=== PATIENT | female | born 1940 | race Caucasian/White ===

== ENCOUNTER 2016-06-12 14:38 | Inpatient (IN) | payer MEDICARE, MEDICAID ==
[~2016-06-12] VITALS: Ht 152.4 cm; Wt 110.2 kg
[~2016-06-12 14:38] MED LIST: ALBU8.5H2 IH; ASPI325T32 PO; ATOR20TA65 PO; BECL8.7A6 IH; CHOL100045 PO; FLUT12AE10 IH; LEVO112T4 PO; LISI-571 PO; MAGN400C PO; METF850T PO; METO25TA6 PO; MULT-1018 PO; TRIA1TAB2 PO; TRIAMCINOLONE 55 MCG
[2016-06-12 14:52] VITALS: BP 130/80; PULSE 66; RESP 22; O2SAT 99
--- NOTE | 2016-06-12 15:59 | ED.REPORT ---
HPI-General Illness Date of Service Jun 12, 2016 ED Provider: Zia Norwood MD 75 year old female with a history of CHF, CAD, CKD, IDDM, hypothyroidism, and [place] presents to the ER accompanied by her production administrative assistant referred by her PCP complaining of a week of worsening shortness of breath and lower extremity swelling. Associated rapid 40lb weight gain, and nausea. Patient denies chest pain, diaphoresis, fever, chills and vomiting. She states that symptoms onset a week after Dr. Wilde, Nephrology, took her off one of her medications. About a week ago she experienced an episode of nausea and mild back pain that "felt like a silent [place]". At that time she attempted to make an appointment with her health club attendant, Dr. Cooley, with no success. She also mentions a sore on the back of her left leg secondary to an encounter with a blackberry vine. Nursing Notes Stated Complaint: SHORT OF BREATH- SENT FROM NEPH Chief Complaint: General Complaint Nursing Notes Reviewed: Yes Allergies: Coded Allergies: Sulfa (Sulfonamide Antibiotics) (Verified Allergy, Severe, hives/SOB, ) TAPE (Verified Allergy, Severe, singh, 11/14/11) cephalexin (Verified Allergy, Severe, blurred vision, 06/12/16) spironolactone (Verified Allergy, Severe, "vision and dyspnea, 06/12/16) hydrocodone (Verified Allergy, Intermediate, Rash,Itching,, 06/12/16) hydrochlorothiazide (Verified Allergy, Mild, Rash,Itching,, 06/12/16) [place] (Verified Allergy, Unknown, 06/12/16) barley (Verified Allergy, Unknown, 06/12/16) Uncoded Allergies: grains (Allergy, Severe, asthma-like sx, 07/15/09) legumes (Allergy, Severe, asthma-like sx, 07/15/09) novacaine (Allergy, Severe, "drunk", 07/15/09) Scheduled Aspirin (Aspirin) 325 Mg Tablet 325 MG PO DAILY Cholecalciferol (Vitamin D3) (Vitamin D) 1,000 Unit Capsule 1,000 UNIT PO DAILY Furosemide (Furosemide) 20 Mg Tab 20 MG PO DAILY Glipizide ER (Glucotrol XL) 10 Mg Tablet 10 MG PO BID Insulin Glargine (Lantus U100 Solostar Insulin Pen) 100 Unit/1 Ml Insuln.pen 10 UNITS SUBQ HS Levothyroxine (Levothyroxine) 112 Mcg Tablet 112 MCG PO DAILY Multivitamin (Multi Vitamin Daily) 1 Each Tablet 1 EACH PO DAILY Pravastatin (Pravastatin) 20 Mg Tablet 20 MG PO DAILY Scheduled PRN Albuterol HFA (Proair HFA) 8.5 Gm Hfa.aer.ad 2 PUFFS IH Q4-6H PRN PRN asthma Albuterol Neb Soln (Albuterol Neb Soln) 2.5 Mg/3 Ml Vial.neb 1 VIAL INH q4-6 hours PRN PRN For Shortness of Breath Fluticasone Propionate (Flovent HFA 220 mcg) 12 Gm Aer.w.adap 1 PUFF IH BID PRN PRN For Shortness of Breath General Time Seen by MD: 15:26 Chief Complaint Other (SOB and Lower Extremity Swelling) Hx Obtained From: Patient Arrived By: Walk-in Sudden in Onset?: No Onset Occurred: 1 week ago Symptom Duration: Since onset Associated with: Denies: Chest pain, Diaphoresis Pertinent Negative: Pt denies other symptoms Context Related History: Reports Coronary artery disease, Reports Diabetes mellitus Recent Healthcare: Recent doctor visit Similar Sx Previous: Yes Past Medical History Past Medical History Notes: PCP: Dr. Buck Pharmacy Clerk: Dr. Cooley Past Medical History Previous [place] with stent Renal insufficiency Reports: Asthma, Cancer, Congestive heart failure, Diabetes mellitus, Hyperlipidemia, Hypertension Reports: Thyroid disease Past Surgical History Left sided lumpectomy with lymph node dissection Cardiac cath January 2012 after an [place] Stenting to the distal right coronary Family History Noncontributory Smoking History Never Smoker Social History Drug Use: Denies drug use Other Social History: Local resident Ambulatory Status Independent Review of Systems Full Review of Systems Constitutional: Denies: Chills, Fever Respiratory: Reports: Shortness of breath, Denies: Non-productive cough Cardiovascular: Denies: Chest pain GI: Reports: Nausea, Denies: Diarrhea, Vomiting Musculoskeletal: Reports: Back pain, Extremity swelling (Lower, bilateral) Skin: Denies Diaphoresis Complete sys rev & neg: except as marked. Physical Exam Vital Signs Vital Signs Date Time Temp Pulse Resp B/P Pulse Ox O2 Delivery O2 Flow Rate FiO2 06/12/16 18:28 90 24 126/71 96 Nasal Cannula 2 06/12/16 16:14 77 29 125/82 86 Room Air 06/12/16 14:52 36.7 66 22 130/80 99 Room Air Initial VS: Reviewed Head / Eyes: Atraumatic, Normocephalic Neck: Supple, Non-tender, Full range of motion Abdomen / GI: Soft, Non-tender, No guarding, No rebound, No distention Skin: Warm, Dry, No cyanosis Neurologic: Alert, Oriented, Nonfocal Respiratory / Chest: Breath sounds NL, No respiratory distress, No rales, No rhonchi, No wheezing Diminished Breath Sounds: Positive: Decreased bilateral Cardiovascular: No gallop, No murmurs, No rubs Heart Rate / Rhythm: Positive: Irregular rhythm Marked pitting edema of the lower extremities bilaterally, extending up to navel. Interpretation & Diagnostics Lab Results Interpretation Result Diagram: 06/12/16 1600 06/12/16 1600 Test 06/12/16 16:00 White Blood Count 6.9th/mm3 (3.8-10.1) Red Blood Count 5.22mil/mm3 (3.90-5.20) Hemoglobin 13.7g/dL (12.0-15.6) Hematocrit 42.7% (35.0-46.0) Mean Corpuscular Volume 81.8fL (81-100) Mean Corpuscular Hemoglobin 26.2pg (27.0-35.0) Mean Corpuscular Hemoglobin Concent 32.1% (32.0-37.0) Red Cell Distribution Width 18.7% (12.3-15.4) Platelet Count 265bil/L (150-400) Neutrophils (%) (Auto) 70.9% (40-74) Lymphocytes (%) (Auto) 10.9% (14-46) Monocytes (%) (Auto) 12.1% (4-12) Eosinophils (%) (Auto) 5.1% (0-5) Basophils (%) (Auto) 0.7% (0-3) Prothrombin Time 12.1sec (8.1-12.5) Prothromb Time International Ratio 1.13ratio Sodium Level 139mEq/L (134-144) Potassium Level 3.6mEq/L (3.5-5.2) Chloride Level 101mEq/L (97-108) Carbon Dioxide Level 21mmol/L (18-29) Blood Urea Nitrogen 59mg/dL (8-27) Creatinine 2.40mg/dL (0.57-1.00) Estimat Glomerular Filtration Rate 28mL/min (>59) Glucose Level 159mg/dL (60-99) Calcium Level 8.7mg/dL (8.5-10.1) Magnesium Level 1.9mg/dL (1.6-2.6) Total Bilirubin 0.7mg/dL (0.0-1.2) Aspartate Amino Transf (AST/SGOT) 33U/L (0-50) Alanine Aminotransferase (ALT/SGPT) 16U/L (0-32) Alkaline Phosphatase 110U/L (25-165) Troponin T 0.045ug/L (0.0-0.011) Pro-B-Type Natriuretic Peptide 73288up/mL (0-738) Total Protein 6.5g/dL (6.4-8.4) Albumin 2.9g/dL (3.4-5.0) Thyroid Stimulating Hormone (TSH) 3.070uIU/mL (0.450-4.500) ECG Interpretation ECG Interpretation: Irregular rhythm, rate 86 Occasional P waves present RBBB and LPFB No acute ST segment changes When compared to prior ECG 03/25/2015 no significant changes, however patient is no longer tachycardic. Time: 17:22 Interpreted by: ED physician X-Ray Chest Interpretation Chest Xray Interpretation: IMPRESSION: Small left pleural effusion and left basilar consolidation suggesting compressive atelectasis versus pneumonia. Correlate clinically. Continued radiographic surveillance to resolution is recommended. Dictated by: Elliot Velazquez RRA Interpreted: Drea Chance MD on 06/12/2016 at 17:03 Transcribed by: JOHNSON on 06/12/2016 at 17:04 View: Portable, 1 view Interpretation / Wet Read by: Interpret - Radiologist Re-Eval/Medical Decision Med Decision/Clinical Course 75 year old female with a history of CHF, CAD, CKD, IDDM, hypothyroidism, and [place] presents to the ER accompanied by her production administrative assistant referred by her PCP complaining of a week of worsening shortness of breath and lower extremity swelling. Associated rapid 40lb weight gain. Here in the emergency department the patient is afebrile with stable vital signs a moderately tachypneic. EKG was obtained and interpreted by myself as documented above. Chest x-ray was obtained as below: Small left pleural effusion and left basilar consolidation suggesting compressive atelectasis versus pneumonia. Correlate clinically. Continued radiographic surveillance to resolution is recommended. Laboratory studies notable as below: CBC normal CMP notable for: Creatinine 2.4 baseline BUN 59 baseline Trop 0.045 significantly elevated from baseline BNP [id number] significantly elevated from baseline Overall presentation was consistent with acute exacerbation of congestive heart failure as evidenced by shortness of breath, weight gain, lower extremity edema and elevated BNP. Of note troponin is also elevated though difficult to interpret in the setting of underlying renal disease. Presentation not classically suggestive of acute coronary syndrome and EKG does not demonstrate ST elevation [place]. Aspirin has been given and we will trend troponins. Patient was treated with 40 mg of IV Lasix. While patient's underlying renal function is poor it is currently at baseline and I feel that the benefits of diuresis outweigh the risks of associated kidney injury. Patient was discussed with admitting hospitalist and transferred for further management. Time of Eval: 15:30 Re-Evaluation/Progress Note: Discussed need for admission, patient is amenable to the plan. Consultation : Referral / Consult Name: Bobo Hampton MD Consulted With: Hospitalist Switchboard Manager: Agrees with eval, Agrees with plan, Accepts admit Counseled Regarding: Diagnosis, Lab results, Need for admission Discharge & Departure Primary Impression: CHF exacerbation Additional Impressions: Lower extremity edema Laterality: bilateral Qualified Code: R60.0 - Localized edema Weight gain Troponin level elevated Elevated brain natriuretic peptide (BNP) level Chronic kidney disease Chronic kidney disease stage: unspecified stage Qualified Code: N18.9 - Chronic kidney disease, unspecified Elevated serum creatinine Disposition: ADMITTED TO HOSPITAL Discharge Condition All VS Reviewed: Yes Condition: Stable Referrals: Bryant Muro (PCP) Renay Attestation Portions of this note were transcribed by Kt Grady. I, Dr. Norwood, personally performed the history, physical exam and medical decision-making; I reviewed and confirmed the accuracy of the information in the transcribed note. Signed by: Renay Low, 06/12/2016 and 18:58 copies to: Bryant Muro Beck O MD Jun 12, 2016 15:59 KT GRADY Jun 12, 2016 16:05
[2016-06-12] MEDS ORDERED: Alum-Mag Hydrox-Simeth 30 mL Suspension PO PRN ×2 (16:05→19:25)
[2016-06-12] MEDS ORDERED: Ondansetron 2 mg/mL 2 mL Inj IVPUSH PRN ×2 (16:05→19:25)
[2016-06-12] MEDS ORDERED: Furosemide 10 mg/mL 4 mL Inj IVPUSH ONE (16:05)
[2016-06-12 16:14] VITALS: BP 125/82; PULSE 77; RESP 29; O2SAT 86
[2016-06-12] MEDS ORDERED: GLIP10TA3 PO (16:29)
[2016-06-12] MEDS ORDERED: PRAV20TA2 PO (16:29)
[2016-06-12] MEDS ORDERED: INSU100I13 SUBQ (16:29)
[2016-06-12] MEDS ORDERED: ALBU2.5V4 INH (16:29)
[2016-06-12] MEDS ORDERED: FUR20 PO (16:29)
--- NOTE | 2016-06-12 17:04 | DRSVH ---
PROCEDURE: X-RAY CHEST ONE VIEW, PORTABLE ([id number]) INDICATIONS: SHORT OF BREATH TECHNIQUE: One view of the chest was acquired. COMPARISON: [facility], CT, CT ANGIO CHEST PE, 03/25/2015, 15:25. [facility] l, CR, CHEST 1VW (PORTABLE), 03/01/2014, 8:43. FINDINGS: Surgical changes and devices: Left breast surgical clips redemonstrated. Lungs and pleura: No pleural effusions or pneumothorax. Small left pleural effusion is present and left basilar consolidation. Right lung is clear.. Mediastinum: Mediastinal contours appear normal. Heart size is enlarged. Bones and chest wall: No suspicious bony lesions. Overlying soft tissues appear unremarkable. IMPRESSION: Small left pleural effusion and left basilar consolidation suggesting compressive atelect asis versus pneumonia. Correlate clinically. Continued radiographic surveillance to resolution is re commended. Dictated by: Elliot Velazquez RRA Interpreted: Drea Chance MD on 06/12/2016 at 17:03 Transcribed by: JOHNSON on 06/12/2016 at 17:04 Approved by: Drea Chance MD, PhD on 06/13/2016 at 11:01
[2016-06-12 17:51] LABS: BASOPHILS % (AUTO) 0.7 % (0-3); EOSINOPHILS % (AUTO) 5.1 % (0-5); MONOCYTES % (AUTO) 12.1 % (4-12); Mean Corpuscular Hemoglobin 26.2 pg (27.0-35.0); Mean Corpuscular Volume 81.8 fL (81-100); NEUTROPHILS % (AUTO) 70.9 % (40-74); Platelet Count 265 bil/L (150-400)
[2016-06-12 18:09] LABS: INR 1.13 ratio
[2016-06-12 18:28] VITALS: BP 126/71; PULSE 90; RESP 24; O2SAT 96
[2016-06-12 18:33] LABS: Magnesium 1.9 mg/dL (1.6-2.6)
[2016-06-12 18:44] LABS: TROPONIN T 0.045 ug/L (0.0-0.011)
[2016-06-12] MEDS ORDERED: Senna-Docusate 8.6-50 mg Tablet PO PRN (19:25)
[2016-06-12] MEDS ORDERED: Polyethylene Glycol (PEG) 17 Gm Powder PO PRN (19:25)
[2016-06-12] MEDS: Furosemide 10 mg/mL 4 mL Inj IVPUSH SCH (20:30)
[2016-06-12 20:40] LABS: APPEARANCE,URINE CLEAR (CLEAR,HAZY); COLOR,URINE YELLOW (YELLOW); PH,URINE 5.5 (5.0-8.0)
[2016-06-12 20:41] LABS: OCCULT BLOOD,URINE TRACE (NEGATIVE); UROBILINOGEN,URINE NORMAL (NORMAL)
[2016-06-12] MEDS ORDERED: Glucose 40% Oral Gel 15 Gm Tube PO PRN (20:55)
--- NOTE | 2016-06-12 21:07 | PCM.HPMED ---
Subjective Date of Service Jun 12, 2016 Primary Provider: Admitting Physician: Geoffrey Medina Primary Care Physician: Bryant Muro Attending Physician: Geoffrey Medina Admit Status: From the Emergency Department, Full Admit, Remote Telemetry Chief Complaint: Worsening leg swelling and shortness of breathe History of Present Illness: Nalini Moon is a 75 year old female with Congestive heart failure, Coronary artery disease, Chronic Kidney disease, IDDM, hypothyroidism and Breast cancer in remission who presents to [facility] Emergency department accompanied by her carpet installer referred by her PCP complaining of a week of worsening shortness of breath and lower extremity swelling. Patient has been having progressively worsening dyspnea on exertion for about a week. Associated rapid 40lb weight gain with leg edema doubling in size in less than 2 days, and nausea. Patient denies chest pain, diaphoresis, fever, chills and vomiting. She states that symptoms onset a week after Dr. Wilde, Nephrology, took her off of her diuretics due to worsening kidney function. About a week ago she experienced an episode of nausea and mild back pain that "felt like a silent [place]". At that time she attempted to make an appointment with her software systems architect, Dr. Cooley, with no success. She also mentions a sore on the back of her left leg secondary to an encounter with a blackberry vine. Case discussed with Dr Norwood, diuretic initiated but patient still symptomatic and will be admitted for further treatments Review of Systems: Pertinent positives as noted in HPI. All other systems were reviewed and are negative Allergies Coded Allergies: Sulfa (Sulfonamide Antibiotics) (Verified Allergy, Severe, hives/SOB, ) TAPE (Verified Allergy, Severe, singh, 11/14/11) cephalexin (Verified Allergy, Severe, blurred vision, 06/12/16) spironolactone (Verified Allergy, Severe, "vision and dyspnea, 06/12/16) hydrocodone (Verified Allergy, Intermediate, Rash,Itching,, 06/12/16) hydrochlorothiazide (Verified Allergy, Mild, Rash,Itching,, 06/12/16) [place] (Verified Allergy, Unknown, 06/12/16) barley (Verified Allergy, Unknown, 06/12/16) Uncoded Allergies: grains (Allergy, Severe, asthma-like sx, 07/15/09) legumes (Allergy, Severe, asthma-like sx, 07/15/09) novacaine (Allergy, Severe, "drunk", 07/15/09) Home Medications Nalini MoonLloyd [id number] 1940 06/12/2016 01:40 PM Page: 04/13 albuterol sulfate 2.5 mg/0.5 mL solution for nebulization inhale 1 vial by inhalation route every 4 - 6 hours as needed for asthma aspirin 325 mg tablet,delayed release take 1 tablet by oral route every day BD Ultra-Fine [place] 32 gauge x 5/32" to use with the Lantus Solostar Flovent HFA 220 mcg/actuation aerosol inhaler inhale 1 puff by inhalation route 2 times every day Glucotrol XL 10 mg tablet,extended release take 1 tablet (10MG) by ORAL route 2 times every day with meals for diabetes LANTUS SOLOSTAR INJ YULY INJECT 10 UNITS SUBCUTANEOUSLY ONCE DAILY AT BEDTIME. Lantus Solostar 100 unit/mL (3 mL) subcutaneous insulin pen inject 10units by subcutaneous route once daily at bedtime levothyroxine 112 mcg tablet take 1 tablet (112MCG) by ORAL route every day for thyroid. metoprolol tartrate 25 mg tablet take 1 tablet by oral route 2 times every day for heart minocycline 100 mg capsule take 1 capsule by oral route every 12 hours Multiple Vitamin Tab take 1 tablet by ORAL route every day with food pravastatin 20 mg tablet take 1 tablet by oral route every day ProAir HFA 90 mcg/actuation aerosol inhaler inhale 2 puff by inhalation route every 4 - 6 hours as needed Vitamin D3 1,000 unit capsule take 1 Tablet by Oral route every day PMH Diabetes mellitus Hypertension stage IIA left-sided breast cancer, T1 N1a M0, who had an ER positive, HER-2 negative tumor in 2009 and underwent lumpectomy with sentinel node examination, followed by adjuvant chemotherapy as part of enrollment in a [facility] clinical trial that used Taxol back in a dose dense fashion x4 cycles every two weeks as single agent chemotherapy. The patient then was treated with standard adjuvant breast radiation, followed by adjuvant hormonal therapy with anastrozole that she took for five years and came off of that in February 2016. Ischemic Cardiomyopathy EF 40-45% Asthma Mitral regurgitation Hypertension Tricuspid regurgitation Pulmonary hypertension, secondary RBBB Chronic renal insufficiency, stage 4 Hypothyroidism Diabetes type 2 . Surgical History Appendectomy Bilateral tubal ligation Cataract extraction Tonsillectomy Lumpectomy Cardiac cath s/p STEFANY to distal segment of RCA Family History coronary artery disease Father had Diabetes Mother had Stroke, Alzheimer Social History Hx Alcohol Use: No Hx Substance Use: No Hx Tobacco Use: No Smoking Status: Never Smoker Living Arrangement: Alone (with son living in a trailer next to her house) Exam Vital Signs Vital Sign - Last Date Time Temp Pulse Resp B/P Pulse Ox O2 Delivery O2 Flow Rate FiO2 06/12/16 18:28 90 24 126/71 96 Nasal Cannula 2 06/12/16 14:52 36.7 Exam General: Alert, Oriented X3, Cooperative, No acute Distress. Talking in full sentences Eyes: PERRLA, Scleral Anicteric Mouth: Mouth Normal, Mucous Membranes Moist/[place] Neck: Supple, no Thyromegaly, trachea central. Chest & Lungs: decreased breathe sounds at bases Cardiovascular: Normal S1, Normal S2, No Murmurs/Rubs/Gallops, Regular Rate/ Rhythm, (No JVD, 3+ peripheral edema) Pulses: Radial (present and equal), Dorsalis Pedi (present and equal) Abdomen: Soft, Non-tender, Non-distended, Normoactive bowel tones. Musculoskeletal: Unremarkable. Normal range of motion, no swollen or erythematous joints Extremities: 3+ pitting leg edema, no cyanosis, no clubbing. Skin: No rashes. Warm and dry, no erythematous areas Neurological: Grossly neurologically intact, Normal Speech, Sensation Intact Lymphatic: Lymph nodes Cervical and Axillary not palpable. Lab and Diagnostics Labs Laboratory Tests Test 06/12/16 16:00 White Blood Count 6.9th/mm3 (3.8-10.1) Red Blood Count 5.22mil/mm3 (3.90-5.20) Hemoglobin 13.7g/dL (12.0-15.6) Hematocrit 42.7% (35.0-46.0) Mean Corpuscular Volume 81.8fL (81-100) Mean Corpuscular Hemoglobin 26.2pg (27.0-35.0) Mean Corpuscular Hemoglobin Concent 32.1% (32.0-37.0) Red Cell Distribution Width 18.7% (12.3-15.4) Platelet Count 265bil/L (150-400) Neutrophils (%) (Auto) 70.9% (40-74) Lymphocytes (%) (Auto) 10.9% (14-46) Monocytes (%) (Auto) 12.1% (4-12) Eosinophils (%) (Auto) 5.1% (0-5) Basophils (%) (Auto) 0.7% (0-3) Prothrombin Time 12.1sec (8.1-12.5) Prothromb Time International Ratio 1.13ratio Sodium Level 139mEq/L (134-144) Potassium Level 3.6mEq/L (3.5-5.2) Chloride Level 101mEq/L (97-108) Carbon Dioxide Level 21mmol/L (18-29) Blood Urea Nitrogen 59mg/dL (8-27) Creatinine 2.40mg/dL (0.57-1.00) Estimat Glomerular Filtration Rate 28mL/min (>59) Glucose Level 159mg/dL (60-99) Calcium Level 8.7mg/dL (8.5-10.1) Magnesium Level 1.9mg/dL (1.6-2.6) Total Bilirubin 0.7mg/dL (0.0-1.2) Aspartate Amino Transf (AST/SGOT) 33U/L (0-50) Alanine Aminotransferase (ALT/SGPT) 16U/L (0-32) Alkaline Phosphatase 110U/L (25-165) Troponin T 0.045ug/L (0.0-0.011) Pro-B-Type Natriuretic Peptide 15125pt/mL (0-738) Total Protein 6.5g/dL (6.4-8.4) Albumin 2.9g/dL (3.4-5.0) Result Diagram: 06/12/16 1600 06/12/16 1600 X-Rays, CTs and MRIs X-RAY CHEST ONE VIEW, PORTABLE 06/12/16 IMPRESSION: Small left pleural effusion and left basilar consolidation suggesting compressive atelectasis versus pneumonia. Correlate clinically. Continued radiographic surveillance to resolution is recommended. Dictated by: Elliot DOUGLAS Interpreted: Drea Chance MD on 06/12/2016 at 17:03 Transcribed by: JOHNSON on 06/12/2016 at 17:04 Assessment & Plan Nalini Moon is a 75 year old female with Congestive heart failure, Coronary artery disease, Chronic Kidney disease, IDDM, hypothyroidism and Breast cancer in remission who presents to [facility] Emergency department accompanied by her carpet installer referred by her PCP complaining of a week of worsening shortness of breath and lower extremity swelling 1. Acute on chronic systolic Congestive Heart Failure. Present on admission Trigger likely due to patient holding diuretics. No infections identified with no Urinary tract infections or pneumonia. Patient reported compliance with her low sodium diet stating she has no salt in the house and keep track of the sodium contents in her food. - monitor on telemetry - diuretic therapy with Lasix 40 mg IV bid - monitor weight and fluids status - complete echo tomorrow 2. Acute on Chronic Kidney disease. Present on admission Chronic disease related to Hypertensive Nephrosclerosis and Diabetic nephropathy. Acute issue could be related to poor renal perfusion due to decreased cardiac output due to congestive heart failure. Last Cr 2.04 (05/07/16) - avoid nephrotoxic insults in hospital - monitor urine output 3. Elevated troponin. Present on admission Due to demand ischemia from congestive heart failure. Despite risk factors I feel she does not have Non ST elevation [place] - trending troponin overnight - EKG if angina present - no indications for anticoagulation - Aspirin continued 4 Diabetes Type 2 - low correction Lispro algorithm - continue Lantus 10 units HS - holding Glucotrol XL 5 Hypertension presumed stable - continue Metoprolol 25 mg bid 6 Asthma. Chronic Presumed stable with no wheezing - continue Albuterol and Flovent inhalers 7 Hypothyroidism - continue Synthroid 112 mcg daily 8 Dyslipidemia - continue Pravastatin 20 mg daily - Acetaminophen as needed for mild pain/fever/headache - Bowel regimen as needed - Antiemetic as needed Patient admitted under inpatient status with expected length of stay > 2 midnights for severity of present symptoms, complexities of treatment plan and risk for adverse event . Resuscitation Status: CPR: Attempt Resuscitation Bobo Hampton MD Jun 12, 2016 19:36
[2016-06-12 21:15] VITALS: BP 126/88; PULSE 90; RESP 18; O2SAT 96
[2016-06-12] MEDS: Insulin LISPRO 300 Unit/3 mL Inj SUBQ SCH (22:00)
[2016-06-13] VITALS (8 sets, daily range): BP systolic 96–133; BP diastolic 53–80; PULSE 49–90; RESP 18–20; O2SAT 94–97
[2016-06-13] MEDS: Heparin 5,000 Unit/mL Inj SUBQ SCH ×2 (01:06→07:44)
[2016-06-13] MEDS: Sodium Chloride LOK Flush 10 mL Syringe IVFLUSH SCH ×3 (01:06→16:38)
[2016-06-13 05:19] LABS: TROPONIN T 0.046 ug/L (0.0-0.011)
--- NOTE | 2016-06-13 06:38 | NUR ---
Admit to room 3009 @ 20:15 with CHF Exacerbation. VSS O2 sat upper 80's on RA desat'ting on ambulation, applied 2l with extension for ambulation to BR. Severely edematious LE with several healing scabs from walking into thorny bushes. A&O x3 however pt indicates when wearing O2 mental clarity returns to baseline. Refusing SCD's, up 1pa fww to BR. Oriented to room and poc on whiteboard. Bedalarm and non-slip socks on for safety.
--- NOTE | 2016-06-13 06:43 | NUR ---
Med Rec completed in ED, patient does not have med list to confirm. Will pass on to dayshift for fax to pharmacy or to ask family to bring in list.
[2016-06-13] MEDS ORDERED: Fluticasone 250 mCg Inhaler INHALATION PRN (06:50)
[2016-06-13] MEDS: Insulin LISPRO 300 Unit/3 mL Inj SUBQ SCH ×4 (07:42→20:36)
[2016-06-13] MEDS: Furosemide 10 mg/mL 4 mL Inj IVPUSH SCH (07:43)
[2016-06-13] MEDS ORDERED: Heparin 25K Unit/500mL 0.45 NS 25,000 UNIT in IV Premix 1 EACH IV SCH (09:10)
[2016-06-13] MEDS ORDERED: Heparin 5,000 Unit/mL Inj IVPUSH ONE (09:10)
[2016-06-13] MEDS ORDERED: Heparin 5,000 Unit/mL Inj IVPUSH PRN (09:10)
[2016-06-13 09:36] LABS: Creatine Kinase 51 U/L (21-215)
--- NOTE | 2016-06-13 10:13 | PCM.PNMED ---
Subjective Date of Service Jun 13, 2016 Subjective Nalini Moon is a 75 year old female with Congestive heart failure, Ischemic CM, CAD, CKD, IDDM, hypothyroidism and Breast cancer in remission who presents for SOB and rapid weight gain. This morning, she reports continued SOB and HAYNES. She has some mild increase in resp effort, but denies any CP, dizziness, or n/v. She reports that her LLE wound has been increasingly tender and red. She thinks it has not been improving due to her edema. She is planned for an echo this morning. Exam Vital Signs Vital Sign - Last Date Time Temp Pulse Resp B/P Pulse Ox O2 Delivery O2 Flow Rate FiO2 06/13/16 04:22 88 06/13/16 03:40 114/53 06/13/16 02:39 36.6 18 94 Room Air 06/12/16 18:28 2 Intake and Output 06/12/16 06/12/16 06/13/16 Cumulative From/Thru 15:00 23:00 07:00 06/12/16 14:52 - 06/13/16 06:38 Intake Total 200 ml 200 ml Output Total 800 ml 800 ml Balance -600 ml -600 ml Intake Oral 200 ml 200 ml Output Urine Total 800 ml 800 ml # Voids 1 1 # Bowel Movements 0 0 Exam General: Alert, Oriented X3, Cooperative. Obese female laying at about 40 degrees, No acute Distress. Talking in full sentences Eyes: PERRLA, Scleral Anicteric Mouth: Mouth Normal, Mucous Membranes Moist/[place] Neck: Supple, no Thyromegaly, trachea central. Resp: Mild increase in effort, no accessory muscle usage, Mild wheezing with wet crackles up to 2/3 of lungs bilaterally. Cardiovascular: Irregularly Irregular with systolic murmur. JVD noted to angle of jaw. Pulses: Radial (present and equal), Dorsalis Pedi (present and equal) Abdomen: Soft, Obese, Non-tender, Non-distended, Normoactive bowel tones. Musculoskeletal: MS grossly intact, no tender joints. Extremities: 3+ pitting leg edema up to bilateral thighs, no cyanosis, no clubbing. Approximately 4x2cm irregular wound on left medial calf with half covered by scab. Moderately tender to touch with mild surrounding erythema. Skin: Warm and dry Neurological: Grossly neurologically intact, Normal Speech, Sensation Intact Lymphatic: Lymph nodes Cervical and Axillary not palpable. IVs and Medications Medications Reviewed: Medications were reviewed in detail Lab and Diagnostics Result Diagram: 06/12/16 1600 06/13/16 0330 X-Rays, CTs and MRIs X-RAY CHEST ONE VIEW, PORTABLE 06/12/16 IMPRESSION: Small left pleural effusion and left basilar consolidation suggesting compressive atelectasis versus pneumonia. Correlate clinically. Continued radiographic surveillance to resolution is recommended. Dictated by: Elliot Velazquez RRA Interpreted: Drea Chance MD on 06/12/2016 at 17:03 Transcribed by: JOHNSON on 06/12/2016 at 17:04 Cardiac Echo Impressions EKG at 0900: Atrial Fibrillation with rate in the 80s and old RBBB with PVCs, QTC of 506 Assessment & Plan Nalini Moon is a 75 year old female with Congestive heart failure, Ischemic CM, CAD, Chronic Kidney disease, IDDM, hypothyroidism and Breast cancer in remission who presents to [facility] Emergency department accompanied by her advertising editor referred by her PCP complaining of a week of worsening shortness of breath and lower extremity swelling 1. Acute on chronic systolic Congestive Heart Failure. Present on admission Patient reported compliance with her low sodium diet stating she has no salt in the house and keep track of the sodium contents in her food. She reports compliance with her medications. Thinks this may have been due to her Lasix being held secondary to her worsening CKD, but she reports the weight gain and SOB was pretty abrupt, over a 24 hour period. She is noted to be in Afib also. - monitor on telemetry - diuretic therapy with Lasix 40 mg IV bid, may need to increase frequency depending on response - monitor I/Os closely - complete echo pending 2. Acute on Chronic Kidney disease. Present on admission Chronic disease related to Hypertensive Nephrosclerosis and Diabetic nephropathy. Acute issue could be related to poor renal perfusion due to decreased cardiac output due to congestive heart failure. Last Cr 2.04 (05/07/16) - avoid nephrotoxic insults in hospital - monitor urine output - A nephrology consult was placed by admitting team 3. Elevated troponin. Present on admission Likely due to demand ischemia from CHF and Afib, but patient has not had any elevated Troponins recently and did complain of some chest pressure yesterday in the outpt setting. Her EKG this morning did show Atrial Fib, but this may be associated with the CHF. Initially did order Heparin gtt, but patient continued to be asymptomatic and troponins have been stable with normal CK-MB. Will hold off on Heparin and await Echo instead. - Troponin 0.045, 0.046. CK-MB 4.0 - EKG if angina present, Anticoagulate if appropriate - Full dose Aspirin continued 4 Diabetes Type 2, uncontrolled, POA - low correction Lispro algorithm - continue Lantus 10 units HS - holding Glucotrol XL - May need to titrate HS Lantus 5 Hypertension, chronic presumed stable - continue Metoprolol 25 mg bid 6 Asthma. Chronic, POA Presumed stable with no wheezing - continue Albuterol and Flovent inhalers 7 Hypothyroidism, POA - continue Synthroid 112 mcg daily 8 Dyslipidemia, POA - continue Pravastatin 20 mg daily 9. LLE wound, POA Due to injury from blackStreamup peguero about 2 weeks ago, has not improved and has been more tender. Concerns for cellulitis in this uncontrolled diabetic. May also be delayed healing from her peripheral edema. -Wound consult pending 10. BMI 46.9 Will likely require specialized bed - Acetaminophen as needed for mild pain/fever/headache - Bowel regimen as needed - Antiemetic as needed Patient admitted under inpatient status with expected length of stay > 2 midnights for severity of present symptoms, complexities of treatment plan and risk for adverse event . Pain Evaluation: Adequate Pain Control VTE Prophylaxis: Sub-Q Heparin (Unfractionated), SCDs Resuscitation Status: CPR: Attempt Resuscitation Time spent 30 minutes Attending Statement I have seen and evaluated patient at bedside in addition to directly supervising care provided by resident physician. I agree with above documentation. Alin Montes DO Jun 13, 2016 07:50 Orlando Gleason DO Jun 13, 2016 14:05
--- NOTE | 2016-06-13 14:53 | DRSVH ---
[facility] [address] [place] [address] Echocardiogram Report Name: CAITLIN DELGADO Date: 06/13/2016 Height: 60 in Hospital Exam Location: [facility] Weight: 240 lb Gender: Female BSA: 2.0 m2 : 1940 Age: 75 yrs BP: 114/53 mmHg Reason For Study: HEART FAILURE Ordering Physician: Performed By: Jw Pfeiffer Interpretation Summary 1) Normal left ventricular thickness and size with severely reduced systolic function (EF 25-30%). 2) Global hypokinesis, which is worse in the proximal to mid inferior wall. 3) Moderately dilated right ventricle with moderately reduced function. 4) Moderate to severe tricuspid regurgitation present. 5) Right sided pleural effusion present. 6) Mild pulmonary hypertension present, estimated systolic function pressure of 33 plus CVP 7) Compared to the Echo done 11/02/2013, LV function has decreased from 40-45% to 25-30% on today's study. Procedure: A two-dimensional transthoracic echocardiogram with color flow and Doppler was performed. The study quality was technically adequate. Comparison is made with the echocardiogram of 11/02/13. The subcostal views were difficult to obtain and are suboptimal in quality. The suprasternal notch views were difficult to obtain and are suboptimal in quality. The patient was in normal sinus rhythm during the exam. The patient had frequent PACs during the exam. Left Ventricle: The left ventricle is normal in size. There is normal left ventricular wall thickness. There is no thrombus. The ejection fraction is estimated to be 25-30%. Left ventricular systolic function is severely reduced. Flattened septum is consistent with RV volume overload. Global hypokinesis, which is worse in the proximal to mid inferior wall. Right Ventricle: The right ventricle is moderately dilated. Right ventricular systolic function is moderately reduced. Atria: Both atria are severely dilated. The interatrial septum is intact with no evidence for an atrial septal defect. Mitral Valve: There is moderate mitral annular calcification. The mitral valve leaflets are slightly calcified. There is mild mitral regurgitation. Aortic Valve: The aortic valve is mildly calcified. There is no aortic stenosis. No aortic regurgitation is present. Tricuspid Valve: The tricuspid valve is normal in structure and function. There is moderate to severe tricuspid regurgitation. Right ventricular systolic pressure is estimated to be 33 mmHg plus the clinically estimated CVP which cannot be estimated on this exam. Pulmonic Valve: The pulmonic valve is not well visualized. There is trace pulmonic regurgitation. Great Vessels: The aortic root is normal size. The dimensions of the ascending aorta are normal. The pulmonary artery is normal size. The inferior vena cava was not well visualized. Pericardium/ Pleura There is no pericardial effusion. There is a small right-sided pleural effusion. MMode/2D Measurements & Calculations LVIDd: 5.3 cm LA dimension: 4.2 cm RA long axis: 6.1 cm LVOT diam LVIDs: 3.9 cm FS: 26.8 % LA A2 area: 26.5 cm RA area: 28.8 cm AoV Opening EPSS: 1.3 cm LA A4 area: 23.6 cm RA vol: 116.5 ml IVSd: 0.96 cm LA length (vol): 5.8 cm RA : 57.8 ml/m2 Ao root diam LVPWd: 0.89 cm LA vol: 92.0 ml LA vol index Aortic Jxn : 45.6 ml/m2 asc Aorta Diam: 2.9 cm EDV(MOD-sp2) LV marti. diameter/BSA LV sys. diameter/BSA RVD1 (basal) : 155.6 ml (cm/m^2): 2.6 (cm/m^2): 1.9 : 4.8 cm RVD2 (mid) : 4.7 cm Doppler Measurements & Calculations Ao V2 max: 105.1 cm/secMV E max maninder MV E/A: 0.79 TR max maninder Ao max P.4 mmHg : 71.0 cm/sec Med Peak E' Maninder : 287.0 cm/sec Ao mean P.9 mmHg MV A max maninder TR max PG LVOT Max Maninder : 89.5 cm/sec E/E' med: 13.9 : 33.0 mmHg : 69.2 cm/sec MV A dur: 0.11 secPA V2 max : 51.0 cm/sec SHERYL(I,D): 2.3 cm PA mean PG sev ratio: 0.72 : 0.64 mmHg PA Accel Time : 0.11 sec MV dec time: 0.18 sec Ao V2 mean LV V1 max PG PA V2 mean : 82.3 cm/sec : 39.1 cm/sec Ao V2 VTI LV V1 VTI: 11.9 cmPA pr(Accel) : 26.6 mmHg SHERYL(V,D): 2.1 cm2 SHERYL indexed to BSA (cm^2/m^2): 1.1 Reading Physician:02:51 PM
--- NOTE | 2016-06-13 15:53 | NUR ---
Social Work-initial assessment: Data:See initial assessment. Pt is a 75 y/o female who was admitted on 06/12/16 for CHF exacerbation per H&P. Pt's insurance is [employer] and PCP Is Dr. Rudy MD. EMR Reviewed. SW met with pt at bedside to discuss discharge planning ,SW role explained. Pt is alert and oriented x3. Pt reside at home alone, son on same property where she remains independent with basic ADLS. Pt uses a fww at baseline and does drive. Pt has no HH or SNF history. Pt has no long term care administrator care or VA benefits. SW discussed DPOA/advanced directive, pt states she has completed this, SW encouraged a copy to be brought into the hospital. Pt states that her friend Josefina Diaz [phone] or friend Patrick [phone] have been helping her out at home. Pt would benefit from PT evaluation. SW to follow for HH vs SNF needs. SW provided phone number and plan on white board in room. Pt's friends to provide transport.SW will continue to follow. Assessment:Home with HH vs SNF. Plan:Pt to either discharge home with HH vs SNF.Pt would benefit from PT evaluation. SW will continue to follow. JACI Thompson Addendum: 06/13/16 at 1557 by EVERETT RAMIREZ SS Amended: Links added.
--- NOTE | 2016-06-13 16:16 | NUR ---
Wound care Wound evaluation order received, patient seen at bedside. Nalini Moon is a 75 year old female with Congestive heart failure, Ischemic CM, CAD, CKD, IDDM, hypothyroidism and Breast cancer in remission who presents for SOB and rapid weight gain. She presents with a left posterior calf wound that is 4 cm L x 1.5 cm W x 0.3 cm D. Wound is covered with a dry eschar and is with minimal erythema, no tunneling or undermining, no odor. both lower extremities are edematous. Wound was cleaned with hydrogen peroxide and mechanically debrided with a #10 blade. Redressed this wound with hydrogel and adhesive foam dressing. Will recheck on this patient tomorrow.
[2016-06-13] MEDS: Furosemide 10 mg/mL 10 mL Inj IVPUSH SCH (16:38)
--- NOTE | 2016-06-13 17:11 | NUR ---
Fluid balance Nephrology consult. Oral diuretic. IV Lasix Q12. Daily wts. 1PA with walker into BR. SOB with activity. 2 L O2 via NC.
--- NOTE | 2016-06-13 17:43 | NUR ---
Trapeze handle set in place, tolerating well
--- NOTE | 2016-06-13 18:46 | CONS ---
[address] [address] CONSULTATION REPORT PATIENT: CAITLIN DELGADO : 1940 MR#: [id number] ADMIT: 06/12/2016 JOB ID: [id number] DATE OF SERVICE: 06/13/2016 REQUESTING PHYSICIAN: Dr. Gleason REASON FOR CONSULTATION: Management of abnormal kidney function. CHIEF COMPLAINT: Shortness of breath and worsening lower extremity swelling. PRESENT ILLNESS: This is a 75-year-old lady with significant past medical history of chronic kidney disease, stage 4, hypertension, dyslipidemia, ischemic cardiomyopathy, valvular heart disease, hypothyroid, coronary artery disease, left breast cancer status post lumpectomy and chemoradiation who presented to the ED due to shortness of breath and worsening lower extremity swelling. The patient was seen by me yesterday from the nephrology clinic. She has had worsening shortness of breath, gaining weight at least 40 pounds. We have resumed diuretics, however, it has not improved the fluid retention. At the clinic, her oxygen saturation was 88% on room air. I then sent her directly to the emergency department for further investigation. To clarify regarding her diuretics, I initially saw the patient in February 2016. Later on, she had a followup with me on April 27, 2016. We took her off diuretics, Lasix 20 mg daily. Subsequently, she saw me again on May 11, 2016. She already had gained weight. I did resume her diuretics and actually offered to increase the dosage. She insisted that she would like to take the 20 mg once a day only. The patient returned back to my clinic a month later even though we told her to come back two weeks after the diuretic had resumed. She had agreed to come to the hospital for further investigation since she now has a CHF exacerbation. Her initial serum creatinine was 2.4, currently is down to 2.25. Her ProBNP was 11,647. The repeat echocardiogram was done today and showed ejection fraction 25-30%. Previous ejection fraction was 40%-45%. It shows global hypokinesia, severe tricuspid regurgitation, moderately dilated right ventricle with moderately reduced function. Estimated systolic function pressure of 33+ CVP. PAST MEDICAL HISTORY: 1. Chronic kidney disease, stage 4. 2. Ischemic cardiomyopathy. 3. Hypertension. 4. Stage IIA left-sided breast cancer. 5. Valvular heart disease. 6. Hypertension. 7. Hypothyroidism. 8. Type 2 diabetes. PAST SURGICAL HISTORY: 1. Status post lumpectomy for the left breast cancer. 2. Appendectomy. 3. Cataract extraction. 4. Bilateral tubal ligation. 5. Cardiac cath status post drug-eluting stent placement to the RCA. FAMILY HISTORY: Positive for coronary artery disease, diabetes, stroke and Alzheimer's in the family. SOCIAL HISTORY: Patient denies current use of alcohol, tobacco, illicit drugs. REVIEW OF SYSTEMS: Fourteen point review of system was performed. ALLERGIES: 1. SULFA. 2. TAPE. 3. LOPES. 4. CEPHALEXIN. 5. GRAINS. 6. HYDROCHLOROTHIAZIDE. 7. HYDROCODONE. 8. NOVOCAIN. 9. SPIRONOLACTONE. 10. RYE. PHYSICAL EXAMINATION: Vitals: Temperature 36.2, pulse 81, respiratory rate 20, blood pressure 113/69, O2 sat 96% on room air. General appearance: Awake, alert, oriented x3. Tachypneic, somewhat improved from yesterday. HEENT: Mild pallor. No anicteric sclerae. Positive for JVD. Atraumatic. Moist mucous membranes. Heart: Regular rhythm. Normal S1, S2. Systolic murmur noted. Lungs: Rales at the bases. Abdomen: Soft, active bowel sounds. Obese. Extremity: 3+ edema. LABORATORY: Sodium 139, potassium 4.0, chloride 102, bicarb 19, BUN 57, creatinine 2.25, glucose 177, troponin 0.040, BNP 20,052, LDL 62, HDL 56. ASSESSMENT: 1. Acute kidney injury on chronic kidney disease secondary to cardiorenal syndrome. 2. Acute on chronic systolic heart failure. 3. Elevated serum troponin in the setting of acute kidney injury. 4. Type 2 diabetes. PLAN: 1. I will increase the diuretic dosage to 80 mg twice a day and add one dose of metolazone 5 mg times once a day. 2. Patient will be on a low salt diet and we will monitor her volume status on a daily basis. No other dialysis indicated at this moment. Thank you for the consultation. We will monitor along with you. [facility]IT[facility]auren
[2016-06-13] MEDS: Insulin GLARgine 100 Unit/mL Syringe SUBQ SCH (20:36)
[2016-06-14] VITALS (8 sets, daily range): BP systolic 115–132; BP diastolic 67–88; PULSE 51–97; RESP 18–22; O2SAT 88–97
[2016-06-14] MEDS: Fluticasone 0.05% 15 Spray/2 Gm 16 Gm Nasal Spray NASAL SCH ×3 (00:05→20:17)
[2016-06-14] MEDS: Sodium Chloride LOK Flush 10 mL Syringe IVFLUSH SCH ×4 (00:07→20:30)
--- NOTE | 2016-06-14 01:19 | NUR ---
15 Beats Vtach @01:15 notified.
[2016-06-14 02:19] LABS: Magnesium 1.7 mg/dL (1.6-2.6)
[2016-06-14] MEDS ORDERED: Potassium Chloride 20 mEq SR Tablet PO ONE (04:05)
[2016-06-14] MEDS: Furosemide 10 mg/mL 10 mL Inj IVPUSH SCH ×2 (04:33→16:35)
[2016-06-14 06:44] LABS: BASOPHILS % (AUTO) 0.9 % (0-3); EOSINOPHILS % (AUTO) 5.3 % (0-5); MONOCYTES % (AUTO) 12.7 % (4-12); Mean Corpuscular Hemoglobin 25.5 pg (27.0-35.0); Mean Corpuscular Volume 82.5 fL (81-100); NEUTROPHILS % (AUTO) 70.3 % (40-74); Platelet Count 300 bil/L (150-400)
[2016-06-14] MEDS: Insulin LISPRO 300 Unit/3 mL Inj SUBQ SCH ×4 (07:28→22:54)
[2016-06-14] MEDS ORDERED: Nitrofurantoin Monohyd-Macrocryst 100 mg Capsule PO SCH (09:45)
--- NOTE | 2016-06-14 09:57 | PCM.PNMED ---
Subjective Date of Service Jun 14, 2016 Subjective Had 15 beats of VT overnight, but was asymptomatic. This morning, she still feels SOB, but denies any CP or fevers. She reports she has been urinating very frequently. She did receive some Potassium supplementation this morning that briefly made her nauseous. Exam Vital Signs Vital Sign - Last Date Time Temp Pulse Resp B/P Pulse Ox O2 Delivery O2 Flow Rate FiO2 06/14/16 05:28 36.6 82 18 132/72 97 Nasal Cannula 2.00 Intake and Output 06/13/16 06/13/16 06/14/16 Cumulative From/Thru 15:00 23:00 07:00 06/12/16 14:52 - 06/14/16 06:27 Intake Total 900 ml 600 ml 1700 ml Output Total 2400 ml 3800 ml 7000 ml Balance -1500 ml -3200 ml -5300 ml Intake Oral 900 ml 600 ml 1700 ml Output Urine Total 2400 ml 3800 ml 7000 ml # Voids 1 # Bowel Movements 1 0 1 Exam General: Alert, Oriented X3, Cooperative. Obese female laying flat in No acute Distress. Talking in full sentences Eyes: PERRLA, Scleral Anicteric Mouth: Mouth Normal, Mucous Membranes Moist/[place] Resp: Mild increase in effort, no accessory muscle usage, Mild wheezing with some mild bibasilar rales Cardiovascular: RRR with soft systolic murmur Abdomen: Soft, Obese, Non-tender, Non-distended, Normoactive bowel tones. Musculoskeletal: MS grossly intact, no tender joints. Extremities: 2+ pitting leg edema up to bilateral knees, no cyanosis, no clubbing. Approximately 4x2cm irregular wound on left medial calf covered in gel and occlusive bandaging. Mild erythema and not tender to palpation today. Skin: Warm and dry Neurological: Grossly neurologically intact, Normal Speech, Sensation Intact IVs and Medications Medications Reviewed: Medications were reviewed in detail Lab and Diagnostics Result Diagram: 06/12/16 1600 06/14/16 0128 X-Rays, CTs and MRIs X-RAY CHEST ONE VIEW, PORTABLE 06/12/16 IMPRESSION: Small left pleural effusion and left basilar consolidation suggesting compressive atelectasis versus pneumonia. Correlate clinically. Continued radiographic surveillance to resolution is recommended. Dictated by: Elliot DOUGLAS Interpreted: Drea Chance MD on 06/12/2016 at 17:03 Transcribed by: JOHNSON on 06/12/2016 at 17:04 Cardiac Echo Impressions EKG at 0900: Atrial Fibrillation with rate in the 80s and old RBBB with PVCs, QTC of 506 Assessment & Plan Nalini Moon is a 75 year old female with Congestive heart failure, Ischemic CM, CAD, Chronic Kidney disease, IDDM, hypothyroidism and Breast cancer in remission who presents to [facility] Emergency department accompanied by her torque tester referred by her PCP complaining of a week of worsening shortness of breath and lower extremity swelling 1. Acute on chronic systolic Congestive Heart Failure. Present on admission Patient reported compliance with her low sodium diet stating she has no salt in the house and keep track of the sodium contents in her food. She reports compliance with her medications. Thinks this may have been due to her Lasix being held secondary to her worsening CKD, but she reports the weight gain and SOB was pretty abrupt. She is noted to be in Afib also. - monitor on telemetry - had an episode of 15 beats fo VT on morning of 06/14. Asymptomatic. Also had some PSVT episodes while agitated per report from nursing staff. - Continue diuretic therapy as recommended by Nephrology - monitor I/Os closely - complete echo: LVEF decreased to 25-30% with worsening global hypokinesis - Plan to consult Cardiology for further recs 2. Acute on Chronic Kidney disease. Present on admission Chronic disease related to Hypertensive Nephrosclerosis, Diabetic nephropathy, and cardiorenal syndrom. Acute issue could be related to poor renal perfusion due to decreased cardiac output due to congestive heart failure. Last Cr 2.04 () - avoid nephrotoxic insults in hospital - monitor urine output - Nephrology recs: Lasix 80 mg twice a day and one dose of metolazone 5 mg times given - Appreciate Nephrology consult and input. - Will plan to initiate ACEi and BB prior to discharge for maximal medical therapy. 3. Elevated troponin. Present on admission Likely due to demand ischemia from CHF and Afib, but patient has not had any elevated Troponins recently and did complain of some chest pressure yesterday in the outpt setting. Her EKG this morning did show Atrial Fib, but this may be associated with the CHF. Initially did order Heparin gtt, but patient continued to be asymptomatic and troponins have been stable with normal CK-MB. Will hold off on Heparin and await Echo instead. - Troponin 0.045, 0.046. CK-MB 4.0 - EKG if angina present, Anticoagulate if appropriate - Full dose Aspirin continued 4 Diabetes Type 2, uncontrolled, POA - low correction Lispro algorithm - continue Lantus 10 units HS - holding Glucotrol XL - May need to titrate HS Lantus 5 Hypertension, chronic presumed stable - continue Metoprolol 25 mg bid 6 Asthma. Chronic, POA Presumed stable with no wheezing - continue Albuterol and Flovent inhalers 7 Hypothyroidism, POA - continue Synthroid 112 mcg daily 8 Dyslipidemia, POA - continue Pravastatin 20 mg daily 9. LLE wound, POA Due to injury from blackberry peguero about 2 weeks ago, has not improved and has been more tender. -Wound care following patient. Wound debrided and covered in clean dressing, Klebsiella Oxytoca UTI Patient's UA grew out Klebsiella. Patient has chronic urinary frequency from her Lasix, but hasn't noted any dysuria or suprapubic pressure. Will plan to tx with Abx if develops symptoms. BMI 46.9 Will likely require specialized bed - Acetaminophen as needed for mild pain/fever/headache - Bowel regimen as needed - Antiemetic as needed Dispo: Likely discharge in 1-2 days if medically stable. Pain Evaluation: Adequate Pain Control VTE Prophylaxis: Sub-Q Heparin (Unfractionated), SCDs Resuscitation Status: CPR: Attempt Resuscitation Time spent 25 minutes Attending Statement I have seen and evaluated patient at bedside in addition to directly supervising care provided by resident physician. I agree with above documentation. Alin Montes DO Jun 14, 2016 06:39 Orlando Gleason DO Jun 15, 2016 07:47
--- NOTE | 2016-06-14 10:08 | PCM.PNNEPH ---
Subjective Date of Service Jun 14, 2016 Subjective She is feeling better today, has less LE swelling, remains winded but improved. responding well with IV lasix. Exam Vital Signs Vital Sign - Last Date Time Temp Pulse Resp B/P Pulse Ox O2 Delivery O2 Flow Rate FiO2 06/14/16 07:36 Supplement Oxygen 06/14/16 06:59 91 06/14/16 05:28 36.6 18 132/72 97 2.00 Intake and Output 06/13/16 06/13/16 06/14/16 Cumulative From/Thru 15:00 23:00 07:00 06/12/16 14:52 - 06/14/16 06:27 Intake Total 900 ml 600 ml 1700 ml Output Total 2400 ml 3800 ml 7000 ml Balance -1500 ml -3200 ml -5300 ml Intake Oral 900 ml 600 ml 1700 ml Output Urine Total 2400 ml 3800 ml 7000 ml # Voids 1 # Bowel Movements 1 0 1 Exam General appearance: Awake, alert, oriented x3. Tachypneic, somewhat improved from yesterday. HEENT: Mild pallor. No anicteric sclerae. Positive for JVD. Atraumatic. Moist mucous membranes. Heart: Regular rhythm. Normal S1, S2. Systolic murmur noted. Lungs: Rales at the bases, expiratory wheezing noted. Abdomen: Soft, active bowel sounds. Obese. Extremity: 3+ edema. Lab and Diagnostics Result Diagram: 06/14/16 0606/14/16 06 X-Rays, CTs and MRIs X-RAY CHEST ONE VIEW, PORTABLE 06/12/16 IMPRESSION: Small left pleural effusion and left basilar consolidation suggesting compressive atelectasis versus pneumonia. Correlate clinically. Continued radiographic surveillance to resolution is recommended. Dictated by: Elliot Velazquez RRA Interpreted: Drea Chance MD on 06/12/2016 at 17:03 Transcribed by: JOHNSON on 06/12/2016 at 17:04 Cardiac Echo Impressions EKG at 0900: Atrial Fibrillation with rate in the 80s and old RBBB with PVCs, QTC of 506 Plan Impression 1. Acute kidney injury on chronic kidney disease secondary to cardiorenal syndrome. 2. Acute on chronic systolic heart failure. 3. Elevated serum troponin in the setting of acute kidney injury. 4. Diuretic induced hypokalemia PLAN: 1. continue IV lasix 80 mg BID. 2. will give one more dose of KCL solution 40 meq. 3. repeat BMP, Mg, PO4 in am. Lv Sun MD Jun 14, 2016 10:08
--- NOTE | 2016-06-14 10:24 | NUR ---
PSVT Upset demeanor with morning exam. Tele calling at that time reporting PSVT for several consecutive seconds. Provider notified and printed strip placed in chart for review when rounding. Tele monitoring continues at this time.
[2016-06-14] MEDS ORDERED: Potassium Chloride 20 mEq/15 mL 15mL Oral Soln PO ONE (12:00)
--- NOTE | 2016-06-14 17:01 | NUR ---
Wound Care Pt seen for wound care this afternoon, left posterior calf wound has not changed dimensionally but wound base is no longer dark necrotic eschar, now it is more of a fibrin base, this was selectively debride with a #10 blade and redressed with hydrogel and adhesive foam dressing. Will reassess wound tomorrow, stable and without signs of infection at this time.
--- NOTE | 2016-06-14 18:10 | NUR ---
Oxygen SOB with exertion and stated some dizziness. Observed mouth breathing, educated on pursed lip breathing, requires reinforcement. O2 sats on RA 91%, 1L NC in place at this time. Using SBA to minimal assist to BR with FWW and non skid socks.
[2016-06-14] MEDS: Insulin GLARgine 100 Unit/mL Syringe SUBQ SCH (21:00)
[2016-06-15] VITALS (8 sets, daily range): BP systolic 102–114; BP diastolic 62–72; PULSE 51–83; RESP 20–24; O2SAT 91–95
[2016-06-15] MEDS: Furosemide 10 mg/mL 10 mL Inj IVPUSH SCH (04:11)
--- NOTE | 2016-06-15 05:07 | NUR ---
Activity Pt cooperative with cares, educated about medications when she asked. Pt alert and oriented x4, left room with call light at bedside.
[2016-06-15 06:33] LABS: BASOPHILS % (AUTO) 1.1 % (0-3); EOSINOPHILS % (AUTO) 4.1 % (0-5); MONOCYTES % (AUTO) 12.5 % (4-12); Mean Corpuscular Hemoglobin 25.4 pg (27.0-35.0); Mean Corpuscular Volume 82.3 fL (81-100); NEUTROPHILS % (AUTO) 72.7 % (40-74); Platelet Count 273 bil/L (150-400)
[2016-06-15 07:10] LABS: Magnesium 1.6 mg/dL (1.6-2.6); Phosphorus 4.7 mg/dL (2.5-4.9)
[2016-06-15] MEDS: Insulin LISPRO 300 Unit/3 mL Inj SUBQ SCH ×4 (08:00→22:35)
[2016-06-15] MEDS: Heparin 5,000 Unit/mL Inj SUBQ SCH ×2 (09:09→16:37)
[2016-06-15] MEDS: Fluticasone 0.05% 15 Spray/2 Gm 16 Gm Nasal Spray NASAL SCH ×2 (09:09→20:30)
[2016-06-15] MEDS: Sodium Chloride LOK Flush 10 mL Syringe IVFLUSH SCH ×2 (09:11→16:33)
[2016-06-15] MEDS: MeTOProlol XL 25 mg ER24 Tablet PO SCH (09:14)
[2016-06-15] MEDS: Nystatin 100,000 Unit/Gm 15 Gm Powder TOPICAL SCH ×2 (10:00→20:30)
--- NOTE | 2016-06-15 10:50 | PCM.PNNEPH ---
Subjective Date of Service Jun 15, 2016 Subjective She has lost almost 10 kgs, feeling better. Refused to take lisinopril this morning given low BP. Serum creatinine slightly trended up. Exam Vital Signs Vital Sign - Last Date Time Temp Pulse Resp B/P Pulse Ox O2 Delivery O2 Flow Rate FiO2 06/15/16 09:30 Supplement Oxygen 06/15/16 08:59 36.0 65 22 103/66 94 2.00 Intake and Output 06/14/16 06/14/16 06/15/16 Cumulative From/Thru 15:00 23:00 07:00 06/12/16 14:52 - 06/15/16 06:39 Intake Total 1720 ml 500 ml 3920 ml Output Total 1100 ml 700 ml 8800 ml Balance 620 ml -200 ml -4880 ml Intake Oral 1720 ml 500 ml 3920 ml Output Urine Total 1100 ml 700 ml 8800 ml # Voids 1 # Bowel Movements 1 2 Exam General appearance: Awake, alert, oriented x3. HEENT: Mild pallor. No anicteric sclerae. Positive for JVD. Atraumatic. Moist mucous membranes. Heart: Regular rhythm. Normal S1, S2. Systolic murmur noted. Lungs: Rales at the bases,no rhonchi, no wheezing. Abdomen: Soft, active bowel sounds. Obese. Extremity: 2+ edema. Lab and Diagnostics Result Diagram: 06/15/16 0603 06/15/16 0603 X-Rays, CTs and MRIs X-RAY CHEST ONE VIEW, PORTABLE 06/12/16 IMPRESSION: Small left pleural effusion and left basilar consolidation suggesting compressive atelectasis versus pneumonia. Correlate clinically. Continued radiographic surveillance to resolution is recommended. Dictated by: Elliot Velazquez RR Interpreted: Drea Chance MD on 06/12/2016 at 17:03 Transcribed by: JOHNSON on 06/12/2016 at 17:04 Cardiac Echo Impressions EKG at 0900: Atrial Fibrillation with rate in the 80s and old RBBB with PVCs, QTC of 506 Plan Impression 1. Acute kidney injury on chronic kidney disease secondary to cardiorenal syndrome. 2. Acute on chronic systolic heart failure. 3. Elevated serum troponin in the setting of acute kidney injury. 4. Diuretic induced hypokalemia PLAN: 1. Agreed with primary team to decrease lasix dosage to 40 mg IV Q 12hr. 2. hold lisinopril, add aldactone 25 mg daily. 3. Repeat BMP, Mg, PO4 in am. Lv Sun MD Jun 15, 2016 10:50
[2016-06-15] MEDS: Potassium Chloride 20 mEq SR Tablet PO SCH (13:39)
--- NOTE | 2016-06-15 13:40 | DRSVH ---
PROCEDURE: X-RAY CHEST ONE VIEW, PORTABLE ([id number]) INDICATIONS: CONGESTIVE HEART FAILURE TECHNIQUE: One view of the chest was acquired. COMPARISON: [facility], CR, XR CHEST 1VW (PORTABLE), 06/12/2016, 16:11. FINDINGS: Surgical changes and devices: Left breast surgical clips redemonstrated. Lungs and pleura: Small left pleural effusion and left basilar consolidation. Right lung is clear. No pneumothorax. Mediastinum: Mediastinal contours appear normal. Heart size is enlarged. Bones and chest wall: No suspicious bony lesions. Overlying soft tissues appear unremarkable. IMPRESSION: Small left pleural effusion and left basilar air space opacity suspicious for pneumonia. Dictated by: Elliot Velazquez RRA Interpreted: Sheyla Sahni MD on 06/15/2016 at 13:39 Transcribed by: JACKI on 06/15/2016 at 13:40 Approved by: Sheyla Sahni M.D. on 06/15/2016 at 20:53
--- NOTE | 2016-06-15 14:33 | PCM.PNMED ---
Subjective Date of Service Jun 15, 2016 Subjective Nalini reports she is still mildly SOB at rest still. She also gets a bit dizzy with exertion. Has not had any CP, fevers, diarrhea, or urinary complaints other than frequency. Exam Vital Signs Vital Sign - Last Date Time Temp Pulse Resp B/P Pulse Ox O2 Delivery O2 Flow Rate FiO2 06/15/16 13:33 35.8 80 24 113/70 94 Nasal Cannula 2.00 Intake and Output 06/14/16 06/14/16 06/15/16 Cumulative From/Thru 15:00 23:00 07:00 06/12/16 14:52 - 06/15/16 06:39 Intake Total 1720 ml 500 ml 3920 ml Output Total 1100 ml 700 ml 8800 ml Balance 620 ml -200 ml -4880 ml Intake Oral 1720 ml 500 ml 3920 ml Output Urine Total 1100 ml 700 ml 8800 ml # Voids 1 # Bowel Movements 1 2 Exam General: Alert, Oriented X3, Cooperative. Obese female laying flat in No acute Distress. Talking in full sentences Eyes: PERRLA, Scleral Anicteric Mouth: Mouth Normal, Mucous Membranes Moist/[place] Resp: Mild increase in effort, no accessory muscle usage, some mild bibasilar rales Cardiovascular: RRR with soft systolic murmur Abdomen: Soft, Obese, Non-tender, Non-distended, Normoactive bowel tones. Musculoskeletal: MS grossly intact, no tender joints. Extremities: 2+ pitting leg edema up to mid shins, no cyanosis, no clubbing. Approximately 4x2cm irregular wound on left medial calf covered in gel and occlusive bandaging. Skin: Warm and dry Neurological: Grossly neurologically intact, Normal Speech, Sensation Intact IVs and Medications Medications Reviewed: Medications were reviewed in detail Lab and Diagnostics Result Diagram: 06/15/1603 06/15/16 06 X-Rays, CTs and MRIs X-RAY CHEST ONE VIEW, PORTABLE 06/12/16 IMPRESSION: Small left pleural effusion and left basilar consolidation suggesting compressive atelectasis versus pneumonia. Correlate clinically. Continued radiographic surveillance to resolution is recommended. Dictated by: Elliot DOUGLAS Interpreted: Drea Chance MD on 06/12/2016 at 17:03 Transcribed by: JOHNSON on 06/12/2016 at 17:04 Cardiac Echo Impressions EKG at 0900: Atrial Fibrillation with rate in the 80s and old RBBB with PVCs, QTC of 506 Assessment & Plan Nalini Moon is a 75 year old female with Congestive heart failure, Ischemic CM, CAD, Chronic Kidney disease, IDDM, hypothyroidism and Breast cancer in remission who presents to [facility] Emergency department accompanied by her radiotelegrapher referred by her PCP complaining of a week of worsening shortness of breath and lower extremity swelling 1. Acute on chronic systolic Congestive Heart Failure. Present on admission Patient reported compliance with her low sodium diet stating she has no salt in the house and keep track of the sodium contents in her food. She reports compliance with her medications. Thinks this may have been due to her Lasix being held secondary to her worsening CKD, but she reports the weight gain and SOB was pretty abrupt. She is noted to be in Afib also. - monitor on telemetry - had an episode of 15 beats fo VT on morning of 06/14. Asymptomatic. Also had some PSVT episodes while agitated per report from nursing staff. - Continue diuretic therapy as recommended by Nephrology - monitor I/Os closely - Has lost almost 10kgs since admission - complete echo: LVEF decreased to 25-30% with worsening global hypokinesis - Plan to consult Cardiology for further recs 2. Acute on Chronic Kidney disease. Present on admission Chronic disease related to Hypertensive Nephrosclerosis, Diabetic nephropathy, and cardiorenal syndrom. Acute issue could be related to poor renal perfusion due to decreased cardiac output due to congestive heart failure. Last Cr 2.04 () - avoid nephrotoxic insults in hospital - monitor urine output - Appreciate Nephrology consult and input. - Patient refused Lisinopril due to low blood pressure. Will also decrease IV Lasix to 40mg BID 3. Elevated troponin. Present on admission Likely due to demand ischemia from CHF and Afib, but patient has not had any elevated Troponins recently and did complain of some chest pressure yesterday in the outpt setting. Her EKG this morning did show Atrial Fib, but this may be associated with the CHF. Initially did order Heparin gtt, but patient continued to be asymptomatic and troponins have been stable with normal CK-MB. Will hold off on Heparin and await Echo instead. - Troponin 0.045, 0.046. CK-MB 4.0 - EKG if angina present, Anticoagulate if appropriate - Full dose Aspirin continued 4 Diabetes Type 2, uncontrolled, POA - low correction Lispro algorithm - continue Lantus 10 units HS - holding Glucotrol XL - May need to titrate HS Lantus 5 Hypertension, chronic presumed stable - continue Metoprolol 25 mg bid 6 Asthma. Chronic, POA Presumed stable with no wheezing - continue Albuterol and Flovent inhalers 7 Hypothyroidism, POA - continue Synthroid 112 mcg daily 8 Dyslipidemia, POA - continue Pravastatin 20 mg daily 9. LLE wound, POA Due to injury from blackberry peguero about 2 weeks ago, has not improved and has been more tender. -Wound care following patient. Wound debrided and covered in clean dressing, Klebsiella Oxytoca UTI Patient's UA grew out Klebsiella. Patient has chronic urinary frequency from her Lasix, but hasn't noted any dysuria or suprapubic pressure. Will plan to tx with Abx if develops symptoms. BMI 46.9 Will likely require specialized bed - Acetaminophen as needed for mild pain/fever/headache - Bowel regimen as needed - Antiemetic as needed Dispo: Likely discharge in 1-2 days if medically stable. Pain Evaluation: Adequate Pain Control VTE Prophylaxis: Sub-Q Heparin (Unfractionated), SCDs Resuscitation Status: CPR: Attempt Resuscitation Time spent 30 minutes Attending Statement I have seen and evaluated patient at bedside in addition to directly supervising care provided by resident physician. I agree with above documentation. Alin Montes DO Jun 15, 2016 14:03 Orlando Gleason DO Jun 16, 2016 15:32
--- NOTE | 2016-06-15 15:40 | NUR ---
Social Work: Continued Discharge Planning Data & Assessment: Tc Operator met with patient at bedside to discuss discharge planning and provided patient with a choice list. Patient stated that she wants to discuss options with her family and will notify social media job titles once a choice is made. SW will follow-up with patient on tomorrow. Plan: Patient will likely discharge to SNF once a choice is made. SW will continue to follow and assist patient throughout stay. Carleen Marvin LMSW, TOY
--- NOTE | 2016-06-15 16:01 | NUR ---
Wound Care Pt seen at bedside for wound care. Left posterior and lateral calf wound continues to improve, minimal debridement needed today to remove loose slough from wound bed. Wound dimensions left posterior calf wound that is 3.5 cm L x 1.2 cm W x 0.3 cm D. redressed with hydrogel and adhesive foam dressing, nursing to change dressings this weekend, daily and wound care to reassess Sunday 06/18.
[2016-06-15] MEDS: Furosemide 10 mg/mL 4 mL Inj IVPUSH SCH (16:32)
--- NOTE | 2016-06-15 17:34 | NUR ---
Urine: Patient stated that she has had chronic Cystitis several times. She states that it is 'Burning when she urinates". When patient urinated in her toilet hat the urine was [place] tinged. MD was notified and urine specimen was sent to the lab.Patients Ailin area was cleansed well and patted dry.
--- NOTE | 2016-06-15 17:36 | NUR ---
Yeast rash: Patients Panus area,belly button and klever area are all red and excoriated and very odoriferous.. Received order for nystatin powder. All the areas were cleansed with soapy water and patted dry and the nystatin powder was applied as ordered which provided quick relief for patient.
--- NOTE | 2016-06-15 18:46 | CONS ---
[address] [address] CONSULTATION REPORT PATIENT: CAITLIN DELGADO : 1940 MR#: [id number] ADMIT: 06/12/2016 JOB ID: [id number] DATE OF SERVICE: 06/15/2016 CARDIOLOGY CONSULTATION: REASON FOR CONSULTATION: I have been asked by the hospitalist team to see the patient for evaluation of progressive anasarca and severe biventricular heart failure in the setting of known ischemic heart disease. HISTORY OF PRESENT ILLNESS: The patient states that in general, she was doing fairly well over the last year. She lives in [place] home [place], where she lived with her male partner who this past year. She has been able to get around and do all of her usual activities, however has been aware of increased exertional dyspnea over the past six months. She states that in the fall she had evidence of increased cough and sputum production that seemed to go away with antibiotics prescribed by her wire tinner for some eye infection, but subsequently her cough and sputum production resumed over the winter months and seem to have persisted over the last several months with a tannish sputum production. She has been followed closely by Dr. Sun in nephrology who notes at her April visit that the patient had complained of cough and sputum production as well as intermittent fevers. During her followups with Dr. Sun she was felt possibly to be dehydrated because of a slight rise in her creatinine and her low-dose furosemide was discontinued at that point, but on her followup visit April 27 of this year she was complaining of increasing edema and dyspnea and her diuretic was restarted. Her weight when she was seen April 27 was 198 pounds. She presented for followup to Dr. Sun's clinic on June 12 weighing 240 pounds with symptoms of markedly progressive dyspnea and edema and was hospitalized at that point. Since hospitalization she has diuresed approximately 10 kg or 20 pounds. She states that she is feeling better but appears moderately dyspneic at rest in bed to me today and continues to have evidence of prominent anasarca. Her laboratory evaluation is notable for stable renal function with a creatinine of around 2.3-2.4. Troponin levels are persistently mildly elevated, consistent with her chronic renal insufficiency. This patient's cardiac history dates back to her presentation with an acute inferior myocardial infarction in January 2012. Her cardiac catheterization at that time was notable for mild atherosclerosis of her LAD and circumflex without major obstructive lesions and an occluded mid right coronary artery with large amount of intraluminal thrombus. She underwent angioplasty and stenting with a 3 x 28 mm drug-coated stent following mechanical thrombectomy. The patient was noted to have basal inferior wall hypokinesis with an ejection fraction of around 40% to 45% at the time. At the time of her followup with Dr. Cooley in March 2015 an echocardiogram demonstrated an ejection fraction of around 40% to 45% with an inferior wall motion abnormality and a normal appearing right ventricle. Because of symptoms of persistent dyspnea she was sent to the emergency department. In the emergency department she had a high-resolution CT scan to exclude pulmonary emboli. This reported evidence of abnormal lymphadenopathy in her mediastinum with the recommendation for repeat study in three months' time. This was subsequently lost in followup. There was also an indication of "right heart failure" likely related to reflux of contrast into the hepatic veins suggesting significant elevation in right-sided filling pressures. That was her last cardiac followup. MEDICATIONS: At the time of her hospitalization and her most recent followup visit with Dr. Sun included aspirin 325 mg a day and furosemide 20 mg daily. Pravastatin 20 mg daily, which is a change from atorvastatin at low dose which she did not tolerate because of gastrointestinal upset. She is on chronic levothyroxine at 112 mcg per day in addition to insulin and glipizide for her diabetes. PAST MEDICAL HISTORY: Significant for chronic kidney disease, the etiology of which presumably is diabetic. She has a history remotely of polio as a young adult. She has a history of breast cancer of the left breast for which she underwent lumpectomy. This was in 2009 and she subsequently underwent adjuvant chemotherapy with Taxol as a single chemotherapeutic agent and I believe she had radiation therapy as well. She has a history of chronic renal insufficiency with creatinines averaging around 1.3-1.5 which has gradually declined over the past year, so therefore her followup with Nephrology. FAMILY HISTORY: Otherwise noncontributory. SOCIAL HISTORY: Again notable for an adopted son who lives in a trailer next to her house. [place], in a home that she states is over 100 years old, and has been generally able to get by and do her usual daily activities, though her history is a bit tangential and she has some somewhat odd ideas about a number of her medications and so forth. 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 PHYSICAL EXAMINATION: She is a pleasant cooperative 75-year-old female lying in bed, appearing moderately tachypneic, but offering up no significant current complaints. HEENT: Unremarkable. She has prominent jugular venous distention with the jugular venous pulse visible at the bottom earlobe with her sitting bolt upright. She has evidence of consolidation at the left lung base with egophony and decreased breath sounds, as well as increased tympany. Her right lung skinner sounds fairly clear. Cardiac auscultation is notable for a split 2nd heart sound. She has occasional to frequent PACs. I do not hear a significant cardiac murmur. She has thickening and some discoloration over her left breast in the area of previous radiation and some chronic edema in that area. She has she is morbidly obese, with prominent abdominal obesity, with pitting edema up to her upper abdomen and lower chest. She has chronic brawny edema involving both lower extremities and feet, and probably still has a good 40 pounds of edema fluid notable. Se has a Band-Aid over the medial aspect of her left ankle presumably from a superficial ulceration. LABORATORY DATA: Laboratory work is notable again for BNP which is elevated and significant chronic renal insufficiency. EKG shows a left posterior hemiblock and a right bundle branch block. She has a normal sinus rhythm with frequent PACs. Chest x-ray shows a large left lower lung infiltrate with consolidation and/or pleural effusion. The pulmonary arteries are moderately enlarged. I do not see any evidence of pulmonary edema or pulmonary congestion. Echocardiogram I reviewed personally demonstrates evidence of severe left ventricular systolic dysfunction with an ejection fraction in the range of 25%. She has some degree of paradoxical interventricular septal motion with flattening of the septum suggesting elevated right-sided pressures. Her right ventricle is enlarged and significantly hypokinetic as well. She has inferior wall akinesis related to her remote inferior infarction. She has a mild amount of aortic sclerosis and mitral annular calcification. IMPRESSION: The patient presents with a rapid accumulation of over 40 pounds of edema fluid with evidence of right heart failure. I would recommend a high-resolution CT scan to make sure that there is no evidence of pulmonary emboli as a cause of her right heart failure. It seems a bit unlikely that she has significant biventricular failure based on ischemic heart disease, though that can be looked at a little bit later. I am also concerned regarding her history of mediastinal adenopathy at the time of her is a scan back in March 2015, and that can be reevaluated with a chest CT scan as well. The CT scan may give us an indication as to the nature of her left lower extremity effusion and I would want to make sure that there is no evidence of malignancy causing the persistent post-obstruction pneumonia. I agree with high-dose diuretic therapy as directed by Dr. Sun, and again she has got quite a bit of fluid to lose before she should be discharged. I will be happy to leave further recommendations after a high-resolution CT scan. Consideration may need to be given to overnight oximetry to make sure she does not have nocturnal hypoxemia as a cause of her previously documented pulmonary hypertension and right heart failure. I am going to recommend that she get started up on beta sourav therapy. I would start with metoprolol succinate 25 mg b.i.d. and increase the dose as tolerated. I look forward to following up on this patient and will follow up over the weekend.
[2016-06-15] MEDS: Insulin GLARgine 100 Unit/mL Syringe SUBQ SCH (21:00)
--- NOTE | 2016-06-15 21:23 | DRSVH ---
PROCEDURE: CT CHEST WITHOUT CONTRAST ([id number]) INDICATIONS: sob TECHNIQUE: Noncontrast 5 mm thick sections acquired from the pulmonary apices to the posterior costophrenic angl es. 7 mm thick coronal and sagittal MIP reformats were then acquired. For radiation dose reduction, the following was used: automated exposure control, adjustment of mA and/or kV according to patient size. COMPARISON: None. FINDINGS: Image quality: Excellent. Lungs and pleura: The there are small bilateral low density pleural effusions, greater on the left th an on the right. There is compressive atelectasis at the left lung base. Mild interlobular septal thi ckening is present throughout the aerated lung suggesting a component of pulmonary edema. Mediastinum: Heart size is markedly enlarged. There is a trace pericardial effusion. No mediastinal adenopathy by size criteria. Thoracic aorta and central pulmonary arteries are normal in size. Scat tered atheromatous calcifications are present within the aortic arch. Esophagus is normal in caliber . No hiatal hernia. Bones and chest wall: Patient is status post left lumpectomy. No suspicious bony lesions. No verteb ral body compression fractures. No axillary or supraclavicular adenopathy by size criteria. Thyroid gland is partially visualized and is unremarkable. Abdomen: Visualized upper abdominal solid organs and bowel loops appear normal in the absence of con trast. IMPRESSION: 1. Small pleural effusions, slightly greater on the left. 2. Left basilar compressive atelectasis versus consolidation in the setting of aspiration/infection. 3. Marked cardiomegaly and trace pericardial effusion. Dictated by: Afshan Bryan M.D. on 06/15/2016 at 21:18 Approved by: Afshan Bryan M.D. on 06/15/2016 at 21:22
[2016-06-16] VITALS (9 sets, daily range): BP systolic 96–116; BP diastolic 44–72; PULSE 51–96; RESP 19–22; O2SAT 93–96
--- NOTE | 2016-06-16 00:14 | NUR ---
refused meds Pt refused Mag supplement and Nystatin cream. Pt very tired and asked to have them later. Will continue to monitor.
[2016-06-16] MEDS: Heparin 5,000 Unit/mL Inj SUBQ SCH ×3 (01:11→18:09)
[2016-06-16] MEDS: Sodium Chloride LOK Flush 10 mL Syringe IVFLUSH SCH ×3 (01:12→18:09)
[2016-06-16] MEDS: Furosemide 10 mg/mL 4 mL Inj IVPUSH SCH (03:58)
[2016-06-16 07:19] LABS: BASOPHILS % (AUTO) 0.9 % (0-3); EOSINOPHILS % (AUTO) 4.7 % (0-5); MONOCYTES % (AUTO) 11.6 % (4-12); Mean Corpuscular Hemoglobin 25.4 pg (27.0-35.0); Mean Corpuscular Volume 82.2 fL (81-100); NEUTROPHILS % (AUTO) 73.8 % (40-74); Platelet Count 272 bil/L (150-400)
[2016-06-16] MEDS: Insulin LISPRO 300 Unit/3 mL Inj SUBQ SCH ×4 (08:00→21:30)
[2016-06-16] MEDS: Fluticasone 0.05% 15 Spray/2 Gm 16 Gm Nasal Spray NASAL SCH ×2 (08:30→20:05)
[2016-06-16] MEDS: Potassium Chloride 20 mEq SR Tablet PO SCH (08:46)
[2016-06-16] MEDS: MeTOProlol XL 25 mg ER24 Tablet PO SCH (08:46)
[2016-06-16] MEDS: Nystatin 100,000 Unit/Gm 15 Gm Powder TOPICAL SCH ×2 (08:48→20:22)
--- NOTE | 2016-06-16 12:14 | PCM.PNNEPH ---
Subjective Date of Service Jun 16, 2016 Subjective feeling dizzy, less LE swelling. Serum creatinine trended up. Exam Vital Signs Vital Sign - Last Date Time Temp Pulse Resp B/P Pulse Ox O2 Delivery O2 Flow Rate FiO2 06/16/16 10:00 36.6 75 19 96/60 96 Nasal Cannula 2.50 Intake and Output 06/15/16 06/15/16 06/16/16 Cumulative From/Thru 15:00 23:00 07:00 06/12/16 14:52 - 06/16/16 06:51 Intake Total 672 ml 700 ml 5292 ml Output Total 700 ml 800 ml 70454 ml Balance -28 ml -100 ml -5008 ml Intake Oral 672 ml 700 ml 5292 ml Output Urine Total 700 ml 800 ml 23421 ml # Voids 1 # Bowel Movements 1 1 4 Exam General appearance: Awake, alert, oriented x3. HEENT: Mild pallor. No anicteric sclerae. Positive for JVD. Atraumatic. Moist mucous membranes. Heart: Regular rhythm. Normal S1, S2. Systolic murmur noted. Lungs: Rales at the bases,no rhonchi, (+) wheezing. Abdomen: Soft, active bowel sounds. Obese. Extremity: 2+ edema. Lab and Diagnostics Result Diagram: 06/16/16 0635 06/16/16 0635 X-Rays, CTs and MRIs X-RAY CHEST ONE VIEW, PORTABLE 06/12/16 IMPRESSION: Small left pleural effusion and left basilar consolidation suggesting compressive atelectasis versus pneumonia. Correlate clinically. Continued radiographic surveillance to resolution is recommended. Dictated by: Elliot Velazquez RRA Interpreted: Drea Chance MD on 06/12/2016 at 17:03 Transcribed by: JOHNSON on 06/12/2016 at 17:04 Cardiac Echo Impressions EKG at 0900: Atrial Fibrillation with rate in the 80s and old RBBB with PVCs, QTC of 506 Plan Impression 1. Acute kidney injury on chronic kidney disease secondary to cardiorenal syndrome. now c/o dizziness, serum creatinine is trending up. 2. Acute on chronic systolic heart failure. 3. Elevated serum troponin in the setting of acute kidney injury. 4. Diuretic induced hypokalemia PLAN: 1. d/c IV lasix. 2. start torsemide in am. 3. continue aldactone. 4. BMP, Mg in am. Plan Ananthapanyasut,Wanwarat MD Jun 16, 2016 12:14
--- NOTE | 2016-06-16 12:57 | NUR ---
Social work: Continued Discharge Planning Data & Assessment: cannery worker met with patient to discuss discharge planning and get a choice for SNF. Patient stated that she is not making a choice on where she will discharge right now. Patient states that her son is coming later next week and she will talk with him at that time about where she will discharge to. patient states that she does not like nursing homes and may jut go home with someone. Patient requested that SW not lolis her son. SW will continue to follow and assist patient throughout stay. Plan: Patient will either discharge home with HH or SNF. SW will continue to follow and assist throughout stay. pamela Marvin, MICHEL, ACM
--- NOTE | 2016-06-16 13:42 | PCM.PNMED ---
Subjective Date of Service Jun 16, 2016 Subjective Nalini Moon is a 75 year old female with congestive heart failure, Ischemic CM, CAD, Chronic Kidney disease, IDDM, hypothyroidism and Breast cancer under treatment for CHF exacerbation and cardiorenal syndrome. Hospital day #5 Overnight: No acute events. Today: She states she feels better but does complain about having to urinate a lot. She denies any chest pain but does note some dizziness. Remainder of ROS is negative except as noted above. Exam Vital Signs Vital Sign - Last Date Time Temp Pulse Resp B/P Pulse Ox O2 Delivery O2 Flow Rate FiO2 06/16/16 10:00 36.6 75 19 96/60 96 Nasal Cannula 2.50 Intake and Output 06/15/16 06/15/16 06/16/16 Cumulative From/Thru 15:00 23:00 07:00 06/12/16 14:52 - 06/16/16 06:51 Intake Total 672 ml 700 ml 5292 ml Output Total 700 ml 800 ml 81958 ml Balance -28 ml -100 ml -5008 ml Intake Oral 672 ml 700 ml 5292 ml Output Urine Total 700 ml 800 ml 67296 ml # Voids 1 # Bowel Movements 1 1 4 Exam General: Alert, Oriented X3, Cooperative. Obese female laying flat in No acute Distress. Talking in full sentences Eyes: PERRLA, Scleral Anicteric Mouth: Mouth Normal, Mucous Membranes Moist/[place] Resp: Mild increase in effort, no accessory muscle usage, some mild bibasilar rales Cardiovascular: RRR with soft systolic murmur Abdomen: Soft, Obese, Non-tender, Non-distended, Normoactive bowel tones. Musculoskeletal: MS grossly intact, no tender joints. Extremities: 2+ pitting leg edema up to mid shins, no cyanosis, no clubbing. Approximately 4x2cm irregular wound on left medial calf covered in gel and occlusive bandaging. Skin: Warm and dry Neurological: Grossly neurologically intact, Normal Speech, Sensation Intact Lab and Diagnostics Result Diagram: 06/16/1663406/16/16634 X-Rays, CTs and MRIs X-RAY CHEST ONE VIEW, PORTABLE 06/12/16 IMPRESSION: Small left pleural effusion and left basilar consolidation suggesting compressive atelectasis versus pneumonia. Correlate clinically. Continued radiographic surveillance to resolution is recommended. Dictated by: Elliot DOUGLAS Interpreted: Dera Chance MD on 06/12/2016 at 17:03 Transcribed by: JOHNSON on 06/12/2016 at 17:04 CT CHEST WITHOUT CONTRAST IMPRESSION: 1. Small pleural effusions, slightly greater on the left. 2. Left basilar compressive atelectasis versus consolidation in the setting of aspiration/infection. 3. Marked cardiomegaly and trace pericardial effusion. Dictated by: Afshan Bryan M.D. on 06/15/2016 at 21:18 Cardiac Echo Impressions EKG at 0900: Atrial Fibrillation with rate in the 80s and old RBBB with PVCs, QTC of 506 Assessment & Plan Nalini Moon is a 75 year old female with congestive heart failure, Ischemic CM, CAD, Chronic Kidney disease, IDDM, hypothyroidism and Breast cancer under treatment for CHF exacerbation and cardiorenal syndrome. Hospital day #5 1. Acute on chronic systolic congestive Heart Failure. Present on admission Patient reported compliance with her low sodium diet stating she has no salt in the house and keep track of the sodium contents in her food. She reports compliance with her medications. Thinks this may have been due to her Lasix being held secondary to her worsening CKD, but she reports the weight gain and SOB was pretty abrupt. She is noted to be in Afib also. - monitor on telemetry - had an episode of 15 beats fo VT on morning of 06/14. Asymptomatic. Also had some PSVT episodes while agitated per report from nursing staff. - Continue diuretic therapy as recommended by Nephrology - monitor I/Os closely - complete echo: LVEF decreased to 25-30% with worsening global hypokinesis - Cardiology consulted for further recs. Dr. Hanna wanted a CT chest to evaluate for lymphadenopathy that was not demonstrated on CT. 2. Acute on Chronic Kidney disease. Present on admission Chronic disease related to Hypertensive Nephrosclerosis, Diabetic nephropathy, and cardiorenal syndrome. Acute issue could be related to poor renal perfusion due to decreased cardiac output due to congestive heart failure. Last Cr 2.04 () - avoid nephrotoxic insults in hospital - monitor urine output - Appreciate Nephrology consult and input. - D/C IV Lasix and transition to PO Torsemide per nephrology. 3. Elevated troponin. Present on admission Likely due to demand ischemia from CHF and Afib, but patient has not had any elevated Troponins recently and did complain of some chest pressure yesterday in the outpt setting. Her EKG this morning did show Atrial Fib, but this may be associated with the CHF. Initially did order Heparin gtt, but patient continued to be asymptomatic and troponins have been stable with normal CK-MB. Will hold off on Heparin and await Echo instead. - Troponin 0.045, 0.046. CK-MB 4.0 - EKG if angina present, Anticoagulate if appropriate - Full dose Aspirin continued 4 Diabetes Type 2, uncontrolled, Present on admission - low correction Lispro algorithm - continue Lantus 10 units HS - holding Glucotrol XL - May need to titrate HS Lantus 5 Hypertension, chronic, Present on admission presumed stable - continue Metoprolol 25 mg bid, mainly for severe cardiomyopathy 6 Asthma. Chronic, Present on admission Presumed stable with no wheezing - continue Albuterol and Flovent inhalers 7 Hypothyroidism, Present on admission - continue Synthroid 112 mcg daily 8 Dyslipidemia, Present on admission - continue Pravastatin 20 mg daily 9. LLE wound, Present on admission Due to injury from [email or web address] [place] about 2 weeks ago, has not improved and has been more tender. -Wound care following patient. Wound debrided and covered in clean dressing, 10. Asymptomatic bacteriuria, Present on admission Patient's UA grew out Klebsiella. Patient has chronic urinary frequency from her Lasix, but hasn't noted any dysuria or suprapubic pressure. Will plan to tx with Abx if develops symptoms. 11. BMI 46.9 - Acetaminophen as needed for mild pain/fever/headache - Bowel regimen as needed - Antiemetic as needed Dispo: Likely discharge in 1-2 days if medically stable. She still needs more diuresis. VTE Prophylaxis: Sub-Q Heparin (Unfractionated), SCDs Resuscitation Status: CPR: Attempt Resuscitation Time spent 25 minutes Attending Statement I have seen and evaluated patient at bedside in addition to directly supervising care provided by resident physician. I agree with above documentation. Jacque Cervantes DO Jun 16, 2016 13:42 Orlando Gleason DO Jun 16, 2016 16:00
--- NOTE | 2016-06-16 18:30 | NUR ---
Yeast rash/leg wound: Patients yeast rash in her Panus area, belly button and groin/klever area are improving. Patient was given shower today, then her nystatin powder was applied to all rash areas. Patients leg dressing was also redressed after her shower as directed by college specialist. The wound continues to improve.
[2016-06-16] MEDS: Insulin GLARgine 100 Unit/mL Syringe SUBQ SCH (20:22)
[2016-06-17] VITALS (8 sets, daily range): BP systolic 104–125; BP diastolic 60–71; PULSE 41–82; RESP 18–21; O2SAT 93–96
[2016-06-17] MEDS: Heparin 5,000 Unit/mL Inj SUBQ SCH ×4 (00:09→23:54)
[2016-06-17] MEDS: Sodium Chloride LOK Flush 10 mL Syringe IVFLUSH SCH ×4 (00:10→23:54)
--- NOTE | 2016-06-17 06:59 | NUR ---
NOC/Hematuria Pt complains pain and hematuria upon urination. was aware and has been f/u with enrollment eligibility representative. Denies chest pain, mild sob upon exertion noted, currently on 2.5LPM NC and tolerating well. HS meds administered as scheduled, Blood sugar checks done and insulin administered as ordered. Will continue to monitor.
[2016-06-17] MEDS: Insulin LISPRO 300 Unit/3 mL Inj SUBQ SCH ×4 (07:54→21:45)
[2016-06-17 09:43] LABS: BASOPHILS % (AUTO) 1.2 % (0-3); EOSINOPHILS % (AUTO) 6.2 % (0-5); MONOCYTES % (AUTO) 12.4 % (4-12); Mean Corpuscular Volume 80.7 fL (81-100); Platelet Count 314 bil/L (150-400)
[2016-06-17] MEDS: Potassium Chloride 20 mEq SR Tablet PO SCH (10:01)
[2016-06-17] MEDS: MeTOProlol XL 25 mg ER24 Tablet PO SCH ×2 (10:02→21:38)
[2016-06-17] MEDS: Fluticasone 0.05% 15 Spray/2 Gm 16 Gm Nasal Spray NASAL SCH ×2 (10:03→20:30)
[2016-06-17] MEDS: Nystatin 100,000 Unit/Gm 15 Gm Powder TOPICAL SCH ×2 (10:04→21:38)
[2016-06-17 10:11] LABS: Magnesium 1.9 mg/dL (1.6-2.6); Phosphorus 5.1 mg/dL (2.5-4.9)
--- NOTE | 2016-06-17 11:41 | PCM.PNMED ---
Subjective Date of Service Jun 17, 2016 Subjective She reports she did not sleep too well last night. She still feels SOB at baseline. Reports the pain from her leg wound has improved. Exam Vital Signs Vital Sign - Last Date Time Temp Pulse Resp B/P Pulse Ox O2 Delivery O2 Flow Rate FiO2 06/17/16 05:41 36.6 72 18 116/60 95 Nasal Cannula 2.50 Intake and Output 06/16/16 06/16/16 06/17/16 Cumulative From/Thru 15:00 23:00 07:00 06/12/16 14:52 - 06/17/16 05:41 Intake Total 800 ml 450 ml 6542 ml Output Total 600 ml 100 ml 41749 ml Balance 200 ml 350 ml -4458 ml Intake Oral 800 ml 450 ml 6542 ml Output Urine Total 600 ml 100 ml 75477 ml # Voids 1 # Bowel Movements 0 4 Exam General: Alert, Oriented X3, Cooperative. Obese female laying flat, appears dyspneic, although talking in full sentences Eyes: PERRLA, Scleral Anicteric Mouth: Mouth Normal, Mucous Membranes Moist/[place] Resp: Mild increase in effort, no accessory muscle usage, some mild bibasilar rales Cardiovascular: RRR with soft systolic murmur, Abdomen: Soft, Obese, Non-tender, Non-distended, Normoactive bowel tones. Musculoskeletal: MS grossly intact, no tender joints. Extremities: 2+ pitting leg edema up to mid shins, no cyanosis, no clubbing. Well healing LLE wound, covered in dressing, c/d/i. Skin: Warm and dry, resolving rash between pannus folds and groin crease Neurological: Grossly neurologically intact, Normal Speech, Sensation Intact IVs and Medications Medications Reviewed: Medications were reviewed in detail Lab and Diagnostics Result Diagram: 06/16/1635 06/16/16 0635 X-Rays, CTs and MRIs X-RAY CHEST ONE VIEW, PORTABLE 06/12/16 IMPRESSION: Small left pleural effusion and left basilar consolidation suggesting compressive atelectasis versus pneumonia. Correlate clinically. Continued radiographic surveillance to resolution is recommended. Dictated by: Elliot DOUGLAS Interpreted: Drea Chance MD on 06/12/2016 at 17:03 Transcribed by: JOHNSON on 06/12/2016 at 17:04 CT CHEST WITHOUT CONTRAST IMPRESSION: 1. Small pleural effusions, slightly greater on the left. 2. Left basilar compressive atelectasis versus consolidation in the setting of aspiration/infection. 3. Marked cardiomegaly and trace pericardial effusion. Dictated by: Afshan Bryan M.D. on 06/15/2016 at 21:18 Cardiac Echo Impressions EKG at 0900: Atrial Fibrillation with rate in the 80s and old RBBB with PVCs, QTC of 506 Assessment & Plan Nalini Moon is a 75 year old female with congestive heart failure, Ischemic CM, CAD, Chronic Kidney disease, IDDM, hypothyroidism and Breast cancer under treatment for CHF exacerbation and cardiorenal syndrome. Hospital day #5 1. Acute on chronic systolic congestive Heart Failure. Present on admission Patient reported compliance with her low sodium diet stating she has no salt in the house and keep track of the sodium contents in her food. She reports compliance with her medications. Thinks this may have been due to her Lasix being held secondary to her worsening CKD, but she reports the weight gain and SOB was pretty abrupt. She is noted to be in Afib also. - monitor on telemetry - had an episode of 15 beats fo VT on morning of 06/14. Asymptomatic. Also had some PSVT episodes while agitated per report from nursing staff. - Continue diuretic therapy as recommended by Nephrology - monitor I/Os closely - complete echo: LVEF decreased to 25-30% with worsening global hypokinesis - Cardiology consulted for further recs. Chest CT - did not demonstrate any adenopathy. 2. Acute on Chronic Kidney disease. Present on admission Chronic disease related to Hypertensive Nephrosclerosis, Diabetic nephropathy, and cardiorenal syndrome. Acute issue could be related to poor renal perfusion due to decreased cardiac output due to congestive heart failure. Last Cr 2.04 () - avoid nephrotoxic insults in hospital - monitor urine output - Appreciate Nephrology consult and input. - D/C IV Lasix and transition to PO Torsemide per nephrology. Cr up to 2.80 on 06/17 - Peripheral edema markedly improved since admission, but continues to have 1-2 + pitting edema up to mid brian at baseline. 3. Elevated troponin. Present on admission Likely due to demand ischemia from CHF and Afib. Echo showed decreased LVEF and hypokinesia. Trops have been steady - Troponin 0.045, 0.046. CK-MB 4.0 - EKG if angina present, Anticoagulate if appropriate - Full dose Aspirin continued 4 Diabetes Type 2, uncontrolled, Present on admission - low correction Lispro algorithm - continue Lantus 10 units HS - holding Glucotrol XL - May need to titrate HS Lantus 5 Hypertension, chronic, Present on admission presumed stable - continue Metoprolol 25 mg bid, mainly for severe cardiomyopathy 6 Asthma. Chronic, Present on admission Presumed stable with no wheezing - continue Albuterol and Flovent inhalers 7 Hypothyroidism, Present on admission - continue Synthroid 112 mcg daily 8 Dyslipidemia, Present on admission - continue Pravastatin 20 mg daily 9. LLE wound, Present on admission Due to injury from [employer] [place] about 2 weeks ago, has not improved and has been more tender. -Wound care following patient. Wound debrided and covered in clean dressing, 10. Asymptomatic bacteriuria, Present on admission Patient's UA grew out Klebsiella. Patient has chronic urinary frequency from her Lasix, but hasn't noted any dysuria or suprapubic pressure. Will plan to tx with Abx if develops symptoms. 11. BMI 46.9 - Acetaminophen as needed for mild pain/fever/headache - Bowel regimen as needed - Antiemetic as needed Dispo: Likely discharge tomorrow if tolerates PT and PO medications. Pain Evaluation: Adequate Pain Control VTE Prophylaxis: Sub-Q Heparin (Unfractionated), SCDs Resuscitation Status: CPR: Attempt Resuscitation Time spent 25 minutes Attending Statement I have seen and evaluated patient at bedside in addition to directly supervising care provided by resident physician. I agree with above documentation. Alin Montes DO Jun 17, 2016 08:25 Orlando Gleason DO Jun 17, 2016 16:34
[2016-06-17] MEDS: cefTRIAXone Inj 1,000 MG in Dextrose 5% Minibag Plus 50 ML IV SCH (12:43)
[2016-06-17] MEDS: Furosemide 10 mg/mL 4 mL Inj IVPUSH SCH ×2 (12:44→23:54)
--- NOTE | 2016-06-17 13:21 | PCM.PNNEPH ---
Subjective Date of Service Jun 17, 2016 Subjective c/o dysuria, worsening LE swelling with oral loop diuretics. serum creatinine is worsening. U/cx (+) Klebsiella Oxytoca. Exam Vital Signs Vital Sign - Last Date Time Temp Pulse Resp B/P Pulse Ox O2 Delivery O2 Flow Rate FiO2 06/17/16 10:37 36.3 73 20 107/63 93 Nasal Cannula 2.50 Intake and Output 06/16/16 06/16/16 06/17/16 Cumulative From/Thru 15:00 23:00 07:00 06/12/16 14:52 - 06/17/16 05:41 Intake Total 800 ml 450 ml 6542 ml Output Total 600 ml 100 ml 25572 ml Balance 200 ml 350 ml -4458 ml Intake Oral 800 ml 450 ml 6542 ml Output Urine Total 600 ml 100 ml 90248 ml # Voids 1 # Bowel Movements 0 4 Exam General appearance: Awake, alert, oriented x3. HEENT: Mild pallor. No anicteric sclerae. Positive for JVD. Atraumatic. Moist mucous membranes. Heart: Regular rhythm. Normal S1, S2. Systolic murmur noted. Lungs: Rales at the bases,no rhonchi, (+) wheezing. Abdomen: Soft, active bowel sounds. Obese. Extremity: 2+ edema. Lab and Diagnostics Result Diagram: 06/17/1630 06/17/16 0930 X-Rays, CTs and MRIs X-RAY CHEST ONE VIEW, PORTABLE 06/12/16 IMPRESSION: Small left pleural effusion and left basilar consolidation suggesting compressive atelectasis versus pneumonia. Correlate clinically. Continued radiographic surveillance to resolution is recommended. Dictated by: Elliot Velazquez [facility] Interpreted: Drea Chance MD on 06/12/2016 at 17:03 Transcribed by: JOHNSON on 06/12/2016 at 17:04 CT CHEST WITHOUT CONTRAST IMPRESSION: 1. Small pleural effusions, slightly greater on the left. 2. Left basilar compressive atelectasis versus consolidation in the setting of aspiration/infection. 3. Marked cardiomegaly and trace pericardial effusion. Dictated by: Afshan Bryan M.D. on 06/15/2016 at 21:18 Cardiac Echo Impressions EKG at 0900: Atrial Fibrillation with rate in the 80s and old RBBB with PVCs, QTC of 506 Plan Impression 1. Acute kidney injury on chronic kidney disease secondary to cardiorenal syndrome. now c/o dysuria, serum creatinine is trending up. likely with a component of ATN from prolonged prerenal (low CO), ongoing infection/UTI. 2. Acute on chronic systolic heart failure. 3. Elevated serum troponin in the setting of acute kidney injury. 4. Diuretic induced hypokalemia PLAN: 1. start IV ceftriaxone. 2. check PVR. 3. resume IV lasix. Plan Lv Sun MD Jun 17, 2016 13:21
--- NOTE | 2016-06-17 15:33 | NUR ---
MANDY Patient refused to sign
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
--- NOTE | 2016-06-17 17:56 | NUR ---
Uneventful Pt had no c/o of pain or discomfort past the morning events. Pt slept on and off all day, very pleasant, ambulated to bathroom with fww via SBA. Blood sugars checked and insulin given per order. Pt currently resting comfortably in bed with call light within reach, bed low and locked, intentional rounding.
[2016-06-17] MEDS: Insulin GLARgine 100 Unit/mL Syringe SUBQ SCH (21:45)
[2016-06-18] VITALS (9 sets, daily range): BP systolic 84–124; BP diastolic 47–69; PULSE 52–74; RESP 20–32; O2SAT 92–95
--- NOTE | 2016-06-18 01:50 | NUR ---
PVR/Diuresis Pt had a PVR of 22mL after using the BSC which made an output of 225mL. Lasix administered as scheduled. Will continue to monitor.
[2016-06-18] MEDS: Fluticasone 0.05% 15 Spray/2 Gm 16 Gm Nasal Spray NASAL SCH ×2 (08:46→22:30)
[2016-06-18] MEDS: MeTOProlol XL 25 mg ER24 Tablet PO SCH ×2 (08:47→22:54)
[2016-06-18] MEDS: Insulin LISPRO 300 Unit/3 mL Inj SUBQ SCH ×4 (08:47→22:00)
[2016-06-18] MEDS: Potassium Chloride 20 mEq SR Tablet PO SCH (08:47)
[2016-06-18] MEDS: Sodium Chloride LOK Flush 10 mL Syringe IVFLUSH SCH ×3 (08:48→23:57)
[2016-06-18] MEDS: Heparin 5,000 Unit/mL Inj SUBQ SCH ×3 (08:54→23:57)
[2016-06-18] MEDS: Nystatin 100,000 Unit/Gm 15 Gm Powder TOPICAL SCH ×2 (08:54→22:54)
[2016-06-18 09:27] LABS: Phosphorus 5.7 mg/dL (2.5-4.9)
--- NOTE | 2016-06-18 10:28 | NUR ---
Wound Care pt seen at bedside for reassessment of left posterior calf wound, wound base continues to be about 50% yellowish slough and 50% granulation tissue, dressing previously placed was falling off. Dimensionally wound is unchanged and legs remain edematous, weight has not changed recently, albumin is low and renal labs are poor. Wound not likely to change much from a measurement standpoint due to continued edema, Wound was cleaned today of biofilm with saline moistened gauze then redressed with hydrogel and adhesive foam dressing, will recheck on this patient tomorrow.
--- NOTE | 2016-06-18 12:01 | NUR ---
Hypoglycemia Pt ac lunch BG was 61, pt clammy and cold, gave snack rechecked BG 60. Gave per protocol D50W 25mls IVP, rechecked BG 174. Will continue to monitor.
--- NOTE | 2016-06-18 12:09 | NUR ---
Care Care transferred to Shivani Wooten RN at this time.
--- NOTE | 2016-06-18 12:42 | NUR ---
IV Pt's IV leaking, requires IVT to place. IV ABO and IV Lasix held until new line placed.
--- NOTE | 2016-06-18 13:55 | PCM.PNNEPH ---
Subjective Date of Service Jun 18, 2016 Subjective Patient is seen today in her room and her chart has been reviewed. She states that she is feeling better and has had some increase in urine output. She also states that she is considerably less difficulty in breathing, no chest pain, nausea or vomiting. Her urine has grown out Klebsiella and this is sensitive to cefepime which she is on. Intake and output last 24 hours for 1112 100 out in urine and 700 mL salt in urine the last 8 hours. Her peripheral smears showed increased eosinophil count. Her creatinine has increased again today to 2.8. She is not on E strong dose of furosemide and I feel this needs to be increased. Exam Vital Signs Bad tableExam HEENT examination is remarkable for pale sclera and some mild periorbital edema. Neck is supple without adenopathy thyromegaly and some mild to moderate venous distention at 60. Lungs showed a few bibasilar rales. Otherwise have diminished breath sounds. Heart was regular and rhythmical somewhat distant. And showed some distention and evidence of free fluid wave however her abdomen was nontender. Extremities showed moderate bilateral pitting edema up to just above the knees. Otherwise her extremities were positive for [id number] nails. There were no rashes noted. Lab and Diagnostics Result Diagram: 06/17/16 0930 06/18/16 0844 X-Rays, CTs and MRIs X-RAY CHEST ONE VIEW, PORTABLE 06/12/16 IMPRESSION: Small left pleural effusion and left basilar consolidation suggesting compressive atelectasis versus pneumonia. Correlate clinically. Continued radiographic surveillance to resolution is recommended. Dictated by: Elliot Velazquez RRA Interpreted: Drea Chance MD on 06/12/2016 at 17:03 Transcribed by: JOHNSON on 06/12/2016 at 17:04 CT CHEST WITHOUT CONTRAST IMPRESSION: 1. Small pleural effusions, slightly greater on the left. 2. Left basilar compressive atelectasis versus consolidation in the setting of aspiration/infection. 3. Marked cardiomegaly and trace pericardial effusion. Dictated by: Afshan Bryan M.D. on 06/15/2016 at 21:18 Cardiac Echo Impressions EKG at 0900: Atrial Fibrillation with rate in the 80s and old RBBB with PVCs, QTC of 506 Plan Impression Impression #1 acute kidney injury #2 acute congestive heart failure. #3 cardiorenal syndrome number for pyelonephritis secondary to Klebsiella #5 diabetic nephropathy #6 hypertension with hypertensive heart disease. Recommendations #1 today her creatinine has worsened a bit compared to the last several days. She is only on 40 mg of furosemide which I think is inadequate to get any adequate diuresis. Like to double this to 80 mg IV twice a day and I would also like to start chlorthalidone on her to give her fluid mobilized. Over increased eosinophil count and her blood I would also like to check urine for eosinophils to make sure we are not missing an acute interstitial nephritis. Plan The patient will continue hyperbaric treatments. Will return () for treatment #() Nando Aquino DO Jun 18, 2016 13:55
--- NOTE | 2016-06-18 14:00 | PCM.PNNEPH ---
Subjective Date of Service Jun 18, 2016 Exam Vital Signs Bad table Lab and Diagnostics Result Diagram: 06/17/16 0930 06/18/16 0844 X-Rays, CTs and MRIs X-RAY CHEST ONE VIEW, PORTABLE 06/12/16 IMPRESSION: Small left pleural effusion and left basilar consolidation suggesting compressive atelectasis versus pneumonia. Correlate clinically. Continued radiographic surveillance to resolution is recommended. Dictated by: Elliot Velazquez RRA Interpreted: Drea Chance MD on 06/12/2016 at 17:03 Transcribed by: JOHNSON on 06/12/2016 at 17:04 CT CHEST WITHOUT CONTRAST IMPRESSION: 1. Small pleural effusions, slightly greater on the left. 2. Left basilar compressive atelectasis versus consolidation in the setting of aspiration/infection. 3. Marked cardiomegaly and trace pericardial effusion. Dictated by: Afshan Bryan M.D. on 06/15/2016 at 21:18 Cardiac Echo Impressions EKG at 0900: Atrial Fibrillation with rate in the 80s and old RBBB with PVCs, QTC of 506 Plan Plan The patient will continue hyperbaric treatments. Will return () for treatment #() Nando Aquino DO Jun 18, 2016 14:00 QTC of 506 Plan Impression Impression #1 end-stage renal disease dialysis dependent #2 acute pulmonary edema #3 chronic noncompliance with treatment Recommendations #1 the patient was seen in dialysis and orders were written. She is to be dialyzed for 2-1/2 hours is revaclear dialyzer. 25 g of albumin will be given at the start of the treatment and will try to take off 2 L. She is scheduled for her routine dialysis tomorrow. I will also had a gayatri talk with the patient about the option of hospice and palliative care. Plan The patient will continue hyperbaric treatments. Will return () for treatment #() Nando Aquino DO Jun 18, 2016 14:00
--- NOTE | 2016-06-18 14:18 | PCM.PNMED ---
Subjective Date of Service Jun 18, 2016 Subjective Nalini Moon is a 75 year old female with Congestive heart failure, Ischemic CM, CAD, CKD, IDDM, hypothyroidism and Breast cancer in remission who presents for SOB and rapid weight gain. Overnight, she was started on IV Ceftriaxone for a Klebsiella UTI. She also was placed back on IV Lasix BID secondary to increasing Edema. She is tolerating the increase in Metoprolol, but her blood pressures overnight were low in the 90s systolic. This morning, she is examined while in bed. She endorses mild SOB still, denies any fevers or CP. She is having some HAYNES with PT sessions. Exam Vital Signs Vital Signs (Last) Date Time Temp Pulse Resp B/P Pulse Ox O2 Delivery O2 Flow Rate FiO2 06/18/16 11:01 62 06/18/16 10:15 36.4 20 109/61 93 Nasal Cannula 3.50 Exam General: Alert, Oriented X3, Cooperative. Obese female laying flat, appears mildly dyspneic, although talking in full sentences Eyes: PERRLA, Scleral Anicteric Mouth: Mouth Normal, Mucous Membranes Moist/Cuero Resp: Mild increase in effort, no accessory muscle usage, some mild bibasilar rales and mild wheezing bilaterally today Cardiovascular: RRR with soft systolic murmur, Abdomen: Soft, Obese, Non-tender, Non-distended, Normoactive bowel tones. Musculoskeletal: MS grossly intact, no tender joints. Extremities: 2+ pitting leg edema up to both knees, no cyanosis, no clubbing. LLE wound covered in dressing, c/d/i Skin: Warm and dry, resolving rash between pannus folds and groin crease Neurological: Grossly neurologically intact, Normal Speech, Sensation Intact IVs and Medications Medications Reviewed: Medications were reviewed in detail Lab and Diagnostics Result Diagram: 06/17/16 0930 06/17/16 0930 X-Rays, CTs and MRIs X-RAY CHEST ONE VIEW, PORTABLE 06/12/16 IMPRESSION: Small left pleural effusion and left basilar consolidation suggesting compressive atelectasis versus pneumonia. Correlate clinically. Continued radiographic surveillance to resolution is recommended. Dictated by: Elliot DOUGLAS Interpreted: Drea Chance MD on 06/12/2016 at 17:03 Transcribed by: JOHNSON on 06/12/2016 at 17:04 CT CHEST WITHOUT CONTRAST IMPRESSION: 1. Small pleural effusions, slightly greater on the left. 2. Left basilar compressive atelectasis versus consolidation in the setting of aspiration/infection. 3. Marked cardiomegaly and trace pericardial effusion. Dictated by: Afshan Bryan M.D. on 06/15/2016 at 21:18 Cardiac Echo Impressions EKG at 0900: Atrial Fibrillation with rate in the 80s and old RBBB with PVCs, QTC of 506 Assessment & Plan Nalini Moon is a 75 year old female with congestive heart failure, Ischemic CM, CAD, Chronic Kidney disease, IDDM, hypothyroidism and Breast cancer under treatment for CHF exacerbation and cardiorenal syndrome. Hospital day #6 1. Acute on chronic systolic congestive Heart Failure. Present on admission Patient reported compliance with her low sodium diet stating she has no salt in the house and keep track of the sodium contents in her food. She reports compliance with her medications. Thinks this may have been due to her Lasix being held secondary to her worsening CKD, but she reports the weight gain and SOB was pretty abrupt. S - monitor on telemetry - had an episode of 15 beats fo VT on morning of 06/14. Asymptomatic. Also had some PSVT episodes while agitated per report from nursing staff. - Continue diuretic therapy as recommended by Nephrology - monitor I/Os closely - complete echo: LVEF decreased to 25-30% with worsening global hypokinesis - Cardiology consulted for further recs. Chest CT - did not demonstrate any adenopathy. - Increased dosage of Metoprolol XL to 25mg BID per Cardiology recommendation. 2. Acute on Chronic Kidney disease. Present on admission Chronic disease related to Hypertensive Nephrosclerosis, Diabetic nephropathy, and cardiorenal syndrome. Acute issue could be related to poor renal perfusion due to decreased cardiac output fromcongestive heart failure. Last Cr 2.04 (05/07) - avoid nephrotoxic insults in hospital - monitor urine output - Appreciate Nephrology consult and input. - Trialed of PO Torsemide made her Edema and SOB worsen, so IV Lasix was resumed per Nephrology team. 3. Elevated troponin. Present on admission Likely due to demand ischemia from CHF and decreased clearance from CKD. Echo showed decreased LVEF and hypokinesia. Trops have been steady - Troponin 0.045, 0.046. CK-MB 4.0 - EKG if angina present, - Full dose Aspirin continued - After further review, the Atrial fibrillation on admission is more likely to represent frequent PACs. Will continue to monitor and anticoagulate if indeed Atrial fib. 4 Diabetes Type 2, uncontrolled, Present on admission - low correction Lispro algorithm - continue Lantus 10 units HS - holding Glucotrol XL - May need to titrate HS Lantus if morning sugars are high 5 Hypertension, chronic, Present on admission presumed stable - continue Metoprolol 25 mg bid, mainly for severe cardiomyopathy per cardiology recommendations. 6 Asthma. Chronic, Present on admission Presumed stable with no wheezing - continue Albuterol and Flovent inhalers 7 Hypothyroidism, Present on admission - continue Synthroid 112 mcg daily 8 Dyslipidemia, Present on admission - continue Pravastatin 20 mg daily 9. LLE wound, Present on admission Due to injury from blackberry peguero about 2 weeks ago, had not improved and has been more tender. -Wound care following patient. Wound debrided and covered in clean dressing, 10. Klebsiella UTI Present on admission Patient's UA grew out Klebsiella, she developed symptoms yesterday and was initiated on IV Ceftriaxone, which the bacteria is sensitive to. Will plan to treat for 7 days. 11. BMI 46.9 - Acetaminophen as needed for mild pain/fever/headache - Bowel regimen as needed - Antiemetic as needed Dispo: Likely will require 2-3 more days for diuresis and medical stabilization. Pain Evaluation: Adequate Pain Control VTE Prophylaxis: Sub-Q Heparin (Unfractionated), SCDs Resuscitation Status: CPR: Attempt Resuscitation Attending Statement The patient was seen and examined together with Resident/House-staff on 06/18/16 and I agree with the history, exam and plan as outlined in the note above. Alin Montes DO Jun 18, 2016 07:52 Geoffrey Medina Jun 19, 2016 17:58
[2016-06-18] MEDS ORDERED: 0.9% Sodium Chloride 100 ML ONE (14:45)
[2016-06-18] MEDS: cefTRIAXone Inj 1,000 MG in Dextrose 5% Minibag Plus 50 ML IV SCH (14:54)
--- NOTE | 2016-06-18 14:56 | NUR ---
Hypoglycemia Pt put bat person light shortly before 1400 stating she felt groggy and tired. Blood sugar obtained: 46. Pt given some OJ as well as IV Dextrose. Recheck revealed to be 77 and pt reported feeilng much better. Will recheck shortly to ensure that blood sugar is going up. Addendum: 06/18/16 at 1540 by ROXANNE RANGEL RN Upon recheck, blood sugar 45. Pt denied any symptoms with exception of "feeling so tired and worn down." IV Dextrose given and protein ordered from kitchen as only source is peanut butter and pt refused that.
--- NOTE | 2016-06-18 15:46 | NUR ---
Social Work Note - Continued Discharge Planning: SW attempted to follow-up regarding SNF vs HH. Pt declining to speak with SW at this time. Debbie Lester [employer] Operator Lori Thorpe MSW
--- NOTE | 2016-06-18 16:26 | NUR ---
Hypoglycemia Pt's blood glucose remains persistently low, most recent 42. Pt continues to state symptoms are feeling tired and groggy. MD at bedside, aware of hypoglycemia and IV dextrose given. UA ordered. Pt currently eating ice cream. Addendum: 06/18/16 at 1803 by ROXANNE RANGEL RN Upon recheck, pt's blood sugar in low 60's. Pt picking at food, states "It's not good for my blood sugar to eat a lot at once." Enc pt to eat protein on tray, she refused. Pt also refused vital signs to be obtained. Will cont to enc pt to eat and will monitor blood glucose. Addendum: 06/18/16 at 1837 by ROXANNE RANGEL RN Blood sugar at 1830: 72
--- NOTE | 2016-06-18 18:42 | PROG NOTE ---
[address] [address] PROGRESS NOTE PATIENT: CAITLIN DELGADO : 1940 MR#: [id number] ADMIT: 06/12/2016 JOB ID: [id number] DATE: 06/18/2016 The patient is a 75-year-old, morbidly obese, diabetic female with a history of inferior DC in 2011 with an ejection fraction of around 40% to 45% with chronic renal insufficiency. She was admitted on June 12, 2016, with biventricular CHF and anasarca with a 40-pound weight gain after her furosemide was reduced. An echocardiogram suggested an ejection fraction around 25% with moderate right ventricular enlargement with moderately reduced function. Pulmonary arteries could not be accurately estimated but were at least in the mid 40s. There is no significant valvular heart disease but she was found to have a right-sided pleural effusion and a previous CT scan had suggested possible mediastinal lymphadenopathy, although followup CT scan apparently has shown no concerning adenopathy at this time. She has been started on metoprolol although limited by bradycardia and had IV Lasix which was then changed to oral torsemide but with limited diuresis, and therefore, her IV Lasix has now been restarted although with a climb of her creatinine from an admission creatinine of 2.4, now today up to 2.9. She had an irregular rhythm that has been described as atrial fibrillation although her 12-lead ECG shows more of a wandering atrial pacemaker. She had a 29-beat run of a wide-complex tachycardia on June 14, 2016, with irregular RR intervals but no apparent complex ventricular ectopy since then. She is a somewhat challenging historian. Today continued to complain of dyspnea and orthopnea although she is currently lying relatively flat. She says that her dyspnea has not changed since admission. Her only complaint is of some fatigue following a low blood sugar this morning. She denies any chest discomfort and has only walked to the bathroom which she feels is about the same as when she came in. Her pedal edema has improved and she denies any sense of palpitations. PHYSICAL EXAMINATION: Morbidly obese female in no acute distress. HR 64, BP 109/61, O2 saturation 93% on 3.5 L of nasal cannula. Her weight today is 107 kg, up from 105.2 kg yesterday, although has had of 570 mL diuresis since yesterday. Her admission weight was 109 kg. Lungs: Reduced breath sounds throughout with a slight expiratory wheeze but no appreciable audible rales. CV: Fairly regular rhythm with an occasional premature beat without any appreciable murmurs or gallops. She has clear JVD with distended scalp veins. Abdomen: Morbidly obese but nondistended and nontender. Extremities: Morbidly obese with probable 1+ bilateral pitting edema. LABORATORY: BUN is 76 with a creatinine of 2.86, compared to 59 and 2.4 on admission. Her A1c on admission was 8.3. Potassium this morning is 4.4 and her magnesium from yesterday was 1.9. Her troponins have been borderline elevated but without any significant rise or fall. TSH was normal at 3.07. IMPRESSION: 1. Biventricular failure but it appears to be more right than left. Etiology is unclear, but it would seem unlikely to be an ischemic cardiomyopathy, although this cannot be entirely excluded. With her reduced right ventricular function, I remain concerned about an underlying intrinsic lung disease, and certainly, given her body habitus, sleep apnea should be considered. At this point, she is really not an interventional candidate given her acute on chronic renal failure, but an ischemic evaluation may need to be done at some point, but first I would continue to attempt diuresis as you are doing. I will defer adjustment of her current diuretic regimen to the nephrology team which has been managing her furosemide. Her current blood pressures would indicate the inability to advance her afterload reduction any further. 2. Acute on chronic renal insufficiency. As above. Management per the Nephrology service. 3. Diabetes with challenging blood sugar control. Per the hospitalist. 4. Question of atrial fibrillation. A 12-lead EKG will be obtained in an effort to establish her current rhythm. If atrial fibrillation is confirmed, then anticoagulation would need to be considered. 5. Wide-complex tachycardia of uncertain etiology. This may have been related to electrolyte shifts as her potassium was markedly low at 3.2 at the time of her arrhythmias. Given this, I would ensure that her potassium stays greater than 4.0 and magnesium greater than 2.0. 6. Morbid obesity. 7. Coronary artery disease. I see no indication for an acute coronary syndrome and suspect that her elevated troponins reflect her renal insufficiency. PLAN: 1. Continue with diuretics. To be managed by the Nephrology service. 2. Maintain potassium greater than 4 and magnesium greater than 2. 3. Obtain a 12 lead ECG to monitor her rhythm and consider anticoagulation if atrial fibrillation is confirmed. I spent 49 minutes reviewing the patient's chart, interviewing and examining the patient, answering her questions and documenting such.
[2016-06-18] MEDS ORDERED: Glucagon 1 mg/mL Inj IM ONE (19:35)
[2016-06-18] MEDS ORDERED: Glucagon 1 mg/mL Inj IV ONE ×2 (20:00→22:30)
[2016-06-18] MEDS: Dextrose 10% 500 ML IV SCH (20:18)
--- NOTE | 2016-06-18 20:30 | NUR ---
Hypoglycemia Pt having persistent hypoglycemia. q15 minutes blood sugar checks done. pt's blood sugar is running 60's to 70's. MD is aware and ordered glucagon, D50/50 50mL IV administered, and D10 running on 75mL/hr. Continuing to monitor. Pt states of feeling tired. Noted obvious sob upon exertion. Will continue to monitor.
[2016-06-18] MEDS: Albuterol-Ipratropium 3 mL Inhalation Solution NEB PRN (20:46)
--- NOTE | 2016-06-18 22:00 | NUR ---
Transfer of Care Pt was transferred to PCC room 2004 with Aide Jane RN with recent blood sugar of 42.
[2016-06-18] MEDS: Furosemide 10 mg/mL 10 mL Inj IVPUSH SCH (22:22)
--- NOTE | 2016-06-18 23:59 | NUR ---
Blood sugar/BP Blood sugar 47 on arrival to floor. Pt declining juice or food other than ice cream. Blood sugar 52 after receiving ice cream. MD here. Glucagen ordered and given. Blood sugar increased to 58 10 minutes after Glucagen given. MD notified and orders to given 50 ml of D50. Blood sugar 117 15 minutes after given. Pt ate 1/2 tiffanie cracker and spoonful of peanut butter. Refused further food/drink. SBP in 90's with heart rate in 60's. HS dose of Toprol held. MD aware.
[2016-06-19] VITALS (9 sets, daily range): BP systolic 86–140; BP diastolic 46–73; PULSE 42–85; RESP 18–22; O2SAT 89–96
[2016-06-19] MEDS: Dextrose 10% 500 ML IV SCH ×2 (01:22→06:33)
--- NOTE | 2016-06-19 05:41 | NUR ---
Blood sugar Blood sugars have continued to be low throughout the shift despite IV fluids of D10 at 100/hr. Has received (3) 50 ml doses of D50 and 1 dose of Glucagon, as well as eating ice cream, PB and jam, cracker, and tomato soup. MD notified of last BG of 56 and requested 50 ml D50 be given and continue to monitor blood sugar. Pt is asymptomatic with this.
[2016-06-19] MEDS: Insulin LISPRO 300 Unit/3 mL Inj SUBQ SCH ×4 (07:24→22:00)
[2016-06-19 07:40] LABS: BASOPHILS % (AUTO) 1.1 % (0-3); EOSINOPHILS % (AUTO) 3.9 % (0-5); MONOCYTES % (AUTO) 11.4 % (4-12); Mean Corpuscular Hemoglobin 25.4 pg (27.0-35.0); Mean Corpuscular Volume 82.7 fL (81-100); NEUTROPHILS % (AUTO) 72.4 % (40-74); Platelet Count 257 bil/L (150-400)
[2016-06-19 08:00] LABS: Magnesium 1.9 mg/dL (1.6-2.6); Phosphorus 5.6 mg/dL (2.5-4.9)
[2016-06-19] MEDS: Nystatin 100,000 Unit/Gm 15 Gm Powder TOPICAL SCH ×2 (08:30→22:09)
[2016-06-19] MEDS: Magnesium Chloride SR 64 mg ER24 Tablet PO SCH (09:26)
[2016-06-19] MEDS: Sodium Chloride LOK Flush 10 mL Syringe IVFLUSH SCH ×2 (09:27→16:30)
[2016-06-19] MEDS: Furosemide 10 mg/mL 10 mL Inj IVPUSH SCH ×3 (09:27→23:42)
[2016-06-19] MEDS: Potassium Chloride 20 mEq SR Tablet PO SCH (09:27)
[2016-06-19] MEDS: Fluticasone 0.05% 15 Spray/2 Gm 16 Gm Nasal Spray NASAL SCH ×2 (09:28→22:10)
[2016-06-19] MEDS: Heparin 5,000 Unit/mL Inj SUBQ SCH ×2 (09:29→19:16)
--- NOTE | 2016-06-19 09:44 | PCM.PNMED ---
Subjective Date of Service Jun 19, 2016 Subjective Overnight: Patient consistently had hypoglycemia 40s-70s, lowest was 47, in spite of D10 @100mls/hr , three 50ml doses of D50, 1 dose of Glucagon, and food intake. She also had low BP in the 80s-90s systolic. HS Metoprolol and Lantus were held. Patient was otherwise asymptomatic. Today: patient states that she did not feel well yesterday, thus poor PO intake. Food made her feel nauseous, but it is better now. Her blood glucose this morning is 114. She admits that her symptoms have improved, but is still very short of breath and has pain all over her lower extremities and abdomen from "too much fluid." Patient claims that she has gained 40lbs overnight due to stopping the Lasix secondary to worsening renal function. She does not use O2 at home, but feel like she needs to go home with one now. Patient denies any CP at this time. She has good urine output, total of -4831 balance. Exam Vital Signs Vital Sign - Last Date Time Temp Pulse Resp B/P Pulse Ox O2 Delivery O2 Flow Rate FiO2 06/19/16 03:29 36.6 62 22 110/58 94 Nasal Cannula 4.00 Intake and Output 06/18/16 06/18/16 06/19/16 Cumulative From/Thru 15:00 23:00 07:00 06/12/16 14:52 - 06/19/16 05:41 Intake Total 200 ml 456 ml 866 ml 8714 ml Output Total 550 ml 300 ml 375 ml 74410 ml Balance -350 ml 156 ml 491 ml -4831 ml Intake Oral 200 ml 456 ml 338 ml 8186 ml IV Total 528 ml 528 ml Output Urine Total 550 ml 300 ml 375 ml 99467 ml Post Void Residual 220 ml # Voids 1 # Bowel Movements 2 1 0 7 Exam General: Alert, Oriented X3. Morbidly obese female laying flat, appears uncomfortable with conversational dyspnea Eyes: PERRLA, Scleral Anicteric Mouth: Mouth Normal, Mucous Membranes Moist/[place] Neck: supple, JVD noted Resp: Moderate increase in effort, no accessory muscle usage, diffuse bibasilar rales and moderate wheezing bilaterally Cardiovascular: distant heart sound due to body habitus, regular rate and rhythm with occasional premature beats. No murmur appreciated. Abdomen: Soft, Obese, Non-distended, Mild tenderness to palpation, Normoactive bowel tones. Extremities: Anasarca up to abdomen, lymphedema bilaterally with severe 2+ pitting edema at the ankles, no cyanosis, no clubbing. Skin: Warm and dry, resolving rash between pannus folds and groin crease. LLE wound covered in dressing, c/d/i. Neurological: Grossly neurologically intact, Normal Speech, Sensation Intact IVs and Medications Medications Reviewed: Medications were reviewed in detail Lab and Diagnostics Result Diagram: 06/17/16 0930 06/18/16 0844 X-Rays, CTs and MRIs X-RAY CHEST ONE VIEW, PORTABLE 06/12/16 IMPRESSION: Small left pleural effusion and left basilar consolidation suggesting compressive atelectasis versus pneumonia. Correlate clinically. Continued radiographic surveillance to resolution is recommended. Dictated by: Elliot Velazquez [facility] Interpreted: Drea Chance MD on 06/12/2016 at 17:03 Transcribed by: JOHNSON on 06/12/2016 at 17:04 CT CHEST WITHOUT CONTRAST IMPRESSION: 1. Small pleural effusions, slightly greater on the left. 2. Left basilar compressive atelectasis versus consolidation in the setting of aspiration/infection. 3. Marked cardiomegaly and trace pericardial effusion. Dictated by: Afshan Bryan M.D. on 06/15/2016 at 21:18 Cardiac Echo Impressions EKG at 0900: Atrial Fibrillation with rate in the 80s and old RBBB with PVCs, QTC of 506 Assessment & Plan Nalini Moon is a 75 year old female with congestive heart failure, Ischemic CM, CAD, Chronic Kidney disease, IDDM, hypothyroidism and Breast cancer under treatment for CHF exacerbation and cardiorenal syndrome. Hospital day #7 1. Acute on chronic systolic congestive Heart Failure. Present on admission. Active. - Patient reported compliance with her low sodium diet stating she has no salt in the house and keep track of the sodium contents in her food. She reports compliance with her medications. Thinks this may have been due to her Lasix being held secondary to her worsening CKD, but she reports the weight gain and SOB was pretty abrupt. - monitor on telemetry - had an episode of 15 beats fo VT on morning of 06/14. Asymptomatic. Also had some PSVT episodes while agitated per report from nursing staff. - Continue diuretic therapy as recommended by Nephrology. Start Spironolactone and Chlorthalidone today. - Strict I/Os and daily standing weight. - complete echo: LVEF decreased to 25-30% with worsening global hypokinesis - Cardiology consulted for further recs. - Continue Metoprolol XL to 25mg BID per Cardiology recommendation. - Will continue to monitor vital signs. 2. Acute on Chronic Kidney disease. Present on admission. Active Likely secondary to decompensated heart failure with cardiorenal syndrome. Chronic disease related to Hypertensive Nephrosclerosis, Diabetic nephropathy, and cardiorenal syndrome. Baseline Cr 2.04 (05/07/16) - avoid nephrotoxic insults in hospital - monitor urine output - Appreciate Nephrology consult and input. - Trial of PO Torsemide made her Edema and SOB worsen, so IV Lasix was resumed per Nephrology team - Start Chlorthalidone 25mg and Spironolactone 25mg daily. 3. Hypoglycemia, not present on admission, active. - Patient had persistent hypoglycemia (42-117) that nonresponsive to D50, glucagon, and food intake. - Will continue to hold Insulin and check BG every hour. - Given the severity of her CHF decompensation and renal function, will try to avoid IV fluid and encourage PO intake if possible. 4. Klebsiella UTI Present on admission - Patient's UA grew out Klebsiella - she developed symptoms on 06/17 and was initiated on IV Ceftriaxone, which the bacteria is sensitive to. Day #3 on antibiotics today. - Will plan to treat for 7 days. 5. Elevated troponin. Present on admission Likely due to demand ischemia from CHF and decreased clearance from CKD. Echo showed decreased LVEF and hypokinesia. Trops have been steady. - Troponin 0.045, 0.046. CK-MB 4.0 - EKG if angina present - Full dose Aspirin continued - Wide-complex tachycardia of uncertain etiology. This may have been related to electrolyte shifts as her potassium was markedly low at 3.2 at the time of her arrhythmias. Per Cardiology, will keep her potassium stays greater than 4.0 and magnesium greater than 2.0. 6. Questionable acute atrial fibrillation, new onset, present on admission, active. - Tele showed Afib with rate in the 70s overnight. - CHADS score of 4. Will discuss with Cardio about starting anticoagulation. - continue Metoprolol 25 mg bid 7. Diabetes Type 2 with neuropathy, uncontrolled, Present on admission - low correction Lispro algorithm - Hold Lantus 10 units HS given hypoglycemia - holding Glucotrol XL 8. Hypertension, chronic, stable - continue Metoprolol 25 mg bid, mainly for severe cardiomyopathy per cardiology recommendations. - Add Spironolactone and Chlorthalidone per Nephrology - Continue to monitor BP closely as her BP has been low 9. Asthma. Chronic, Present on admission - Presumed stable with no wheezing - continue Albuterol and Flovent inhalers 10. Hypothyroidism, Present on admission, stable. - TSH 3.07 on admission. - continue Synthroid 112 mcg daily 11. Dyslipidemia, Present on admission - continue Pravastatin 20 mg daily 12. LLE wound, Present on admission Due to injury from [employer] about 2 weeks ago, had not improved and has been more tender. -Wound care following patient. Wound debrided and covered in clean dressing, 13. BMI 46.9, chronic. - Heart-healthy, renal, and diabetic diet. - Acetaminophen as needed for mild pain/fever/headache - Bowel regimen as needed - Antiemetic as needed Dispo: Likely will require 2-3 more days for diuresis and medical stabilization. Pain Evaluation: Adequate Pain Control VTE Prophylaxis: Sub-Q Heparin (Unfractionated), SCDs Resuscitation Status: CPR: Attempt Resuscitation Attending Statement The patient was seen and examined together with Dr. Diaz on 06-19-16 and I agree with the history, exam and plan as outlined in the note above. Wendy Diaz DO Jun 19, 2016 07:42 Lauren Mitchell MD Jun 20, 2016 12:18
[2016-06-19] MEDS: cefTRIAXone Inj 1,000 MG in Dextrose 5% Minibag Plus 50 ML IV SCH (12:31)
[2016-06-19] MEDS: MeTOProlol XL 25 mg ER24 Tablet PO SCH ×2 (13:52→22:09)
--- NOTE | 2016-06-19 14:35 | PCM.PNNEPH ---
Subjective Date of Service Jun 19, 2016 Subjective The patient had a hypoglycemic episode and was started on a D10 drip at 100 mL sprawled through this morning when I took being to be discontinued. Patient also relates that she says was an asthma attack last night but was most likely paroxysmal nocturnal dyspnea related to the D10. This morning she states she is a bit more orthopneic and feels as if her legs and abdomen have more fluid in them. Her blood pressures have averaged between 80 up radiation 120 range. Last 24 hours she has had 656 in and 850 out with 375 in the last 8 hours. This morning her sodium is 135, potassium 4.2, chloride 95, bicarbonate 22, BUN and creatinine continue to rise at 77 and 3.08. Exam Vital Signs Vital Sign - Last Date Time Temp Pulse Resp B/P Pulse Ox O2 Delivery O2 Flow Rate FiO2 06/19/16 13:54 140/73 96 Nasal Cannula 2.00 06/19/16 11:37 37.3 43 06/19/16 07:22 22 Intake and Output 06/18/16 06/18/16 06/19/16 Cumulative From/Thru 15:00 23:00 07:00 06/12/16 14:52 - 06/19/16 05:41 Intake Total 200 ml 456 ml 866 ml 8714 ml Output Total 550 ml 300 ml 375 ml 48652 ml Balance -350 ml 156 ml 491 ml -4831 ml Intake Oral 200 ml 456 ml 338 ml 8186 ml IV Total 528 ml 528 ml Output Urine Total 550 ml 300 ml 375 ml 13675 ml Post Void Residual 220 ml # Voids 1 # Bowel Movements 2 1 0 7 Exam HEENT examination is remarkable for some periorbital edema and moderate conversational dyspnea. Neck is supple without adenopathy however jugular venous distention is present at 90. Lungs show bilateral rales approximately 1 /3-1/2 up. Heart was regular regular. Abdomen is distended with fluid wave noted however abdomen is non-tense. Liver remains pulsatile with hepatojugular reflux noted. Extremities continue to show generalized edema. Her lower extremities show evidence of both lymphedema and pitting edema superimposed upon the lymphedema. Lab and Diagnostics Result Diagram: 06/19/1671606/19/16716 X-Rays, CTs and MRIs X-RAY CHEST ONE VIEW, PORTABLE 06/12/16 IMPRESSION: Small left pleural effusion and left basilar consolidation suggesting compressive atelectasis versus pneumonia. Correlate clinically. Continued radiographic surveillance to resolution is recommended. Dictated by: Elliot Velazquez RRA Interpreted: Drea Chance MD on 06/12/2016 at 17:03 Transcribed by: JOHNSON on 06/12/2016 at 17:04 CT CHEST WITHOUT CONTRAST IMPRESSION: 1. Small pleural effusions, slightly greater on the left. 2. Left basilar compressive atelectasis versus consolidation in the setting of aspiration/infection. 3. Marked cardiomegaly and trace pericardial effusion. Dictated by: Afshan Bryan M.D. on 06/15/2016 at 21:18 Cardiac Echo Impressions EKG at 0900: Atrial Fibrillation with rate in the 80s and old RBBB with PVCs, QTC of 506 Plan Impression Impression #1 acute kidney injury secondary to decompensated heart failure with cardiorenal syndrome. #2 pyelonephritis secondary to Klebsiella which is currently being treated #3 diabetic nephropathy #4 hypertension with hypertensive heart disease and hypertensive nephrosclerosis with acute congestive heart failure. Recommendations #1 L immediately stop the IV fluid as this is only going to worsen her already deteriorating renal function. #2 I would like to go ahead and add chlorthalidone 25 mg along with spironolactone to attempt to unload her Vasculature. We do need to continue to follow her lab and her respiratory parameters. Plan The patient will continue hyperbaric treatments. Will return () for treatment #() Nando Aquino DO Jun 19, 2016 14:35
--- NOTE | 2016-06-19 17:52 | NUR ---
Wound Care Pt seen at bedside for wound care,Left posterior calf wound measures 4 cm W x 1 cm L x 0.2 cm D, wound base is fibrinous slough and drainage is minimal, Slough was selectively (nonexcisionally) debrided from wound base today with a number 10 blade, there was no change in wound dimensions. Redressed wound with hydrogel and adhesive foam dressing. Nursing can change in 24 hours wound to recheck in 48 hours.
--- NOTE | 2016-06-19 19:43 | NUR ---
Belonging pt son has taken pt's meds and a total of 80 dollars home with him per pt's request.
--- NOTE | 2016-06-19 20:26 | NUR ---
Hypoglycemia Pt hypoglycemic in the AM with BG of 68, pt able to eat 100% of her breakfast however refused her lunch. Pt BG trending up to 164 through the day. Oncoming RN made aware.
[2016-06-19] MEDS ORDERED: Insulin GLARgine 100 Unit/mL Syringe SUBQ SCH (21:00)
--- NOTE | 2016-06-19 22:14 | NUR ---
Lantus Pt's BG 159. Lispro held as per protocol. Lantus held as per doctor's instructions.
[2016-06-20] VITALS (9 sets, daily range): BP systolic 94–111; BP diastolic 44–63; PULSE 37–73; RESP 18–28; O2SAT 94–100
[2016-06-20] MEDS: Sodium Chloride LOK Flush 10 mL Syringe IVFLUSH SCH ×3 (00:30→17:18)
[2016-06-20] MEDS: Heparin 5,000 Unit/mL Inj SUBQ SCH ×3 (01:42→17:17)
--- NOTE | 2016-06-20 03:25 | NUR ---
Pain Pt reported pain to back, requesting aspirin. Pt given PRN Tylenol but refused it. Medical Record Assistant explained why provider will not allow another dose of PRN aspirin. Client refused and cold or heat compresses.
[2016-06-20 03:44] LABS: BASOPHILS % (AUTO) 0.9 % (0-3); MONOCYTES % (AUTO) 12.4 % (4-12); Mean Corpuscular Hemoglobin 25.4 pg (27.0-35.0); Platelet Count 263 bil/L (150-400)
[2016-06-20] MEDS: Insulin LISPRO 300 Unit/3 mL Inj SUBQ SCH ×4 (08:00→19:57)
[2016-06-20] MEDS: Nystatin 100,000 Unit/Gm 15 Gm Powder TOPICAL SCH ×2 (08:30→19:58)
[2016-06-20] MEDS: Fluticasone 0.05% 15 Spray/2 Gm 16 Gm Nasal Spray NASAL SCH ×2 (10:03→19:58)
[2016-06-20] MEDS: Potassium Chloride 20 mEq SR Tablet PO SCH (10:04)
[2016-06-20] MEDS: MeTOProlol XL 25 mg ER24 Tablet PO SCH ×2 (10:04→20:19)
[2016-06-20] MEDS: Magnesium Chloride SR 64 mg ER24 Tablet PO SCH (10:04)
[2016-06-20] MEDS: Furosemide 10 mg/mL 10 mL Inj IVPUSH SCH ×2 (10:05→20:13)
--- NOTE | 2016-06-20 11:27 | NUR ---
Discharge from PT Pt is discharged from further PT treatment secondary to lack of participation.
[2016-06-20] MEDS: cefTRIAXone Inj 1,000 MG in Dextrose 5% Minibag Plus 50 ML IV SCH (17:18)
--- NOTE | 2016-06-20 17:54 | PCM.PNNEPH ---
Subjective Date of Service Jun 20, 2016 Subjective The patient had an episode of some hypotension last night with her systolic blood pressure dropping into the 80s. It has rebounded since that time. His result that she has had a bump in her BUN and creatinine to 87 and 3.6 respectively. She denies any chest pain, shortness of breath, nausea, vomiting , or increasing abdominal girth. This morning her sodium is 1:30, potassium 5.2 , chloride 91, and bicarbonate was 17. Exam Vital Signs Vital Sign - Last Date Time Temp Pulse Resp B/P Pulse Ox O2 Delivery O2 Flow Rate FiO2 06/20/16 12:08 36.6 73 18 103/44 97 Nasal Cannula 4.00 Intake and Output 06/19/16 06/19/16 06/20/16 Cumulative From/Thru 15:00 23:00 07:00 06/12/16 14:52 - 06/20/16 06:17 Intake Total 1383 ml 120 ml 05670 ml Output Total 500 ml 270 ml 16001 ml Balance 883 ml -150 ml -4098 ml Intake Oral 1040 ml 120 ml 9346 ml IV Total 343 ml 871 ml Output Urine Total 500 ml 270 ml 68994 ml Post Void Residual 220 ml # Voids 1 # Bowel Movements 1 1 9 Exam Lungs are clear with some diminished breath sounds. Heart is regular rhythm although somewhat distant. Abdomen is soft without tense ascites. She has no tenderness rebound or guarding noted. Extremities showed some mild edema superimposed upon marked lymphedema. Lab and Diagnostics Result Diagram: 06/20/16 0325 06/20/16 0325 X-Rays, CTs and MRIs X-RAY CHEST ONE VIEW, PORTABLE 06/12/16 IMPRESSION: Small left pleural effusion and left basilar consolidation suggesting compressive atelectasis versus pneumonia. Correlate clinically. Continued radiographic surveillance to resolution is recommended. Dictated by: Elliot DOUGLAS Interpreted: Drea Chance MD on 06/12/2016 at 17:03 Transcribed by: JOHNSON on 06/12/2016 at 17:04 CT CHEST WITHOUT CONTRAST IMPRESSION: 1. Small pleural effusions, slightly greater on the left. 2. Left basilar compressive atelectasis versus consolidation in the setting of aspiration/infection. 3. Marked cardiomegaly and trace pericardial effusion. Dictated by: Afshan Bryan M.D. on 06/15/2016 at 21:18 Cardiac Echo Impressions EKG at 0900: Atrial Fibrillation with rate in the 80s and old RBBB with PVCs, QTC of 506 Plan Impression Impression #1 acute kidney injury number to cardiorenal syndrome #3 pyelonephritis secondary to Klebsiella number for acute congestive heart failure #5 diabetic nephropathy #6 hypertension with hypertensive heart disease and hypertensive nephrosclerosis with evidence of congestive heart failure. Recommendation at this point I would like to hold the spironolactone and chlorthalidone and give her body a chance to review available. Plan The patient will continue hyperbaric treatments. Will return () for treatment #() Nando Aquino DO Jun 20, 2016 17:54
--- NOTE | 2016-06-20 18:40 | NUR ---
Hypotensive Pt c/o being "woozy" to [employer], Vital machine unable to take pt's BP. Maricruz Rodriguez RN, able to get manual BP 94/46. After 10mins pt stating feeling better. made aware, no new orders at this time.
[2016-06-20] MEDS ORDERED: Insulin GLARgine 100 Unit/mL Syringe SUBQ ONE (19:55)
--- NOTE | 2016-06-20 20:02 | PCM.PNMED ---
Subjective Date of Service Jun 20, 2016 Subjective Overnight: Patient reported pain to back, requesting aspirin, but was given PRN Tylenol then she refused it. Nurse explained why provider will not allow another dose of PRN aspirin. Client refused and cold or heat compresses. No other event. Tele Afib in the 70s. Of note, nursing reports to take out several medications from the patient's purse that she has next to her. Suspected that the patient might take some of her home medications although the patient denied it. Medications were given to her foster son. No episode of hypoglycemia overnight. Today: patient is frustrated about the hospital bed and how it gave her a terrible back pain. She requests to have a different bed. Blood sugar improved to 160s this morning. Patient is still short of breath, but satting well on 4L NC. She admits that her swelling seems to improve a little. No other concerns. Exam Vital Signs Vital Sign - Last Date Time Temp Pulse Resp B/P Pulse Ox O2 Delivery O2 Flow Rate FiO2 06/20/16 18:14 94/46 06/20/16 17:43 70 94 Nasal Cannula 4.00 06/20/16 12:08 36.6 18 Intake and Output 06/19/16 06/19/16 06/20/16 Cumulative From/Thru 15:00 23:00 07:00 06/12/16 14:52 - 06/20/16 06:17 Intake Total 1383 ml 120 ml 89395 ml Output Total 500 ml 270 ml 88671 ml Balance 883 ml -150 ml -4098 ml Intake Oral 1040 ml 120 ml 9346 ml IV Total 343 ml 871 ml Output Urine Total 500 ml 270 ml 73127 ml Post Void Residual 220 ml # Voids 1 # Bowel Movements 1 1 9 Exam General: Alert, Oriented X3. Morbidly obese female, appears uncomfortable with mild conversational dyspnea Eyes: PERRLA, Scleral Anicteric Mouth: Mouth Normal, Mucous Membranes Moist/Edinburgh Neck: supple, JVD noted Resp: Moderate increase in effort, no accessory muscle usage, diffuse bibasilar rales but no wheezes noted today Cardiovascular: distant heart sound due to body habitus, regular rate and rhythm with occasional premature beats. No murmur appreciated. Abdomen: Soft, Obese, Non-distended, Mild tenderness to palpation, Normoactive bowel tones. Extremities: Anasarca up to abdomen, lymphedema bilaterally with moderate pitting pedal edema, no cyanosis, no clubbing. Skin: Warm and dry, resolving rash between pannus folds and groin crease. LLE wound covered in dressing, c/d/i. Neurological: Grossly neurologically intact, Normal Speech, Sensation Intact IVs and Medications Medications Reviewed: Medications were reviewed in detail Lab and Diagnostics Result Diagram: 06/20/16 03206/20/16324 X-Rays, CTs and MRIs X-RAY CHEST ONE VIEW, PORTABLE 06/12/16 IMPRESSION: Small left pleural effusion and left basilar consolidation suggesting compressive atelectasis versus pneumonia. Correlate clinically. Continued radiographic surveillance to resolution is recommended. Dictated by: Elliot Velazquez RRA Interpreted: Drea Chance MD on 06/12/2016 at 17:03 Transcribed by: JOHNSON on 06/12/2016 at 17:04 CT CHEST WITHOUT CONTRAST IMPRESSION: 1. Small pleural effusions, slightly greater on the left. 2. Left basilar compressive atelectasis versus consolidation in the setting of aspiration/infection. 3. Marked cardiomegaly and trace pericardial effusion. Dictated by: Afshan Bryan M.D. on 06/15/2016 at 21:18 Cardiac Echo Impressions EKG at 0900: Atrial Fibrillation with rate in the 80s and old RBBB with PVCs, QTC of 506 Assessment & Plan Nalini Moon is a 75 year old female with congestive heart failure, Ischemic CM, CAD, Chronic Kidney disease, IDDM, hypothyroidism and Breast cancer under treatment for CHF exacerbation and cardiorenal syndrome. Hospital day #8 1. Acute on chronic systolic congestive Heart Failure. Present on admission. Active. - Patient reported compliance with her low sodium diet stating she has no salt in the house and keep track of the sodium contents in her food. She reports compliance with her medications. Thinks this may have been due to her Lasix being held secondary to her worsening CKD, but she reports the weight gain and SOB was pretty abrupt. - Continue diuretic therapy as recommended by Nephrology. Hold Spironolactone and Chlorthalidone today. - Strict I/Os and daily standing weight. - complete echo: LVEF decreased to 25-30% with worsening global hypokinesis - Cardiology consulted for further recs. - Continue Metoprolol XL to 25mg BID per Cardiology recommendation. Will hold off on ACEi given her worsening kidney function and hypotension. - Will continue to monitor vital signs. 2. Acute on Chronic Kidney disease. Present on admission. Active - Likely secondary to decompensated heart failure with cardiorenal syndrome. Chronic disease related to Hypertensive Nephrosclerosis, Diabetic nephropathy, and cardiorenal syndrome. Baseline Cr 2.04 (05/07/16) - avoid nephrotoxic insults in hospital - monitor urine output - Appreciate Nephrology consult and input. - Trial of PO Torsemide made her Edema and SOB worsen, so IV Lasix was resumed per Nephrology team - Hold Chlorthalidone 25mg and Spironolactone 25mg daily. 3. Hypoglycemia, not present on admission, resolved. - Patient had persistent hypoglycemia (42-117) that nonresponsive to D50, glucagon, and food intake on the night of 06/18. - Suspect that patient has been taking home medications. - BG has improved - Will add Lantus 3 units tonight and check BG every hour. - Given the severity of her CHF decompensation and renal function, will try to avoid IV fluid and encourage PO intake if possible. 4. Klebsiella UTI Present on admission - Patient's UA grew out Klebsiella - she developed symptoms on 06/17 and was initiated on IV Ceftriaxone, which the bacteria is sensitive to. Day #4 on antibiotics today. - Will plan to treat for 5 days. 5. Elevated troponin. Present on admission - Likely due to demand ischemia from CHF and decreased clearance from CKD. Echo showed decreased LVEF and hypokinesia. Trops have been steady. - Troponin 0.045, 0.046. CK-MB 4.0 - EKG if angina present - Full dose Aspirin continued - Wide-complex tachycardia of uncertain etiology. This may have been related to electrolyte shifts as her potassium was markedly low at 3.2 at the time of her arrhythmias. Per Cardiology, will keep her potassium stays greater than 4.0 and magnesium greater than 2.0. 6. Questionable acute atrial fibrillation, new onset, present on admission, active. - Patient had an episode of 15 beats of wide complex tachycardia on morning of 06/14. Asymptomatic. Also had some PSVT episodes while agitated per report from nursing staff. - Tele showed Afib with rate in the 70s overnight. monitor on telemetry - - CHADS score of 4. However, patient at high risk for falls and will have to be careful with anticoagulation. - continue Metoprolol 25 mg bid 7. Diabetes Type 2 with neuropathy, uncontrolled, Present on admission - low correction Lispro algorithm - Add Lantus 2 units tonight. - holding Glucotrol XL 8. Hypertension, chronic, stable - continue Metoprolol 25 mg bid, mainly for severe cardiomyopathy per cardiology recommendations. - Hold Spironolactone and Chlorthalidone per Nephrology - Continue to monitor BP closely as her BP has been low 9. Asthma. Chronic, Present on admission - Presumed stable with no wheezing - continue Albuterol and Flovent inhalers - Encourage nursing to wean off the O2 if possible. Goal SpO2 is >90% 10. Hypothyroidism, Present on admission, stable. - TSH 3.07 on admission. - continue Synthroid 112 mcg daily 11. Dyslipidemia, Present on admission - continue Pravastatin 20 mg daily 12. LLE wound, Present on admission Due to injury from [employer]Wave[employer] peguero about 2 weeks ago, had not improved and has been more tender. -Wound care following patient. Wound debrided and covered in clean dressing, 13. BMI 46.9, chronic. - Heart-healthy, renal, and diabetic diet. - Acetaminophen as needed for mild pain/fever/headache - Bowel regimen as needed - Antiemetic as needed Dispo: Likely will require 2-3 more days for diuresis and medical stabilization. Patient needs to go to SNF for rehabilitation, but she refused at this point. If she goes home, will likely need home oxygen. Pain Evaluation: Adequate Pain Control VTE Prophylaxis: Sub-Q Heparin (Unfractionated), SCDs Resuscitation Status: CPR: Attempt Resuscitation Attending Statement The patient was seen and examined together with Dr. Diaz on 06-20-16 and I agree with the history, exam and plan as outlined in the note above. Wendy Diaz DO Jun 20, 2016 20:02 Lauren Mitchell MD Jun 21, 2016 12:00
--- NOTE | 2016-06-20 20:19 | NUR ---
Metoprolol Evening dose not given d/t change in pt condition. BP low at 102/58. Continue to monitor.
[2016-06-21] VITALS (8 sets, daily range): BP systolic 88–100; BP diastolic 31–55; PULSE 40–65; RESP 16–23; O2SAT 93–98
[2016-06-21] MEDS: Sodium Chloride LOK Flush 10 mL Syringe IVFLUSH SCH ×4 (00:37→22:56)
[2016-06-21] MEDS: Heparin 5,000 Unit/mL Inj SUBQ SCH ×4 (00:58→22:55)
[2016-06-21 04:06] LABS: BASOPHILS % (AUTO) 0.9 % (0-3); EOSINOPHILS % (AUTO) 0.5 % (0-5); MONOCYTES % (AUTO) 12.4 % (4-12); Mean Corpuscular Hemoglobin 25.7 pg (27.0-35.0); Mean Corpuscular Volume 80.2 fL (81-100); NEUTROPHILS % (AUTO) 74.6 % (40-74)
[2016-06-21 04:48] LABS: Platelet Count 250 bil/L (150-400)
[2016-06-21] MEDS: Potassium Chloride 20 mEq SR Tablet PO SCH (08:00)
[2016-06-21] MEDS: Insulin LISPRO 300 Unit/3 mL Inj SUBQ SCH ×4 (08:00→23:00)
[2016-06-21] MEDS: Magnesium Chloride SR 64 mg ER24 Tablet PO SCH (08:30)
[2016-06-21] MEDS: MeTOProlol XL 25 mg ER24 Tablet PO SCH (08:30)
[2016-06-21] MEDS: Nystatin 100,000 Unit/Gm 15 Gm Powder TOPICAL SCH ×2 (08:30→22:45)
[2016-06-21] MEDS: Furosemide 10 mg/mL 10 mL Inj IVPUSH SCH ×2 (08:30→22:45)
[2016-06-21 09:50] LABS: Magnesium 2.1 mg/dL (1.6-2.6)
[2016-06-21] MEDS: Fluticasone 0.05% 15 Spray/2 Gm 16 Gm Nasal Spray NASAL SCH ×2 (11:01→22:47)
[2016-06-21] MEDS ORDERED: 0.9% Sodium Chloride 1,000 ML ONE (11:47)
[2016-06-21] MEDS ORDERED: Heparin 1,000 Unit/mL 10 mL Inj ONE ×2 (11:47→14:29)
--- NOTE | 2016-06-21 11:48 | PCM.PNNEPH ---
Subjective Date of Service Jun 21, 2016 Subjective The patient's renal function continues to worsen. Over the last 24 hours she has had 447 mL's of urine output despite high dose combination diuretics. Her systolic blood pressure remains in the 90s. She states that she is had some mild increase in her breathing but no chest pain. I have had a long talk with the patient and in light of her resistance to diuretics and worsening cardiorenal function I will go ahead and proceed with ordering a placement of a temporary dialysis catheter and start her on dialysis. It is my hope that this is merely a temporizing Cm in time for her renal function to begin to improve I have discussed all this in detail with the patient. Exam Vital Signs Vital Sign - Last Date Time Temp Pulse Resp B/P Pulse Ox O2 Delivery O2 Flow Rate FiO2 06/21/16 08:08 60 18 99/55 97 Nasal Cannula 4.00 06/21/16 03:48 36.3 Intake and Output 06/20/16 06/20/16 06/21/16 Cumulative From/Thru 15:00 23:00 07:00 06/12/16 14:52 - 06/21/16 06:35 Intake Total 200 ml 240 ml 82560 ml Output Total 177 ml 22929 ml Balance 23 ml 240 ml -3835 ml Intake Oral 200 ml 240 ml 9786 ml IV Total 871 ml Output Urine Total 175 ml 18977 ml Post Void Residual 220 ml Stool Total 2 ml 2 ml # Voids 3 4 # Bowel Movements 3 12 Lab and Diagnostics Result Diagram: 06/21/16 0324 06/21/16 0818 X-Rays, CTs and MRIs X-RAY CHEST ONE VIEW, PORTABLE 06/12/16 IMPRESSION: Small left pleural effusion and left basilar consolidation suggesting compressive atelectasis versus pneumonia. Correlate clinically. Continued radiographic surveillance to resolution is recommended. Dictated by: Elliot DOUGLAS Interpreted: Drea Chance MD on 06/12/2016 at 17:03 Transcribed by: JOHNSON on 06/12/2016 at 17:04 CT CHEST WITHOUT CONTRAST IMPRESSION: 1. Small pleural effusions, slightly greater on the left. 2. Left basilar compressive atelectasis versus consolidation in the setting of aspiration/infection. 3. Marked cardiomegaly and trace pericardial effusion. Dictated by: Afshan Bryan M.D. on 06/15/2016 at 21:18 Cardiac Echo Impressions EKG at 0900: Atrial Fibrillation with rate in the 80s and old RBBB with PVCs, QTC of 506 Plan Impression Impression #1 acute kidney injury number to cardiorenal syndrome #3 pyelonephritis secondary to Klebsiella number for acute decompensated congestive heart failure #5 diabetic nephropathy #6 hypertension with hypertensive heart disease and hypertensive nephrosclerosis. She #1 because of her body habitus I am going to have radiology place C dialysis catheter. I will dialyze her today for 3 hours standard dialyzer, 2 potassium bath, 40 bicarbonate, no heparin, 300 blood flow rate and 2 L of fluid taken off. We will also plan to have her dialyzed again tomorrow. Plan The patient will continue hyperbaric treatments. Will return () for treatment #() Nando Aquino DO Jun 21, 2016 11:48
[2016-06-21] MEDS: cefTRIAXone Inj 1,000 MG in Dextrose 5% Minibag Plus 50 ML IV SCH (11:50)
--- NOTE | 2016-06-21 13:40 | NUR ---
To seed analysis laboratory assistant Pt to seed analysis laboratory assistant for Dialysis catheter placement.
--- NOTE | 2016-06-21 14:00 | NUR ---
Social Work: Continued Discharge Planning D: Pt discussed in [facility]. Pt is not medically stable for discharge. No anticipated time frame discussed. Pt has been 1-2 person assist however is declining to participate with PT. HOT PLATE PRESS OPERATOR briefly met with pt at bedside to discuss discharge planning. Pt quickly requested HOT PLATE PRESS OPERATOR to leave and stated she was in "too much pain" to discuss discharge planning. HOT PLATE PRESS OPERATOR attempted to further inquire pt about discharge options including SNF and HH. SNF/HH CHOICE LIST PROVIDED Pt states she will not go to skilled rehab and again requested HOT PLATE PRESS OPERATOR leave and find her nurse. HOT PLATE PRESS OPERATOR agreed and notified bedside RN that pt is requesting nursing assistance. Pt remains on 02 and will likely require home 02 at time of discharge. has signed F2F order for HH as pt is currently declining SNF and refusing to work with PT. A: Pt who lives in [place], [facility]. P: HOT PLATE PRESS OPERATOR to follow up with pt on discharge plan and preference for HH. HOT PLATE PRESS OPERATOR to continue to follow pt's clinical progress. JACI Melissa
--- NOTE | 2016-06-21 14:10 | DRSVH ---
PROCEDURE: US VENOUS LEG DUPLEX BILATERAL INDICATIONS: sob edema TECHNIQUE: Real-time imaging, as well as color and pulse Doppler interrogation, were performed of the deep veins of both legs from the inguinal ligament to the popliteal fossa. COMPARISON: None. FINDINGS: The deep veins are normally compressible, and free of intraluminal thrombus. Color and pu lse Doppler demonstrate normal phasic intravascular flow. There is normal augmentation response to d istal compression maneuver. IMPRESSION: No deep venous thrombosis identified within either the left or right lower extremities. Dictated by: Elliot DOUGLAS Interpreted: Adenike Baez MD on 06/21/2016 at 14:10 Transcribed by: LELA on 06/21/2016 at 14:10 Approved by: Adenike Baez M.D. on 06/21/2016 at 21:48
--- NOTE | 2016-06-21 14:13 | NUR ---
NUTRITION ASSESSMENT Assess: 75 yo F w/ acute on chronic CHF, acute on chronic kidney disease, hypoglycemia, and UTI. Pt having temporary dialysis catheter placed and will start dialysis. PMHx: DM 2, HTN, Breast cancer, Cardiomyopathy, Mitral regurgitation, HTN, HTN, Renal insufficiency. LABS: Na 133, K 5.8, Cl 91, BUN 97, Cr 4.55, Glu 154, Ca 7.9, AST 605, ALT 224, Alk phos 206, Albumin 2.7 MEDICATIONS: Reviewed. Lasix, Immodium, DIET: NPO x1 (Healthy/Consistent carb, PO 25-100%) GI symptoms/stool: BM x3 06/21 Skin integrity: No issues noted; Sd:21 ANTHROPOMETRICS: Current Wt: 113.3 kg BMI: 48.8 kg/m2 Admit Wt: 109.4 kg (BMI: 47.1 kg/m2) IBW: 45.5 kgAdj BW: 61.4 kg Recent wt changes: Wt gain ESTIMATED NEEDS: BMI/Dialysis Calories: 5192-6909 kcal/d (25-30 kcal/kg/d Adj BW) Protein: 75-125 g/d (1.2-2.0 g/kg/d Adj BW) NUTRITION DIAGNOSIS: 1) Increased nutrient needs related to acute renal failure as evidenced by need for temporary dialysis. INTERVENTION: 1) Will send Nepro w/ lunch. MONITOR/EVALUATE: PO intake, Labs, Dialysis, Wt, Nutrition status, POC. Will follow per moderate nutrition risk guidelines.
--- NOTE | 2016-06-21 15:39 | NUR ---
Received from shop laborer Patient arrived to room 244 from shop laborer with NRB at 15L and no telemetry. Patient showing heart rate of 38-42, irregular, poor heart tones. PCC RN brought telemetry, showing Afib with rate in upper 50s and PVCs. NRB removed and 4L/nc applied. Sp02 in mid 90s. Encouraged deep breathing, tends to breathe shallow. Yells out with most interaction, bargaining with patient ice chip for BP to facilitate assessment. Calms with quiet interaction. Patient with poor circulation, fingertips cool and cyanotic.
--- NOTE | 2016-06-21 17:43 | NUR ---
Wound Care Attempted to see patient today to treat left calf wound, pt at rn labor delivery will recheck Saturday.
--- NOTE | 2016-06-21 19:06 | NUR ---
Report given to oncoming RN Pt still on MOC, report given to oncoming RN.
--- NOTE | 2016-06-21 19:10 | NUR ---
Dialysis note: S/P catheter placement. 3 hrs tx. 2000 ml net UF. Left temp catheter, dsg changed, sutures intact. Hepatitis serologies drawn. Pls see DTR for VS details. Qb 250-300. No heparin given. O2 @ 4L via NC on. Slept at intervals. Catheter flushed, heparin dwelled and secured. Report given to Padmini Mehta RN. Stable at time of transfer.
--- NOTE | 2016-06-21 19:20 | NUR ---
Return to 2004 Patient transported back to 2004 in hospital bed. SBP remains low. Report given to Emmanuel Ocampo RN. proc tech notified of room change.
--- NOTE | 2016-06-21 19:59 | PCM.PNMED ---
Subjective Date of Service Jun 21, 2016 Subjective Overnight: Patient continues to be hypotensive and bradycardia so evening dose of Metoprolol was not given d/t change in pt condition. BP in the low 100s/50s. HR in the 40s, still afib. O2 in the high 90s on 3-4L NC. Today: This morning, patient appears to be somnolent abut awake upon demand. She does not have any complaint this morning, but clinically seems to be worse than previous days. Patient has good urine output, but her renal function continues to worsen and new onset transaminitis this morning. Exam Vital Signs Vital Sign - Last Date Time Temp Pulse Resp B/P Pulse Ox O2 Delivery O2 Flow Rate FiO2 06/21/16 11:49 60 16 94/50 93 Nasal Cannula 4.00 06/21/16 03:48 36.3 Intake and Output 06/20/16 06/20/16 06/21/16 Cumulative From/Thru 15:00 23:00 07:00 06/12/16 14:52 - 06/21/16 06:35 Intake Total 200 ml 240 ml 07651 ml Output Total 177 ml 39327 ml Balance 23 ml 240 ml -3835 ml Intake Oral 200 ml 240 ml 9786 ml IV Total 871 ml Output Urine Total 175 ml 16218 ml Post Void Residual 220 ml Stool Total 2 ml 2 ml # Voids 3 4 # Bowel Movements 3 12 Exam General: Somnolent, but easily arousable . Morbidly obese female. Not in acute distress but minimally interactive. Eyes: PERRLA, Scleral Anicteric Mouth: Mouth Normal, Mucous Membranes Moist/[place] Neck: supple, JVD noted Resp: Moderate increase in effort, no accessory muscle usage, diffuse bibasilar rales but no wheezes noted today Cardiovascular: distant heart sound due to body habitus, irregular rate and rhythm. No murmur appreciated. Abdomen: Soft, Obese, Non-distended, Mild tenderness to palpation, Normoactive bowel tones. Extremities: Anasarca up to abdomen, lymphedema bilaterally with moderate pitting pedal edema, no cyanosis, no clubbing. Skin: Warm and cold, resolving rash between pannus folds and groin crease. LLE wound covered in dressing, c/d/i. Fingers and toes feel cool to touch. Poor perfusion. Neurological: Grossly neurologically intact, Normal Speech, Sensation Intact IVs and Medications Medications Reviewed: Medications were reviewed in detail Lab and Diagnostics Result Diagram: 06/21/16 0324 06/21/16 0818 X-Rays, CTs and MRIs X-RAY CHEST ONE VIEW, PORTABLE 06/12/16 IMPRESSION: Small left pleural effusion and left basilar consolidation suggesting compressive atelectasis versus pneumonia. Correlate clinically. Continued radiographic surveillance to resolution is recommended. Dictated by: Elliot Velazquez RRA Interpreted: Drea Chance MD on 06/12/2016 at 17:03 Transcribed by: JOHNSON on 06/12/2016 at 17:04 CT CHEST WITHOUT CONTRAST IMPRESSION: 1. Small pleural effusions, slightly greater on the left. 2. Left basilar compressive atelectasis versus consolidation in the setting of aspiration/infection. 3. Marked cardiomegaly and trace pericardial effusion. Dictated by: Afshan Bryan M.D. on 06/15/2016 at 21:18 12-lead ECG EKG on admission: Atrial Fibrillation with rate in the 80s and old RBBB with PVCs, QTC of 506 Cardiac Echo Impressions Echo Interpretation Summary by Dr. García on 06/13/16: 1) Normal left ventricular thickness and size with severely reduced systolic function (EF 25-30%). 2) Global hypokinesis, which is worse in the proximal to mid inferior wall. 3) Moderately dilated right ventricle with moderately reduced function. 4) Moderate to severe tricuspid regurgitation present. 5) Right sided pleural effusion present. 6) Mild pulmonary hypertension present, estimated systolic function pressure of 33 plus CVP 7) Compared to the Echo done 11/02/2013, LV function has decreased from 40-45% to 25-30% on today's study. Assessment & Plan Nalini Moon is a 75 year old female with congestive heart failure, Ischemic CM, CAD, Chronic Kidney disease, IDDM, hypothyroidism and Breast cancer under treatment for CHF exacerbation and cardiorenal syndrome. Hospital day #9. 1. Acute on chronic systolic congestive Heart Failure. Present on admission. Active. - Abrupt weight gain and dyspnea after Lasix being held secondary to her worsening CKD on presentation. - Given consistent hypotension, will hold all antihypertensive medications, including Lasix, Metoprolol, Spironolactone and Chlorthalidone today. - complete echo: LVEF decreased to 25-30% with worsening global hypokinesis - Cardiology consulted and recommended high-dose diuretic therapy as directed by nephrology team. - Will continue to monitor vital signs closely. - Strict I/Os and daily standing weight. - Plan for dialysis today. - Check D-dimer and Venous duplex today. 2. Acute on Chronic Kidney disease. Present on admission. Active - Likely secondary to decompensated heart failure with cardiorenal syndrome. Chronic disease related to Hypertensive Nephrosclerosis, Diabetic nephropathy, and cardiorenal syndrome. Baseline Cr 2.04 (05/07/16) - avoid nephrotoxic insults in hospital - monitor urine output. Total output has been over 5L, but no improvement in renal function. - Appreciate Nephrology consult and input. Worsening renal function and thus will start dialysis today 06/21/2016. - Hold Lasix 80mg IV BID, Chlorthalidone 25mg, and Spironolactone 25mg daily. 3. Acute transaminitis, not present on admission, active. - AST jumped from 64 to 605, ALT from 27 to 224 overnight. - Likely secondary to congestive hepatopathy from severe CHF. - Check abdominal U/S and hepatitis panel. - Continue to monitor after dialysis. 4. Hypoglycemia, not present on admission, resolved. - Patient had persistent hypoglycemia (42-117) that nonresponsive to D50, glucagon, and food intake on the night of 06/18. - Suspect that patient was taking home medications in the room. - BG has now improved, but given poor PO intake today, will hold home Lantus and check BG every hour. - Given the severity of her CHF decompensation and renal function, will try to avoid IV fluid and encourage PO intake if possible. 5. Klebsiella UTI Present on admission - Patient's UA grew out Klebsiella - she developed symptoms on 06/17 and was initiated on IV Ceftriaxone, which the bacteria is sensitive to. Day #5 on antibiotics today. Will stop antibiotics this time. 6. Elevated troponin. Present on admission, stable. - Likely due to demand ischemia from CHF and decreased clearance from CKD. Echo showed decreased LVEF and hypokinesia. Trops have been steady. - Troponin 0.045, 0.046. CK-MB 4.0 on admission - EKG if angina present - Full dose Aspirin continued - Wide-complex tachycardia of uncertain etiology. This may have been related to electrolyte shifts as her potassium was markedly low at 3.2 at the time of her arrhythmias. Per Cardiology, will keep her potassium stays greater than 4.0 and magnesium greater than 2.0. 7. Acute atrial fibrillation, new onset, present on admission, active. - Patient had an episode of 15 beats of wide complex tachycardia on morning of 06/14. Asymptomatic. Also had some PSVT episodes while agitated per report from nursing staff. - Tele showed Afib with rate in the 70s overnight. monitor on telemetry - - CHADS score of 4. However, patient at high risk for falls and will have to be careful with anticoagulation. - Hold Metoprolol 25 mg bid due to bradycardia. 8. Diabetes Type 2 with neuropathy, uncontrolled, Present on admission - low correction Lispro algorithm - Hold Lantus tonight. - holding Glucotrol XL 9. Hypertension, chronic, stable - Stop Metoprolol XL due to bradycardia. Will hold off on ACEi or other BP medications given her worsening kidney function and hypotension. - Continue to monitor BP closely as her BP has been low 10. Asthma. Chronic, Present on admission - Presumed stable with no wheezing - continue Albuterol and Flovent inhalers - Encourage nursing to wean off the O2 if possible. Goal SpO2 is >90% 11. Hypothyroidism, Present on admission, stable. - TSH 3.07 on admission. - continue Synthroid 112 mcg daily 12. Dyslipidemia, Present on admission - continue Pravastatin 20 mg daily 13. LLE wound, Present on admission Due to injury from blackberry peguero about 2 weeks ago, had not improved and has been more tender. -Wound care following patient. Wound debrided and covered in clean dressing, 14. BMI 46.9, chronic. - Heart-healthy, renal, and diabetic diet. - Acetaminophen as needed for mild pain/fever/headache - Bowel regimen as needed - Antiemetic as needed Dispo: Likely will require 2-3 more days for diuresis and medical stabilization. Patient needs to go to SNF for rehabilitation, but she refused at this point. If she goes home, will likely need home oxygen. The patient's son and daughter in law called this afternoon for an update. They reported that they will be here on Saturday next week. They are coming from [place]. Ideally, they would like to take the patient back to [place] to live with them when she leaves the hospital as they feel she is too isolated here. I gave them an update about dialysis and let them know that while she is likely not in any immediate danger of , she may still be in the hospital next week. The son's phone number is [phone] and if you want to call him at all he is available after 4:00 PM our time. He is off on Saturday all day but is working the other days. Pain Evaluation: Adequate Pain Control VTE Prophylaxis: Sub-Q Heparin (Unfractionated), SCDs Resuscitation Status: CPR: Attempt Resuscitation Attending Statement The patient was seen and examined together with Dr. Diaz on (date) and I agree with the history, exam and plan as outlined in the note above. Wendy Diaz DO Jun 21, 2016 12:16 Lauren Mitchell MD Jun 22, 2016 12:38
[2016-06-21] MEDS ORDERED: Ertapenem Inj 1,000 MG in 0.9% Sodium Chloride 50 ML IV SCH (21:30)
--- NOTE | 2016-06-21 21:42 | ABG ---
DateTimeAnalyzed 21:40:00 -_ pH ____7.338 - 7.350 7.450 pCO2 ___44.0__ -mmHg 35.0 45.0 pO2 ___91.4__ -mmHg 69.0 116 HCO3- ___23.0__ -mmol/L 22.0 26.0 ABE ___-2.4__ -mmol/L -2.0 2.0 tHb ___14.0__ -g/dL O2Hb ___94.3__ -% COHb ____1.3__ -% MetHb ____0.8__ -% sO2 ___96.3__ -% FIO2 ___21.0__ -% Drawn By MD - Date/Time Notified____ 21:42:00 -_ Liter_Flow ____5.0__ -L/min Oxygen Device 1 __OXYMASK - Notified By MD - Notified Whom DR ODONNEL - B 763 -mmHg tO2 ___18.7__ -Vol% Magdaleno test _Positive -
--- NOTE | 2016-06-21 22:05 | DRSVH ---
PROCEDURE: US ABDOMEN ([id number]) INDICATIONS: ruq pain, renal failure TECHNIQUE: Real-time scanning was performed of the abdominal and retroperitoneal organs, with image documentatio n. COMPARISON: None. FINDINGS: Liver: Liver is normal in size at 15.7 cm. and homogeneous in echotexture. Gallbladder: Wall appears to be very thick and probable stones in the gallbladder as well. No tendern ess over the gallbladder is found. While could be contracted or chronically thickened. No pericholecy stic fluid is seen. Biliary ducts: Intrahepatic bile ducts are non-dilated. Extrahepatic bile duct caliber measures 10 mm mm. Normal is 6-7 mm or less in diameter, or 10 mm or less post-cholecystectomy. Pancreas: The body and adjacent portions of head and tail are considered normal but portions of the h ead and tail obscured by bowel gas as well. Spleen: Spleen is normal in size and homogeneous in echotexture. Maximum dimension of the spleen is 9.8 cm. Kidneys: Kidneys are normal in size and echotexture. Right kidney measures 9.5 cm long; left kidney measures 8.5 cm long. No hydronephrosis or nephrolithiasis. No solid masses. Aorta: Proximal and middle third portions of the aorta are normal in size. Distally the aorta is obsc ured. Iliacs: Proximal common iliac arteries are obscured by bowel gas. IVC: Intrahepatic inferior vena cava is patent. IMPRESSION: 1. Normal size liver and normal echogenicity. 2. In portal vein show some to and fro motion. This could be a function of increased right-sided hear t pressure. 3. Diffusely thickened gallbladder wall without pericholecystic fluid. There is thought to be stones in the gallbladder. No tenderness is elicited ultrasound. 4. No hydronephrosis. Dictated by: Nadeem Jo M.D. on 06/21/2016 at 21:57 Approved by: Nadeem Jo M.D. on 06/21/2016 at 22:04
[2016-06-21 22:24] LABS: BASOPHILS % (AUTO) 0.6 % (0-3); EOSINOPHILS % (AUTO) 1.5 % (0-5); MONOCYTES % (AUTO) 9.9 % (4-12); Mean Corpuscular Hemoglobin 25.4 pg (27.0-35.0); Mean Corpuscular Volume 81.3 fL (81-100); NEUTROPHILS % (AUTO) 77.4 % (40-74); Platelet Count 217 bil/L (150-400)
[2016-06-21] MEDS: Norepineph 8,000 mCg/250 mL NS 8,000 MCG in IV Premix 1 EACH IV SCH (22:56)
[2016-06-21 23:04] LABS: TROPONIN T 0.057 ug/L (0.0-0.011)
--- NOTE | 2016-06-22 02:38 | PCM.PNMED ---
Subjective Date of Service Jun 22, 2016 Subjective Resident on-call was paged at [phone], with stat results for abdominal ultrasound stating amongst other things 12.8 mm gallbladder wall, and 10.3 mm common bile duct. Upon presentation to the room I was notified that her blood pressure had been decreasing, and was now 74/42, with map in the 50s. Patient stated she felt fine and was not in an altered state. Concern for septic shock versus cardiogenic shock patient was transferred to the ICU, started on ertapenem, Dr. Juares the surgeon on-call was contacted who stated he would evaluate patient out of concern for cholecystitis versus ascending cholangitis. (Recheck CMP: AST 448, ALT 207, alkaline phosphatase 167, total bilirubin 0.7.) Surgeon on- call felt this was more cardiogenic in nature, and if there is further abnormalities with biliary tree patient may require ERCP or MRCP if she would be able to tolerate it at all. Previously in the day, patient received dialysis and 2 L taken off. Out of concern that she is intravascularly depleted 500 mL normal saline was slowly infused. This maintained her blood pressure stable, and map in the high 50s. We informed the patient of her lowering blood pressures, and the need for pressure support and an order for that to be placed needed an extra central line since the line placed in her left internal jugular was not able to be accessed by current staff. Patient gave verbal permission for this to be performed. Additionally, we clarified patient's CODE STATUS. Patient stated she did not want intubation or chest compressions, we contacted the numbers on file to inform them of the change in status and left voice mails for those calls to be returned. At roughly 2 AM the patient's DPOAE Mr. Randall Moon returned the call to [facility] where he was updated on the patient's status, expectations, and available interventions. DPOAE expressed that respect patient 's request as long as she is conscious and coherent and able to make her own decisions. In the absence of her ability to make her own decisions, do not provide life support, DO NOT INTUBATE, DO NOT RESUSCITATE. 10 PM patient's lactic acid had increased to 3.8, 2 hours later this had increased to 7.1. Her troponin rechecked at 10 PM was 0.057, higher than its been the entire hospitalization. EKG performed did not show any substantial change from previous. AB.33, PCO2 44.0, PCO2 91.4, HCO3 23.0. Randall Moon updated his contact information: Personal phone #[phone]. Home phone number( night) [phone]. of [employer] was given verbal permission to share health information and make executive decisions when Randall is unable to be reached. Her cell phone number is [phone] name is Maris. Exam Vital Signs Vital Sign - Last Date Time Temp Pulse Resp B/P Pulse Ox O2 Delivery O2 Flow Rate FiO2 06/21/16 23:00 65 23 88/53 97 OxyMask 4.00 06/21/16 03:48 36.3 Intake and Output 06/21/16 06/21/16 06/22/16 Cumulative From/Thru 15:00 23:00 07:00 06/12/16 14:52 - 06/21/16 23:00 Intake Total 0 ml 26920 ml Output Total 2000 ml 21314 ml Balance -2000 ml -5835 ml Intake Oral 0 ml 9786 ml IV Total 871 ml Output Urine Total 72530 ml Post Void Residual 220 ml Stool Total 2 ml Ultrafiltrate 2000 ml 2000 ml # Voids 0 4 # Bowel Movements 2 14 Exam Laying in bed, coherent, no apparent distress Pulmonary no wheezing rales or rhonchi appreciated Cardiovascular: Irregularly irregular, radial pulses equal bilaterally T/4. Extremities moderate anasarca Mucous membranes are moist. Abdomen is soft, Tse sign negative, tenderness only with moderate to deep palpation. Lab and Diagnostics Result Diagram: 06/21/16219906/21/162199 X-Rays, CTs and MRIs X-RAY CHEST ONE VIEW, PORTABLE 06/12/16 IMPRESSION: Small left pleural effusion and left basilar consolidation suggesting compressive atelectasis versus pneumonia. Correlate clinically. Continued radiographic surveillance to resolution is recommended. Dictated by: Elliot DOUGLAS Interpreted: Drea Chance MD on 06/12/2016 at 17:03 Transcribed by: JOHNSON on 06/12/2016 at 17:04 CT CHEST WITHOUT CONTRAST IMPRESSION: 1. Small pleural effusions, slightly greater on the left. 2. Left basilar compressive atelectasis versus consolidation in the setting of aspiration/infection. 3. Marked cardiomegaly and trace pericardial effusion. Dictated by: Afshan Bryan M.D. on 06/15/2016 at 21:18 12-lead ECG EKG on admission: Atrial Fibrillation with rate in the 80s and old RBBB with PVCs, QTC of 506 Cardiac Echo Impressions Echo Interpretation Summary by Dr. García on 06/13/16: 1) Normal left ventricular thickness and size with severely reduced systolic function (EF 25-30%). 2) Global hypokinesis, which is worse in the proximal to mid inferior wall. 3) Moderately dilated right ventricle with moderately reduced function. 4) Moderate to severe tricuspid regurgitation present. 5) Right sided pleural effusion present. 6) Mild pulmonary hypertension present, estimated systolic function pressure of 33 plus CVP 7) Compared to the Echo done 11/02/2013, LV function has decreased from 40-45% to 25-30% on today's study. Assessment & Plan This time the plan is to place a central line or access patient's dialysis catheter to provide central administration of norepinephrine for blood pressure support. Patient States under standing, questions were answered, and agrees with the plan. VTE Prophylaxis: Sub-Q Heparin (Unfractionated), SCDs Resuscitation Status: DNR/DNI:Do Not Resuscitate/Intubate Martinez Hernandez DO Jun 22, 2016 02:38
[2016-06-22] MEDS: Norepineph 8,000 mCg/250 mL NS 8,000 MCG in IV Premix 1 EACH IV SCH ×3 (02:54→22:50)
[2016-06-22 03:02] VITALS: BP 89/48; PULSE 67; RESP 24; O2SAT 97
--- NOTE | 2016-06-22 03:50 | CONS ---
[address] [address] CONSULTATION REPORT PATIENT: CAITLIN DELGADO : 1940 MR#: [id number] ADMIT: 06/12/2016 JOB ID: [id number] DATE OF SERVICE: 06/21/2016 I have been asked by Dr. Hernandez and Dr. Harris to consult on this 75-year-old woman with a question of cholecystitis. HISTORY OF PRESENT ILLNESS: The patient was admitted to the hospital on June 12, nine days ago with symptoms of progressive leg swelling and shortness of breath that were felt to be biventricular heart failure. As well, she was noted to have elevated BUN and creatinine and has been followed in consultation by the tire inspector and the manager fine dining. It is felt that she has both severe right and left heart failure, and three days ago it was felt that ischemic evaluation may need to be done at some point to look for the cause of her new right heart failure, but given her acute on chronic renal failure she was not an interventional candidate at the time. Her current medications up until this morning included metoprolol. Additionally, during this hospitalization, she was noted to have a urine specimen on admission that was consistent with Klebsiella UTI and she was began on antibiotics for this. This morning, she was noted to have elevation of her AST and ALT compared to 24 hours previously, and was scheduled for an abdominal ultrasound for tomorrow. For some reason, it was done this evening and around the time of the completion of her ultrasound she was noted to be hypotensive and transferred to the ICU. I have been asked to see here for concerns of possible cholecystitis as the preliminary report from the solar installation technician indicated that the patient has gallstones and a thickened gallbladder wall. PAST MEDICAL HISTORY: 1. Diabetes. 2. Morbid obesity. 3. Hypertension. 4. History of stage IIA breast cancer, roughly 5-1/2 years ago. 5. Chronic renal insufficiency. 6. Hypothyroidism. 7. Status post appendectomy. 8. History of cardiac catheterization with stenting of the distal segment of her right coronary artery. MEDICATIONS: Home medication list reviewed, includes: 1. Metoprolol. 2. Levothyroxine. 3. Lantus insulin. 4. Glucotrol. 5. Inhalers. ALLERGIES: Multiple allergies. SOCIAL HISTORY: The patient does not have a spouse. She does have some adult children that she does not live with. They are not available [facility]. PHYSICAL EXAMINATION: A pleasant woman, seems oriented, though she is a bit of a joker. Her BMI is recorded at 49. Vital signs are recorded in the chart. She is hypotensive and bradycardic. She has JVD well up to the angle of her jaw. Breath sounds are decreased bilaterally. I did not sit her up in bed to look for rales. I do not appreciate right upper quadrant tenderness or positive Tse sign. IMAGING: I have reviewed her abdominal ultrasound, both the films and the report. The report notes that she has a normal sized liver and normal echogenicity though there is mention of to-and-fro motion in the portal vein suggestive of high right-sided heart pressures. The gallbladder wall is diffusely thickened, but there is no pericholecystic fluid. The gallbladder is nondistended and the description is that the gallbladder "could be contracted or chronically thickened" and "probable stones in the gallbladder," with the impression reading that "there is thought to be stones in the gallbladder." Her common duct is large on her ultrasound at 10 mm. LABORATORIES: CBC shows that her hematocrit is 45, compared to 41 four days ago following diuresis. Her white count remains normal at 6.8. [facility]istries [facility] are pending. Her BUN and creatinine were 97 and 4.55 early this morning. Potassium was 5.8. Her LFTs were markedly abnormal with a bilirubin of 0.7, but otherwise an AST of 605, ALT of 224, and alkaline phosphatase of 206, compared to mild elevation of alkaline phosphatase at 184, but the biggest difference is her AST was 64 and her ALT was 27, 24 hours ago, and were normal when she came in on June 12. Repeat LFTs are pending. IMPRESSION AND PLAN: Hypotensive 75-year-old woman with progressive biventricular heart failure of unclear etiology despite attempts at optimization of her cardiac and renal status over the past nine days, now with hypotension that I believe is most likely cardiogenic shock related to her underlying disease, as well as her medications and aggressive diuresis. I do not have a good explanation for her rising LFTs this morning, and it will be interesting to see what they are this evening. I do not think she has cholecystitis, and even if she does, she has been placed on broad-spectrum antibiotics which would be the first line treatment tonight given her poor medical status. In point of fact, I do not think that she would be a surgical candidate if this was symptomatic gallbladder disease. I have discussed with Dr. Hernandez that if her bilirubin is elevated tonight, one has to entertain the possible diagnosis of acute cholangitis, in which case, we should get GI involved for consideration of ERCP, though once again I think she would be a very high risk ERCP candidate. The problem is that if she does have ascending cholangitis, she will need to have that drained as opposed to if she has simple cholecystitis one could temporize with IV antibiotics. I suspect that her rising LFTs are more likely related to hepatic congestion, but again if her bilirubin is elevated my recommendation would be to involve GI. I think that they will likely give serious consideration to MRCP prior to embarking on ERCP. I also had preliminary discussions with her regarding end-of-life, and I believe that Dr. Hernandez is going to continue with those discussions in more depth. General Surgery will follow up in the morning with this patient.
[2016-06-22 05:25] LABS: BASOPHILS % (AUTO) 0.3 % (0-3); EOSINOPHILS % (AUTO) 0.4 % (0-5); MONOCYTES % (AUTO) 9.3 % (4-12); Mean Corpuscular Hemoglobin 25.8 pg (27.0-35.0); Mean Corpuscular Volume 81.4 fL (81-100); NEUTROPHILS % (AUTO) 83.4 % (40-74)
[2016-06-22 05:53] LABS: Platelet Count 215 bil/L (150-400)
--- NOTE | 2016-06-22 06:45 | NUR ---
Transfer/BP/Hemodynamics Patient transferred to CCU 2013 about 2144, low BP and patient stated she was feeling okay when BP was low, fluids started at 100ml/hr for 5 hours but orders changed to give 250 ml bolus at 0030 and 0200, Levophed started and currently infusing at 0.12mcg/kg/min, last lactic acid 4.4 and 3rd NS 250ml bolus infusing now over 45 min at 333ml/hr and then to infuse at 100ml/hr continuous , A&Ox3 this shift, no distress noted, no urine output, NPO, will continue to monitor, last BP 99/50. Addendum: 06/22/16 at 0646 by KAELA CHAMORRO RN Amended: Links added.
[2016-06-22] MEDS ORDERED: 0.9% Sodium Chloride 250 ML IV ONE (07:00)
[2016-06-22] MEDS: 0.9% Sodium Chloride 1,000 ML IV SCH ×2 (07:00→17:00)
[2016-06-22 07:38] VITALS: BP 96/49; PULSE 81; RESP 16
[2016-06-22] MEDS: Insulin LISPRO 300 Unit/3 mL Inj SUBQ SCH ×4 (07:39→21:06)
[2016-06-22] MEDS ORDERED: Ertapenem Inj 1,000 MG in 0.9% Sodium Chloride 50 ML IV SCH (07:50)
--- NOTE | 2016-06-22 08:16 | PCM.PNSURG ---
Subjective Visit Information: Reason for Visit Chf Exacerbation Surgery/Surgery Date Post-Op Day # Date of Admission: Jun 12, 2016 at 18:39 Hospital Day # Subjective: on little bit of norepi drip, pt is on facemask, lethargic but responsive, denies abd pain, c/o hunger; pt underwent dialysis yesterday Objective Objective On facemask Abd: obese, lower midline incision scar, soft, nontender, no RUQ complaint Lactate 4.4 this am Creat 4.1 Vital Sign- Last 8 Hours Date Time Temp Pulse Resp B/P Pulse Ox O2 Delivery O2 Flow Rate FiO2 06/22/16 07:46 Supplement Oxygen 06/22/16 07:38 36.5 81 16 96/49 OxyMask 4.00 06/22/16 03:02 Supplement Oxygen 06/22/16 03:02 35.7 67 24 89/48 97 OxyMask 5.00 Intake and Output- Last 8 Hour 06/22/16 Cumulative From/Thru 07:00 06/12/16 14:52 - 06/22/16 06:00 Intake Total 821 ml 95252 ml Output Total 0 ml 20129 ml Balance 821 ml -5014 ml Intake Oral 9786 ml IV Total 821 ml 1692 ml Output Urine Total 0 ml 79653 ml Post Void Residual 220 ml Stool Total 2 ml Ultrafiltrate 2000 ml # Voids 4 # Bowel Movements 0 14 Result Diagram: 06/22/16 0505 06/22/16 0505 Assessment & Plan Impression Low EF Swollen lower extremities CHF exacerbation Elevated AST and ALT and alk phos Kleb UTI Problems: Plan Doubt cholecystitis as cause of pt's hypotension Elevated LFT's likely due to CHF and hepatic congestion Not a surgical candidate at this time Abx treatment for now, but if pt continues to get worse --> Consider HIDA scan , MRCP, or Perc drain of GB by IR. VTE Prophylaxis: Sub-Q Heparin (Unfractionated), SCDs Resuscitation Status: DNR/DNI:Do Not Resuscitate/Intubate Marques Munoz MD Jun 22, 2016 08:16
[2016-06-22] MEDS ORDERED: 0.9% Sodium Chloride 500 ML IV ONE (08:20)
[2016-06-22] MEDS: Magnesium Chloride SR 64 mg ER24 Tablet PO SCH (08:30)
[2016-06-22] MEDS: Fluticasone 0.05% 15 Spray/2 Gm 16 Gm Nasal Spray NASAL SCH ×2 (08:30→20:15)
[2016-06-22] MEDS: Sodium Chloride LOK Flush 10 mL Syringe IVFLUSH SCH ×2 (08:30→20:12)
[2016-06-22] MEDS: Nystatin 100,000 Unit/Gm 15 Gm Powder TOPICAL SCH ×2 (08:30→20:15)
[2016-06-22] MEDS: Heparin 5,000 Unit/mL Inj SUBQ SCH (08:30)
[2016-06-22] MEDS: Meropenem Inj 1,000 MG in IV Premix 1 EACH IV SCH ×2 (08:55→16:30)
--- NOTE | 2016-06-22 09:43 | ABG ---
DateTimeAnalyzed 09:35:00 -_ pH ____7.279 - 7.350 7.450 pCO2 ___49.2__ -mmHg 35.0 45.0 pO2 ___35.2__ -mmHg 69.0 116 HCO3- ___22.3__ -mmol/L ABE ___-4.4__ -mmol/L tHb ___14.2__ -g/dL O2Hb ___52.5__ -% COHb ____1.0__ -% MetHb ____1.0__ -% sO2 ___53.6__ -% FIO2 ___21.0__ -% Drawn By LAB - Date/Time Notified____ 09:42:00 -_ Spontaneous_RR ___34.0__ -b/min Liter_Flow ____3.0__ -L/min Oxygen Device 1 __OXYMASK - Notified By RC - Notified Whom SANTIAGO MD - B 757 -mmHg tO2 ___10.5__ -Vol% Magdaleno test N/A -
[2016-06-22] MEDS ORDERED: Heparin 25K Unit/500mL 0.45 NS 25,000 UNIT in IV Premix 1 EACH IV SCH (10:35)
[2016-06-22] MEDS ORDERED: Heparin Protocol Boluses IVPUSH PRN ×2 (10:35→11:00)
[2016-06-22] MEDS ORDERED: Heparin Initial Bolus IVPUSH ONE ×2 (10:35→11:00)
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
[2016-06-22] MEDS: Heparin 25K Unit/500mL 0.45 NS 25,000 UNIT in IV Premix 1 EACH IV SCH (11:06)
--- NOTE | 2016-06-22 11:07 | PROG NOTE ---
[address] [address] PROGRESS NOTE PATIENT: CAITLIN DELGADO : 1940 MR#: [id number] ADMIT: 06/12/2016 JOB ID: [id number] DATE: 06/22/2016 CARDIOLOGY CRITICAL CARE FOLLOWUP: SUBJECTIVE: The patient is in the ICU. She is lying down. She appears to be confused. She has some tachypnea but she is not having any chest pain. Yesterday, she was started on dialysis. As per the nurse, they took out about 2 kg of fluid. She developed hypotension, as well as heart rate dropped into the 40s. She was started on norepinephrine. She had ultrasound of abdomen which revealed gallbladder stones with some concern for cholecystitis. The patient was seen by Surgery. Her liver functions started getting worse. On telemetry, she is in AFib. OBJECTIVE: Blood pressure around 112/46, heart rate 68, irregularly irregular. Respiratory rate about 29, oxygen saturation was about 94%. HEENT: I do not see any obvious significant anemia or jaundice in her eyes. Neck: Positive JVD. Chest: Decreased air entry at the bases with some crepitations. CVS: S1 variable, P2 appears from prominent. No obvious S3, S4. I do not appreciate any significant murmur. Abdomen: Obese, no obvious pulsatile mass felt. Extremities: The patient has bilateral lymphedema. She has some skin breakdown on the left leg above the ankle. No evidence of critical limb ischemia. Right forearm has diffuse ecchymosis. As per the nurse, she has infiltration. She has left IJ central catheter. [employer]ANG[employer]AGES DEPARTMENT CHAIR: The patient is confused. On telemetry, the patient has AFib with controlled ventricular rate. LABORATORIES: WBC 9.2, hemoglobin 14.3, platelets 215, polymorphs 83.4. Her INR on June 12, 2016, was 1.13. Sodium 134, potassium 5.0, BUN 69, creatinine 4.10, chloride 93, CO2 of 19. Lactic acid 4.4 and repeat 3.5. Calcium 7.8. AST increased to 570, ALT 279, alkaline phosphatase 216, total bilirubin 0.9. ASSESSMENT AND PLAN: In summary, this 75-year-old, pleasant , morbidly obese female, who has a history of ST-elevation inferior wall myocardial infarction in 2011, status post percutaneous coronary intervention and stent placement, obesity, underlying diabetes mellitus, hypertension, hyperlipidemia, ischemic cardiomyopathy, moderate pulmonary hypertension, chronic renal insufficiency, left ventricular ejection fraction 40% to 45% in the past, presented with biventricular failure and weight gain on June 12, 2016. In the hospital from Cardiology service the patient was seen by Dr. Nieves, as well as Dr. Amaro. She did not respond to diuretic treatment well. Her creatinine went up. Hence, yesterday, she was started on dialysis by the Nephrology team, Dr. Aquino. She is in AFib, which appeared to be there since at least June 19, 2016. She was started on norepinephrine, as after dialysis she dropped her blood pressure. Her heart rate was decreased as well to 40s. She had a repeat echocardiogram on June 13, 2016. I reviewed that echocardiogram myself. Her left ventricle is not dilated. However, EF in the range of 20% to 25%. She has akinesis of base to mid inferior posterior lateral wall, along with severe diffuse hypokinesis and evidence of RV volume and pressure overload. Right ventricle is moderately dilated. Right ventricular function is moderately reduced. There was mild MR without any significant aortic stenosis, moderate to severe tricuspid regurgitation and pulmonary artery systolic pressure about 33 plus estimated CVP. There was no obvious pericardial effusion. She also has klebsiella pyelonephritis. Her acute on chronic renal failure appears to be multifactorial. Certainly, there is a prerenal component due to profound left ventricular dysfunction and poor cardiac output. Her hypotensive episode happened after dialysis when she was taken out about 2 kg of weight. Considering her body habitus, it is difficult to assess volume status but certainly, it appears to be that she is in volume overload as well. Her liver function is getting worse. That may be due to hepatic congestion. However, alkaline phosphatase has increased, and the patient has gallbladder stone. Hence, possibility of posthepatic phenomena is there as well. Her lactic acid has gotten worse. Now, it is getting a little bit better. I had a long discussion with our ICU team including Dr. Barrow, as well as Dr. Aquino, about how to manage this complicated patient. At this point of time, will recommend continuation of INR tropic support. She is on norepinephrine, small dose. She is not very tachycardiac with atrial fibrillation; hence, will continue. Her CHADS2 vascular score is very high. She is 75 years old. She is female. She is diabetic. She has coronary artery disease. She has vascular disease. Hence, she will benefit with IV heparin for stroke prevention. The ICU team is considering arterial line to assess intra-arterial pressure. At this point of time, will not use a statin. I will hold off beta sourav, as well as vasodilator, in view of hypotension. Continue dialysis to optimize her volume status. Will recommend continuation of anti-platelet therapy as well. Get lower extremity venous Doppler to make sure there is no DVT. At this point of time, overall prognosis is guarded. TOTAL TIME SPENT TODAY: Including reviewing recent hospital course, previous history, examination and discussion with other physicians, about 70 minutes.
--- NOTE | 2016-06-22 12:11 | DRSVH ---
PROCEDURE: X-RAY CHEST ONE VIEW, PORTABLE ([id number]) INDICATIONS: SOB TECHNIQUE: One view of the chest was acquired. COMPARISON: [facility], CT, CT CHEST WO CON, 06/15/2016, 20:15. [facility], CR, XR CHEST 1VW (PORTABLE), 06/15/2016, 12:36. FINDINGS: Surgical changes and devices: Left IJ dialysis catheter present tip projected over the cavoatrial karen ction. Lungs and pleura: Left basilar airspace opacity and small effusion unchanged. Small right pleural ef fusion likely present. No pneumothorax. Mediastinum: Mediastinal contours appear normal. Heart size is enlarged. Bones and chest wall: No suspicious bony lesions. Overlying soft tissues appear unremarkable. IMPRESSION: 1. Left IJ double-lumen dialysis catheter present. 2. Small left pleural effusion and basilar airspace opacity consistent with compressive atelectasis v ersus pneumonia. 3. Trace right pleural effusion. 4. Cardiomegaly redemonstrated. Dictated by: Elliot Velazquez RRA Interpreted: Drea Chance MD on 06/22/2016 at 12:10 Transcribed by: JOHNSON on 06/22/2016 at 12:11 Approved by: Drea Chance MD, PhD on 06/22/2016 at 16:59
[2016-06-22 12:24] VITALS: BP 93/52; PULSE 68; RESP 22; O2SAT 94
--- NOTE | 2016-06-22 14:00 | NUR ---
Wound Care Pt seen for dressing change at left posterior calf, dimensions unchanged wounds stable and uninfected at this time. Mepilex adhesive foam dressing placed ,nursing to change q 48 hrs, will recheck on this patient Saturday06/25/16.
--- NOTE | 2016-06-22 14:01 | PCM.PROC ---
Procedure Note Date of Service: Jun 22, 2016 Pre Procedure Diagnosis: Cardiogenic Shock. . Post Procedure Diagnosis: Cardiogenic Shock. Successful Central IJ Venous Line placement. . Procedure: Consent: Detailed explanation of the procedure was discussed with the patient, as well as, the attending physician, the risks, benefits, and alternatives were reviewed. A written informed consent was obtained. IV therapy was contacted and the PICC line was unavailable. A time-out was completed verifying correct patient, procedure, site, positioning , and special equipment. The right internal jugular vein was identified using ultrasound guidance. The right neck was prepped and draped in a sterile fashion. The patient was placed in Trendelenburg position. Full barrier precautions were taken and the physicians involved in the procedure were both gowned and gloved in a sterile manner. 1% Lidocaine without epinephrine, approximately 5 mL, was used to anesthetize the skin and subcutaneous tissue of the right neck over the internal jugular vein. A small gauge needle was introduced into the the right internal jugular vein using the Seldinger technique under ultrasound guidance and blood confirmed access of the right IJ. Subsequently, a larger needle was used to access the right internal jugular vein. A flash of blood was obtained and a small catheter was connected to the needle to confirm venous access/CVP. A guidewire was then passed without difficulty into the needle and the needle withdrawn. A scalpel was used to make a small incision over the skin entry site. A dilator was then subsequently passed with ease. A standard triple lumen central catheter was introduced over the guidewire. Each lumen of the catheter had been evacuated of air and flushed with sterile saline prior to insertion. The guidewire was then removed and appropriate blood return was obtained from all 3 ports. The catheter was then secured in place to the skin by IV therapy nurse with a sterile dressing applied. Catheter was placed at a depth of [address] Barrow was present for the entire procedure. Chest x-ray for view of line placement is pending at this time. Estimated Blood Loss was 5 mL. The patient tolerated the procedure well and there were no complications. . Provider and Bench Assembly Inspector: Resident: Cristina Sadler D.O. Attending: Dagoberto Brarow M.D. . Indication for Procedure: Cardiogenic shock and need for vasopressor support. . Findings: As noted above. . Procedural Analgesia: As noted above. . Procedure Details: As noted above. . Specimen: None. . Post Procedure Plan: Vasopressor support with continued monitoring in the CCU. . Attending Statement Procedure: Right internal jugular central venous catheter placement under ultrasound guidance I was present for and supervised the entire procedure. Date of service 06/22/16 Elsie Barrow M.D. Pulmonary and Critical Care medicine Pager [phone] Cristina Sadler DO Jun 22, 2016 14:01 Elsie Barrow MD Jun 22, 2016 18:13 Resident: Cristina Sadler D.O. Attending: Dagoberto Barrow M.D. . Indication for Procedure: Cardiogenic shock and need for vasopressor support. . Procedural Analgesia: 1% Lidocaine. . Cristina Sadler DO Jun 22, 2016 14:01
--- NOTE | 2016-06-22 14:29 | PCM.PNNEPH ---
Subjective Date of Service Jun 22, 2016 Subjective Events overnight have been reviewed. I had a discussion with Dr. Cooley from our cardiology concerning number of issues and the patient and are limited options. Her blood pressure appears to be the ellis issue at this time. Her liver function studies continue to improve and it appears that some of this pain in fact be due to acalculous cholecystitis. She has not had much urine output and she is requiring pressors. This morning her sodium is 134, potassium 5.0, chloride 93, bicarbonate 19, BUN and creatinine were 69 and 4.1 respectively. Her lactic acid level is elevated at 4.4. Exam Vital Signs Vital Sign - Last Date Time Temp Pulse Resp B/P Pulse Ox O2 Delivery O2 Flow Rate FiO2 06/22/16 12:25 Supplement Oxygen 06/22/16 12:24 36.3 68 22 93/52 94 5.00 Intake and Output 06/21/16 06/21/16 06/22/16 Cumulative From/Thru 15:00 23:00 07:00 06/12/16 14:52 - 06/22/16 06:00 Intake Total 0 ml 821 ml 51383 ml Output Total 2000 ml 0 ml 31837 ml Balance -2000 ml 821 ml -5014 ml Intake Oral 0 ml 9786 ml IV Total 821 ml 1692 ml Output Urine Total 0 ml 15356 ml Post Void Residual 220 ml Stool Total 2 ml Ultrafiltrate 2000 ml 2000 ml # Voids 0 4 # Bowel Movements 2 0 14 Exam Patient is awake and interactive and denies any complaints. There is some jugular venous distention noted. Her lungs show a few bibasilar rales. Heart sounds are distant going to the fact that she is supine and there is considerable obesity. Her abdomen is somewhat distended and the liver is enlarged, pulsatile, and there is evidence of hepatojugular reflux. Extremities show a moderate amount of lymphedema in both lower extremities. Lab and Diagnostics Result Diagram: 06/22/16 0505 06/22/16 0505 X-Rays, CTs and MRIs X-RAY CHEST ONE VIEW, PORTABLE 06/12/16 IMPRESSION: Small left pleural effusion and left basilar consolidation suggesting compressive atelectasis versus pneumonia. Correlate clinically. Continued radiographic surveillance to resolution is recommended. Dictated by: Elliot DOUGLAS Interpreted: Drea Chance MD on 06/12/2016 at 17:03 Transcribed by: JOHNSON on 06/12/2016 at 17:04 CT CHEST WITHOUT CONTRAST IMPRESSION: 1. Small pleural effusions, slightly greater on the left. 2. Left basilar compressive atelectasis versus consolidation in the setting of aspiration/infection. 3. Marked cardiomegaly and trace pericardial effusion. Dictated by: Afshan Bryan M.D. on 06/15/2016 at 21:18 12-lead ECG EKG on admission: Atrial Fibrillation with rate in the 80s and old RBBB with PVCs, QTC of 506 Cardiac Echo Impressions Echo Interpretation Summary by Dr. García on 06/13/16: 1) Normal left ventricular thickness and size with severely reduced systolic function (EF 25-30%). 2) Global hypokinesis, which is worse in the proximal to mid inferior wall. 3) Moderately dilated right ventricle with moderately reduced function. 4) Moderate to severe tricuspid regurgitation present. 5) Right sided pleural effusion present. 6) Mild pulmonary hypertension present, estimated systolic function pressure of 33 plus CVP 7) Compared to the Echo done 11/02/2013, LV function has decreased from 40-45% to 25-30% on today's study. Plan Impression Impression #1 acute kidney injury secondary to both hepatorenal and cardiorenal syndrome. Number to lactic acidosis partially due to passive congestion of the liver from right-sided fluid overload, Recommendation #1 depending on the patient's stability we may proceed with dialysis tomorrow pending the other parameters. Overall I do not feel that her prognosis is good. Plan The patient will continue hyperbaric treatments. Will return () for treatment #() Nando Aquino DO Jun 22, 2016 14:28
--- NOTE | 2016-06-22 14:55 | DRSVH ---
PROCEDURE: US VENOUS ARM DUPLEX, BILATERAL INDICATIONS: History of congestive heart failure and atrial fibrillation. Upper extremity edema. Eval uate deep venous thrombosis. TECHNIQUE: Real-time imaging, as well as color and pulse Doppler interrogation, was performed of both upper extr emity deep veins from the inferior neck to the antecubital fossa. COMPARISON: [facility], CT, CT CHEST WO CON, 06/15/2016, 20:15. FINDINGS: Limited examination due to morbid obesity. The internal jugular veins, visualized portions of the subclavian veins, axillary veins, and brachial veins are free of intraluminal thrombus. Wher e physically possible, the veins are normally compressible. Color and pulse Doppler demonstrate norm al intraluminal flow, with expected phasicity and pulsatility. Additional scanning of the cephalic a nd basilic veins of the superficial system demonstrate normal compressibility, without thrombus. The re is diffuse soft tissue edema. IMPRESSION: 1. Limited examination due to morbid obesity. No DVT in the upper extremities. 2. Bilateral upper extremity soft tissue edema. Dictated by: Sheyla Sahni M.D. on 06/22/2016 at 14:50 Approved by: Sheyla Sahni M.D. on 06/22/2016 at 14:53
[2016-06-22] MEDS: DOBUTamine 500 mg/250 D5W 500,000 MCG in IV Premix 1 EACH IV SCH (15:12)
--- NOTE | 2016-06-22 15:14 | DRSVH ---
PROCEDURE: X-RAY CHEST ONE VIEW, PORTABLE ([id number]) INDICATIONS: line placement TECHNIQUE: One view of the chest was acquired. COMPARISON: [facility], CR, XR CHEST 1VW (PORTABLE), 06/22/2016, 10:46. FINDINGS: Surgical changes and devices: There is a right IJ central line with tip in second layer of SVC. A l eft IJ central venous catheter is again noted with the tip in the right patient. Lungs and pleura: Left basilar consolidation. Small bilateral effusions. There is mild interstitial edema in right lung. No pneumothorax. Mediastinum: Mediastinal contours appear normal. Heart size is normal. Bones and chest wall: No suspicious bony lesions. Overlying soft tissues appear unremarkable. IMPRESSION: Right IJ central line tip projecting to the area of SVC. Dictated by: Sheyla Sahni M.D. on 06/22/2016 at 15:11 Approved by: Sheyla Sahni M.D. on 06/22/2016 at 15:13
[2016-06-22] MEDS ORDERED: Sodium Chloride LOK Flush 10 mL Syringe IVFLUSH PRN ×2 (15:20)
--- NOTE | 2016-06-22 15:29 | CONS ---
[address] [address] CONSULTATION REPORT PATIENT: CAITLIN DELGADO : 1940 MR#: [id number] ADMIT: 06/12/2016 JOB ID: [id number] DATE OF SERVICE: 06/22/2016 PULMONARY CRITICAL CARE CONSULTATION NOTE: The patient is a 75-year-old woman seen in consultation at the request of Dr. Lauren Mitchell for shock and hypotension of unclear etiology. The patient was seen and evaluated with resident physician, Jamar Terrazas DO. Please refer to his separate detailed note for additional information; specifically, complete details of HPI, past medical history, family history, social history, complete physical exam, labs, etc. HISTORY OF PRESENT ILLNESS: Briefly, the patient is a 75-year-old woman who was admitted to the hospital on June 12, 2016, with decompensated heart failure with prior known history of chronic kidney disease, type 2 diabetes and breast cancer in remission. She has been in the hospital since then, getting diuresed, and her kidney function progressively worsened to the point of complete renal failure, for which hemodialysis was initiated through a temporary left IJ dialysis catheter yesterday. She has had progressively lower blood pressures over the course of the day yesterday with finely hypotension into the 80s and was transferred to the intensive care unit. She has had some fluid boluses and has also been started on IV vasopressors -- currently on norepinephrine. She also seems slightly delirious/confused, so really a complete history and review of systems could not be obtained from the patient directly. PHYSICAL EXAMINATION: Vital signs reviewed. Temperature 36.3, pulse 68, respirations 22, BP 92/52, sats 94% on 5 L OxyMask. General: Morbidly obese woman lying in bed, somewhat confused, not entirely appropriate all the time. Chest: Clear. She does have a soft systolic murmur at the left sternal border. She has bilateral lymphedema, specifically worse in the lower extremities. LABORATORIES: Reviewed. WBC is normal. Chemistries reviewed. Bicarb is 16, creatinine 4.1 and BUN of 69. Lactate is up to 4.4 today but at its lowest even it was around 3. AST and ALT are rising. AST 570, ALT 279, alk phos 216. Procalcitonin is 1.09. Cultures, pending blood cultures. Stool for C. diff on June 20 is negative. Klebsiella positive in urine culture from June 12 on day of admission. IMAGING: Chest x-ray done today shows a small left pleural effusion and cardiomegaly, right IJ triple lumen catheter in appropriate position, left IJ dialysis catheter also in appropriate position. ASSESSMENT AND RECOMMENDATIONS: 1. Shock --?cardiogenic versus septic versus hypovolemic. 2. Cardiomyopathy. Ejection fraction 25% to 30%. 3. Right heart failure. 4. Acute on chronic renal failure, on hemodialysis. This morbidly obese 75-year-old woman with known biventricular failure is presenting with decompensated heart failure and now about 10-14 days into the hospitalization has been transferred to the ICU for hypotension. Differential includes cardiogenic versus septic versus hypovolemic shock. I agree with getting blood cultures and starting her on empiric antibiotic therapy. It looks like she was started on ertapenem overnight. We are going to switch that to meropenem for better pseudomonas coverage. Chest x-ray shows no obvious focus of pneumonia, however. We did get a ScvO2 through the central line, and a venous O2 sat is 53%, which is really more consistent with a cardiogenic etiology of shock. Because of this we added low-dose dobutamine to her norepinephrine infusion, and we are waiting to see if she responds. She has also had some fluid boluses IV. She had a triple lumen right IJ placed for access and delivery of medications. We are planning on having an arterial line placed as well. Regarding source, I think her rising LFT could be due to a combination of hepatic congestion from right heart failure and maybe some shock liver from hypotension. Imaging of the abdomen shows some gallbladder wall thickening but Surgery has evaluated her and does not think this is cholecystitis but more likely passive congestion. I am inclined to agree with this. She has also been started on a heparin drip. We have an ultrasound pending of her arms and legs looking for DVT. CRITICAL CARE TIME: 60 minutes.
--- NOTE | 2016-06-22 15:55 | NUR ---
Cardiac/hemodynamics/PTT Hypotensive, MAP < 60. Levophed infusing at 0.25mcg/kg/hr and dobutamine at 5mcg/kg/min. No urine output this shift. Pt refusing butler catheter at this time. Pt remains alert and oriented. Pain reported in lower extremities, left> right, with repositioning and movement. Denies pain at rest. Orthopneic. Continues on oxymask with Sp02 >92% on 3 to 4L 02. Denies SOA. Critical PTT, heparin gtt stopped and notified. Continuing to monitor and manage heparin gtt per policy.
[2016-06-22 16:27] VITALS: BP 109/42; PULSE 76; RESP 23; O2SAT 94
[2016-06-22] MEDS: Meropenem 1 Gm/100 mL NS Minibag Plus IV SCH ×2 (16:30)
--- NOTE | 2016-06-22 17:27 | PCM.PROC ---
Procedure Note Date of Service: Jun 22, 2016 Pre Procedure Diagnosis: Cardiogenic shock requiring vasopressors and blood pressure monitoring. . Post Procedure Diagnosis: Cardiogenic shock requiring vasopressors and blood pressure monitoring. Successful arterial catheter placement. . Procedure: Arterial Catheter Placement. . Provider and Frame Pulley Mortising Machine Operator: Resident: Cristina Sadler D.O. Attending: Dagoberto Barrow M.D. . Indication for Procedure: Management of hypotension due to cardiogenic shock requiring vasopressors and blood pressure monitoring. . Findings: As noted below. . Procedural Analgesia: As noted below. . Procedure Details: A time out was preformed identifying the correct procedure, the correct location with the nursing staff. The right wrist was prepped with 2% chlorhexidine and draped with a sterile sheet in the usual fashion. Ultrasound guidance was used to locate the vessel and it was accessed under ultrasound guidance. The radial artery was cannulated with a 20 gauge catheter. The catheter was threaded over the guide wire and the needle was removed with appropriate pulsatile blood return. The catheter was secured in place and a sterile dressing was applied over the site prior to removal of drapes. The attending Dr. Barrow was present for the entire procedure. EBL:5 cc. The patient tolerated the procedure well and there were no complications. . Specimen: None. . Post Procedure Plan: Vasopressor support and blood pressure monitoring. . Attending Statement Procedure: Right radial arterial catheter placement under ultrasound guidance I was present for and supervised the entire procedure Date of service 06/22/16 Elsie Barrow M.D. Pulmonary and Critical Care medicine Pager [phone] Cristina Sadler DO Jun 22, 2016 17:27 Elsie Barrow MD Jun 22, 2016 18:21
--- NOTE | 2016-06-22 17:48 | DRSVH ---
[facility] [address] [place] [address] Echocardiogram Report Name: CAITLIN DELGADO Date: 06/22/2016 H eight: 60 in Hospital Exam Location: [facility] eight: 251 lb Gender: Female B SA: 2.1 m2 : 1940 Age: 75 yrs B P: 96/48 mmHg Reason For Study: Congestive Heart Failure Ordering Physician: [facility] Performed By: Lor Rehman Referring Physician: Anmol Butcher Interpretation Summary The left ventricle is normal in size. The ejection fraction is estimated to be 35-40%. There is inferior wall akinesis. Flattened septum is consistent with RV pressure/volume overload. The right ventricle is severely dilated. Right ventricular systolic function is severely reduced. The mitral valve leaflets appear mildly thickened, but open well. There is moderate mitral annular calcification. There is no mitral regurgitation noted. The tricuspid valve leaflets are thin and pliable. There is severe tricuspid regurgitation. The IVC is dilated (diameter is greater than 2.1 cm) and it collapses less than 50% with a sniff. This suggests a high right atrial pressure of 15 mm Hg. There is a moderate left-sided pleural effusion. Compared to the previous study on 06/13/2016, the RV appears to be less contractile and tricuspid regurgitation is worse. LV wall motion is similar. Procedure: A two-dimensional transthoracic echocardiogram with color flow and Doppler was performed in limited views only. The study quality was technically good. Comparison is made with the echocardiogram of 06-13-16. The heart rate ranged between 67-75 bpm during the study. Left Ventricle: The left ventricle is normal in size. There is normal left ventricular wall thickness. The ejection fraction is estimated to be 35-40%. There is inferior wall akinesis. Flattened septum is consistent with RV pressure/volume overload. Right Ventricle: The right ventricle is severely dilated. Right ventricular systolic function is severely reduced. Atria: The left atrial size is normal. The right atrium is moderately dilated. Mitral Valve: The mitral valve leaflets appear mildly thickened, but open well. There is moderate mitral annular calcification. There is no mitral regurgitation noted. Aortic Valve: The aortic valve is mildly calcified. The aortic valve opens well. Tricuspid Valve: The tricuspid valve leaflets are thin and pliable. There is severe tricuspid regurgitation. Great Vessels: The IVC is dilated (diameter is greater than 2.1 cm) and it collapses less than 50% with a sniff. This suggests a high right atrial pressure of 15 mm Hg. Pericardium/ Pleura There is a moderate left-sided pleural effusion. MMode/2D Measurements & Calculations LVIDd: 4.8 cm LA A2 area RA long axis LV marti. diameter/BSA LVIDs: 3.1 cm (cm/m^2): 2.3 FS: 34.4 % RA area IVSd: 1.1 cm LA A4 area LVPWd: 0.90 cm : 25.7 cm LA length (vol) RA vol : 92.8 ml LA vol: 66.9 ml RA LA vol index : 45.1 mm/ RVDd major : 7.1 cm IVC diam: 2.7 cm LV sys. diameter/BSA RVD1 (basal) RVD2 (mid) (cm/m^2): 1.5 : 4.8 cm Doppler Measurements & Calculations TR max jun: 303.5 cm/sec MV V2 mean: 56.6 cm/sec TR max P.3 mmHg MV mean P.5 mmHg MV V2 VTI: 16.1 cm Reading Physician:05:47 PM
--- NOTE | 2016-06-22 17:49 | NUR ---
Social Work: Continued Discharge Planning D: Pt discussed in am rounds. Pt transferred to CCU after dialysis on 06/21. Pt is stable. Family is requesting phone call from TRAINING DEVELOPMENT MANAGER to discuss discharge planning. TRAINING DEVELOPMENT MANAGER spoke with pt's son, Randall. He expresses deep concerns about pt discharging back home and states "it is completely unlivable." TRAINING DEVELOPMENT MANAGER reviewed possible discharge options including SNF. Their hope is that the pt will be agreeable to SNF, build strength and then willingly move to [place] with them. TRAINING DEVELOPMENT MANAGER discussed pt's rights and that family and hospital staff cannot force her to engage in rehab and/or move to [place]. Family is aware and is hoping to work closely with pt's medical team and social work to provide safe discharge. He states they will be flying in on Saturday evening and would like to meet with TRAINING DEVELOPMENT MANAGER next (if the pt is still admitted). TRAINING DEVELOPMENT MANAGER agreed and provided TRAINING DEVELOPMENT MANAGER contact information. A: Pt who lives alone in [place]. P: Evolving; Pt who will likely require skilled rehab at time of discharge. TRAINING DEVELOPMENT MANAGER to work closely with pt and family about discharge planning. JACI Melissa
[2016-06-22] MEDS: Linezolid Inj 600 MG in IV Premix 1 EACH IV SCH (20:14)
[2016-06-22 20:18] VITALS: BP 111/51; PULSE 88; RESP 23; O2SAT 92
[2016-06-22] MEDS ORDERED: Ertapenem Inj 500 MG in 0.9% Sodium Chloride 50 ML IV SCH (20:30)
--- NOTE | 2016-06-22 20:58 | PCM.PNMED ---
Subjective Date of Service Jun 22, 2016 Subjective Overnight: Patient was found to have 12.8 mm gallbladder wall and 10.3 mm common bile duct on abdominal U/S. She also noted to have blood pressure 74/42 , with map in the 50s. HR in the 40s. Patient was otherwise asymptomatic. With concern for septic shock versus cardiogenic shock, she was then transferred to the ICU, started on Ertapenem, and Dr. Juares the surgeon on-call was contacted. Surgeon felt this was more cardiogenic in nature, and if there is further abnormalities with biliary tree patient may require ERCP or MRCP if she would be able to tolerate it at all.Previously in the day, patient received dialysis and 2 L taken off. Out of concern that she is intravascularly depleted , patient was given NS boluses was slowly infused. She was also started on norepinephrine, small dose. Lactic acid elevated, improved with IV fluid. Her troponin rechecked at 10 PM was 0.057, higher than its been the entire hospitalization. EKG performed did not show any substantial change from previous. AB.33, PCO2 44.0, PCO2 91.4, HCO3 23.0. Today: The patient is in the ICU for hypotension . She appears to be slightly confused, but denies any chest pain or abdominal pain. Pulmonology and Cardiology were consulted. Family confirmed that the patient is DNR/DNI. Exam Vital Signs Vital Sign - Last Date Time Temp Pulse Resp B/P Pulse Ox O2 Delivery O2 Flow Rate FiO2 06/22/16 03:02 Supplement Oxygen 06/22/16 03:02 35.7 67 24 89/48 97 5.00 Intake and Output 06/21/16 06/21/16 06/22/16 Cumulative From/Thru 15:00 23:00 07:00 06/12/16 14:52 - 06/22/16 03:02 Intake Total 0 ml 28099 ml Output Total 2000 ml 80926 ml Balance -2000 ml -5835 ml Intake Oral 0 ml 9786 ml IV Total 871 ml Output Urine Total 11391 ml Post Void Residual 220 ml Stool Total 2 ml Ultrafiltrate 2000 ml 2000 ml # Voids 0 4 # Bowel Movements 2 14 Exam General: Somnolent, but easily arousable . Morbidly obese female. Not in acute distress but minimally interactive. Eyes: PERRLA, Scleral Anicteric Mouth: Mouth Normal, Mucous Membranes Moist/[place] Neck: supple, JVD noted, She has left IJ central catheter. Resp: Moderate increase in effort, no accessory muscle usage, diffuse bibasilar rales but no wheezes noted today Cardiovascular: distant heart sound due to body habitus, irregular rate and rhythm. No murmur appreciated. Abdomen: Soft, Obese, Non-distended, No tenderness to palpation, Normoactive bowel tones. Extremities: Anasarca up to abdomen, lymphedema bilaterally with moderate pitting pedal edema, no cyanosis, no clubbing. Skin: Warm and cold, resolving rash between pannus folds and groin crease. LLE wound covered in dressing, c/d/i. Right forearm has diffuse ecchymosis. Fingers and toes feel cool to touch. Poor perfusion. Neurological: slightly delirious, Normal Speech, Sensation Intact IVs and Medications Medications Reviewed: Medications were reviewed in detail Lab and Diagnostics Result Diagram: 06/22/16 0505 06/22/16 0505 X-Rays, CTs and MRIs X-RAY CHEST ONE VIEW, PORTABLE 06/12/16 IMPRESSION: Small left pleural effusion and left basilar consolidation suggesting compressive atelectasis versus pneumonia. Correlate clinically. Continued radiographic surveillance to resolution is recommended. Dictated by: Elliot Velazquez RRA Interpreted: Dera Chance MD on 06/12/2016 at 17:03 Transcribed by: JOHNSON on 06/12/2016 at 17:04 CT CHEST WITHOUT CONTRAST IMPRESSION: 1. Small pleural effusions, slightly greater on the left. 2. Left basilar compressive atelectasis versus consolidation in the setting of aspiration/infection. 3. Marked cardiomegaly and trace pericardial effusion. Dictated by: Afshan Bryan M.D. on 06/15/2016 at 21:18 12-lead ECG EKG on admission: Atrial Fibrillation with rate in the 80s and old RBBB with PVCs, QTC of 506 Cardiac Echo Impressions Echo Interpretation Summary by Dr. García on 06/13/16: 1) Normal left ventricular thickness and size with severely reduced systolic function (EF 25-30%). 2) Global hypokinesis, which is worse in the proximal to mid inferior wall. 3) Moderately dilated right ventricle with moderately reduced function. 4) Moderate to severe tricuspid regurgitation present. 5) Right sided pleural effusion present. 6) Mild pulmonary hypertension present, estimated systolic function pressure of 33 plus CVP 7) Compared to the Echo done 11/02/2013, LV function has decreased from 40-45% to 25-30% on today's study. Assessment & Plan Nalini Moon is a 75 year old female with congestive heart failure, ischemic cardiomyopathy, CAD, Chronic Kidney disease, IDDM, hypothyroidism and Breast cancer under treatment for CHF exacerbation and cardiorenal syndrome. Transferred to the ICU overnight secondary to hypotensive episode requiring blood pressure support and central venous access. Hospital day #10. ICU day #1. 1. Acute shock, not present on admission, active. - most likely cardiogenic though septic is also likely as well as hypovolemic. - ScvO2 through the central line, venous blood gas showed SVO2 53.6 and PO2 35.2 , which is really more consistent with a cardiogenic etiology of shock. - Pulmonology and cardiology were consulted and we appreciate their recommendations. - ECHO showed EF of 27% with global hypokinesis - Has received ~ 2.5 liters of fluid in the last 24 hrs. (2L taken off yesterday during dialysis) - ICU team added low-dose dobutamine to her norepinephrine infusion. - She had a triple lumen right IJ placed for access and delivery of medications. Will possibly have an arterial line placed as well. - Chest x-ray shows no obvious focus of pneumonia - Possible sources include possible cholecystitis/cholangitis and UTI ( Klebsiella) - Lactic acid 3.5 (peak of 4.5) - Blood cultures pending - Will switch ertapenem to meropenem for better pseudomonas coverage. Will also add Linezolid for MRSA coverage. Will D/C Linezolid once MRSA screen comes back negative. - Continue to monitor vital signs closely 2. Acute on chronic systolic congestive heart failure with biventricular failure . Present on admission. Active. - Abrupt weight gain and dyspnea after Lasix being held secondary to her worsening CKD on presentation. - Complete echo: LVEF decreased to 25-30% with worsening global hypokinesis. - Limited Echo today - Given consistent hypotension, will hold all antihypertensive medications, including Lasix, Metoprolol, Spironolactone and Chlorthalidone. - Will continue to monitor vital signs closely. - Strict I/Os and daily standing weight. - Continue dialysis to optimize her volume status. - Followed by Nephrology and Cardiology 3. Acute on Chronic Kidney disease. Present on admission. Active - Likely secondary to decompensated heart failure with cardiorenal syndrome. Chronic disease related to Hypertensive Nephrosclerosis, Diabetic nephropathy, and cardiorenal syndrome. Baseline Cr 2.04 (05/07/16) - avoid nephrotoxic insults in hospital - monitor urine output. Total output has been over 5L, but no improvement in renal function. - Appreciate Nephrology consult and input. Worsening renal function and thus dialysis started on 06/21/2016. - She was on Lasix 80mg IV BID, Chlorthalidone 25mg, and Spironolactone 25mg daily. Will hold all BP medications given current shock state. 4. Acute transaminitis, not present on admission, active. - AST jumped from 64 to 605, ALT from 27 to 224 overnight on 06/21/16. LFTs remain elevated but stable today. - Likely a combination of hepatic congestion from right heart failure and maybe some shock liver from hypotension. - Imaging of the abdomen shows some gallbladder wall thickening but Surgery has evaluated her and does not think this is cholecystitis but more likely passive congestion. - Hepatitis panel pending - Continue to monitor after dialysis. 5. Hypoglycemia, not present on admission, resolved. - Patient had persistent hypoglycemia (42-117) that nonresponsive to D50, glucagon, and food intake on the night of 06/18. - Suspect that patient was taking home medications in the room. - BG has now improved, but given poor PO intake today, will hold home Lantus and check BG every hour. 6. Klebsiella UTI Present on admission - Patient's UA grew out Klebsiella - she developed symptoms on 06/17 and was initiated on IV Ceftriaxone, which the bacteria is sensitive to. She received 5 days of Ceftriaxone. - Repeat UA. - Currently on Meropenem and Linezolid. 7. Elevated troponin. Present on admission, stable. - Likely due to demand ischemia from CHF and decreased clearance from CKD. Echo showed decreased LVEF and hypokinesia. Trops have been steady. - Troponin 0.045, 0.046. CK-MB 4.0 on admission - EKG if angina present - Full dose Aspirin continued - Wide-complex tachycardia of uncertain etiology. This may have been related to electrolyte shifts as her potassium was markedly low at 3.2 at the time of her arrhythmias. Per Cardiology, will keep her potassium stays greater than 4.0 and magnesium greater than 2.0. 8. Acute atrial fibrillation, new onset, present on admission, active. - Patient had an episode of 15 beats of wide complex tachycardia on morning of 06/14. Asymptomatic. Also had some PSVT episodes while agitated per report from nursing staff. - Tele showed Afib with rate in the 70s overnight. monitor on telemetry. - CHADS score of 4. However, patient at high risk for falls and will have to be careful with anticoagulation. IV heparin for stroke prevention per Cardiology. - Hold Metoprolol 25 mg bid due to bradycardia. 9. Diabetes Type 2 with neuropathy, uncontrolled, Present on admission - low correction Lispro algorithm - Hold Lantus. - holding Glucotrol XL 10. Hypertension, chronic, stable - Stop Metoprolol XL due to bradycardia. Will hold off on ACEi or other BP medications given her worsening kidney function and hypotension. - Continue to monitor BP closely as her BP has been low 11. Asthma. Chronic, Present on admission - Presumed stable with no wheezing - continue Albuterol and Flovent inhalers - Encourage nursing to wean off the O2 if possible. Goal SpO2 is >90% 12. Hypothyroidism, Present on admission, stable. - TSH 3.07 on admission. - continue Synthroid 112 mcg daily 13. Dyslipidemia, Present on admission - continue Pravastatin 20 mg daily 14. LLE wound, Present on admission Due to injury from blackberry peguero about 2 weeks ago, had not improved and has been more tender. -Wound care following patient. Wound debrided and covered in clean dressing, 15. BMI 46.9, chronic. - Heart-healthy, renal, and diabetic diet. - Acetaminophen as needed for mild pain/fever/headache - Bowel regimen as needed - Antiemetic as needed Dispo: Likely will require 2-3 more days for diuresis and medical stabilization. Patient needs to go to SNF for rehabilitation, but she refused at this point. If she goes home, will likely need home oxygen. The patient's son and daughter in law called this afternoon for an update. They reported that they will be here on Saturday next week. They are coming from [place]. Ideally, they would like to take the patient back to [place] to live with them when she leaves the hospital as they feel she is too isolated here. The son 's phone number is [phone]. Pain Evaluation: Adequate Pain Control VTE Prophylaxis: Sub-Q Heparin (Unfractionated), SCDs Resuscitation Status: DNR/DNI:Do Not Resuscitate/Intubate Attending Statement The patient was seen and examined together with Dr. Diaz on 06-22-16 and I agree with the history, exam and plan as outlined in the note above. Wendy Diaz DO Jun 22, 2016 06:55 Lauren Mitchell MD Jun 23, 2016 13:25
[2016-06-23] VITALS (8 sets, daily range): BP systolic 86–127; BP diastolic 47–59; PULSE 70–88; RESP 20–32; O2SAT 93–98
[2016-06-23] MEDS: Sodium Chloride LOK Flush 10 mL Syringe IVFLUSH SCH ×4 (00:07→19:38)
[2016-06-23] MEDS: Meropenem 1 Gm/100 mL NS Minibag Plus IV SCH ×8 (00:08→19:00)
[2016-06-23] MEDS: 0.9% Sodium Chloride 1,000 ML IV SCH ×3 (00:08→19:38)
[2016-06-23] MEDS: Norepineph 8,000 mCg/250 mL NS 8,000 MCG in IV Premix 1 EACH IV SCH ×5 (01:31→15:36)
[2016-06-23 02:08] LABS: Hepatitis A Antibody IgM Negative (Negative); Hepatitis B Core Antibody IgM Negative (Negative)
[2016-06-23] MEDS: DOBUTamine 500 mg/250 D5W 500,000 MCG in IV Premix 1 EACH IV SCH ×2 (03:29→16:23)
--- NOTE | 2016-06-23 03:32 | NUR ---
Hemodynamics/Urine output Patient remains on Levophed gtt at 0.45mcg/kg/min and Dobutamine at 5mcg/kg/min, SBP 80-90's MAP 60-65. Patient A&Ox4 and pleasant, not cooperative at times and scratching at EKG lead sticker and dialysis catheter dressing found stuck in patients hair, patient stated it was itching but didn't call to notify staff, catheter and area around cleaned with CHG, and dressing applied using sterile technique, redness around site where adhesive was, patient stated she allergic to some tape, instructed patient not to touch leads and dressings, resting in bed at this time and watching TV, no urine output and bladder scanner showed 0ml of urine, Heparin gtt adjusted per protocol, no active bleeding noted, VSS, no BM this shift, will continue to monitor, no distress noted.
--- NOTE | 2016-06-23 05:43 | ABG ---
DateTimeAnalyzed 05:40:00 -_ pH ____7.366 - 7.350 7.450 pCO2 ___32.5__ -mmHg 35.0 45.0 pO2 ___53.8__ -mmHg 69.0 116 HCO3- ___18.2__ -mmol/L 22.0 26.0 ABE ___-5.7__ -mmol/L -2.0 2.0 tHb ___12.9__ -g/dL O2Hb ___82.5__ -% COHb ____1.4__ -% MetHb ____0.8__ -% sO2 ___84.4__ -% FIO2 ___21.0__ -% Drawn By MD - Date/Time Notified____ 05:42:00 -_ Liter_Flow ____5.0__ -L/min Oxygen Device 1 __OXYMASK - Notified By MD - Notified Whom RN J.CHAMORRO - B 747 -mmHg tO2 ___15.0__ -Vol% Magdaleno test N/A -
[2016-06-23 05:52] LABS: BASOPHILS % (AUTO) 0.2 % (0-3); EOSINOPHILS % (AUTO) 0.3 % (0-5); MONOCYTES % (AUTO) 9.4 % (4-12); Mean Corpuscular Hemoglobin 25.6 pg (27.0-35.0); Mean Corpuscular Volume 80.3 fL (81-100); NEUTROPHILS % (AUTO) 83.2 % (40-74)
[2016-06-23] MEDS ORDERED: 0.9% Sodium Chloride 250 ML IV ONE (07:50)
[2016-06-23] MEDS: Linezolid Inj 600 MG in IV Premix 1 EACH IV SCH ×2 (08:00→19:30)
[2016-06-23] MEDS: Nystatin 100,000 Unit/Gm 15 Gm Powder TOPICAL SCH ×2 (08:00→19:31)
[2016-06-23] MEDS: Magnesium Chloride SR 64 mg ER24 Tablet PO SCH (08:00)
[2016-06-23] MEDS: Fluticasone 0.05% 15 Spray/2 Gm 16 Gm Nasal Spray NASAL SCH ×2 (08:00→19:32)
[2016-06-23] MEDS: Insulin LISPRO 300 Unit/3 mL Inj SUBQ SCH ×4 (08:10→21:13)
--- NOTE | 2016-06-23 09:56 | PCM.PNNEPH ---
Subjective Date of Service Jun 23, 2016 Subjective The patient's laboratory parameters continued to worsen however the patient is more alert and interactive today. Her blood pressures remain in the mid 80s to 90s which I think are probably normal for her in light of systolic dysfunction. She denies any chest pain, shortness of breath, nausea or vomiting. There is no urine output recorded. This morning her sodium is 134, potassium 5.3, chloride 95, bicarbonate is 17, and creatinine are 79 and 4.5 respectively. Exam Vital Signs Vital Sign - Last Date Time Temp Pulse Resp B/P Pulse Ox O2 Delivery O2 Flow Rate FiO2 06/23/16 08:20 Supplement Oxygen 06/23/16 07:52 36.2 82 26 92/51 93 5.00 Intake and Output 06/22/16 06/22/16 06/23/16 Cumulative From/Thru 15:00 23:00 07:00 06/12/16 14:52 - 06/23/16 05:00 Intake Total 2089 ml 1583 ml 66975 ml Output Total 0 ml 47328 ml Balance 2089 ml 1583 ml -1342 ml Intake Oral 9786 ml IV Total 2089 ml 1583 ml 5364 ml Output Urine Total 0 ml 22075 ml Post Void Residual 220 ml Stool Total 2 ml Ultrafiltrate 2000 ml # Voids 4 # Bowel Movements 0 14 Exam Neck is supple without adenopathy or she does have central venous distention and approximately 45. Lungs showed some bibasilar rales. Regular and quite distant. Abdomen is soft with a small fluid wave noted. There is also evidence of some hepatomegaly and hepatojugular reflux. Otherwise she denies any tenderness, rebound, or guarding. Extremities continue to demonstrate moderate bilateral lymphedema to both lower extremities. There is some mild superimposed edema along with the lymphedema. Lab and Diagnostics Result Diagram: 06/23/16 0540 06/23/16 0540 X-Rays, CTs and MRIs X-RAY CHEST ONE VIEW, PORTABLE 06/12/16 IMPRESSION: Small left pleural effusion and left basilar consolidation suggesting compressive atelectasis versus pneumonia. Correlate clinically. Continued radiographic surveillance to resolution is recommended. Dictated by: Elliot DOUGLAS Interpreted: Drea Chance MD on 06/12/2016 at 17:03 Transcribed by: JOHNSON on 06/12/2016 at 17:04 CT CHEST WITHOUT CONTRAST IMPRESSION: 1. Small pleural effusions, slightly greater on the left. 2. Left basilar compressive atelectasis versus consolidation in the setting of aspiration/infection. 3. Marked cardiomegaly and trace pericardial effusion. Dictated by: Afshan Bryan M.D. on 06/15/2016 at 21:18 12-lead ECG EKG on admission: Atrial Fibrillation with rate in the 80s and old RBBB with PVCs, QTC of 506 Cardiac Echo Impressions Echo Interpretation Summary by Dr. García on 06/13/16: 1) Normal left ventricular thickness and size with severely reduced systolic function (EF 25-30%). 2) Global hypokinesis, which is worse in the proximal to mid inferior wall. 3) Moderately dilated right ventricle with moderately reduced function. 4) Moderate to severe tricuspid regurgitation present. 5) Right sided pleural effusion present. 6) Mild pulmonary hypertension present, estimated systolic function pressure of 33 plus CVP 7) Compared to the Echo done 11/02/2013, LV function has decreased from 40-45% to 25-30% on today's study. Plan Impression Impression #1 acute kidney injury which appears now to progress to acute tubular necrosis. #2 pyelonephritis secondary to Klebsiella #3 acute decompensated congestive heart failure number for cardiorenal and hepatorenal syndrome #5 diabetic nephropathy #6 hypertension hypertensive heart disease and hypertensive nephrosclerosis. Recommendations #1 go ahead and do a 3-1/2 hour dialysis treatment on her today with arelis clear dialyzer. We will try to run between 2 5300 blood flow, 600 dialysate flow, 2 potassium, 40 bicarbonate, no heparin, and will try to take 1- 2 L of fluid off. Also prior to her dialysis I will ask the nurse to put SCDs on the patient to attempt to support her blood pressure. It appears that on her baseline her systolic blood pressures probably in the 90s, try to keep her systolic blood pressure MID 80s to 90s should be our goal and a mean arterial pressure of 60 or greater. Nando Aquino DO Jun 23, 2016 09:56 Nando Aquino DO Jun 23, 2016 09:56
--- NOTE | 2016-06-23 10:14 | PCM.PNMED ---
Subjective Date of Service Jun 23, 2016 Subjective Overnight: Patient remains on Levophed gtt at 0.45mcg/kg/min and Dobutamine at 5mcg/kg/min, SBP 80-90's MAP 60-65. Patient complained of itching at EKG lead sticker and dialysis catheter. No urine output and bladder scanner showed 0ml of urine. No active bleeding noted, No other acute event. Today: Patient is alert and oriented x3 today with appropriate interaction. She complains of being thirsty and hungry, but denies any chest pain, shortness of breath, nausea or vomiting. Patient appears clinically improved but her renal function continues to worsen. Nephrology plans for dialysis today. BP has been in the 90s/50s with MAP > 60. Exam Vital Signs Vital Sign - Last Date Time Temp Pulse Resp B/P Pulse Ox O2 Delivery O2 Flow Rate FiO2 06/23/16 03:11 Supplement Oxygen 06/23/16 03:11 36.1 88 28 88/49 93 5.00 Intake and Output 06/22/16 06/22/16 06/23/16 Cumulative From/Thru 15:00 23:00 07:00 06/12/16 14:52 - 06/23/16 05:00 Intake Total 2089 ml 1583 ml 85727 ml Output Total 0 ml 82825 ml Balance 2089 ml 1583 ml -1342 ml Intake Oral 9786 ml IV Total 2089 ml 1583 ml 5364 ml Output Urine Total 0 ml 15125 ml Post Void Residual 220 ml Stool Total 2 ml Ultrafiltrate 2000 ml # Voids 4 # Bowel Movements 0 14 Exam General: Alert and orient x3 . Morbidly obese female. Cooperative with care and more interactive. In no acute distress. Eyes: PERRLA, Scleral Anicteric Mouth: Mouth normal, mucous membranes very dry Neck: supple, JVD noted, She has both left and right IJ central catheters. Some ecchymoses on the left IJ catheter. Resp: Moderate increase in effort, no accessory muscle usage, diffuse bibasilar rales but no wheezes noted today Cardiovascular: distant heart sound due to body habitus, irregular rate and rhythm. No murmur appreciated. Abdomen: Soft, Obese, Non-distended, No tenderness to palpation, Normoactive bowel tones. Extremities: Anasarca up to abdomen, lymphedema bilaterally with moderate pitting pedal edema, no cyanosis, no clubbing. Skin: LLE wound covered in dressing, c/d/i. Right forearm has diffuse ecchymosis. Fingers and toes feel cool to touch. Poor perfusion. Neurological: A&O, Normal Speech, Sensation Intact IVs and Medications Medications Reviewed: Medications were reviewed in detail Lab and Diagnostics Result Diagram: 06/23/16 0540 06/23/16 0540 X-Rays, CTs and MRIs X-RAY CHEST ONE VIEW, PORTABLE 06/12/16 IMPRESSION: Small left pleural effusion and left basilar consolidation suggesting compressive atelectasis versus pneumonia. Correlate clinically. Continued radiographic surveillance to resolution is recommended. Dictated by: Elliot Velazquez RRA Interpreted: Drea Chance MD on 06/12/2016 at 17:03 Transcribed by: JOHNSON on 06/12/2016 at 17:04 CT CHEST WITHOUT CONTRAST IMPRESSION: 1. Small pleural effusions, slightly greater on the left. 2. Left basilar compressive atelectasis versus consolidation in the setting of aspiration/infection. 3. Marked cardiomegaly and trace pericardial effusion. Dictated by: Afshan Bryan M.D. on 06/15/2016 at 21:18 12-lead ECG EKG on admission: Atrial Fibrillation with rate in the 80s and old RBBB with PVCs, QTC of 506 Cardiac Echo Impressions Complete Echo Interpretation Summary by Dr. García on 06/13/16: 1) Normal left ventricular thickness and size with severely reduced systolic function (EF 25-30%). 2) Global hypokinesis, which is worse in the proximal to mid inferior wall. 3) Moderately dilated right ventricle with moderately reduced function. 4) Moderate to severe tricuspid regurgitation present. 5) Right sided pleural effusion present. 6) Mild pulmonary hypertension present, estimated systolic function pressure of 33 plus CVP 7) Compared to the Echo done 11/02/2013, LV function has decreased from 40-45% to 25-30% on today's study. Limited Echo Interpretation Summary by Dr. Garcia on 06/22/16: The left ventricle is normal in size. The ejection fraction is estimated to be 35-40%. There is inferior wall akinesis. Flattened septum is consistent with RV pressure/volume overload. The right ventricle is severely dilated. Right ventricular systolic function is severely reduced. The mitral valve leaflets appear mildly thickened, but open well. There is moderate mitral annular calcification. There is no mitral regurgitation noted. The tricuspid valve leaflets are thin and pliable. There is severe tricuspid regurgitation. The IVC is dilated (diameter is greater than 2.1 cm) and it collapses less than 50% with a sniff. This suggests a high right atrial pressure of 15 mm Hg. There is a moderate left-sided pleural effusion. Compared to the previous study on 06/13/2016, the RV appears to be less contractile and tricuspid regurgitation is worse. LV wall motion is similar. Assessment & Plan Nalini Moon is a 75 year old female with congestive heart failure, ischemic cardiomyopathy, CAD, Chronic Kidney disease, IDDM, hypothyroidism and Breast cancer under treatment for CHF exacerbation and cardiorenal syndrome. Transferred to the ICU overnight secondary to hypotensive episode requiring blood pressure support and central venous access. Hospital day #11. ICU day #2. 1. Acute shock, not present on admission, active. - Multifactorial, but most likely cardiogenic though septic is also likely as well as hypovolemic. - ScvO2 through the central line, venous blood gas showed SVO2 53.6 and PO2 35.2 , which is more consistent with a cardiogenic etiology of shock. - Pulmonology and cardiology were consulted and we appreciate their recommendations. - ECHO on 06/13/16 showed EF of 27% with global hypokinesis and biventricular failure. On the limited echo on 06/22, the RV appears to be less contractile and tricuspid regurgitation is worse. - IV fluid was D/C overnight per cardiology's recommendation. Will use IVF boluses PRN. - Continue dobutamine and norepinephrine infusion. - She had a triple lumen right IJ placed for access and delivery of medications and an arterial line placed yesterday 06/22/16. Left IJ central line for dialysis. - In light of her severe biventricular failure with significant pulmonary hypertension, patient's prognosis is poor. Dr. Cooley recommended to contact Dr. Cassi García, cardiothoracic surgeon in [place], regarding a right ventricular assist device (RVAD) pumps placement. - Will need to discuss with family for goals of care. Will consult palliative care on Saturday to help out as well. - Dr. Cooley is concerned about possible PE and started Heparin drip yesterday 06/22/16. He also recommended a CT chest with contrast to rule out PE. - Dr. Aquino prefer V/Q scan over the CT, but is ok with the CT if it is necessary. We will consider a V/Q scan tomorrow. - Infectious workups pending to rule out septic shock: - Chest x-ray shows no obvious focus of pneumonia - Possible sources include possible cholecystitis/cholangitis and UTI ( Klebsiella). UTI was treated with Ceftriaxone for 5 days. No urine out in the last 2 days so UA can't be done. - Surgeon did not think cholecystitis as cause of pt's hypotension and patient is not a surgical candidate at this time - Continue Meropenem for better pseudomonas coverage. Continue Linezolid for MRSA coverage until MRSA screen comes back negative. If pt continues to get worse, consider HIDA scan, MRCP, or Perc drain of GB by IR. - Lactic acid 2.5 (peak of 4.5). Procalcitonin elevated at 1.33, but could partly due to renal failure as well. - Blood cultures pending.MRSA screen pending. - Continue to monitor vital signs closely 2. Acute on chronic systolic congestive heart failure with biventricular failure . Present on admission. Active. - Abrupt weight gain and dyspnea after Lasix being held secondary to her worsening CKD on presentation. - Complete echo: LVEF decreased to 25-30% with worsening global hypokinesis. Worsening function on limited Echo. - Followed by Nephrology and Cardiology. Plan as #1. - Given consistent hypotension, will hold all antihypertensive medications, including Lasix, Metoprolol, Spironolactone and Chlorthalidone. - Will continue to monitor vital signs closely. - Strict I/Os and daily standing weight. - Continue dialysis to optimize her volume status. 3. Acute on Chronic Kidney disease. Present on admission. Active - Likely secondary to decompensated heart failure with cardiorenal syndrome. Chronic disease related to Hypertensive Nephrosclerosis, Diabetic nephropathy, and cardiorenal syndrome. Baseline Cr 2.04 (05/07/16) - avoid nephrotoxic insults in hospital - No urine output in the last 2 days. Bladder scan was 0 this morning 06/23. Continue to monitor. - Appreciate Nephrology consult and input. Dialysis once on 06/21/2016. Plan for the second dialysis today 06/23/16. - She was on Lasix 80mg IV BID, Chlorthalidone 25mg, and Spironolactone 25mg daily. Will hold all BP medications given current shock state. 4. Acute transaminitis, not present on admission, active. - AST jumped from 64 to 605, ALT from 27 to 224 overnight on 06/21/16. LFTs remain elevated but stable today. - Likely a combination of hepatic congestion from right heart failure and some shock liver from hypotension. - Imaging of the abdomen shows some gallbladder wall thickening but surgery has evaluated her and does not think this is cholecystitis but more likely passive congestion. - Hepatitis panel negative. - Continue to monitor after dialysis. 5. Hypoglycemia, not present on admission, resolved. - Patient had persistent hypoglycemia (42-117) that nonresponsive to D50, glucagon, and food intake on the night of 06/18. - Suspect that patient was taking home medications in the room. - BG has now improved, but because patient has been NPO, will hold home Lantus and check BG every hour. 6. Klebsiella UTI. Present on admission. Resolved. - Patient's UA grew out Klebsiella. - she developed symptoms on 06/17 and was initiated on IV Ceftriaxone, which the bacteria is sensitive to. Completed 5 days of Ceftriaxone. - Unable to repeat UA due to no urine output. - Currently on Meropenem and Linezolid. 7. Elevated troponin. Present on admission, stable. - Likely due to demand ischemia from CHF and decreased clearance from CKD. Echo showed decreased LVEF and hypokinesia. Trops have been steady. - Troponin 0.045, 0.046. CK-MB 4.0 on admission. - Initial EKG showed a left posterior hemiblock and a right bundle branch block. She has a normal sinus rhythm with frequent PACs. EKG if angina present - Full dose Aspirin continued - Wide-complex tachycardia of uncertain etiology. This may have been related to electrolyte shifts as her potassium was markedly low at 3.2 at the time of her arrhythmias. Per Cardiology, will keep her potassium stays greater than 4.0 and magnesium greater than 2.0. 8. Acute atrial fibrillation, new onset, present on admission, active. - Patient had an episode of 15 beats of wide complex tachycardia on morning of 06/14. Asymptomatic. Also had some PSVT episodes while agitated per report from nursing staff. - Tele showed Afib with rate in the 80s overnight. monitor on telemetry. - High CHADS score of 4. However, patient has poor cardiac function and thus will have to be careful with anticoagulation. IV heparin for stroke prevention per Cardiology. - Hold Metoprolol 25 mg bid due to bradycardia. No ACEi given current shock state. 9. Diabetes Type 2 with neuropathy, uncontrolled, Present on admission - low correction Lispro algorithm - Hold Lantus. Consider starting Lantus 2 units once her PO intake improves. - holding Glucotrol XL 10. Hypertension, chronic, stable - Stop Metoprolol XL due to bradycardia. Will hold off on ACEi or other BP medications given her worsening kidney function and hypotension. - Continue to monitor BP closely as her BP has been low 11. Asthma. Chronic, Present on admission - Presumed stable with no wheezing - continue Albuterol and Flovent inhalers 12. Hypothyroidism, Present on admission, stable. - TSH 3.07 on admission. - continue Synthroid 112 mcg daily 13. Dyslipidemia, Present on admission - continue Pravastatin 20 mg daily 14. LLE wound, Present on admission Due to injury from blackberry peguero about 2 weeks ago, had not improved and has been more tender. -Wound care following patient. Wound debrided and covered in clean dressing, 15. BMI 46.9, chronic. - Heart-healthy, renal, and diabetic diet. - Acetaminophen as needed for mild pain/fever/headache - Bowel regimen as needed - Antiemetic as needed Dispo: Likely will require 2-3 more days for diuresis and medical stabilization. Patient needs to go to SNF for rehabilitation, but she refused at this point. If she goes home, will likely need home oxygen. The patient's son and daughter in law will be here on Saturday next week. They are coming from [place]. Ideally, they would like to take the patient back to [place] to live with them when she leaves the hospital as they feel she is too isolated here. The son's phone number is [phone]. Pain Evaluation: Adequate Pain Control VTE Prophylaxis: Sub-Q Heparin (Unfractionated), SCDs Resuscitation Status: DNR/DNI:Do Not Resuscitate/Intubate Attending Statement The patient was seen and examined together with Dr. Diaz on 06-23-16 and I agree with the history, exam and plan as outlined in the note above. Wendy Diaz DO Jun 23, 2016 07:00 Lauren Mitchell MD 19, 2017 10:28
--- NOTE | 2016-06-23 13:00 | PROG NOTE ---
[address] [address] PROGRESS NOTE PATIENT: CAITLIN DELGADO : 1940 MR#: [id number] ADMIT: 06/12/2016 JOB ID: [id number] DATE: 06/23/2016 SUBJECTIVE: Patient lying on bed. She is conscious, but she is somewhat confused. No active chest pain or worsening shortness of breath or new cardiovascular symptoms. She is on dopamine at 5 mcg/kg and Levophed 0.35. She is on IV heparin as well. OBJECTIVE: Vitals: Blood pressure 104/57, heart rate 89 and irregular, oxygen saturation on 6 L 94%, respiratory rate 20. The patient has a right IJ. Difficult to comment upon JVD. Chest: Decreased air entry at the bases. CVS: S1 variable, P2 appears prominent. No S3, no S4. Abdomen: Obese. No obvious pulsatile mass. Extremities: Patient has diffuse bilateral lymphedema. No evidence of critical limb ischemia. 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 Telemetry: AFIB with controlled ventricular rate. Input/Output: Today her output was zero, as well as yesterday. She has a positive balance of 2910 yesterday and today so far 1583 mL. LABORATORY: WBC 10.4, hemoglobin 12.7. Platelets yesterday was 215. Polymorphs 83.2. PTT 91.4. Sodium 134, potassium 5.3, BUN 79, creatinine 4.54, glucose 231. Lactic acid yesterday was 3.5. AST increased to 655, ALT 358, alkaline phosphatase 178. Ammonia yesterday was 65. Total bilirubin 0.7. She had a repeat echocardiogram yesterday. Right ventricle now severely enlarged and there appears to be severe pulmonary hypertension. IVC is dilated and pulmonary artery systolic pressure is about close to 61 mmHg. There is severe tricuspid regurgitation which has progressed. Right ventricular function is severely reduced. Left ventricle ejection fraction appears to be 35% to 40%, with inferior wall akinesis which is old. During echocardiogram the patient was on Levophed. There is no significant aortic valve pathology. No significant mitral regurgitation or mitral stenosis. So far blood culture is pending. Urine culture was positive for Klebsiella done on June 12, 2016. She has an upper extremity venous Doppler as well as lower extremity venous Doppler. There was no obvious DVT. ASSESSMENT AND PLAN: This 75-year-old pleasant female who has history of known coronary artery disease status post ST-elevation inferior wall myocardial infarction 2011, status post percutaneous intervention and stent placement to the RCA, obesity, underlying diabetes mellitus, hypertension, hyperlipidemia, ischemic cardiomyopathy with LV ejection fraction 40% to 45% in the past, moderate pulmonary hypertension, chronic renal insufficiency, presented with symptoms of biventricular failure and weight gain on June 12, 2016. In the hospital the patient was seen from Cardiology service by Dr. Nieves, as well as Dr. Amaro. Yesterday, I saw her as well. She had a repeat echocardiogram on June 13, 2016. At that time LV ejection fraction was about 20% to 25% with evidence of right ventricular volume and pressure overload. Right ventricle was moderately dilated and moderately reduced right ventricular function, with moderately severe tricuspid regurgitation. Pulmonary artery systolic pressure at that time was about 33 plus estimated CVP. In the hospital the patient developed worsening renal failure with metabolic acidosis. The patient is being treated for Klebsiella pyelonephritis. She was started on dialysis day before yesterday the first time. She had a drop in her blood pressure, as well as there was some concern of bradycardia, hence she was started on norepinephrine. She has developed atrial fibrillation. Her rate was controlled. She was started on anticoagulation because of a very CHADS2-VASc score. To increase cardiac output dobutamine was increased. She also developed worsening liver function. She was found to have gallbladder stone. There was concern for possible cholecystitis. She was seen by surgical team and was felt not a surgical candidate at that time. She had a repeat echocardiogram yesterday which revealed more dilatation of the right ventricle and now right ventricular function is severely reduced and severe tricuspid regurgitation as well as severe pulmonary hypertension. She has biventricular failure, but predominantly right-sided heart failure with cor pulmonale feature. Most likely she has hepatic congestion due to severe pulmonary hypertension and severe tricuspid regurgitation and RV failure. Her urine output is zero. Severe RV dilation and RV failure has very poor prognosis. She has completely shut down her kidney. She will need dialysis to optimize her volume status and for correction of electrolyte imbalances including hyperkalemia and metabolic acidosis. The data programmer is already on the case. Meanwhile, will continue all of the inotropic support. Continue antiplatelet therapy as well as heparin. I discussed the case with the ICU team, Dr. Mitchell. It would be worthwhile to discuss her case with the CT surgeon who performed the biventricular assist device and see what they think about it. Dr. Disla will talk to [facility] CT surgeon. We are trying to contact family members as well. Overall, her prognosis is poor. I also discussed with Dr. Mitchell regarding pulmonary embolism workup. Consider V/Q scan or CT chest. TIME: Time spent today more than 60 minutes including reviewing the labs, examining the patient, as well as having discussion with ICU team.
--- NOTE | 2016-06-23 14:05 | PCM.PNMED ---
Subjective Date of Service Jun 23, 2016 Subjective ICU consult: Attending physician : Requesting physician Dr. Mitchell reason for consult blood pressure support and achievement of central venous access. Ms. Moon is a 75 year old female with a pertinent PMH of CHF, CAD, CKD, IDDM, HTN, Breast CA, who was admitted 06/12/2016 secondary to a CHF exacerbation. Leading up to her admission she has increasing SOB and exertional dyspnea and increase lower extremity edema, with an overall 40lb weight gain. She is currently being followed by nephrology, cardiology and surgery. She has severe left and right heart failure with EF of ~27% however further cardiac ischemic evaluation/intervention could not be done secondary to her renal disease. Her renal function continued to worsen with minimal urine output despite receiving high dose diuretics and dialysis eventually progressing to complete renal failure. Overnight: Per overnight nursing report; Patient remained on Levothroid 0.45mcg and dobutamine 5mcg. Had low systolic pressures though metastases remained between 60 and 65. Patient remained awake and alert though becoming uncooperative at times. She is anuric, and bladder scan showed no urine. Exam Vital Signs Vital Sign - Last Date Time Temp Pulse Resp B/P Pulse Ox O2 Delivery O2 Flow Rate FiO2 06/23/16 11:41 Supplement Oxygen 06/23/16 11:40 36.2 80 26 102/52 94 6.00 Intake and Output 06/22/16 06/22/16 06/23/16 Cumulative From/Thru 15:00 23:00 07:00 06/12/16 14:52 - 06/23/16 05:00 Intake Total 2089 ml 1583 ml 80830 ml Output Total 0 ml 93665 ml Balance 2089 ml 1583 ml -1342 ml Intake Oral 9786 ml IV Total 2089 ml 1583 ml 5364 ml Output Urine Total 0 ml 06017 ml Post Void Residual 220 ml Stool Total 2 ml Ultrafiltrate 2000 ml # Voids 4 # Bowel Movements 0 14 Exam General: Morbidly obese female Patient sitting up in bed, in no apparent distress. Mildly interactive and slow to respond. Nasal Cannula in place. HEENT: PERRL Normocephalic, atraumatic. Neck: Right IJ central line in place Cardiovascular: Irregular rate rhythm, with regular rate. Pulmonary: Poor air movement, expiratory crackles upper anterior lobes. Abdomen: Obese, Soft, nontender. Extremities: Severe lower extremity pitting edema, with anasarca extending to abdomen. Neurologic. A&O x3, she is mentating appropriately though says she is confused overall. IVs and Medications Medications Reviewed: Medications were reviewed in detail Lab and Diagnostics Result Diagram: 06/23/16 0540 06/23/16 0540 X-Rays, CTs and MRIs X-RAY CHEST ONE VIEW, PORTABLE 06/12/16 IMPRESSION: Small left pleural effusion and left basilar consolidation suggesting compressive atelectasis versus pneumonia. Correlate clinically. Continued radiographic surveillance to resolution is recommended. Dictated by: Elliot Velazquez RRA Interpreted: Drea Chance MD on 06/12/2016 at 17:03 Transcribed by: JOHNSON on 06/12/2016 at 17:04 CT CHEST WITHOUT CONTRAST IMPRESSION: 1. Small pleural effusions, slightly greater on the left. 2. Left basilar compressive atelectasis versus consolidation in the setting of aspiration/infection. 3. Marked cardiomegaly and trace pericardial effusion. Dictated by: Afshan Bryan M.D. on 06/15/2016 at 21:18 12-lead ECG EKG on admission: Atrial Fibrillation with rate in the 80s and old RBBB with PVCs, QTC of 506 Cardiac Echo Impressions Complete Echo Interpretation Summary by Dr. García on 06/13/16: 1) Normal left ventricular thickness and size with severely reduced systolic function (EF 25-30%). 2) Global hypokinesis, which is worse in the proximal to mid inferior wall. 3) Moderately dilated right ventricle with moderately reduced function. 4) Moderate to severe tricuspid regurgitation present. 5) Right sided pleural effusion present. 6) Mild pulmonary hypertension present, estimated systolic function pressure of 33 plus CVP 7) Compared to the Echo done 11/02/2013, LV function has decreased from 40-45% to 25-30% on today's study. Limited Echo Interpretation Summary by Dr. Garcia on 06/22/16: The left ventricle is normal in size. The ejection fraction is estimated to be 35-40%. There is inferior wall akinesis. Flattened septum is consistent with RV pressure/volume overload. The right ventricle is severely dilated. Right ventricular systolic function is severely reduced. The mitral valve leaflets appear mildly thickened, but open well. There is moderate mitral annular calcification. There is no mitral regurgitation noted. The tricuspid valve leaflets are thin and pliable. There is severe tricuspid regurgitation. The IVC is dilated (diameter is greater than 2.1 cm) and it collapses less than 50% with a sniff. This suggests a high right atrial pressure of 15 mm Hg. There is a moderate left-sided pleural effusion. Compared to the previous study on 06/13/2016, the RV appears to be less contractile and tricuspid regurgitation is worse. LV wall motion is similar. Assessment & Plan 75 year old female with congestive heart failure (biventricular failure), Ischemic CM, CAD, CKD, IDDM, hypothyroidism and Breast cancer currently receiving treatment for CHF exacerbation and cardiorenal syndrome. Transferred to the ICU secondary to hypotensive episode requiring blood pressure support and central venous access. Hospital day 11, ICU day 2. 1. Shock, most likely Cardiogenic though Septic is also likely as well as hypovolemic. - ECHO showed EF of 27% with global hypokinesis - Has received ~ 2.5 liters of fluid in the last 24 hrs. (2L taken off yesterday during dialysis) - Venous blood gas showed SVO2 53.6 and PO2 35.2 - IV fluid DC, continue with Bolus support PRN - Dobutamine - Levophed - Possible sources include Gallbladder and UTI (Klebsiella) - Lactic acid 3.5 (peak of 4.5) - Appropriate cultures and serologies pending - Meropenem for ABX coverage - Central Line in place - Vigileo after arterial Line placement - Concern for PE, Heparin drip - VQ scan scheduled for today 2. Renal failure. - Etiology most likely cardiorenal syndrome. - Continue Dialysis per Nephrology recs - Continue to hold diuretics - Continues to be anuric 3. UTI. Culture grew Klebsiella, though Pt is currently anuric. - Continue ABX Linezolid and Meropenem 4. Transaminitis. Most likely due to CHF exacerbation vs cholecystitis. ABD US showed gallbladder wall thickening and bile duct dilatation though no physical exam finding to confirm this Dx. - Surgery consult no intervention recommended - AST and ALT had a dramatic rise 2 days ago, and remain elevated. - Never showed leukocytosis and Pt has remained afebrile. - Continue to monitor Cardiology recommends to contact Dr. Cassi García, cardiothoracic surgeon in [place], regarding a right ventricular assist device (RVAD) pumps placement secondary to biventricular heart failure. VTE Prophylaxis: Sub-Q Heparin (Unfractionated), SCDs Resuscitation Status: DNR/DNI:Do Not Resuscitate/Intubate Attending Statement The patient was seen and examined together with Dr. Terrazas on 06/23/2016 and I agree with the history, exam and plan as outlined in the note above. LUKASZ TERRAZAS DO Jun 23, 2016 14:05 Alex Jeffries MD Jul 01, 2016 10:59 including Lasix, Metoprolol, Spironolactone and Chlorthalidone. - Will continue to monitor vital signs closely. - Strict I/Os and daily standing weight. - Continue dialysis to optimize her volume status. 3. Acute on Chronic Kidney disease. Present on admission. Active - Likely secondary to decompensated heart failure with cardiorenal syndrome. Chronic disease related to Hypertensive Nephrosclerosis, Diabetic nephropathy, and cardiorenal syndrome. Baseline Cr 2.04 (05/07/16) - avoid nephrotoxic insults in hospital - No urine output in the last 2 days. Bladder scan was 0 this morning 06/23. Continue to monitor. - Appreciate Nephrology consult and input. Dialysis once on 06/21/2016. Plan for the second dialysis today 06/23/16. - She was on Lasix 80mg IV BID, Chlorthalidone 25mg, and Spironolactone 25mg daily. Will hold all BP medications given current shock state. 4. Acute transaminitis, not present on admission, active. - AST jumped from 64 to 605, ALT from 27 to 224 overnight on 06/21/16. LFTs remain elevated but stable today. - Likely a combination of hepatic congestion from right heart failure and some shock liver from hypotension. - Imaging of the abdomen shows some gallbladder wall thickening but surgery has evaluated her and does not think this is cholecystitis but more likely passive congestion. - Hepatitis panel negative. - Continue to monitor after dialysis. 5. Hypoglycemia, not present on admission, resolved. - Patient had persistent hypoglycemia (42-117) that nonresponsive to D50, glucagon, and food intake on the night of 06/18. - Suspect that patient was taking home medications in the room. - BG has now improved, but because patient has been NPO, will hold home Lantus and check BG every hour. 6. Klebsiella UTI. Present on admission. Resolved. - Patient's UA grew out Klebsiella. - she developed symptoms on 06/17 and was initiated on IV Ceftriaxone, which the bacteria is sensitive to. Completed 5 days of Ceftriaxone. - Unable to repeat UA due to no urine output. - Currently on Meropenem and Linezolid. 7. Elevated troponin. Present on admission, stable. - Likely due to demand ischemia from CHF and decreased clearance from CKD. Echo showed decreased LVEF and hypokinesia. Trops have been steady. - Troponin 0.045, 0.046. CK-MB 4.0 on admission. - Initial EKG showed a left posterior hemiblock and a right bundle branch block. She has a normal sinus rhythm with frequent PACs. EKG if angina present - Full dose Aspirin continued - Wide-complex tachycardia of uncertain etiology. This may have been related to electrolyte shifts as her potassium was markedly low at 3.2 at the time of her arrhythmias. Per Cardiology, will keep her potassium stays greater than 4.0 and magnesium greater than 2.0. 8. Acute atrial fibrillation, new onset, present on admission, active. - Patient had an episode of 15 beats of wide complex tachycardia on morning of 06/14. Asymptomatic. Also had some PSVT episodes while agitated per report from nursing staff. - Tele showed Afib with rate in the 80s overnight. monitor on telemetry. - High CHADS score of 4. However, patient has poor cardiac function and thus will have to be careful with anticoagulation. IV heparin for stroke prevention per Cardiology. - Hold Metoprolol 25 mg bid due to bradycardia. No ACEi given current shock state. 9. Diabetes Type 2 with neuropathy, uncontrolled, Present on admission - low correction Lispro algorithm - Hold Lantus. Consider starting Lantus 2 units once her PO intake improves. - holding Glucotrol XL 10. Hypertension, chronic, stable - Stop Metoprolol XL due to bradycardia. Will hold off on ACEi or other BP medications given her worsening kidney function and hypotension. - Continue to monitor BP closely as her BP has been low 11. Asthma. Chronic, Present on admission - Presumed stable with no wheezing - continue Albuterol and Flovent inhalers 12. Hypothyroidism, Present on admission, stable. - TSH 3.07 on admission. - continue Synthroid 112 mcg daily 13. Dyslipidemia, Present on admission - continue Pravastatin 20 mg daily 14. LLE wound, Present on admission Due to injury from blackReferBright peguero about 2 weeks ago, had not improved and has been more tender. -Wound care following patient. Wound debrided and covered in clean dressing, 15. BMI 46.9, chronic. - Heart-healthy, renal, and diabetic diet. - Acetaminophen as needed for mild pain/fever/headache - Bowel regimen as needed - Antiemetic as needed Dispo: Likely will require 2-3 more days for diuresis and medical stabilization. Patient needs to go to SNF for rehabilitation, but she refused at this point. If she goes home, will likely need home oxygen. The patient's son and daughter in law will be here on Saturday next week. They are coming from [place]. Ideally, they would like to take the patient back to [place] to live with them when she leaves the hospital as they feel she is too isolated here. The son's phone number is [phone]. In light of her severe biventricular failure with significant pulmonary hypertension, patient's prognosis is poor. Dr. Cooley recommended to contact Dr. Cassi García, cardiothoracic surgeon in [place], regarding a right ventricular assist device (RVAD) pumps placement. VTE Prophylaxis: Sub-Q Heparin (Unfractionated), SCDs Resuscitation Status: DNR/DNI:Do Not Resuscitate/Intubate LUKASZ TERRAZAS DO Jun 23, 2016 14:05
[2016-06-23] MEDS: Heparin 25K Unit/500mL 0.45 NS 25,000 UNIT in IV Premix 1 EACH IV SCH (16:23)
--- NOTE | 2016-06-23 18:26 | NUR ---
Hemodynamics/cardiac/respiratory/ Levophed titrated down to 0.2mcg/kg/min, MAP 60-65. Dobutamine continued at 5mcg/kg/min. Continuing to titrate for goal MAP of 60. Continues in atrial fibrillation per color television console monitor, HR 70s. Heparin gtt continued per policy. Dialyzed, 2L removed. SCDs in place during dialysis session. No urine output this shift, bladder scan results show 0ml. Tolerating diet. Will continue to monitor.
--- NOTE | 2016-06-23 18:55 | NUR ---
Dialysis note: 3 1/2 hrs tx. 2000 ml net UF. Left temp catheter, dsg dry and intact. Pls see DTR for VS details, cont. on pressors. Qb 350-400 with catheter limbs reversed A-V V-A due to poor catheter function. No extra heparin given, already on heparin drip. O2 @ 6 L via NC on with sat in the 90's. Slept at intervals. Catheter flushed, heparin dwelled and secured. Report given to Kandace Cade RN.
[2016-06-24] VITALS (11 sets, daily range): BP systolic 90–130; BP diastolic 46–61; PULSE 68–76; RESP 20–30; O2SAT 92–97
[2016-06-24] MEDS: Meropenem 1 Gm/100 mL NS Minibag Plus IV SCH ×8 (01:13→19:07)
[2016-06-24] MEDS: Norepineph 8,000 mCg/250 mL NS 8,000 MCG in IV Premix 1 EACH IV SCH ×2 (01:14→20:05)
[2016-06-24 06:37] LABS: BASOPHILS % (AUTO) 0.3 % (0-3); EOSINOPHILS % (AUTO) 2.3 % (0-5); MONOCYTES % (AUTO) 9.5 % (4-12); Mean Corpuscular Hemoglobin 25.5 pg (27.0-35.0); Mean Corpuscular Volume 79.2 fL (81-100); NEUTROPHILS % (AUTO) 78.8 % (40-74); Platelet Count 171 bil/L (150-400)
--- NOTE | 2016-06-24 06:41 | NUR ---
Mentation/Hemodynamics Patient A&O x4 but not cooperative this AM, patient c/o central line dressing pulling hair and skin itching, patient pulled out central line and picking at HD catheter dressing, BP decreased to 62/38 without Levophed and Dobutamine since the tip of the central line was laying on her chest, PIV started and Dr Harris notified, HD cath accessed emergently by Dr. Harris and pressors started again, patient aware of what she did and she apologized, patient informed that she would be restrained if she pulled at any other line, patient agreed to call and let staff know if something is bothering her, otherwise patient was pleasant and cooperative prior to the incidence this AM, patient voided 75ml dark urine, no BM this shift, resting in bed at this time, will continue to monitor. Addendum: 06/24/16 at 0649 by KAELA CHAMORRO RN Amended: Links added.
[2016-06-24 06:57] LABS: Magnesium 1.6 mg/dL (1.6-2.6)
[2016-06-24] MEDS: Nystatin 100,000 Unit/Gm 15 Gm Powder TOPICAL SCH ×2 (08:30→21:23)
[2016-06-24] MEDS: Sodium Chloride LOK Flush 10 mL Syringe IVFLUSH SCH ×3 (08:30→22:53)
[2016-06-24] MEDS: Linezolid Inj 600 MG in IV Premix 1 EACH IV SCH (08:30)
[2016-06-24] MEDS: Fluticasone 0.05% 15 Spray/2 Gm 16 Gm Nasal Spray NASAL SCH ×2 (08:30→21:24)
[2016-06-24] MEDS: 0.9% Sodium Chloride 1,000 ML IV SCH ×2 (09:00→19:00)
--- NOTE | 2016-06-24 09:15 | PCM.PNMED ---
Subjective Date of Service Jun 24, 2016 Subjective Today the patient is looking through her bills and is generally too distracted to respond to my questions. She does report that she notices her wheezing but quickly declines a breathing treatment. She denies any pain in her right neck and affirmatively answers when asked if comfortable. Overnight, the patient removed her right IJ. Dr. Aquino was called and consented to use of her dialysis catheter for pressor support as patient continues to require norepinephrine and dobutamine. No BM reported overnight. Little urine output noted. Exam Vital Signs Vital Sign - Last Date Time Temp Pulse Resp B/P Pulse Ox O2 Delivery O2 Flow Rate FiO2 06/24/16 08:26 36.2 75 25 94/49 93 Nasal Cannula 6.50 Intake and Output 06/23/16 06/23/16 06/24/16 Cumulative From/Thru 15:00 23:00 07:00 06/12/16 14:52 - 06/24/16 05:09 Intake Total 3138 ml 1674 ml 94951 ml Output Total 2000 ml 75 ml 44656 ml Balance -2000 ml 3138 ml 1599 ml 1395 ml Intake Oral 1020 ml 360 ml 79497 ml IV Total 2118 ml 1314 ml 8796 ml Output Urine Total 75 ml 74643 ml Post Void Residual 220 ml Stool Total 2 ml Ultrafiltrate 2000 ml 4000 ml # Voids 4 # Bowel Movements 0 14 Exam General: Alert and orient x3 . Morbidly obese female. Cooperative with care and more interactive. In no acute distress. Eyes: PERRLA, Scleral Anicteric Mouth: Mouth normal, mucous membranes dry, no oral thrush appreciated Neck: supple, JVD noted, She has both left-sided dialysis catheters. Significant ecchymoses noted at site of removed right IJ. Resp: Diffuse wheezing heard both with and without the stethoscope. No coarse breath sounds noted. Good respiratory effort, no accessory muscle use. Cardiovascular: distant heart sound due to body habitus, irregular rate and rhythm. No murmur appreciated. Abdomen: Soft, Obese, Non-distended, No tenderness to palpation, Normoactive bowel tones. Extremities: Anasarca up to abdomen, lymphedema bilaterally with moderate pitting pedal edema, no cyanosis, no clubbing. Skin: LLE wound covered in dressing, c/d/i. Right forearm has diffuse ecchymosis. Fingers and toes feel cool to touch. Poor perfusion. Neurological: A&O, Normal Speech, Sensation Intact, moving upper extremities with no deficit noted : No Castano catheter IVs and Medications Medications Reviewed: Medications were reviewed in detail Lab and Diagnostics Result Diagram: 06/24/1661406/24/16614 X-Rays, CTs and MRIs X-RAY CHEST ONE VIEW, PORTABLE 06/12/16 IMPRESSION: Small left pleural effusion and left basilar consolidation suggesting compressive atelectasis versus pneumonia. Correlate clinically. Continued radiographic surveillance to resolution is recommended. Dictated by: Elliot Velazquez RR Interpreted: Drea Chance MD on 06/12/2016 at 17:03 Transcribed by: JOHNSON on 06/12/2016 at 17:04 CT CHEST WITHOUT CONTRAST IMPRESSION: 1. Small pleural effusions, slightly greater on the left. 2. Left basilar compressive atelectasis versus consolidation in the setting of aspiration/infection. 3. Marked cardiomegaly and trace pericardial effusion. Dictated by: Afshan Bryan M.D. on 06/15/2016 at 21:18 12-lead ECG EKG on admission: Atrial Fibrillation with rate in the 80s and old RBBB with PVCs, QTC of 506 Cardiac Echo Impressions Complete Echo Interpretation Summary by Dr. García on 06/13/16: 1) Normal left ventricular thickness and size with severely reduced systolic function (EF 25-30%). 2) Global hypokinesis, which is worse in the proximal to mid inferior wall. 3) Moderately dilated right ventricle with moderately reduced function. 4) Moderate to severe tricuspid regurgitation present. 5) Right sided pleural effusion present. 6) Mild pulmonary hypertension present, estimated systolic function pressure of 33 plus CVP 7) Compared to the Echo done 11/02/2013, LV function has decreased from 40-45% to 25-30% on today's study. Limited Echo Interpretation Summary by Dr. Garcia on 06/22/16: The left ventricle is normal in size. The ejection fraction is estimated to be 35-40%. There is inferior wall akinesis. Flattened septum is consistent with RV pressure/volume overload. The right ventricle is severely dilated. Right ventricular systolic function is severely reduced. The mitral valve leaflets appear mildly thickened, but open well. There is moderate mitral annular calcification. There is no mitral regurgitation noted. The tricuspid valve leaflets are thin and pliable. There is severe tricuspid regurgitation. The IVC is dilated (diameter is greater than 2.1 cm) and it collapses less than 50% with a sniff. This suggests a high right atrial pressure of 15 mm Hg. There is a moderate left-sided pleural effusion. Compared to the previous study on 06/13/2016, the RV appears to be less contractile and tricuspid regurgitation is worse. LV wall motion is similar. Assessment & Plan Nalini Moon is a 75 year old female with congestive heart failure, ischemic cardiomyopathy, CAD, Chronic Kidney disease, IDDM, hypothyroidism and Breast cancer under treatment for CHF exacerbation and cardiorenal syndrome. Transferred to the ICU overnight on 06/22/16 secondary to hypotensive episode requiring blood pressure support and central venous access. Hospital day #12. ICU day #3. 1. Cardiogenic shock, not present on admission, ongoing. - Multifactorial, but most likely cardiogenic though septic is also possible. - ScvO2 through the central line, venous blood gas showed SVO2 53.6 and PO2 35.2 , which is more consistent with a cardiogenic etiology of shock. - Pulmonology and cardiology were consulted and we appreciate their recommendations. - ECHO on 06/13/16 showed EF of 27% with global hypokinesis and biventricular failure. On the limited echo on 06/22, the RV appears to be less contractile and tricuspid regurgitation is worse. - Continue dobutamine and norepinephrine infusion. Will titrate down as tolerated. - In light of her severe biventricular failure with significant pulmonary hypertension, patient's prognosis is poor. Dr. Cooley recommended to contact Dr. Cassi García, cardiothoracic surgeon in [place], regarding a right ventricular assist device (RVAD) pumps placement. - Will need to discuss with family for goals of care. Will consult palliative care on Saturday (06/25/16) to help out as well. - Dr. Cooley is concerned about possible PE and started Heparin drip 06/22/16. Cannot stop heparin before ruling out PE. Service Dismantler prefers V/Q scan over the CT, but is ok with the CT if it is necessary. We will consider a V/Q scan. - Infectious workups pending to rule out septic shock: - Chest x-ray shows no obvious focus of pneumonia. Blood cultures negative so far. - Possible sources include possible cholecystitis/cholangitis and UTI ( Klebsiella). UTI was treated with Ceftriaxone for 5 days. No urine out in the last 2 days so UA can't be done. - Surgeon did not think cholecystitis as cause of pt's hypotension and patient is not a surgical candidate at this time. If further decompensation, consider HIDA scan, MRCP, or Perc drain of GB. - Continue Meropenem for better pseudomonas coverage (day 3). Stop Linezolid as MRSA is negative (06/24/16). 2. Acute on chronic systolic congestive heart failure with biventricular failure . Present on admission. Active. - Abrupt weight gain and dyspnea after Lasix being held secondary to her worsening CKD on presentation. - Complete echo: LVEF decreased to 25-30% with worsening global hypokinesis. Worsening function on limited Echo. - Followed by Nephrology and Cardiology. Plan as #1. - Given consistent hypotension, will hold all antihypertensive medications, including Lasix, Metoprolol, Spironolactone and Chlorthalidone. - Will continue to monitor vital signs closely. - Strict I/Os and daily standing weight. - Continue dialysis to optimize her volume status. 3. Acute on Chronic Kidney disease. Present on admission. Active - Likely secondary to decompensated heart failure with cardiorenal syndrome. Chronic disease related to Hypertensive Nephrosclerosis, Diabetic nephropathy, and cardiorenal syndrome. - Avoid nephrotoxic insults in hospital - No urine output in the last few days. Bladder scan was 0 this morning 06/23. Continue to monitor. - Appreciate Nephrology consult and input. Will defer to them about continued dialysis. - She was on Lasix 80mg IV BID, Chlorthalidone 25mg, and Spironolactone 25mg daily. Will hold all BP medications given current hypotensive state. 4. Acute transaminitis, not present on admission, improving. - Likely a combination of hepatic congestion from right heart failure and some shock liver from hypotension. - Imaging of the abdomen shows some gallbladder wall thickening but surgery has evaluated her and does not think this is cholecystitis but more likely passive congestion. - Hepatitis panel negative. - Continue to monitor with CMP. 5. Hypoglycemia, not present on admission, resolved. - Patient had persistent hypoglycemia (42-117) that nonresponsive to D50, glucagon, and food intake on the night of 06/18. - Suspect that patient was taking home medications in the room. - BG has now improved as has PO intake. Re-introducing Lantus slowly. 6. Klebsiella UTI. Present on admission. Resolved. - Patient's UA grew out Klebsiella. - She developed symptoms on 06/17 and was initiated on IV Ceftriaxone, which the bacteria is sensitive to. Completed 5 days of Ceftriaxone. 7. Elevated troponin. Present on admission, stable. - Likely due to demand ischemia from CHF and decreased clearance from CKD. Echo showed decreased LVEF and hypokinesia. Trops have been steady. - Troponin 0.045, 0.046. CK-MB 4.0 on admission. - Initial EKG showed a left posterior hemiblock and a right bundle branch block. She has a normal sinus rhythm with frequent PACs. EKG if angina present - Full dose Aspirin continued - Wide-complex tachycardia of uncertain etiology. This may have been related to electrolyte shifts as her potassium was markedly low at 3.2 at the time of her arrhythmias. Per Cardiology, will keep her potassium greater than 4.0 and magnesium greater than 2.0. 8. Acute atrial fibrillation, new onset, present on admission, active. - Patient had an episode of 15 beats of wide complex tachycardia on morning of 06/14. Asymptomatic. Also had some PSVT episodes while agitated per report from nursing staff. - High CHADS score of 4. However, patient has poor cardiac function and thus will have to be careful with anticoagulation. IV heparin for stroke prevention per Cardiology. - Hold Metoprolol 25 mg bid due to bradycardia. No ACEi given current shock state. - Continue telemetry. 9. Diabetes Type 2 with neuropathy, uncontrolled, Present on admission - Low correction Lispro algorithm. - Continue Lantus but increase dose to 5 units HS. - holding Glucotrol XL 10. Hypertension, chronic. - Patient currently hypotensive requiring pressor support. - Stop Metoprolol XL due to bradycardia. Will hold off on ACEi or other BP medications given her worsening kidney function and hypotension. 11. Asthma, chronic, presume stable. - Continue Albuterol and Flovent inhalers. 12. Hypothyroidism, chronic, presume stable. - TSH 3.07 on admission. - continue Synthroid 112 mcg daily 13. Dyslipidemia, chronic, presume stable. - continue Pravastatin 20 mg daily 14. LLE wound, Present on admission, improving. - Due to injury from blackberry peguero about 2 weeks ago, had not improved and has been more tender. -Wound care following patient. Wound debrided and covered in clean dressing, 15. BMI 46.9, chronic. - Heart-healthy, renal, and diabetic diet. - Acetaminophen as needed for mild pain/fever/headache - Bowel regimen as needed - Antiemetic as needed Dispo: Likely will require several more days for diuresis and medical stabilization. Patient needs to go to SNF for rehabilitation, but she refused at this point. If she goes home, will likely need home oxygen. The patient's son and daughter in law will be here on Saturday next week. They are coming from [place]. Ideally, they would like to take the patient back to [place] to live with them when she leaves the hospital as they feel she is too isolated here. The son's phone number is [phone]. VTE Prophylaxis: SCDs, Other (Heparin drip) Resuscitation Status: DNR/DNI:Do Not Resuscitate/Intubate Attending Statement The patient was seen and examined together with Dr. Laguna on 06-24-16 and I agree with the history, exam and plan as outlined in the note above. Maris Laguna DO Jun 24, 2016 09:15 Lauren Mitchell MD Jul 09, 2016 16:06 VTE Prophylaxis: SCDs, Other (Heparin drip) Resuscitation Status: DNR/DNI:Do Not Resuscitate/Intubate Maris Laguna DO Jun 24, 2016 09:15
--- NOTE | 2016-06-24 09:16 | DRSVH ---
PROCEDURE: X-RAY CHEST ONE VIEW, PORTABLE ([id number]) INDICATIONS: line placement TECHNIQUE: One view of the chest was acquired. COMPARISON: [facility], CR, XR CHEST 1VW (PORTABLE), 06/22/2016, 13:02. FINDINGS: Surgical changes and devices: Right IJ central line is normal. There is a left IJ central line with t he tip in right atrium, unchanged in position. Surgical clips in the left breast. Lungs and pleura: Left basilar consolidation and small left pleural effusion. Possible small right e ffusion. No pneumothorax. Mediastinum: Mediastinal contours appear normal. Heart size is normal. Bones and chest wall: No suspicious bony lesions. Overlying soft tissues appear unremarkable. IMPRESSION: Stable chest. Dictated by: Sheyla Sahni M.D. on 06/24/2016 at 9:13 Approved by: Sheyla Sahni M.D. on 06/24/2016 at 9:14
[2016-06-24] MEDS: Insulin LISPRO 300 Unit/3 mL Inj SUBQ SCH ×4 (09:20→21:14)
[2016-06-24] MEDS: Magnesium Chloride SR 64 mg ER24 Tablet PO SCH (09:23)
[2016-06-24] MEDS: DOBUTamine 500 mg/250 D5W 500,000 MCG in IV Premix 1 EACH IV SCH (09:35)
--- NOTE | 2016-06-24 10:09 | NUR ---
MANDY Patient refused to sign and asked [employer] Operator Helper to leave
--- NOTE | 2016-06-24 10:37 | PCM.PNNEPH ---
Subjective Date of Service Jun 24, 2016 Subjective The patient remains anuric. Her blood pressure still remains quite variable and somewhat dependent upon pressors. As noted in my previous notes for normal systolic blood pressure remains between the mid to upper 80s to mid 90 range. As far as any further fluids or pressors I think that this needs to be taken into consideration. She is a bit more alert today and is completely complaining of some cough and wheezing without sputum production. The patient also states that she is normally on several inhalers at home and I will go ahead and order these today. This morning her hemoglobin is 12.8, sodium of 132 , potassium 4.4, chloride 94, bicarbonate of 20, BUN and creatinine 46 and 3.3 respectively. Her albumin is 2.1. Exam Vital Signs Vital Sign - Last Date Time Temp Pulse Resp B/P Pulse Ox O2 Delivery O2 Flow Rate FiO2 06/24/16 08:26 36.2 75 25 94/49 93 Nasal Cannula 6.50 Intake and Output 06/23/16 06/23/16 06/24/16 Cumulative From/Thru 14:59 22:59 06:59 06/12/16 14:52 - 06/24/16 05:09 Intake Total 3138 ml 1674 ml 05524 ml Output Total 2000 ml 75 ml 96191 ml Balance -2000 ml 3138 ml 1599 ml 1395 ml Intake Oral 1020 ml 360 ml 76667 ml IV Total 2118 ml 1314 ml 8796 ml Output Urine Total 75 ml 00647 ml Post Void Residual 220 ml Stool Total 2 ml Ultrafiltrate 2000 ml 4000 ml # Voids 4 # Bowel Movements 0 14 Exam Lungs show some bibasal rales and scattered rhonchi and end expiratory wheezes. Heart sounds I will once again are distant going to the patient's large body habitus. Abdomen is mildly distended with some tympany. There is no tenderness or rebound guarding masses however liver remains pulsatile, enlarged , with evidence of hepatojugular reflux. Extremities showed some mild edema superimposed upon moderate to severe lymphedema. Lab and Diagnostics Result Diagram: 06/24/1661406/24/16614 X-Rays, CTs and MRIs X-RAY CHEST ONE VIEW, PORTABLE 06/12/16 IMPRESSION: Small left pleural effusion and left basilar consolidation suggesting compressive atelectasis versus pneumonia. Correlate clinically. Continued radiographic surveillance to resolution is recommended. Dictated by: Elliot DOUGLAS Interpreted: Drea Chance MD on 06/12/2016 at 17:03 Transcribed by: JOHNSON on 06/12/2016 at 17:04 CT CHEST WITHOUT CONTRAST IMPRESSION: 1. Small pleural effusions, slightly greater on the left. 2. Left basilar compressive atelectasis versus consolidation in the setting of aspiration/infection. 3. Marked cardiomegaly and trace pericardial effusion. Dictated by: Afshan Bryan M.D. on 06/15/2016 at 21:18 12-lead ECG EKG on admission: Atrial Fibrillation with rate in the 80s and old RBBB with PVCs, QTC of 506 Cardiac Echo Impressions Complete Echo Interpretation Summary by Dr. García on 06/13/16: 1) Normal left ventricular thickness and size with severely reduced systolic function (EF 25-30%). 2) Global hypokinesis, which is worse in the proximal to mid inferior wall. 3) Moderately dilated right ventricle with moderately reduced function. 4) Moderate to severe tricuspid regurgitation present. 5) Right sided pleural effusion present. 6) Mild pulmonary hypertension present, estimated systolic function pressure of 33 plus CVP 7) Compared to the Echo done 11/02/2013, LV function has decreased from 40-45% to 25-30% on today's study. Limited Echo Interpretation Summary by Dr. Garcia on 06/22/16: The left ventricle is normal in size. The ejection fraction is estimated to be 35-40%. There is inferior wall akinesis. Flattened septum is consistent with RV pressure/volume overload. The right ventricle is severely dilated. Right ventricular systolic function is severely reduced. The mitral valve leaflets appear mildly thickened, but open well. There is moderate mitral annular calcification. There is no mitral regurgitation noted. The tricuspid valve leaflets are thin and pliable. There is severe tricuspid regurgitation. The IVC is dilated (diameter is greater than 2.1 cm) and it collapses less than 50% with a sniff. This suggests a high right atrial pressure of 15 mm Hg. There is a moderate left-sided pleural effusion. Compared to the previous study on 06/13/2016, the RV appears to be less contractile and tricuspid regurgitation is worse. LV wall motion is similar. Plan Impression Impression #1 acute tubular necrosis which appears to be multifactorial. #2 acute decompensated congestive heart failure with profound systolic dysfunction and cardiorenal syndrome #3 hepatorenal syndrome number for diabetic nephropathy #5 pyelonephritis secondary to Klebsiella #6 hypertension with hypertensive heart disease and hypertensive nephrosclerosis. #7 asthma. Recommendations #1 we will go ahead and order neha torres on her. #2Case discussed with Dr. Miller and I feel a VQ scan may be the best place to start as far as concern for a pulmonary embolus. #3 I will go ahead and dialyze her today for 4 hours with the following orders: 4 hours, revaclear dialyzer, 3 potassium bath, 38 bicarbonate, 250-300 blood flow 600 dialysate flow. I would also to give her 25 g of albumin at the start of the treatment and repeat this every hour for 2 additional doses. I would like to also try to take off a liter of fluid if possible. Nando Aquino DO Jun 24, 2016 10:37
[2016-06-24] MEDS ORDERED: Sodium Chloride LOK Flush 10 mL Syringe IVFLUSH PRN ×2 (11:15)
[2016-06-24] MEDS: Albuterol-Ipratropium 3 mL Inhalation Solution NEB PRN (11:34)
--- NOTE | 2016-06-24 11:40 | NUR ---
patient received svn per order. she has audible wheezes that do not improve with bronchodilator tx. she appears mildly sob. she is uncooperative and unwilling to answer any questions at this time.
--- NOTE | 2016-06-24 12:30 | PROG NOTE ---
[address] [address] PROGRESS NOTE PATIENT: CAITLIN DELGADO : 1940 MR#: [id number] ADMIT: 06/12/2016 JOB ID: [id number] DATE: 06/24/2016 SUBJECTIVE: The patient is sitting trying to eat breakfast. She appears to have shortness of breath; however, she is denying it. Her mentation appears to be a little bit better than yesterday, but she is still getting distracted. No active chest pain. Yesterday, she had dialysis and 2 L were taken off. According to the nurse, she voided 75 cc of urine. PHYSICAL EXAMINATION: Her weight is about 114.4 kg. She is on 5 mcg of dobutamine as well as on Levophed drip. Her blood pressure 94/49, respiratory rate 25, pulse rate 75--irregular. Oxygen saturation at 6.5 L 93%. The patient pulled the right IJ yesterday. There is ecchymosis on the right side of the neck. She has a dialysis catheter on the left IJ. I can see JVD. Chest: Decreased air entry at the bases with some crepitation and rhonchi. S1 variable. P2 appears prominent. No S3, no S4. Abdomen: Obese. No obvious pulsatile mass. Extremities: Patient has diffuse bilateral lymphedema. No evidence of critical limb ischemia. 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 DATA: Telemetry: Atrial fibrillation with controlled ventricular rate as well as patient has four beat run of wide QRS tachycardia with irregularity. Could be Jeronimo phenomena; however, cannot rule out NSVT. LABORATORIES: WBC 6.8, hemoglobin 12, platelets 171, polymorphs 78.8. Sodium 132, potassium 4.4, chloride 94, CO2 20. BUN 46. Creatinine 3.34, which has decreased from yesterday, which was 4.54. Lactic acid decreased to 1.8. It was 2.5 yesterday. Magnesium 1.6. AST decreased to 336 from 655 and ALT decreased to 269 from 358. Alkaline phosphatase decreased to 160 from 178. Albumin 2.1. ASSESSMENT AND PLAN: This 75-year-old pleasant female who has a history of known coronary artery disease, status post ST elevation inferior wall myocardial infarction in 2011, status post percutaneous intervention and stent placement to the right coronary artery, obesity, underlying diabetes mellitus, hypertension, hyperlipidemia, ischemic cardiomyopathy with LV ejection fraction 40% to 45%, moderate pulmonary hypertension, chronic renal insufficiency, presented with symptoms of biventricular failure and weight gain on June 12, 2016. The patient had echocardiogram on June 13, 2016. At that time, LV ejection fraction was about 20% to 25% with evidence of right ventricular volume and pressure overload with moderately dilated right ventricle with moderately reduced right ventricular function and moderate to severe tricuspid regurgitation. At that time, pulmonary artery systolic pressure was about 33 mmHg, plus estimated CVP. In the hospital, the patient developed worsening renal failure with metabolic acidosis and complete shut down with underlying Klebsiella UTI/pyelonephritis. Patient developed hypotension and shock which appears to be multifactorial. The patient was started on dialysis. She was started on Levophed as well as dobutamine to increase the cardiac output. She developed atrial fibrillation, for which she was started on heparin. She had a repeat echocardiogram the day before yesterday which revealed worsening right ventricular dilatation and right ventricular function with severely reduced RV function, severe tricuspid regurgitation, as well as severe pulmonary hypertension. In the hospital, she was also found to have gallbladder stone and possibility of cholecystitis was kept and was seen by Surgery. She was not felt to be candidate for gallbladder surgery. She developed worsening liver function, including AST, ALT, and alkaline phosphatase, which appears to be multifactorial with possibility of hepatic congestion due to systemic venous congestion due to right-sided heart failure. Yesterday, we discussed among different discipline who is involved in management of this patient regarding V/Q scan or CT chest to rule out pulmonary embolism. We discussed about right ventricular and left ventricular assistive device as well. Patient lives by herself. She has a poor social support. One of the sons lives in [place]. I called her son over there and left a message to call me back. In view of so many comorbid conditions, poor social support, everybody agrees that she is not a candidate for right ventricular and left ventricular assist device. With that amount of right ventricular heart failure, overall prognosis is poor. At this point of time from cardiology perspective, we will continue inotropic support with dobutamine and Levophed in the umbrella of dialysis to optimize volume status as well as tolerable dose of aspirin and continuation of heparin. Discussed with Dr. Aquino again and the plan is to consider at least V/Q scan. Tomorrow my associate, Dr. Call, will be available to see the patient. Addendum: Spoke to her son Gerson later on discussed. He understands the poor prognosis. TOTAL TIME SPENT: Total time spent for this critical care evaluation about 50 minutes. MTDD
[2016-06-24] MEDS: Albuterol-Ipratropium 3 mL Inhalation Solution NEB SCH ×2 (14:43→21:32)
--- NOTE | 2016-06-24 15:07 | PROG NOTE ---
[address] [address] PROGRESS NOTE PATIENT: CAITLIN DELGADO : 1940 MR#: [id number] ADMIT: 06/12/2016 JOB ID: [id number] DATE: 06/24/2016 PULMONARY CRITICAL CARE FOLLOWUP NOTE: PROBLEM LIST: 1. Systolic heart failure. 2. Acute on chronic renal failure. 3. History reactive airways disease. 4. Diabetes type 2. 5. Morbid obesity. 6. Delirium, mild. SUBJECTIVE: The patient complains of a sore throat. Says it was because she is not being allowed any water. Had some water this morning and apparently also ate some breakfast. Throat feeling a little bit better. No shortness of breath. No chest or abdominal pain. OBJECTIVE: Temperature 36.2. Pulse mid 70s. Respiratory rate 25. Blood pressure 94/49, on dobutamine at 5 mcg/kg/minute plus nor epi at 0.05 mcg/kg/minute. O2 sat on 6 L, 93% to 97%. I and O shows 4.7 L in, 2 L out of which all 2 L is due to ultrafiltrate. General appearance: Morbidly obese, female lying in bed. Essentially supine. Speaking easily. Chest: Anterior lung skinner are clear though somewhat diminished. Heart tones are not audible. Abdomen is soft and nontender. A few bowel tones noted. Extremities 2+ pretibial edema. LABORATORY: Shows a white count of 6800 with moderate neutrophilia. Hemoglobin stable at 12. Platelet count slowly decreasing at 171,000. Sodium 132, potassium 4.4, chloride 94, CO2 20, BUN 46, creatinine 3.3. Lactic acid is 1.8. Calcium 6.7 with and albumin of 2. Magnesium normal at 1.6. Total bilirubin normal at 0.7. AST 336 and falling. ALT 269 and falling. Alkaline phos 160 and falling. Procalcitonin 0.9. Blood cultures at 24 hours are negative. Chest x-ray shows some basilar opacification. ASSESSMENT: 1. Shock. Patient no longer in shock. Low blood pressure likely due to the severe heart disease. Currently in essentially complete renal failure which complicates the situation as well. Will continue the dopamine and nor epi infusions to maintain a blood pressure and a cardiac output. However, I think the prognosis from cardiac standpoint is dismal. 2. History of reactive airways disease. Does have some wheezing. Bronchodilators have been started. Will see how she does with them. 3. Acute on chronic kidney injury. Currently dialysis dependent. Continue dialysis as per renal. PLAN: Continue nor epi and dobutamine for cardiac support. With the presence of the severe heart failure and renal failure to explain the patient's condition, the Pulmonary service will stop following at this point. If any further questions or problems arise, please feel free to contact us.
--- NOTE | 2016-06-24 15:10 | PROG NOTE ---
[address] [address] PROGRESS NOTE PATIENT: CAITLIN DELGADO : 1940 MR#: [id number] ADMIT: 06/12/2016 JOB ID: [id number] DATE: 06/24/2016 The patient remains relatively hypotensive, afebrile. Her abdominal exam remains benign. Her white count remains normal. LFTs have never shown a rise in her bilirubin and are trending slowly back down to normal with the transaminases being 336 and 269 today. IMPRESSION AND PLAN: I think that her primary etiology for her hypotension is cardiogenic. There may be an element of infection in her gallbladder, though I think it is unlikely. She continues on appropriate antibiotic coverage, and due to her heart she is not an operative candidate. If there is felt to be a need to definitively assess whether or not she has acute cholecystitis, a HIDA scan could be obtained. If her HIDA scan is negative, I would stop her antibiotic treatment for cholecystitis. If her HIDA scan is positive, I would continue her antibiotic treatment. As I said before, currently nonoperative therapy is in her best interest.
--- NOTE | 2016-06-24 16:30 | NUR ---
Dialysis note: 4 hrs tx. 1500 ml net UF. Left temp catheter, dsg dry and intact. Pls see DTR for VS details, cont. on pressors. Qb 300 with catheter limbs reversed A-V V-A due to poor catheter function. No extra heparin given, already on heparin drip. O2 @ 6 L via NC on with sat in the 90's. Albumin 25 Gm IV given x 3 as ordered. Slept at intervals. Catheter flushed, heparin dwelled and secured. Report given to Sandy MARTINEZ.
--- NOTE | 2016-06-24 19:49 | NUR ---
Assumed care at 1500. Pt oriented x2, somewhat tangental communication attempts and loses patience easily. Redirects. 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 No uop today. Stooled earlier today. Medicated x1 with tylenol 325mg at 1900 for right hip discomfort, plan to monitor for effect. Turned as able. Dialysis catheter remains accessed for pressors, IVT unable to place PICC.
[2016-06-24] MEDS: Insulin GLARgine 100 Unit/mL Syringe SUBQ SCH (21:24)
[2016-06-25] VITALS (12 sets, daily range): BP systolic 110–136; BP diastolic 53–72; PULSE 72–102; RESP 18–28; O2SAT 75–96
[2016-06-25] MEDS: DOBUTamine 500 mg/250 D5W 500,000 MCG in IV Premix 1 EACH IV SCH ×2 (00:45→16:27)
[2016-06-25] MEDS: Meropenem 1 Gm/100 mL NS Minibag Plus IV SCH ×2 (03:23)
[2016-06-25 04:16] LABS: EOSINOPHILS % (AUTO) 4.6 % (0-5); Mean Corpuscular Hemoglobin 25.5 pg (27.0-35.0); Mean Corpuscular Volume 80.8 fL (81-100); NEUTROPHILS % (AUTO) 72.4 % (40-74); Platelet Count 125 bil/L (150-400)
[2016-06-25] MEDS: Albuterol-Ipratropium 3 mL Inhalation Solution NEB SCH ×4 (04:32→21:13)
[2016-06-25 04:38] LABS: Magnesium 1.6 mg/dL (1.6-2.6); Phosphorus 3.8 mg/dL (2.5-4.9)
[2016-06-25] MEDS: 0.9% Sodium Chloride 1,000 ML IV SCH (05:00)
[2016-06-25] MEDS: Heparin 25K Unit/500mL 0.45 NS 25,000 UNIT in IV Premix 1 EACH IV SCH (05:46)
[2016-06-25] MEDS: Insulin LISPRO 300 Unit/3 mL Inj SUBQ SCH ×4 (07:44→20:37)
[2016-06-25] MEDS: Fluticasone 0.05% 15 Spray/2 Gm 16 Gm Nasal Spray NASAL SCH ×2 (07:45→20:36)
[2016-06-25] MEDS: Nystatin 100,000 Unit/Gm 15 Gm Powder TOPICAL SCH ×2 (07:45→20:36)
[2016-06-25] MEDS: Sodium Chloride LOK Flush 10 mL Syringe IVFLUSH SCH ×3 (07:45→21:19)
[2016-06-25] MEDS: Magnesium Chloride SR 64 mg ER24 Tablet PO SCH (07:45)
--- NOTE | 2016-06-25 10:22 | ABG ---
DateTimeAnalyzed 10:18:00 -_ pH ____7.457 - 7.350 7.450 pCO2 ___38.2__ -mmHg 35.0 45.0 pO2 ___59.5__ -mmHg 69.0 116 HCO3- ___26.6__ -mmol/L 22.0 26.0 ABE ____3.1__ -mmol/L -2.0 2.0 tHb ___10.6__ -g/dL O2Hb ___88.2__ -% COHb ____1.6__ -% MetHb ____0.9__ -% sO2 ___90.5__ -% FIO2 ___40.0__ -% Drawn By MT - Date/Time Notified____ 10:21:00 -_ Notified By MT - Notified Whom Dr Laguna - B 758 -mmHg tO2 ___13.2__ -Vol% Magdaleno test N/A -
--- NOTE | 2016-06-25 10:35 | PCM.PNNEPH ---
Subjective Date of Service Jun 25, 2016 Subjective Patient remains in critical condition. Her blood pressure improved with IV dobutamine and norepinephrine. She did not have urine output overnight. She received dialysis yesterday with 1.5 L fluid removal. She is now having breakfast. She has some shortness of breath. She is on heparin drip at the moment. Exam Vital Signs Vital Sign - Last Date Time Temp Pulse Resp B/P Pulse Ox O2 Delivery O2 Flow Rate FiO2 06/25/16 08:31 89 18 75 Nasal Cannula 4.00 82 20 06/25/16 07:34 36.0 120/54 Intake and Output 06/24/16 06/24/16 06/25/16 Cumulative From/Thru 15:00 23:00 07:00 06/12/16 14:52 - 06/25/16 06:22 Intake Total 1939 ml 812 ml 38933 ml Output Total 1500 ml 0 ml 92725 ml Balance -1500 ml 1939 ml 812 ml 2646 ml Intake Oral 300 ml 100 ml 13967 ml IV Total 1639 ml 712 ml 66605 ml Output Urine Total 0 ml 46693 ml Post Void Residual 220 ml Stool Total 2 ml Ultrafiltrate 1500 ml 5500 ml # Voids 4 # Bowel Movements 1 1 16 Exam General appearance: Awake, oriented x2, in upright position. She is tachypneic. HEENT: Mild pallor. No anicteric sclerae. Positive for JVD. Atraumatic. Moist mucous membranes. Heart: Irregular rhythm, systolic murmur. Lungs: Rales the bases, expiratory wheezing noted. Abdomen: Soft, active bowel sounds. Obese. Extremity: 2+ edema, positive for chronic skin changes on the lower extremity. Lab and Diagnostics Result Diagram: 06/25/16 0405 06/25/165 X-Rays, CTs and MRIs X-RAY CHEST ONE VIEW, PORTABLE 06/12/16 IMPRESSION: Small left pleural effusion and left basilar consolidation suggesting compressive atelectasis versus pneumonia. Correlate clinically. Continued radiographic surveillance to resolution is recommended. Dictated by: Elliot DOUGLAS Interpreted: Drea Chance MD on 06/12/2016 at 17:03 Transcribed by: JOHNSON on 06/12/2016 at 17:04 CT CHEST WITHOUT CONTRAST IMPRESSION: 1. Small pleural effusions, slightly greater on the left. 2. Left basilar compressive atelectasis versus consolidation in the setting of aspiration/infection. 3. Marked cardiomegaly and trace pericardial effusion. Dictated by: Afshan Bryan M.D. on 06/15/2016 at 21:18 12-lead ECG EKG on admission: Atrial Fibrillation with rate in the 80s and old RBBB with PVCs, QTC of 506 Cardiac Echo Impressions Complete Echo Interpretation Summary by Dr. García on 06/13/16: 1) Normal left ventricular thickness and size with severely reduced systolic function (EF 25-30%). 2) Global hypokinesis, which is worse in the proximal to mid inferior wall. 3) Moderately dilated right ventricle with moderately reduced function. 4) Moderate to severe tricuspid regurgitation present. 5) Right sided pleural effusion present. 6) Mild pulmonary hypertension present, estimated systolic function pressure of 33 plus CVP 7) Compared to the Echo done 11/02/2013, LV function has decreased from 40-45% to 25-30% on today's study. Limited Echo Interpretation Summary by Dr. Garcia on 06/22/16: The left ventricle is normal in size. The ejection fraction is estimated to be 35-40%. There is inferior wall akinesis. Flattened septum is consistent with RV pressure/volume overload. The right ventricle is severely dilated. Right ventricular systolic function is severely reduced. The mitral valve leaflets appear mildly thickened, but open well. There is moderate mitral annular calcification. There is no mitral regurgitation noted. The tricuspid valve leaflets are thin and pliable. There is severe tricuspid regurgitation. The IVC is dilated (diameter is greater than 2.1 cm) and it collapses less than 50% with a sniff. This suggests a high right atrial pressure of 15 mm Hg. There is a moderate left-sided pleural effusion. Compared to the previous study on 06/13/2016, the RV appears to be less contractile and tricuspid regurgitation is worse. LV wall motion is similar. Plan Impression 1. Acute kidney injury on chronic kidney disease secondary to acute tubular necrosis and cardiorenal syndrome. 2. Acute on chronic decompensated heart failure. 3. Complicated UTI, urine culture: Klebsiella. 4. Transaminitis, rule out hepatic congestion secondary to heart failure 5. Hypertension with hypertensive heart disease and hypertensive nephrosclerosis. Plan We will perform another hemodialysis today. We will gingerly remove the fluid. We will start patient on 25% albumin during dialysis. We will put her on low blood flow rate 200 mL/min. We will follow cardiology recommendation. Lv Sun MD Jun 25, 2016 10:35
--- NOTE | 2016-06-25 11:13 | NUR ---
NUTRITION FOLLOW UP Assess: 75 YO F admitted to CCU for acute on chronic CHF, acute on chronic kidney disease, hypoglycemia, and UTI. Pt had temporary dialysis catheter placed and received dialysis 06/24 with plans to for dialysis again today. Pt with poor PO intake. PMHx: DM 2, HTN, Breast cancer, Cardiomyopathy, Mitral regurgitation, HTN, HTN, Renal insufficiency. LABS: Cr 2.67, Glu 147, Ca 7.7, AST 179, ALT 177, Alb 3.3 MEDICATIONS: Reviewed. Insulin, Pressor DIET: Renal, heart healthy, consistent carb. + supplements. PO intake 25% X 1 meal. (Previous PO intake 25-100%) GI: 1 BM 06/25 SKIN: No issues noted; Sd:21 ANTHROPOMETRICS: Current Wt: 114.4 kg BMI:49.3 kg/m2 Admit Wt: 109.4 kg, IBW: 45.5 kg, Adj BW: 61.4 kg, Recent wt changes: Wt gain. ESTIMATED NEEDS: BMI/Dialysis Calories: 3890-4952 kcal/day (25-30 kcal/kg/d Adj BW) Protein: 75-125 g/day (1.2-2.0 g/kg/d Adj BW) NUTRITION DIAGNOSIS: 1) Increased nutrient needs related to acute renal failure as evidenced by need for temporary dialysis.---PERSISTS. INTERVENTION: 1) Continue current diet and supplements as ordered. MONITOR/EVALUATE: PO intake, labs, dialysis, wt, nutrition status, POC. Follow per moderate nutrition risk guidelines.
--- NOTE | 2016-06-25 11:17 | PCM.CONPAL ---
Date of Service Jun 25, 2016 Date of Hospital Admission: Jun 12, 2016 at 18:39 Date of Palliative Consult: Jun 25, 2016 Requesting Provider: Martinez Hernandez DO Reason Palliative Care Consult: Goals of Care Discussion Hospital Unit @time of consult: Critical Care Palliative Care Recommendation 75-year-old female with advanced biventricular heart failure, now complicated by acute renal failure necessitating dialysis, as well as other ongoing medical concerns. She has been followed by cardiology who briefly entertained the possibility of having her considered for ventricular assist device, but because of her multiple comorbidities, social situation, etc. do not feel she is a candidate. At this time she continues on intravenous pressor/inotrope support as well as hemodialysis. Palliative medicine consulted to assist patient in determination of goals of care. Summary of palliative recommendations: -Symptom management (Pain/other)- comfortable and in no significant distress when seen today. Continue present management per medical/critical care teams. -DPOA/Advanced Directives/POLST- patient reports that she has completed documentation but no copies are available to us at this time. Family members are gathering and plan on coming to the hospital within the next several days. At this time, patient remains DO NOT RESUSCITATE/DO NOT INTUBATE, but is NOT ready to transition to comfort/hospice type care. She wishes to continue receiving dialysis for the time being, saying that she has some more things that she needs to take care of in life before she passes, and she anticipates doing this over the course of the next several weeks to months. If she is unable to be weaned off of her pressors/inotropes over the next several days, however, will need to reopen the question of ongoing dialysis support with her and her family members. -Family/emotional support- unclear how much support from family member and friends in the area is actually available, though additional family members will be arriving over the coming days for further consultation. -Spiritual support- offered and declined. She says that her son Randall is very roman catholic but "in a different way" (and implies that she considers his roman catholic affiliation to be something cult-like) Patient Goals: 1. Patient wants to be told the truth about her illness, even if it is unpleasant. 2. Patient would like to be told prognosis when it can be predicted, to better guide treatment decisions. Additional Medical Diagnoses with primary management by Hospitalist team include : 1. Cardiogenic shock, not present on admission, ongoing. - Multifactorial, but most likely cardiogenic though septic is also possible. 2. Acute on chronic systolic congestive heart failure with biventricular failure . Present on admission. Active. 3. Acute on Chronic Kidney disease. Present on admission. Active 4. Acute transaminitis, not present on admission, improving. 5. Hypoglycemia, not present on admission, resolved. 6. Klebsiella UTI. Present on admission. Resolved. 7. Elevated troponin. Present on admission, stable. 8. Acute atrial fibrillation, new onset, present on admission, active. 9. Diabetes Type 2 with neuropathy, uncontrolled, Present on admission 10. Hypertension, chronic. 11. Asthma, chronic, presume stable. 12. Hypothyroidism, chronic, presume stable. 13. Dyslipidemia, chronic, presume stable. 14. LLE wound, Present on admission, improving. Problems: End of Life Preferences DO NOT RESUSCITATE/DO NOT INTUBATE/continue current interventions including dialysis Goals of Care Patient still hopes to recover and return home Disposition To be determined At this time she is refusing to consider SNF placement Resuscitation Status Resuscitation Status: DNR/DNI:Do Not Resuscitate/Intubate . Advanced Care Planning Address: POLST, Code status change, Comfort care ( discussed these issues but no additional decisions made) Pain: None Symptom management: Dyspnea Pt History History of Present Illness Per admission H&P: 75 year old female with Congestive heart failure, Coronary artery disease, Chronic Kidney disease, IDDM, hypothyroidism and Breast cancer in remission who presents to [facility] Emergency department accompanied by her pulp operator referred by her PCP complaining of a week of worsening shortness of breath and lower extremity swelling. Patient has been having progressively worsening dyspnea on exertion for about a week. Associated rapid 40lb weight gain with leg edema doubling in size in less than 2 days, and nausea. Patient denies chest pain, diaphoresis, fever, chills and vomiting. She states that symptoms onset a week after Dr. Wilde, Nephrology, took her off of her diuretics due to worsening kidney function. About a week ago she experienced an episode of nausea and mild back pain that "felt like a silent NE". At that time she attempted to make an appointment with her yarn weigher, Dr. Cooley, with no success. She also mentions a sore on the back of her left leg secondary to an encounter with a blackberry vine. Unfortunately, since admission, her overall situation has continued to deteriorate, with progressive renal failure, now necessitating hemodialysis. Her heart failure has also worsened, and at this time she continues to be supported with norepinephrine and dobutamine drips. She developed liver function abnormalities and there was concern of possible acute cholecystitis versus hepatic congestion secondary to her severe right heart failure, as well as other medical issues. Palliative medicine was consulted to assist patient in determination of goals of care. Prior to visiting, I reviewed her records in the EMR in detail, reviewed her status on morning critical care rounds with the medical teams, and reviewed her current status with her nurse. On my arrival, she is an elderly woman sitting up in bed with head of bed elevated. Occasional deep harsh cough. She seems fully awake, alert and oriented however. At this time, she denies any significant distress. We talked at length, reviewing her past personal and social history, and also talked about her current medical diagnoses and her wishes for ongoing treatment. After I introduced myself, she immediately related that she understood what palliative medicine was and why I was there to talk with her. She said that she recognizes that she is nearing the end of her life, told me that she has in the last several months completed almost all of her important affairs, completed necessary paperwork including will, living will, power of civil attorney documentation, etc. 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 There is some disconnect between reality and the patient's reports of her home status and wishes. At times she claims that she has adequate resources to allow her to stay home, but other informants indicate that her living situation is tenuous. Per MANAGER MONITORING report: MANAGER MONITORING spoke with pt's son, Randall. He expresses deep concerns about pt discharging back home and states "it is completely unlivable." MANAGER MONITORING reviewed possible discharge options including SNF. Their hope is that the pt will be agreeable to SNF, build strength and then willingly move to [place] with them. MANAGER MONITORING discussed pt's rights and that family and hospital staff cannot force her to engage in rehab and/or move to [place]. Family is aware and is hoping to work closely with pt's medical team and social work to provide safe discharge. He states they will be flying in on Saturday evening and would like to meet with MANAGER MONITORING next (if the pt is still admitted). Physical therapy here was discontinued because of her lack of cooperation. While she seemed quite lucid when I talked with her today, review of nursing notes indicates that at times she has been confused, uncooperative, has occasionally refused medications, has pulled out IV lines, etc. Past Medical History Significant PMH Noted: Diabetes mellitus Hypertension Stage IIA left-sided breast cancer, T1 N1a M0, who had an ER positive, HER-2 negative tumor in 2009 and underwent lumpectomy with sentinel node examination, followed by adjuvant chemotherapy as part of enrollment in a [facility] clinical trial that used Taxol back in a dose dense fashion x4 cycles every two weeks as single agent chemotherapy. The patient then was treated with standard adjuvant breast radiation, followed by adjuvant hormonal therapy with anastrozole that she took for five years and came off of that in February 2016. Ischemic Cardiomyopathy EF 25% by recent echo Asthma Mitral regurgitation Hypertension Tricuspid regurgitation Pulmonary hypertension, secondary RBBB Chronic renal insufficiency, stage 4 Hypothyroidism Diabetes type 2 . Surgical History Appendectomy Bilateral tubal ligation Cataract extraction Tonsillectomy Lumpectomy Cardiac cath s/p STEFANY to distal segment of RCA Social History Occupation: Retired and . She notes that her partner of 35 years in 2014. She has had an interesting life. 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 She went back to school as an adult and earned an MS degree in environmental studies. She is an avid and wide-ranging reader, and maintains interest in all sorts of social and scientific endeavors. Family Members Issues: She says that her son Randall is her POA and is coming here from [place] on Saturday. She also says other foster sons are arriving over the next several days and she anticipates there will be some extended conversations about her status and plans. She says that over the last several months she has pretty much tied up all of her affairs- she claims to have completed a will, living will, power of civil attorney paperwork, etc.- But says that there are just a few more important things that need to be sorted out. Living Situation: Per admission social work note: Pt resides at home alone, son on same property where she remains independent with basic ADLS. Pt uses a fww at baseline and does drive. However, also per MANAGER MONITORING note: MANAGER MONITORING spoke with pt's son, Randall. He expresses deep concerns about pt discharging back home and states "it is completely unlivable." MANAGER MONITORING reviewed possible discharge options including SNF. Their hope is that the pt will be agreeable to SNF, build strength and then willingly move to [place] with them. MANAGER MONITORING discussed pt's rights and that family and hospital staff cannot force her to engage in rehab and/or move to [place]. Family is aware and is hoping to work closely with pt's medical team and social work to provide safe discharge. He states they will be flying in on Saturday evening and would like to meet with MANAGER MONITORING next (if the pt is still admitted). Palliative Performance Scale PPS Patient Status: Baseline PPS Ambulation: Reduced (front wheel walker) PPS Activity: Unable to do normal job/work PPS Self-Care: Full Self Care PPS Intake: Normal PPS Conscious Level: Full Performance Scale: 60% ADLs ADL Patient Status: Baseline ADL Ambulation: Reduced ADL Dressing: Full ADL Feeding: Full ADL Hygene/bathing: Full ADL Transfers: Full POLST at Time of Admission Previous POLST?: No Allergy Allergies Reviewed: Yes Medications Current Medications: Current Medications Aspirin 81 mg 81 mg DAILY PO; Start 06/24/16 at 08:30; Stop 06/24/16 at 09:35; Status DC Meropenem/Sodium Chloride 100 ml @ 33.333 mls/ hr Q8H IV Last administered on 03:23; Admin Dose 33.333 MLS/HR; Start 06/24/16 at 03:00; Stop at 09:27; Status DC Aspirin 81 mg DAILY PO Last administered on 06/25/16 07:45; Admin Dose 81 MG; Start 06/24/16 at 09:35 Albuterol/ Ipratropium 3 ml Q6 NEB Last administered on 06/25/16 08:27; Admin Dose 3 ML; Start 06/24/16 at 14:30 Insulin Glargine 5 unit HS SUBQ Last administered on 06/24/16 21:24; Admin Dose 5 UNIT; Start 06/24/16 at 21:00 Acetaminophen 650 mg 650 mg Q8 PRN PO Last administered on 06/24/16 19:14; Admin Dose 325 MG; Start 06/24/16 at 18:45 Meropenem/Sodium Chloride 100 ml @ 33.333 mls/ hr DAILY IV; Start 06/26/16 at 08:30 Scheduled Aspirin (Aspirin) 325 Mg Tablet 325 MG PO DAILY Cholecalciferol (Vitamin D3) (Vitamin D) 1,000 Unit Capsule 1,000 UNIT PO DAILY Furosemide (Furosemide) 20 Mg Tab 20 MG PO DAILY Glipizide ER (Glucotrol XL) 10 Mg Tablet 10 MG PO BID Insulin Glargine (Lantus U100 Solostar Insulin Pen) 100 Unit/1 Ml Insuln.pen 10 UNITS SUBQ HS Levothyroxine (Levothyroxine) 112 Mcg Tablet 112 MCG PO DAILY Multivitamin (Multi Vitamin Daily) 1 Each Tablet 1 EACH PO DAILY Pravastatin (Pravastatin) 20 Mg Tablet 20 MG PO DAILY Scheduled PRN Albuterol HFA (Proair HFA) 8.5 Gm Hfa.aer.ad 2 PUFFS IH Q4-6H PRN PRN asthma Albuterol Neb Soln (Albuterol Neb Soln) 2.5 Mg/3 Ml Vial.neb 1 VIAL INH q4-6 hours PRN PRN For Shortness of Breath Fluticasone Propionate (Flovent HFA 220 mcg) 12 Gm Aer.w.adap 1 PUFF IH BID PRN PRN For Shortness of Breath Current Treatments Ventilator: No Oxygen: Yes IV Fluids: Yes Antibiotics: Yes Telemetry: Yes Critical Care Unit: Yes Objective Findings Exam Vital Sign - Last Date Time Temp Pulse Resp B/P Pulse Ox O2 Delivery O2 Flow Rate FiO2 06/25/16 08:31 89 18 75 Nasal Cannula 4.00 82 20 06/25/16 07:34 36.0 120/54 Intake and Output 06/24/16 06/24/16 06/25/16 Cumulative From/Thru 15:00 23:00 07:00 06/12/16 14:52 - 06/25/16 06:22 Intake Total 1939 ml 812 ml 27898 ml Output Total 1500 ml 0 ml 73609 ml Balance -1500 ml 1939 ml 812 ml 2646 ml Intake Oral 300 ml 100 ml 09463 ml IV Total 1639 ml 712 ml 56722 ml Output Urine Total 0 ml 26492 ml Post Void Residual 220 ml Stool Total 2 ml Ultrafiltrate 1500 ml 5500 ml # Voids 4 # Bowel Movements 1 1 16 Objective Fatigued appearing, heavyset woman lying in bed. Occasional harsh cough. Vital signs noted. Continues on IV dobutamine and norepinephrine. Skin is pale , warm and dry. Head and neck exam without acute focal findings. Lungs with dependent crackles bilaterally. Heart sounds distant and regular. Abdomen is rounded, soft, nontender and without peritoneal signs. Extremities with diffuse puffiness and +1 pitting edema. Neurologic grossly intact throughout. Lab/Diagnostics Lab and Imaging results reviewed in detail in EMR. Time spent Total time 85 minutes; >50% face to face with patient, providing counselling regarding plans and recommendations, and in care coordination with her medical teams. Of the above total time, 15 minutes counseling for advanced care planning with the patient reviewing her resuscitation wishes, discussing possible transition to comfort care, etc. Raymond Devine MD Jun 25, 2016 11:16
--- NOTE | 2016-06-25 11:26 | DRSVH ---
PROCEDURE: 1. left internal jugular vein non-tunneled temporary hemodialysis catheter placement. 2. Ultrasound guidance for left internal jugular vein access. 3. Conscious sedation x 50 minutes. INDICATIONS: Renal failure. COMPARISON: None. Technique: Informed, written consent from the patient was obtained prior to the procedure. Patient wa s brought to the angiography suite, and conscious sedation was administered intravenously by nursing home staff, while continuous cardiorespiratory monitoring was performed. Maximal sterile barrier t echnique, hand hygiene, skin preparation, and sterile ultrasound technique was followed. A mask, ster ile gown, sterile gloves, a large sterile sheet, hand hygiene, and 2% chlorhexidine or iodine was uti lized for skin antisepsis. The left neck and chest wall were prepped and draped sterilely, and infuse d with lidocaine. The left internal jugular vein was accessed antegrade under sonographic guidance wi th a micropuncture set. An 035 J-wire was advanced into the inferior vena cava. The venotomy tract w as sequentially dilated. A double-lumen temporary hemodialysis catheter was advanced over a wire. Pattie quate flow was obtained through both lumens of the catheter. The catheter was then fastened to the sk in surface. Fluoroscopy time: FINDINGS: The left internal jugular vein is patent by ultrasound. Following hemodialysis catheter candida cement, the tip of the catheter is at the cavoatrial junction. IMPRESSION: Left internal jugular vein temporary hemodialysis catheter placement using fluoroscopic a nd ultrasound guidance.\ Dictated by: Sameera Doyle M.D. on 06/25/2016 at 11:17 Approved by: Sameera Doyle M.D. on 06/25/2016 at 11:25
--- NOTE | 2016-06-25 11:54 | NUR ---
Palliative Care Palliative Care received verbal order from Dr Jordan 06/25/16 to assist with goals of care. Patient is a 75 year old woman with advanced biventricular heart failure, now complicated by acute renal failure necessitating dialysis, as well as other ongoing medical concerns. She was admitted 06/12/16. Patient lives home alone. Randall Sarai (son) [phone] Jose Arevalo (son) [phone] Josefina Diaz (friend) [phone] Palliative Care to follow. Alem Rebolledo
[2016-06-25] MEDS ORDERED: Albumin 25% 100 ML IV ONE (14:00)
--- NOTE | 2016-06-25 17:39 | NUR ---
Wound Care Patient sen for wound care of left posterior calf, cleaned with saline and 2 x 2 gauze, redressed with mepilex foam dressing. Wounds stable unchanged in dimension but continue to increase in granulation tissue in the base. No sign of infection,slow healing. Will recheck in 48 hrs.
--- NOTE | 2016-06-25 18:00 | NUR ---
Dialysis note: 3 hrs tx. 2000 ml net UF. Left temp catheter, dsg dry and intact. Pls see DTR for VS details, cont. on pressors. Qb 200 with catheter limbs reversed A-V V-A due to poor catheter function. No extra heparin given, already on heparin drip. O2 @ 6 L via NC on with sat in the 90's. Albumin 25 Gm IV given x 1 as ordered. Slept at intervals. Catheter flushed, heparin dwelled and secured. Report given to Ashley. MARTINEZ.
--- NOTE | 2016-06-25 18:32 | PCM.PNMED ---
Subjective Date of Service Jun 25, 2016 Subjective Overnight had no complaints. Went to dialysis yesterday afternoon 1.5 L removed , required additional norepinephrine due to low pressure, subsequently able to be turned off early this morning remains on dobutamine drip. Denies any somatic discomfort other than stating she is hungry. Exam Vital Signs Vital Sign - Last Date Time Temp Pulse Resp B/P Pulse Ox O2 Delivery O2 Flow Rate FiO2 06/25/16 14:17 92 06/25/16 08:31 18 75 Nasal Cannula 4.00 20 06/25/16 07:34 36.0 120/54 Intake and Output 06/24/16 06/24/16 06/25/16 Cumulative From/Thru 15:00 23:00 07:00 06/12/16 14:52 - 06/25/16 06:22 Intake Total 1939 ml 812 ml 86347 ml Output Total 1500 ml 0 ml 71770 ml Balance -1500 ml 1939 ml 812 ml 2646 ml Intake Oral 300 ml 100 ml 93189 ml IV Total 1639 ml 712 ml 91381 ml Output Urine Total 0 ml 16670 ml Post Void Residual 220 ml Stool Total 2 ml Ultrafiltrate 1500 ml 5500 ml # Voids 4 # Bowel Movements 1 1 16 Exam General: Alert and orient x3 . Morbidly obese female. Cooperative with care and more interactive. In no acute distress. Eyes: PERRLA, Scleral Anicteric Mouth: Mouth normal, mucous membranes dry, no oral thrush appreciated Neck: supple, JVD noted, She has both left-sided dialysis catheters. Significant ecchymoses noted at site of removed right IJ. Resp: Fine rales appreciated in the bilateral lower lobes. No coarse breath sounds noted. Good respiratory effort, no accessory muscle use. Tachypneic Cardiovascular: distant heart sound due to body habitus, irregular rate and rhythm. No murmur appreciated. Abdomen: Soft, Obese, Non-distended, No tenderness to palpation, Normoactive bowel tones. Extremities: Anasarca up to abdomen, lymphedema bilaterally with moderate pitting pedal edema, no cyanosis, no clubbing. Skin: LLE wound covered in dressing, c/d/i. Right forearm has diffuse ecchymosis. Fingers and toes feel cool to touch. Poor perfusion. Neurological: A&O, Normal Speech, Sensation Intact, moving upper extremities with no deficit noted : No Castano catheter IVs and Medications Medications Reviewed: Medications were reviewed in detail Lab and Diagnostics Result Diagram: 06/25/1640406/25/16404 X-Rays, CTs and MRIs X-RAY CHEST ONE VIEW, PORTABLE 06/12/16 IMPRESSION: Small left pleural effusion and left basilar consolidation suggesting compressive atelectasis versus pneumonia. Correlate clinically. Continued radiographic surveillance to resolution is recommended. Dictated by: Elliot Velazquez RRA Interpreted: Drea Chance MD on 06/12/2016 at 17:03 Transcribed by: JOHNSON on 06/12/2016 at 17:04 CT CHEST WITHOUT CONTRAST IMPRESSION: 1. Small pleural effusions, slightly greater on the left. 2. Left basilar compressive atelectasis versus consolidation in the setting of aspiration/infection. 3. Marked cardiomegaly and trace pericardial effusion. Dictated by: Afshan Bryan M.D. on 06/15/2016 at 21:18 12-lead ECG EKG on admission: Atrial Fibrillation with rate in the 80s and old RBBB with PVCs, QTC of 506 Cardiac Echo Impressions Complete Echo Interpretation Summary by Dr. García on 06/13/16: 1) Normal left ventricular thickness and size with severely reduced systolic function (EF 25-30%). 2) Global hypokinesis, which is worse in the proximal to mid inferior wall. 3) Moderately dilated right ventricle with moderately reduced function. 4) Moderate to severe tricuspid regurgitation present. 5) Right sided pleural effusion present. 6) Mild pulmonary hypertension present, estimated systolic function pressure of 33 plus CVP 7) Compared to the Echo done 11/02/2013, LV function has decreased from 40-45% to 25-30% on today's study. Limited Echo Interpretation Summary by Dr. Garcia on 06/22/16: The left ventricle is normal in size. The ejection fraction is estimated to be 35-40%. There is inferior wall akinesis. Flattened septum is consistent with RV pressure/volume overload. The right ventricle is severely dilated. Right ventricular systolic function is severely reduced. The mitral valve leaflets appear mildly thickened, but open well. There is moderate mitral annular calcification. There is no mitral regurgitation noted. The tricuspid valve leaflets are thin and pliable. There is severe tricuspid regurgitation. The IVC is dilated (diameter is greater than 2.1 cm) and it collapses less than 50% with a sniff. This suggests a high right atrial pressure of 15 mm Hg. There is a moderate left-sided pleural effusion. Compared to the previous study on 06/13/2016, the RV appears to be less contractile and tricuspid regurgitation is worse. LV wall motion is similar. Assessment & Plan Nalini Moon is a 75 year old female with congestive heart failure, ischemic cardiomyopathy, CAD, Chronic Kidney disease, IDDM, hypothyroidism and Breast cancer under treatment for CHF exacerbation and cardiorenal syndrome. Transferred to the ICU overnight on 06/22/16 secondary to hypotensive episode requiring blood pressure support and central venous access. Hospital day #13. ICU day #4. 1. Acute on chronic systolic congestive heart failure with biventricular failure . Present on admission. Active. - Abrupt weight gain and dyspnea after Lasix being held secondary to her worsening CKD on presentation. - ECHO on 06/13/16 showed EF of 27% with global hypokinesis and biventricular failure. On the limited echo on 06/22, the RV appears to be less contractile and tricuspid regurgitation is worse. - Followed by Nephrology and Cardiology. Plan as #2. - Given consistent hypotension, will hold all antihypertensive medications, including Lasix, Metoprolol, Spironolactone and Chlorthalidone. - Will continue to monitor vital signs closely. - Strict I/Os and daily standing weight. - Continue dialysis to optimize her volume status. - Dr. Cooley is concerned about possible PE and started Heparin drip 06/22/16. Cannot stop heparin before ruling out PE. [employer]er prefers V/Q scan over the CT, but is ok with the CT if it is necessary. We will consider a V/Q scan. - In light of her severe biventricular failure with significant pulmonary hypertension, patient's prognosis is poor. Dr. Cooley recommended to contact Dr. Cassi García, cardiothoracic surgeon in [place], regarding a right ventricular assist device (RVAD) pumps placement. 2. Acute Cardiogenic Shock, not present on admission, resolved - Multifactorial, but most likely cardiogenic though septic is also possible. - ScvO2 through the central line, venous blood gas showed SVO2 53.6 and PO2 35.2 , which is more consistent with a cardiogenic etiology of shock. - Pulmonology and cardiology were consulted and we appreciate their recommendations. - Continue dobutamine and norepinephrine infusion. Will titrate down as tolerated. - Will need to discuss with family for goals of care. Will consult palliative care on Saturday (06/25/16) to help out as well. - Infectious workups pending to rule out septic shock: - Chest x-ray shows no obvious focus of pneumonia. Blood cultures negative so far. - Possible sources include possible cholecystitis/cholangitis and UTI ( Klebsiella). UTI was treated with Ceftriaxone for 5 days. No urine out in the last 2 days so UA can't be done. - Surgeon did not think cholecystitis as cause of pt's hypotension and patient is not a surgical candidate at this time. If further decompensation, consider HIDA scan, MRCP, or Perc drain of GB. -Stop Meropenem, per infectious disease recommendation (day 4). Stop Linezolid as MRSA is negative (06/24/16). 3. Acute on Chronic Kidney disease. Present on admission. Active - Likely secondary to decompensated heart failure with cardiorenal syndrome. Chronic disease related to Hypertensive Nephrosclerosis, Diabetic nephropathy, and cardiorenal syndrome. - Avoid nephrotoxic insults in hospital - No urine output in the last few days. Bladder scan was 0 this morning 06/23. Continue to monitor. - Appreciate Nephrology consult and input. Will defer to them about continued dialysis. - She was on Lasix 80mg IV BID, Chlorthalidone 25mg, and Spironolactone 25mg daily. Will hold all BP medications given current hypotensive state. 4. Acute transaminitis, not present on admission, improving. - Likely a combination of hepatic congestion from right heart failure and some shock liver from hypotension. - Imaging of the abdomen shows some gallbladder wall thickening but surgery has evaluated her and does not think this is cholecystitis but more likely passive congestion. - Hepatitis panel negative. - Continue to monitor with CMP. Stable and Resolved: 5. Hypoglycemia, not present on admission, resolved. - Patient had persistent hypoglycemia (42-117) that nonresponsive to D50, glucagon, and food intake on the night of 06/18. - Suspect that patient was taking home medications in the room. - BG has now improved as has PO intake. Re-introducing Lantus slowly. 6. Klebsiella UTI. Present on admission. Resolved. - Patient's UA grew out Klebsiella. - She developed symptoms on 06/17 and was initiated on IV Ceftriaxone, which the bacteria is sensitive to. Completed 5 days of Ceftriaxone. 7. Elevated troponin. Present on admission, stable. - Likely due to demand ischemia from CHF and decreased clearance from CKD. Echo showed decreased LVEF and hypokinesia. Trops have been steady. - Troponin 0.045, 0.046. CK-MB 4.0 on admission. - Initial EKG showed a left posterior hemiblock and a right bundle branch block. She has a normal sinus rhythm with frequent PACs. EKG if angina present - Full dose Aspirin continued - Wide-complex tachycardia of uncertain etiology. This may have been related to electrolyte shifts as her potassium was markedly low at 3.2 at the time of her arrhythmias. Per Cardiology, will keep her potassium greater than 4.0 and magnesium greater than 2.0. 8. Acute atrial fibrillation, new onset, present on admission, active. - Patient had an episode of 15 beats of wide complex tachycardia on morning of 06/14. Asymptomatic. Also had some PSVT episodes while agitated per report from nursing staff. - High CHADS score of 4. However, patient has poor cardiac function and thus will have to be careful with anticoagulation. IV heparin for stroke prevention per Cardiology. - Hold Metoprolol 25 mg bid due to bradycardia. No ACEi given current shock state. - Continue telemetry. 9. Diabetes Type 2 with neuropathy, uncontrolled, Present on admission - Low correction Lispro algorithm. - Continue Lantus but increase dose to 5 units HS. - holding Glucotrol XL 10. Hypertension, chronic. - Patient currently hypotensive requiring pressor support. - Stop Metoprolol XL due to bradycardia. Will hold off on ACEi or other BP medications given her worsening kidney function and hypotension. 11. Asthma, chronic, presume stable. - Continue Albuterol and Flovent inhalers. 12. Hypothyroidism, chronic, presume stable. - TSH 3.07 on admission. - continue Synthroid 112 mcg daily 13. Dyslipidemia, chronic, presume stable. - continue Pravastatin 20 mg daily 14. LLE wound, Present on admission, improving. - Due to injury from blackberry peguero about 2 weeks ago, had not improved and has been more tender. -Wound care following patient. Wound debrided and covered in clean dressing, 15. BMI 46.9, chronic. - Heart-healthy, renal, and diabetic diet. - Acetaminophen as needed for mild pain/fever/headache - Bowel regimen as needed - Antiemetic as needed Dispo: Likely will require several more days for diuresis and medical stabilization. Patient needs to go to SNF for rehabilitation, but she refused at this point. If she goes home, will likely need home oxygen. The patient's son and daughter in law will be here on Saturday this week. They are coming from [place]. Ideally, they would like to take the patient back to [place] to live with them when she leaves the hospital as they feel she is too isolated here. The son's phone number is [phone]. Pain Evaluation: Adequate Pain Control VTE Prophylaxis: SCDs, Other (Heparin drip) VTE Mechanical Devices: Intermittant Pneumatic CD Resuscitation Status: DNR/DNI:Do Not Resuscitate/Intubate Attending Statement The patient was seen and examined together with Dr. Hernandez on 06/25/2016 and I agree with the history, exam and plan as outlined in the note above. . Martinez Hernandez DO Jun 25, 2016 18:32 Jono Greene MD Jun 29, 2016 18:55
--- NOTE | 2016-06-25 18:51 | NUR ---
CARDIAC/RESPIRATORY Patient remains on Dobutamine gtt at 5 mcg/kg/min, Levophed currently off, but is required during dialysis. No change in rhythm, AFib in 70s-90s w/ frequent PVCs. Patient reports increased SOB at 1100, so O2 increased to 6L NC and advised patient to minimize visitation and talking, as this appeared to exacerbate her breathing difficulty. She followed these instructions and felt much better after dialysis.
--- NOTE | 2016-06-25 19:14 | PROG NOTE ---
[address] [address] PROGRESS NOTE PATIENT: CAITLIN DELGADO : 1940 MR#: [id number] ADMIT: 06/12/2016 JOB ID: [id number] DATE: 06/25/2016 CHIEF COMPLAINT: The patient is being treated for his CHF with severe right ventricular dysfunction. She has been on dobutamine for that. She is also getting dialysis. SUBJECTIVE: She says she feels a little better although she still feels short of breath. She is conversing with me. PHYSICAL EXAMINATION: Blood pressure is 120/54, heart rate 81, atrial fibrillation. Sats are 96% on 5 L. General: In no acute distress. She is able to speak in full sentences, although she does appear somewhat short of breath. Head and neck exam: Normocephalic, bruising on the right at the neck area. Heart exam: Irregular. I do not appreciate obvious murmurs, gallops or rubs appreciated. Lungs: Clear anteriorly although difficult to hear given sounds of the dialysis machine. Abdomen is soft. Back: No CVA tenderness to palpation. Extremities with edema. LABORATORIES: Today show white count 5.2, H and H 10.6 and 36.6, platelets of 125,000. Chemistry today shows sodium 136, potassium 2.8, chloride and bicarb 96 and 25.6. BUN and creatinine 27 and 2.67. AST and ALT elevated but have trended downward. CURRENT MEDICATIONS: Include: 1. Albuterol. 2. Aspirin. 3. Nystatin. 4. Fluticasone. 5. Levothyroxine. 6. Heparin. 7. Dobutamine. 8. Insulin glargine. 9. Norepinephrine 10. Other p.r.n. medications. IMAGING: Today shows that there is no new imaging but chest x-ray from yesterday shows stable chest. Echo shows an EF of 35% to 40% with inferior wall akinesis, severely dilated right ventricle with severely reduced right ventricular systolic function. There is also a left pleural effusion. IMPRESSION: This patient comes in with shortness of breath, new problems with right ventricular dilation and right ventricular dysfunction. She is on dobutamine. She is also getting dialysis now. It appears that she has also been considered for a ventilation/perfusion scan to rule out pulmonary embolism as a cause of her new problems. She has significant lower extremity edema which may be chronic in etiology suggesting that the RV dysfunction may be somewhat of a chronic problem as well. PLAN: I would continue as we are. It seem that she is tolerating the current medications. It does not appear that she is negative on her I's and O's (and this is likely because she did not respond to diuresis). I will coordinate my efforts with the medicine team 30 minutes of ICU level time spent reviewing the patient's chart, speaking with an examining the patient MTDD
--- NOTE | 2016-06-25 19:24 | CONS ---
[address] [address] CONSULTATION REPORT PATIENT: CAITLIN DELGADO : 1940 MR#: [id number] ADMIT: 06/12/2016 JOB ID: [id number] DATE OF SERVICE: 06/25/[address] Jeffries for this timely consult. REASON FOR CONSULTATION: Possible acute cholecystitis and/or urinary tract infection. HISTORY OF PRESENT ILLNESS: The patient is an unfortunate, 75-year-old woman with underlying organic heart disease as well as progressive chronic renal insufficiency. She has been followed in the renal clinic on an ongoing basis but did not receive dialysis until this admission. Back on June 12, she went to the [facility] for routine appointment and was found to have a tremendous amount of weight gain with lower extremity edema, to the point she could not walk. This was associated with increasing shortness of breath, decreasing O2 sat, and just generalized debility and for that reason, she was admitted to the hospital for aggressive diuretic therapy and cardiac evaluation. As part of a cardiac evaluation, she was found to have a much decreased left ventricular ejection fraction and was given a diagnosis of a cardiorenal syndrome with fluid retention and acute on chronic renal failure. During the course of this hospitalization, the patient was started on hemodialysis. The patient has required dobutamine to support her blood pressure as well as low doses of norepinephrine during this admission and there have been consistent concerns about possible infection. When she first came in, she had no fevers, chills, or sweats, and she also denied any dysuria, urgency, or frequency. Urinalysis had no white cells but a urine culture grew Klebsiella. For the first few days in the hospital, this was not treated, but on June 17, she started to have more problems with hypotension and required vasopressor agents and inotropic agents, as mentioned above, so she was started on ceftriaxone for the Klebsiella in the urine. This was subsequently changed as her hypotension continued and there were concerns about acute cholecystitis. At that time, the patient was started on ertapenem and linezolid which continued for a few days before on the she was switched to meropenem. These broad-spectrum antibiotics have been provided for the possibility of a Klebsiella UTI as well as the possibility of a cholecystitis which was suggested by a right upper quadrant ultrasound. Despite concerns about cholecystitis, the patient does not have nausea, vomiting or right upper quadrant pain, and she has continued to be free of fevers, chills, or sweats. She does have a dry cough which she attributes to allergies but which could also of course be due to her fluid overload. This morning, the patient tells us that she has been consistently without fevers, chills, or sweats. She has not had significant sore throat though she does have a dry throat and she has the nonproductive cough in association with quite severe shortness of breath which predates her admission of course. She notes that she is producing little or no urine at this point, which has been an ongoing process. She notes that her legs and abdomen are a bit swollen but that she does not have significant abdominal pain, nausea, vomiting, or diarrhea. PAST MEDICAL HISTORY: 1. Organic heart disease. a. Left ventricular ejection fraction 25% to 45% on multiple echocardiograms. b. Coronary artery disease. 2. Chronic renal insufficiency with renal failure, now requiring hemodialysis. 3. Diabetes. 4. Hypothyroidism. 5. History of breast cancer, status post lumpectomy. 6. Hyperlipidemia. 7. Hypertension. 8. History of polio. SOCIAL HISTORY: The patient lives alone in [facility]. She does have a foster son who lives next door to her, and she notes that her partner of 32 years 18 months ago. She is a nonsmoker, nondrinker with no recent extensive travel. FAMILY HISTORY: Negative for TB in first-degree relatives. REVIEW OF SYSTEMS: Was done. No significant headache, no visual change. No sore throat though she does have dry mucous membranes. No odynophagia or dysphagia. No stiff neck. She does have a dry cough and she is very short of breath which is worse with exertion and she is even short of breath lying in bed. No chest pain. No nausea, vomiting, diarrhea, right upper quadrant pain, dysuria, urgency, frequency. She does have tremendous swelling of her legs which she states is only slightly improved. She also relates that she has had a chronic small wound over left medial calf, which is being followed by Wound Management and for which she has not recently been receiving antibiotics nor is it thought to be infected. She notes that she is usually able to walk but in the days leading up to this admission she was not able to walk because of both shortness of breath and lower extremity edema. Remainder of the review of systems is negative. PHYSICAL EXAMINATION: Reveals an afebrile woman. Temperature 36 degrees, pulse around roughly 90, respiratory rate approximately 20, and she is not intubated though she is receiving 4 L nasal oxygen and saturating around 90%. Blood pressure is currently 120/54 on very low dose norepinephrine and moderate dose dobutamine. Urine output is functionally zero. Mental status is clear, though the patient is short of breath and has a little difficulty expressing herself at times. Her head is without trauma. Eyes without scleral icterus or conjunctivitis. Nose normal. Oral cavity with dry mucous membranes, but no pharyngitis or thrush. Neck completely supple. She does have severe JVD. Lungs are notable for coarse breath sounds at the bases bilaterally. Cardiac tones: Irregular rate and rhythm, and the monitor shows AFib which is what this rhythm sounds like. No significant murmur is appreciated but her heart sounds are a bit distant. Abdomen is distended, soft, and nontender, without right upper quadrant tenderness. She does not have a Castano catheter and she does not have suprapubic fullness. Examination of the joints reveals no evidence of active synovitis. The lower extremities have significant, approximately 2+ edema up to about the level of the knees. There is a shallow ulceration present on the left medial calf, which does not appear infected on close examination, though there is a halo of erythema around this, about 7 mm in diameter shallow ulceration. Patient's feet are reasonably well perfused. She can move her extremities. We did not do any more formal neurologic exam. There is no skin rash present, no evidence for thyromegaly. Lines include a tunneled dialysis catheter in the left neck. In addition, she has peripheral IVs in both hands. LABORATORIES: Include white count 5200, platelet count 125,000, which is dropping a bit. Creatinine is 2.67. It has fluctuated between 2.4, when she was admitted; reached a high of 4.5 two days ago and is now down to 2.67. Of note, this has occurred under the influence of recently started dialysis. AST is 179. ALT 177 but alk phos is normal at 130. Albumin 3.3. Procalcitonin is basically 1.1 consistently on four measurements, though today's is actually 0.91. Micro studies include the urine culture which grew Klebsiella on admission which was quite a sensitive organism. Urine eosinophils were negative. C. diff has been found to be negative and multiple blood cultures negative. MRSA screen is negative. IMAGING: Includes a chest x-ray last done on the which shows left basilar consolidation with a small left pleural effusion. A small right effusion is also noted. This is a stable appearance to the chest. IMPRESSION: At this point, I see no evidence for ongoing infection. The patient was admitted with asymptomatic bacteriuria as demonstrated by the absence of symptoms or pyuria with Klebsiella in the urine. This was treated intentionally or inadvertently with multiple antibiotics during the course of the past week or so. Concerns have arisen about possible cholecystitis based on the ultrasound of the abdomen which showed a thickened gallbladder wall without pericholecystic fluid. I am inclined to agree with the surgical supply assistant who believes this is most likely on the basis of the patient's heart failure rather than a true cholecystitis as she really has nothing in the way of symptoms and does not have leukocytosis or a significantly elevated procalcitonin when one accounts for her renal failure. It is also notable the patient has been on an extremely high dose of meropenem, 1 g q.8 h. over the past few days, and fortunately has been without toxicity as this represents an extremely high dose for a patient who is receiving dialysis in chronic renal failure. RECOMMENDATIONS: 1. After discussion with the team and careful review of the patient and her records, I think it is reasonable to discontinue all antibiotics and watch this patient. 2. Will go ahead and stop the meropenem at this time. 3. Will continue to follow this case with you, at least in the short term, to see if there is any additional evidence of cholecystitis. I note that she is going to be undergoing a HIDA scan later today and will be following up on that. ИРИНА
[2016-06-25] MEDS: Insulin GLARgine 100 Unit/mL Syringe SUBQ SCH (21:18)
[2016-06-26] VITALS (15 sets, daily range): BP systolic 95–155; BP diastolic 53–70; PULSE 75–106; RESP 18–33; O2SAT 93–100
[2016-06-26] MEDS: Albuterol-Ipratropium 3 mL Inhalation Solution NEB SCH ×2 (01:46→08:30)
[2016-06-26 04:47] LABS: BASOPHILS % (AUTO) 0.5 % (0-3); EOSINOPHILS % (AUTO) 4.5 % (0-5); MONOCYTES % (AUTO) 12.9 % (4-12); Mean Corpuscular Hemoglobin 25.3 pg (27.0-35.0); Mean Corpuscular Volume 81.4 fL (81-100); NEUTROPHILS % (AUTO) 71.2 % (40-74); Platelet Count 110 bil/L (150-400)
[2016-06-26 05:21] LABS: Magnesium 1.6 mg/dL (1.6-2.6)
--- NOTE | 2016-06-26 06:26 | NUR ---
Cardiac/Respiratory Pt dobutamine and norepi stopped and pt able to maintain BP in 130/140. Pt also weened to 3L NC and SpO2 97%, no c/o of SOB although pt at times appears to have SOB but will decline. Pt states that she feels better than she did. No C/O CP or Pain. VSS and Tele remains Afib 90's to 100's with IVCD.
[2016-06-26] MEDS: Insulin LISPRO 300 Unit/3 mL Inj SUBQ SCH ×4 (07:38→21:47)
[2016-06-26] MEDS: Sodium Chloride LOK Flush 10 mL Syringe IVFLUSH SCH ×2 (08:30→16:30)
[2016-06-26] MEDS ORDERED: Meropenem 1 Gm/100 mL NS Minibag Plus IV SCH ×2 (08:30)
[2016-06-26] MEDS: Fluticasone 0.05% 15 Spray/2 Gm 16 Gm Nasal Spray NASAL SCH ×2 (09:09→20:23)
[2016-06-26] MEDS: Magnesium Chloride SR 64 mg ER24 Tablet PO SCH ×2 (09:09→20:30)
[2016-06-26] MEDS: Nystatin 100,000 Unit/Gm 15 Gm Powder TOPICAL SCH ×2 (09:09→20:25)
--- NOTE | 2016-06-26 09:11 | PROG NOTE ---
[address] [address] PROGRESS NOTE PATIENT: CAITLIN DELGADO : 1940 MR#: [id number] ADMIT: 06/12/2016 JOB ID: [id number] DATE: 06/26/2016 INFECTIOUS DISEASE FOLLOW UP NOTE: REASON FOR FOLLOW UP: Cardiorenal syndrome with possible infection. INTERVAL HISTORY: Recall this is the 75-year-old woman with cardiorenal syndrome we saw yesterday. She was admitted because of fluid overload, pulmonary edema and renal failure and has since been initiated on dialysis using a left neck dialysis catheter. There were concerns that she may have either a urinary tract infection or cholecystitis and she was started on very broad-spectrum and very high dose meropenem. Yesterday we were asked to see here. Our impression yesterday was that she did not have an ongoing infection and we recommended all antibiotics be discontinued. Overnight, the patient has continued to complain of a dry cough which has become quite chronic and is likely related to her fluid overload situation. She has had no fevers, chills or sweats. She has no productive cough. No chest pain and no right upper quadrant pain whatsoever. She is actually hungry. She does note she is very jittery and attributes that to multiple doses of albuterol. PHYSICAL EXAMINATION: Reveals a reasonably comfortable woman who is a bit tremulous lying in her ICU bed. Temperature 36.4, pulse 98, respiratory rate 22-28, blood pressure 130/53, saturating well on 3 L. She is awake and alert. Eyes without conjunctivitis. Oral cavity with mild pharyngeal erythema without exudate. Lungs with crackles at the bases. The left neck dialysis catheter in the IJ looks uninfected. The abdomen is completely nontender and especially the right upper quadrant is nontender. LABORATORIES: Include a white count of 6600 with basically normal differential. Creatinine 2.82, and of course, that reflects dialysis. ALT is gradually coming down. It is now 134. Procalcitonin has been bouncing around, levels of 1. Today it has fallen to 0.5. Urinalysis without white cells. HIV, hep C negative. Blood cultures negative. MRSA screen negative. We did have a urine that grew some Klebsiella which has been more than adequately treated. IMPRESSION: As was the initial impression yesterday, I see no indication this patient has an infection. She certainly had asymptomatic bacteriuria and there were concerns about her gallbladder but I suspect the gallbladder wall thickness is more related to congestive failure than cholecystitis. RECOMMENDATIONS: 1. No antibiotics. 2. The patient was reassured she does not need antibiotics now. 3. ID will go ahead and sign off. Please do not hesitate to call as things change in the coming days.
--- NOTE | 2016-06-26 10:11 | NUR ---
Social Work Note: Continued Discharge Planning Data& Assessment: Per MD pt is not medically ready for discharge at this time. SW met with pt at bedside to check in and discuss discharge planning. PT continues to recommend SNF. Pt emphasized that she will "never go to one of those." Pt also declined Home Health Services. Pt explained her home situation might be changing and her family will be arriving from out of state tomorrow 06/27/2016. Pt is hoping to move to [place] with family. Pt did say that the PT evaluations and exercises have been helpful to her. SW to follow up with pt and pt family regarding discharge planning once the family members arrive from out of state. Pt denies any other needs at this time. Plan: Anticipated discharge home with home health vs. SNF vs. home with family. SW to follow up with pt and pt family regarding discharge planning once the family members arrive from out of state. Pt denies any other needs at this time. JACI Sam
--- NOTE | 2016-06-26 11:27 | PCM.PNNEPH ---
Subjective Date of Service Jun 26, 2016 Subjective She is doing better today. Norepinephrine and dobutamine have been discontinued. Her blood pressure has been stable throughout the night. Hemodialysis was done yesterday without complications, 2 L fluid removal. Exam Vital Signs Vital Sign - Last Date Time Temp Pulse Resp B/P Pulse Ox O2 Delivery O2 Flow Rate FiO2 06/26/16 08:33 99 06/26/16 08:00 Supplement Oxygen 06/26/16 08:00 36.4 28 155/62 96 3.00 Intake and Output 06/25/16 06/25/16 06/26/16 Cumulative From/Thru 15:00 23:00 07:00 06/12/16 14:52 - 06/26/16 06:24 Intake Total 512 ml 923 ml 64246 ml Output Total 2000 ml 0 ml 30698 ml Balance -2000 ml 512 ml 923 ml 2081 ml Intake Oral 600 ml 38796 ml IV Total 512 ml 323 ml 24629 ml Output Urine Total 0 ml 62632 ml Post Void Residual 220 ml Stool Total 2 ml Ultrafiltrate 2000 ml 7500 ml # Voids 4 # Bowel Movements 04 24 Exam General appearance: Awake, in upright position. Mild tachypneic. HEENT: Mild pallor. No anicteric sclerae. Positive for JVD. Atraumatic. Moist mucous membranes. Bruises noted on the right side of the neck. Left IJ shanna catheter in place. Heart: Irregular rhythm, systolic murmur. Lungs: Rales the bases, expiratory wheezing noted. Abdomen: Soft, active bowel sounds. Obese. Extremity: 2+ edema, positive for chronic skin changes on the lower extremity. Lab and Diagnostics Result Diagram: 06/26/16 04306/26/16 0430 X-Rays, CTs and MRIs X-RAY CHEST ONE VIEW, PORTABLE 06/12/16 IMPRESSION: Small left pleural effusion and left basilar consolidation suggesting compressive atelectasis versus pneumonia. Correlate clinically. Continued radiographic surveillance to resolution is recommended. Dictated by: Elliot DOUGLAS Interpreted: Drea Chance MD on 06/12/2016 at 17:03 Transcribed by: JOHNSON on 06/12/2016 at 17:04 CT CHEST WITHOUT CONTRAST IMPRESSION: 1. Small pleural effusions, slightly greater on the left. 2. Left basilar compressive atelectasis versus consolidation in the setting of aspiration/infection. 3. Marked cardiomegaly and trace pericardial effusion. Dictated by: Afshan Bryan M.D. on 06/15/2016 at 21:18 12-lead ECG EKG on admission: Atrial Fibrillation with rate in the 80s and old RBBB with PVCs, QTC of 506 Cardiac Echo Impressions Complete Echo Interpretation Summary by Dr. García on 06/13/16: 1) Normal left ventricular thickness and size with severely reduced systolic function (EF 25-30%). 2) Global hypokinesis, which is worse in the proximal to mid inferior wall. 3) Moderately dilated right ventricle with moderately reduced function. 4) Moderate to severe tricuspid regurgitation present. 5) Right sided pleural effusion present. 6) Mild pulmonary hypertension present, estimated systolic function pressure of 33 plus CVP 7) Compared to the Echo done 11/02/2013, LV function has decreased from 40-45% to 25-30% on today's study. Limited Echo Interpretation Summary by Dr. Garcia on 06/22/16: The left ventricle is normal in size. The ejection fraction is estimated to be 35-40%. There is inferior wall akinesis. Flattened septum is consistent with RV pressure/volume overload. The right ventricle is severely dilated. Right ventricular systolic function is severely reduced. The mitral valve leaflets appear mildly thickened, but open well. There is moderate mitral annular calcification. There is no mitral regurgitation noted. The tricuspid valve leaflets are thin and pliable. There is severe tricuspid regurgitation. The IVC is dilated (diameter is greater than 2.1 cm) and it collapses less than 50% with a sniff. This suggests a high right atrial pressure of 15 mm Hg. There is a moderate left-sided pleural effusion. Compared to the previous study on 06/13/2016, the RV appears to be less contractile and tricuspid regurgitation is worse. LV wall motion is similar. Plan Impression 1. Acute kidney injury on chronic kidney disease secondary to acute tubular necrosis and cardiorenal syndrome. 2. Acute on chronic decompensated heart failure. 3. Complicated UTI, urine culture: Klebsiella. 4. Transaminitis, rule out hepatic congestion secondary to heart failure 5. Hypertension with hypertensive heart disease and hypertensive nephrosclerosis. Plan We will perform another hemodialysis today, 3 hr, UF as tolerated. Next Ultrafiltration in the morning. Repeat CBC, CMP in the morning. Lv Sun MD Jun 26, 2016 11:27
[2016-06-26] MEDS ORDERED: Ipratropium 0.02% 0.5 mg/2.5 mL Inhalation Solution NEB PRN (12:05)
[2016-06-26] MEDS ORDERED: Levalbuterol 1.25 mg/0.5mL Inhalation Solution NEB PRN (12:05)
--- NOTE | 2016-06-26 12:16 | PCM.PALLBR ---
Palliative Care Recommendation 75-year-old female with advanced biventricular heart failure, now complicated by acute renal failure necessitating dialysis, as well as other ongoing medical concerns. She has been followed by cardiology who briefly entertained the possibility of having her considered for ventricular assist device, but because of her multiple comorbidities, social situation, etc. do not feel she is a candidate. Pressor/inotrope support has been weaned off and she continues on daily hemodialysis. Palliative medicine consulted to assist patient in determination of goals of care. Summary of palliative recommendations: -Symptom management (Pain/other)- comfortable and in no significant distress when seen today. Continue present management per medical/critical care teams. -DPOA/Advanced Directives/POLST- patient reports that she has completed documentation but no copies are available to us at this time. Family members are gathering and plan on coming to the hospital within the next several days. At this time, patient remains DO NOT RESUSCITATE/DO NOT INTUBATE, but is NOT ready to transition to comfort/hospice type care. She wishes to continue receiving dialysis for the time being, saying that she has some more things that she needs to take care of in life before she passes, and she anticipates doing this over the course of the next several weeks to months. Plan on assisting her in completion of a new POLST prior to discharge -Family/emotional support- unclear how much support from family member and friends in the area is actually available, though additional family members will be arriving over the coming days for further consultation. RETAIL STOCK CLERK notes that the patient is resistant to the concept of SNF care; reportedly, family members may also want to take her back to [place] which she is resisting. -Spiritual support- offered and declined. She says that her son Randall is very shinto but "in a different way" (and implies that she considers his shinto affiliation to be something cult-like) Patient Goals: 1. Patient wants to be told the truth about her illness, even if it is unpleasant. 2. Patient would like to be told prognosis when it can be predicted, to better guide treatment decisions. Additional Medical Diagnoses with primary management by Hospitalist team include : 1. Cardiogenic shock, not present on admission, ongoing. - Multifactorial, but most likely cardiogenic though septic is also possible. 2. Acute on chronic systolic congestive heart failure with biventricular failure . Present on admission. Active. 3. Acute on Chronic Kidney disease. Present on admission. Active 4. Acute transaminitis, not present on admission, improving. 5. Hypoglycemia, not present on admission, resolved. 6. Klebsiella UTI. Present on admission. Resolved. 7. Elevated troponin. Present on admission, stable. 8. Acute atrial fibrillation, new onset, present on admission, active. 9. Diabetes Type 2 with neuropathy, uncontrolled, Present on admission 10. Hypertension, chronic. 11. Asthma, chronic, presume stable. 12. Hypothyroidism, chronic, presume stable. 13. Dyslipidemia, chronic, presume stable. 14. LLE wound, Present on admission, improving. Problems: End of Life Preferences DO NOT RESUSCITATE/DO NOT INTUBATE/continue current interventions including dialysis Goals of Care Patient still hopes to recover and return home Disposition To be determined At this time she is refusing to consider SNF placement Resuscitation Status Resuscitation Status: DNR/DNI:Do Not Resuscitate/Intubate POLST Updates/Changes Previous POLST?: No . Symptom management: Dyspnea Total time 35 minutes; >50% face to face with patient, providing counselling regarding plans and recommendations, and in care coordination with her medical teams. Palliative Brief Note Date of Service Jun 26, 2016 . Returned to reevaluate patient. Prior to visiting, reviewed her updated records in the EMR in detail. Spoke with her bedside nurse. On my arrival, she is sitting up in bed. Appears to be in mild respiratory distress. She says overall she thinks her breathing is unchanged since admission. She denies any chest pain or tightness, abdominal pain, nausea or other. She asked if I could bring her in the morning newspaper which I did. She asked once again if she could get a room with a better view (her window now looks out on wall). She confirms once again that her son Randall (who is also her POA) will be arriving Saturday evening from [place]. On exam, pleasant elderly woman sitting up in bed. Vital signs noted. Skin warm and dry. Head and neck exam without acute focal findings. Lungs clear anterolaterally, heart sounds regular, abdomen soft and nontender. Lower extremities with persistent edema. Laboratory studies reviewed. Per nephrology, 2 L removed with dialysis yesterday and plan is for additional dialysis run today. Raymond Devine MD Jun 26, 2016 12:16
--- NOTE | 2016-06-26 12:37 | PCM.PALLBR ---
Palliative Brief Note Date of Service Jun 26, 2016 . Returned to discuss/review EOL wishes with patient further and complete POLST. Form completed, copies in chart and palliative medicine office, with original on chart and to go with patient at time of DC. DNR/DNI/limited interventions/ATB OK/dialysis OK/hospitalization OK for now Total additional 30 minutes spent- > 50% face to face with patient, reviewing and completing documents Raymond Devine MD Jun 26, 2016 12:37
--- NOTE | 2016-06-26 16:06 | NUR ---
ART line/BP Pt's ART started to leak/ooze blood around it, IV therapy came to look at it, line was almost all the way out, just tip in the tissue. D/Cd intact, pressure dressing applied. Pt's MAP in the 70-80s most of the shift, once dialysis started, BP somewhat lower, with MAP in the 60s. Report passed to Ruben Aguilar RN.
[2016-06-26] MEDS: Levalbuterol 1.25 mg/0.5mL Inhalation Solution NEB SCH ×2 (16:14→20:32)
[2016-06-26] MEDS: Ipratropium 0.02% 0.5 mg/2.5 mL Inhalation Solution NEB SCH ×2 (16:14→20:33)
--- NOTE | 2016-06-26 17:07 | NUR ---
Dialysis note 3 hr HD tx. 1500ml net UF removed. Pt tolerated UF rate well. See DTR for complete vitals details. Catheter exit site care, no s/s of infection at site. Pt rested comfortably thru tx without complications/complaints. Catheter dwelled with 1000/1 U heparin and secured.
--- NOTE | 2016-06-26 17:28 | PCM.PNMED ---
Subjective Date of Service Jun 26, 2016 Subjective This morning patient is shaky, after receiving albuterol treatment. She endorses some lightheadedness and "problems word finding" however says she feels like she is almost breathing "too well" after the inhaler treatment. Overnight dobutamine and norepinephrine were stopped, she maintained blood pressure in the 130s to 140s and a map in the 70s to 80s. Other than the shakes , she has no somatic complaints. Exam Vital Signs Vital Sign - Last Date Time Temp Pulse Resp B/P Pulse Ox O2 Delivery O2 Flow Rate FiO2 06/26/16 16:14 75 22 99 Nasal Cannula 3.00 06/26/16 16:00 36.5 115/60 Intake and Output 06/25/16 06/25/16 06/26/16 Cumulative From/Thru 15:00 23:00 07:00 06/12/16 14:52 - 06/26/16 06:24 Intake Total 512 ml 923 ml 80059 ml Output Total 2000 ml 0 ml 52259 ml Balance -2000 ml 512 ml 923 ml 2081 ml Intake Oral 600 ml 32898 ml IV Total 512 ml 323 ml 17713 ml Output Urine Total 0 ml 36184 ml Post Void Residual 220 ml Stool Total 2 ml Ultrafiltrate 2000 ml 7500 ml # Voids 4 # Bowel Movements 1 17 Exam General: Alert and orient x3 . Morbidly obese female. Cooperative with care and more interactive. In no acute distress. Eyes: PERRLA, Scleral Anicteric Mouth: Mouth normal, mucous membranes dry, no oral thrush appreciated Neck: supple, JVD noted, She has both left-sided dialysis catheters. Significant ecchymoses noted at site of removed right IJ. Resp: Fine rales appreciated in the bilateral lower lobes. No coarse breath sounds noted. Good respiratory effort, no accessory muscle use. Tachypneic Cardiovascular: distant heart sound due to body habitus, irregular rate and rhythm. No murmur appreciated. Abdomen: Soft, Obese, Non-distended, No tenderness to palpation, Normoactive bowel tones. Extremities: Anasarca up to abdomen, lymphedema bilaterally with moderate pitting pedal edema, no cyanosis, no clubbing. Appears worsened since yesterday Skin: LLE wound covered in dressing, c/d/i. Right forearm has diffuse ecchymosis. Fingers and toes feel cool to touch. Poor perfusion. Neurological: A&O, Normal Speech, Sensation Intact, moving upper extremities with no deficit noted : No Castano catheter Lab and Diagnostics Result Diagram: 06/26/16 0430 06/26/16 043 X-Rays, CTs and MRIs X-RAY CHEST ONE VIEW, PORTABLE 06/12/16 IMPRESSION: Small left pleural effusion and left basilar consolidation suggesting compressive atelectasis versus pneumonia. Correlate clinically. Continued radiographic surveillance to resolution is recommended. Dictated by: Elliot Velazquez RRA Interpreted: Drea Chance MD on 06/12/2016 at 17:03 Transcribed by: JOHNSON on 06/12/2016 at 17:04 CT CHEST WITHOUT CONTRAST IMPRESSION: 1. Small pleural effusions, slightly greater on the left. 2. Left basilar compressive atelectasis versus consolidation in the setting of aspiration/infection. 3. Marked cardiomegaly and trace pericardial effusion. Dictated by: Afshan Bryan M.D. on 06/15/2016 at 21:18 12-lead ECG EKG on admission: Atrial Fibrillation with rate in the 80s and old RBBB with PVCs, QTC of 506 Cardiac Echo Impressions Complete Echo Interpretation Summary by Dr. García on 06/13/16: 1) Normal left ventricular thickness and size with severely reduced systolic function (EF 25-30%). 2) Global hypokinesis, which is worse in the proximal to mid inferior wall. 3) Moderately dilated right ventricle with moderately reduced function. 4) Moderate to severe tricuspid regurgitation present. 5) Right sided pleural effusion present. 6) Mild pulmonary hypertension present, estimated systolic function pressure of 33 plus CVP 7) Compared to the Echo done 11/02/2013, LV function has decreased from 40-45% to 25-30% on today's study. Limited Echo Interpretation Summary by Dr. Garcia on 06/22/16: The left ventricle is normal in size. The ejection fraction is estimated to be 35-40%. There is inferior wall akinesis. Flattened septum is consistent with RV pressure/volume overload. The right ventricle is severely dilated. Right ventricular systolic function is severely reduced. The mitral valve leaflets appear mildly thickened, but open well. There is moderate mitral annular calcification. There is no mitral regurgitation noted. The tricuspid valve leaflets are thin and pliable. There is severe tricuspid regurgitation. The IVC is dilated (diameter is greater than 2.1 cm) and it collapses less than 50% with a sniff. This suggests a high right atrial pressure of 15 mm Hg. There is a moderate left-sided pleural effusion. Compared to the previous study on 06/13/2016, the RV appears to be less contractile and tricuspid regurgitation is worse. LV wall motion is similar. Assessment & Plan Nalini Moon is a 75 year old female with congestive heart failure, ischemic cardiomyopathy, CAD, Chronic Kidney disease, IDDM, hypothyroidism and Breast cancer under treatment for CHF exacerbation and cardiorenal syndrome. Transferred to the ICU overnight on 06/22/16 secondary to hypotensive episode requiring blood pressure support and central venous access. Hospital day #14. ( 4 days in ICU) 1. Acute on chronic systolic congestive heart failure with biventricular failure . Present on admission. Active. - Abrupt weight gain and dyspnea after Lasix being held secondary to her worsening CKD on presentation. - ECHO on 06/13/16 showed EF of 27% with global hypokinesis and biventricular failure. On the limited echo on 06/22, the RV appears to be less contractile and tricuspid regurgitation is worse. - Followed by Nephrology and Cardiology. Plan as #2. - Given consistent hypotension, will hold all antihypertensive medications, including Lasix, Metoprolol, Spironolactone and Chlorthalidone. - Will continue to monitor vital signs closely. - Strict I/Os and daily standing weight. - Continue dialysis to optimize her volume status. - Dr. Cooley is concerned about possible PE and started Heparin drip 06/22/16. Cannot stop heparin before ruling out PE. Internal Specialist prefers V/Q scan over the CT, but is ok with the CT if it is necessary. We will consider a V/Q scan. - In light of her severe biventricular failure with significant pulmonary hypertension, patient's prognosis is poor. Dr. Cooley recommended to contact Dr. Cassi García, cardiothoracic surgeon in [place], regarding a right ventricular assist device (RVAD) pumps placement. -Stop norepinephrine and dobutamine. Blood pressure has remained stable, map is in range. -Transfer out of CCU status 2. Acute Cardiogenic Shock, not present on admission, resolved - Multifactorial, but most likely cardiogenic though septic is also possible. - ScvO2 through the central line, venous blood gas showed SVO2 53.6 and PO2 35.2 , which is more consistent with a cardiogenic etiology of shock. - Pulmonology and cardiology were consulted and we appreciate their recommendations. - Will need to discuss with family for goals of care. - Infectious workups pending to rule out septic shock: - Chest x-ray shows no obvious focus of pneumonia. Blood cultures negative so far. - Possible sources include possible cholecystitis/cholangitis and UTI ( Klebsiella). UTI was treated with Ceftriaxone for 5 days. No urine out in the last 2 days so UA can't be done. - Surgeon did not think cholecystitis as cause of pt's hypotension and patient is not a surgical candidate at this time. If further decompensation, consider HIDA scan, MRCP, or Perc drain of GB. -Stop Meropenem, per infectious disease recommendation (day 4). Stop Linezolid as MRSA is negative (06/24/16). 3. Acute on Chronic Kidney disease. Present on admission. Active - Likely secondary to decompensated heart failure with cardiorenal syndrome. Chronic disease related to Hypertensive Nephrosclerosis, Diabetic nephropathy, and cardiorenal syndrome. - Avoid nephrotoxic insults in hospital - No urine output in the last few days. Bladder scan was 0 this morning 06/23. Continue to monitor. Remains anuric - Appreciate Nephrology consult and input. Will defer to them about continued dialysis. - She was on Lasix 80mg IV BID, Chlorthalidone 25mg, and Spironolactone 25mg daily. Will hold all BP medications given current hypotensive state. - Daily dialysis to slowly pull off fluid. - Nephrology consulting, we greatly appreciate their evaluations and treatments. - Education will need to be done explaining the necessity for ongoing dialysis, the patient meets hospital, in the outpatient setting. 4. Acute transaminitis, not present on admission, improving. - Likely a combination of hepatic congestion from right heart failure and some shock liver from hypotension. - Imaging of the abdomen shows some gallbladder wall thickening but surgery has evaluated her and does not think this is cholecystitis but more likely passive congestion. - Hepatitis panel negative. - Continue to monitor with CMP. Stable and Resolved: 5. Hypoglycemia, not present on admission, resolved. - Patient had persistent hypoglycemia (42-117) that nonresponsive to D50, glucagon, and food intake on the night of 06/18. - Suspect that patient was taking home medications in the room. - BG has now improved as has PO intake. Re-introducing Lantus slowly. 6. Klebsiella UTI. Present on admission. Resolved. - Patient's UA grew out Klebsiella. - She developed symptoms on 06/17 and was initiated on IV Ceftriaxone, which the bacteria is sensitive to. Completed 5 days of Ceftriaxone. 7. Elevated troponin. Present on admission, stable. - Likely due to demand ischemia from CHF and decreased clearance from CKD. Echo showed decreased LVEF and hypokinesia. Trops have been steady. - Troponin 0.045, 0.046. CK-MB 4.0 on admission. - Initial EKG showed a left posterior hemiblock and a right bundle branch block. She has a normal sinus rhythm with frequent PACs. EKG if angina present - Full dose Aspirin continued - Wide-complex tachycardia of uncertain etiology. This may have been related to electrolyte shifts as her potassium was markedly low at 3.2 at the time of her arrhythmias. Per Cardiology, will keep her potassium greater than 4.0 and magnesium greater than 2.0. 8. Acute atrial fibrillation, new onset, present on admission, active. - Patient had an episode of 15 beats of wide complex tachycardia on morning of 06/14. Asymptomatic. Also had some PSVT episodes while agitated per report from nursing staff. - High CHADS score of 4. However, patient has poor cardiac function and thus will have to be careful with anticoagulation. IV heparin for stroke prevention per Cardiology. - Hold Metoprolol 25 mg bid due to bradycardia. No ACEi given current shock state. - Continue telemetry. 9. Diabetes Type 2 with neuropathy, uncontrolled, Present on admission - Low correction Lispro algorithm. - Continue Lantus but increase dose to 5 units HS. - holding Glucotrol XL 10. Hypertension, chronic. - Patient currently hypotensive requiring pressor support. - Stop Metoprolol XL due to bradycardia. Will hold off on ACEi or other BP medications given her worsening kidney function and hypotension. 11. Asthma, chronic, presume stable. - Continue Albuterol and Flovent inhalers. 12. Hypothyroidism, chronic, presume stable. - TSH 3.07 on admission. - continue Synthroid 112 mcg daily 13. Dyslipidemia, chronic, presume stable. - continue Pravastatin 20 mg daily 14. LLE wound, Present on admission, improving. - Due to injury from blackberry peguero about 2 weeks ago, had not improved and has been more tender. -Wound care following patient. Wound debrided and covered in clean dressing, 15. BMI 46.9, chronic. - Heart-healthy, renal, and diabetic diet. - Acetaminophen as needed for mild pain/fever/headache - Bowel regimen as needed - Antiemetic as needed Dispo: Likely will require several more days for diuresis and medical stabilization. Patient needs to go to SNF for rehabilitation, but she refused at this point. If she goes home, will likely need home oxygen. The patient's son and daughter in law will be here on Saturday this week. They are coming from [place]. Ideally, they would like to take the patient back to [place] to live with them when she leaves the hospital as they feel she is too isolated here. The son's phone number is [phone]. Pain Evaluation: Adequate Pain Control GI Prophylaxis: Not indicated VTE Prophylaxis: SCDs, Other (Heparin drip) VTE Mechanical Devices: Intermittant Pneumatic CD Resuscitation Status: DNR/DNI:Do Not Resuscitate/Intubate Attending Statement The patient was seen and examined together with Dr. Hernandez on 06/26/2016 and I agree with the history, exam and plan as outlined in the note above. . Martinez Hernandez DO Jun 26, 2016 17:28 Jono Greene MD Jun 29, 2016 18:55
[2016-06-26] MEDS: Heparin 25K Unit/500mL 0.45 NS 25,000 UNIT in IV Premix 1 EACH IV SCH (18:56)
[2016-06-26] MEDS: Insulin GLARgine 100 Unit/mL Syringe SUBQ SCH (21:49)
[2016-06-27] VITALS (10 sets, daily range): BP systolic 111–167; BP diastolic 56–78; PULSE 51–102; RESP 18–24; O2SAT 94–97
[2016-06-27] MEDS: Sodium Chloride LOK Flush 10 mL Syringe IVFLUSH SCH ×3 (00:30→16:30)
[2016-06-27 03:04] LABS: Mean Corpuscular Hemoglobin 24.8 pg (27.0-35.0); Mean Corpuscular Volume 81.3 fL (81-100)
[2016-06-27 03:33] LABS: Magnesium 1.6 mg/dL (1.6-2.6)
--- NOTE | 2016-06-27 05:55 | NUR ---
Respiratory: Pt was initially found to saturating in the 60s to 70s on 3L per NC upon initial assessment. Pt denied any SOB. Hands were cold with poor perfusion reading at first. O2 was increased to 6L and pt responding with O2 saturations climbing to the mid to high 90s. Pt weaned down to 4L and stayed at that rate troughout the night and did well.
[2016-06-27] MEDS: Insulin LISPRO 300 Unit/3 mL Inj SUBQ SCH ×4 (08:00→21:26)
[2016-06-27] MEDS: Ipratropium 0.02% 0.5 mg/2.5 mL Inhalation Solution NEB SCH ×3 (08:20→20:00)
[2016-06-27] MEDS: Levalbuterol 1.25 mg/0.5mL Inhalation Solution NEB SCH ×3 (08:20→20:00)
[2016-06-27] MEDS: Fluticasone 0.05% 15 Spray/2 Gm 16 Gm Nasal Spray NASAL SCH ×2 (09:05→20:06)
[2016-06-27] MEDS: Magnesium Chloride SR 64 mg ER24 Tablet PO SCH ×2 (09:07→20:06)
[2016-06-27] MEDS: Nystatin 100,000 Unit/Gm 15 Gm Powder TOPICAL SCH ×2 (09:08→20:06)
--- NOTE | 2016-06-27 11:00 | NUR ---
NUTRITION FOLLOW-UP: Assess: 75 YO female admitted to CCU with acute on chronic CHF, acute on chronic kidney disease, hypoglycemia, cardiorenal syndrome, and UTI. Dialysis continues to maximize her volume status. Cardiology concerned about potential PE. Her left posterior calf wound slowly improving. There appear to be cognitive and discharge issues, per discussion during case management rounds. PMHx: DM 2, HTN, Breast cancer, Cardiomyopathy, Mitral regurgitation, HTN, HTN, Renal insufficiency. LABS: Cr 2.97, Glu 134, AST 82, ALT 97, Alb 3.4. MEDICATIONS: Synthroid, Insulin. DIET: Renal, heart healthy, consistent carb. + supplements. PO intake significantly improved, 100% past several days. GI: BM x 1 today. SKIN: Left posterior calf sounds stable, unchanged in dimension but continue to increase in granulation tissue in the base. No sign of infection, slow healing. ANTHROPOMETRICS: Current Wt: 114.4 kg BMI:49.3 kg/m2 Admit Wt: 109.4 kg, IBW: 45.5 kg, Adj BW: 61.4 kg, Recent wt changes: Wt gain. ESTIMATED NEEDS: BMI/Dialysis Calories: 8278-9903 kcal/day (25-30 kcal/kg/d Adj BW) Protein: 75-125 g/day (1.2-2.0 g/kg/d Adj BW) NUTRITION DIAGNOSIS: 1) Increased nutrient needs related to acute renal failure as evidenced by need for temporary dialysis, wound healing -PERSISTS. INTERVENTION: 1) Continue current diet and supplements as ordered. MONITOR/EVALUATE: PO intake, labs, dialysis, wound status, wt, nutrition status, POC. Follow per moderate nutrition risk guidelines.
--- NOTE | 2016-06-27 11:36 | NUR ---
patient is afraid the tremors will come back so she wants to wait a while.
--- NOTE | 2016-06-27 11:38 | PCM.PNNEPH ---
Subjective Date of Service Jun 27, 2016 Subjective After nebulizer treatment, patient became shaky. The symptom has improved over time. She had ultrafiltration yesterday with 1.5 L fluid removal. Her current code status is DNR/DNI. Exam Vital Signs Vital Sign - Last Date Time Temp Pulse Resp B/P Pulse Ox O2 Delivery O2 Flow Rate FiO2 06/27/16 09:45 Supplement Oxygen 06/27/16 08:20 75 18 94 4.00 75 18 06/27/16 07:59 36.3 120/56 Intake and Output 06/26/16 06/26/16 06/27/16 Cumulative From/Thru 15:00 23:00 07:00 06/12/16 14:52 - 06/27/16 05:59 Intake Total 523 ml 42539 ml Output Total 1500 ml 50 ml 82517 ml Balance -1500 ml 473 ml 1054 ml Intake Oral 200 ml 18595 ml IV Total 323 ml 77408 ml Output Urine Total 50 ml 17370 ml Post Void Residual 220 ml Stool Total 2 ml Ultrafiltrate 1500 ml 9000 ml # Voids 4 # Bowel Movements 1 18 Lab and Diagnostics Result Diagram: 06/27/16 0255 06/27/16 0255 X-Rays, CTs and MRIs X-RAY CHEST ONE VIEW, PORTABLE 06/12/16 IMPRESSION: Small left pleural effusion and left basilar consolidation suggesting compressive atelectasis versus pneumonia. Correlate clinically. Continued radiographic surveillance to resolution is recommended. Dictated by: Elliot Velazquez [facility] Interpreted: Drea Chance MD on 06/12/2016 at 17:03 Transcribed by: JOHNSON on 06/12/2016 at 17:04 CT CHEST WITHOUT CONTRAST IMPRESSION: 1. Small pleural effusions, slightly greater on the left. 2. Left basilar compressive atelectasis versus consolidation in the setting of aspiration/infection. 3. Marked cardiomegaly and trace pericardial effusion. Dictated by: Afshan Bryan M.D. on 06/15/2016 at 21:18 12-lead ECG EKG on admission: Atrial Fibrillation with rate in the 80s and old RBBB with PVCs, QTC of 506 Cardiac Echo Impressions Complete Echo Interpretation Summary by Dr. García on 06/13/16: 1) Normal left ventricular thickness and size with severely reduced systolic function (EF 25-30%). 2) Global hypokinesis, which is worse in the proximal to mid inferior wall. 3) Moderately dilated right ventricle with moderately reduced function. 4) Moderate to severe tricuspid regurgitation present. 5) Right sided pleural effusion present. 6) Mild pulmonary hypertension present, estimated systolic function pressure of 33 plus CVP 7) Compared to the Echo done 11/02/2013, LV function has decreased from 40-45% to 25-30% on today's study. Limited Echo Interpretation Summary by Dr. Garcia on 06/22/16: The left ventricle is normal in size. The ejection fraction is estimated to be 35-40%. There is inferior wall akinesis. Flattened septum is consistent with RV pressure/volume overload. The right ventricle is severely dilated. Right ventricular systolic function is severely reduced. The mitral valve leaflets appear mildly thickened, but open well. There is moderate mitral annular calcification. There is no mitral regurgitation noted. The tricuspid valve leaflets are thin and pliable. There is severe tricuspid regurgitation. The IVC is dilated (diameter is greater than 2.1 cm) and it collapses less than 50% with a sniff. This suggests a high right atrial pressure of 15 mm Hg. There is a moderate left-sided pleural effusion. Compared to the previous study on 06/13/2016, the RV appears to be less contractile and tricuspid regurgitation is worse. LV wall motion is similar. Plan Impression 1. Acute kidney injury on chronic kidney disease secondary to acute tubular necrosis and cardiorenal syndrome. Required hemodialysis. 2. Acute on chronic decompensated heart failure. 3. Complicated UTI, urine culture: Klebsiella. 4. Transaminitis, rule out hepatic congestion secondary to heart failure 5. Hypertension with hypertensive heart disease and hypertensive nephrosclerosis. 6. Severe deconditioning. Plan Patient will have another hemodialysis treatment today. We aim to remove fluid at least 2 L today. I discussed with her regarding dialysis treatment. It seems like she will require a chronic hemodialysis. She will discuss further with her son. Lv Sun MD Jun 27, 2016 11:38
--- NOTE | 2016-06-27 12:04 | PCM.PALLBR ---
Palliative Care Recommendation 75-year-old female with advanced biventricular heart failure, now complicated by acute renal failure necessitating dialysis, as well as other ongoing medical concerns. She has been followed by cardiology who briefly entertained the possibility of having her considered for ventricular assist device, but because of her multiple comorbidities, social situation, etc. do not feel she is a candidate. Pressor/inotrope support has been weaned off and she continues on daily hemodialysis. Palliative medicine consulted to assist patient in determination of goals of care. Summary of palliative recommendations: -Symptom management (Pain/other)- comfortable and in no significant distress when seen today. Continue present management per medical/critical care teams. -DPOA/Advanced Directives/POLST- patient reports that she has completed documentation but no copies are available to us at this time. Family members are gathering and plan on coming to the hospital within the next several days. At this time, patient remains DO NOT RESUSCITATE/DO NOT INTUBATE, but is NOT ready to transition to comfort/hospice type care. She wishes to continue receiving dialysis for the time being, saying that she has some more things that she needs to take care of in life before she passes, and she anticipates doing this over the course of the next several weeks to months. On 06/26, completed new POLST indicating her wishes- DO NOT RESUSCITATE/DO NOT INTUBATE/limited interventions/antibiotics okay/no artificial nutrition. Copies in chart along with the original document, and another copy is in the palliative medicine office. As patient remains stable at this time, and planning and documentation for ongoing care of complete, palliative medicine will sign off. Please contact us if we may be of further assistance. -Family/emotional support- unclear how much support from family member and friends in the area is actually available, though additional family members will be arriving over the coming days for further consultation. RECEIVING TEAM MEMBER notes that the patient is resistant to the concept of SNF care; reportedly, family members may also want to take her back to [place] which she is resisting. -Spiritual support- offered and declined. She says that her son Randall is very mandaen but "in a different way" (and implies that she considers his mandaen affiliation to be something cult-like) Patient Goals: 1. Patient wants to be told the truth about her illness, even if it is unpleasant. 2. Patient would like to be told prognosis when it can be predicted, to better guide treatment decisions. Additional Medical Diagnoses with primary management by Hospitalist team include : 1. Cardiogenic shock, not present on admission, ongoing. - Multifactorial, but most likely cardiogenic though septic is also possible. 2. Acute on chronic systolic congestive heart failure with biventricular failure . Present on admission. Active. 3. Acute on Chronic Kidney disease. Present on admission. Active 4. Acute transaminitis, not present on admission, improving. 5. Hypoglycemia, not present on admission, resolved. 6. Klebsiella UTI. Present on admission. Resolved. 7. Elevated troponin. Present on admission, stable. 8. Acute atrial fibrillation, new onset, present on admission, active. 9. Diabetes Type 2 with neuropathy, uncontrolled, Present on admission 10. Hypertension, chronic. 11. Asthma, chronic, presume stable. 12. Hypothyroidism, chronic, presume stable. 13. Dyslipidemia, chronic, presume stable. 14. LLE wound, Present on admission, improving. Problems: End of Life Preferences DO NOT RESUSCITATE/DO NOT INTUBATE/continue current interventions including dialysis Goals of Care Patient still hopes to recover and return home Disposition To be determined At this time she is refusing to consider SNF placement Resuscitation Status Resuscitation Status: DNR/DNI:Do Not Resuscitate/Intubate POLST Updates/Changes Previous POLST?: No Antibiotics: Determine Use or Limitations Artificially Admin Nutrition: No Artifical Nutrition by Tube POLST Discussed with: Patient POLST Review Outcome: New Form Completed . Advanced Care Planning Address: POLST Pain: None Symptom management: Dyspnea Total time 35 minutes; >50% face to face with patient , providing counselling regarding plans and recommendations, and in care coordination with her medical teams. Palliative Brief Note Date of Service Jun 27, 2016 . Returned to reevaluate patient. Prior to positioning, reviewed her updated records in the EMR in detail, spoke with the bedside nurse, and reviewed nephrology plans. On my arrival, patient sitting in bed, in mild respiratory distress. She tells me she feels about the same. Denies any chest pain, headache, abdominal pain, nausea or other. The shakiness present yesterday seems to have decreased a bit. She is anticipating the arrival of her son from [place] later this evening, and then says there will be talks and decisions made over the next several days. She continues to say that she wants to continue with dialysis for the time being. She is not ready to transition to hospice/comfort care. On exam, vital signs noted. Skin warm and dry. Head and neck exam without acute findings. Lungs clear anteriorly but with posterior dependent crackles. Heart sounds regular. Abdomen soft and nontender. Extremities with marked obesity as well as puffiness and pitting edema. Laboratory studies reviewed in detail. Raymond Devine MD Jun 27, 2016 12:04
--- NOTE | 2016-06-27 14:09 | NUR ---
Faxed clinicals to APS worker Albert Farley per DIRECTOR OF CORPORATE RESPONSIBILITY
--- NOTE | 2016-06-27 14:34 | NUR ---
Inpatient dialysis Patient received from room 2009. Denies pain. Report received from Tony Vargas RN. Heparin infusing at 775units/hr. Currently resting with eyes closed. projection technician notified of temporary room change.
--- NOTE | 2016-06-27 14:49 | NUR ---
PT NOTE-- Patient has been seen previously by PT and discharged on 06/20 due to lack of participation and patient refusing SNF. Family to come in this evening and work on plan at discharge from hospital. Patient gone to dialysis now. Will F/U tomorrow to determine if PT re-eval needed.
--- NOTE | 2016-06-27 14:58 | NUR ---
Social Work Note: Continued Discharge Planning Data& Assessment: Per MD in morning rounds, pt is not medically ready for discharge at this time. Pt is still receiving dialysis and it is unclear at this time if she will remain an acute dialysis pt or require chronic dialysis. Pt family arriving into town hopefully today per pt. SW to follow up with pt family regarding discharge planning. SW received phone call from Albert Farley APS railroad detective ([phone]) who explained that police had made the APS referral a couple days prior to pt admission date due to the condition of pt home. Clinicals faxed to APS railroad detective per his request and is also requesting to be updated on pt's discharge plan as it evolves. SW completed and faxed in a [facility]. PT has taken pt off of their caseload as pt was not participating but will re-engage pt in therapies if pt becomes agreeable. SW to continue to follow. Plan: PT requires SNF at time of discharge, but pt is not agreeable. SW to continue to follow for discharge planning needs. SW to follow up with pt family regarding discharge planning when they arrive. SW to continue to update APS railroad detective as DC Plan evolves. SW to continue to follow. JACI Sam
--- NOTE | 2016-06-27 16:30 | NUR ---
Dialysis note: 2 hrs PUF. 2000 ml net UF. Left temp catheter, dsg dry and intact. Pls see DTR for VS details. Qb 250 with catheter limbs reversed A-V V-A due to poor catheter function. No extra heparin given, already on heparin drip. O2 @ 4 L via NC on. Slept at intervals. Catheter flushed, heparin dwelled and secured. Report given to Padmini Mehta RN. Stable at time of transfer.
--- NOTE | 2016-06-27 16:45 | NUR ---
Inpatient Dialysis Patient completed dialysis without adverse reaction. Report given to Tony Vargas RN. Patient transported by hospital bed back to room 2008. certified medical technician assistant notified.
--- NOTE | 2016-06-27 19:39 | PCM.PNMED ---
Subjective Date of Service Jun 27, 2016 Subjective Patient states she is feeling the same as she has previous days, no change from her baseline. She complains again of shakes following inhaler treatment, she was switched to levalbuterol which had similar effects as the albuterol inhaler. She denies any other somatic complaints or pains. Exam Vital Signs Vital Sign - Last Date Time Temp Pulse Resp B/P Pulse Ox O2 Delivery O2 Flow Rate FiO2 06/27/16 16:49 Supplement Oxygen 06/27/16 14:15 90 06/27/16 12:19 36.7 22 167/75 95 4.00 Intake and Output 06/26/16 06/26/16 06/27/16 Cumulative From/Thru 14:59 22:59 06:59 06/12/16 14:52 - 06/27/16 05:59 Intake Total 523 ml 87968 ml Output Total 1500 ml 50 ml 19440 ml Balance -1500 ml 473 ml 1054 ml Intake Oral 200 ml 45092 ml IV Total 323 ml 39618 ml Output Urine Total 50 ml 60926 ml Post Void Residual 220 ml Stool Total 2 ml Ultrafiltrate 1500 ml 9000 ml # Voids 4 # Bowel Movements 1 18 Exam General: Alert and orient x3 . Morbidly obese female. Cooperative with care and more interactive. In no acute distress. Eyes: PERRLA, Scleral Anicteric Mouth: Mouth normal, mucous membranes dry, no oral thrush appreciated Neck: supple, JVD noted, She has both left-sided dialysis catheters. Significant ecchymoses noted at site of removed right IJ. Resp: Fine rales appreciated in the bilateral lower lobes. No coarse breath sounds noted. Good respiratory effort, no accessory muscle use. Tachypneic Cardiovascular: distant heart sound due to body habitus, irregular rate and rhythm. No murmur appreciated. Abdomen: Soft, Obese, Non-distended, No tenderness to palpation, Normoactive bowel tones. Extremities: Severe Anasarca up to abdomen, lymphedema bilaterally with moderate pitting pedal edema, no cyanosis, no clubbing. Coloration appears to becoming darker shades of pink. There are wounds to left lower extremity Skin: LLE wound covered in dressing, c/d/i. Right forearm has diffuse ecchymosis. Fingers and toes feel cool to touch. Poor perfusion. Neurological: A&O, Normal Speech, Sensation Intact, moving upper extremities with no deficit noted : No Castano catheter IVs and Medications Medications Reviewed: Medications were reviewed in detail Lab and Diagnostics Result Diagram: 06/27/1625406/27/16254 X-Rays, CTs and MRIs X-RAY CHEST ONE VIEW, PORTABLE 06/12/16 IMPRESSION: Small left pleural effusion and left basilar consolidation suggesting compressive atelectasis versus pneumonia. Correlate clinically. Continued radiographic surveillance to resolution is recommended. Dictated by: Elliot Velazquez RRA Interpreted: Drea Chance MD on 06/12/2016 at 17:03 Transcribed by: JOHNSON on 06/12/2016 at 17:04 CT CHEST WITHOUT CONTRAST IMPRESSION: 1. Small pleural effusions, slightly greater on the left. 2. Left basilar compressive atelectasis versus consolidation in the setting of aspiration/infection. 3. Marked cardiomegaly and trace pericardial effusion. Dictated by: Afshan Bryan M.D. on 06/15/2016 at 21:18 12-lead ECG EKG on admission: Atrial Fibrillation with rate in the 80s and old RBBB with PVCs, QTC of 506 Cardiac Echo Impressions Complete Echo Interpretation Summary by Dr. García on 06/13/16: 1) Normal left ventricular thickness and size with severely reduced systolic function (EF 25-30%). 2) Global hypokinesis, which is worse in the proximal to mid inferior wall. 3) Moderately dilated right ventricle with moderately reduced function. 4) Moderate to severe tricuspid regurgitation present. 5) Right sided pleural effusion present. 6) Mild pulmonary hypertension present, estimated systolic function pressure of 33 plus CVP 7) Compared to the Echo done 11/02/2013, LV function has decreased from 40-45% to 25-30% on today's study. Limited Echo Interpretation Summary by Dr. Garcia on 06/22/16: The left ventricle is normal in size. The ejection fraction is estimated to be 35-40%. There is inferior wall akinesis. Flattened septum is consistent with RV pressure/volume overload. The right ventricle is severely dilated. Right ventricular systolic function is severely reduced. The mitral valve leaflets appear mildly thickened, but open well. There is moderate mitral annular calcification. There is no mitral regurgitation noted. The tricuspid valve leaflets are thin and pliable. There is severe tricuspid regurgitation. The IVC is dilated (diameter is greater than 2.1 cm) and it collapses less than 50% with a sniff. This suggests a high right atrial pressure of 15 mm Hg. There is a moderate left-sided pleural effusion. Compared to the previous study on 06/13/2016, the RV appears to be less contractile and tricuspid regurgitation is worse. LV wall motion is similar. Assessment & Plan Nalini Moon is a 75 year old female with congestive heart failure, ischemic cardiomyopathy, CAD, Chronic Kidney disease, IDDM, hypothyroidism and Breast cancer under treatment for CHF exacerbation and cardiorenal syndrome. Transferred to the ICU overnight on 06/22/16 secondary to hypotensive episode requiring blood pressure support and central venous access. Hospital day #14. ( 4 days in ICU) 1. Acute on chronic systolic congestive heart failure with biventricular failure . Present on admission. Active. - Abrupt weight gain and dyspnea after Lasix being held secondary to her worsening CKD on presentation. - ECHO on 06/13/16 showed EF of 27% with global hypokinesis and biventricular failure. On the limited echo on 06/22, the RV appears to be less contractile and tricuspid regurgitation is worse. - Followed by Nephrology and Cardiology. Plan as #2. - Given consistent hypotension, will hold all antihypertensive medications, including Lasix, Metoprolol, Spironolactone and Chlorthalidone. - Will continue to monitor vital signs closely. - Strict I/Os and daily standing weight. - Continue dialysis to optimize her volume status. 1.5 L pulled off today - Dr. Cooley is concerned about possible PE and started Heparin drip 06/22/16. Cannot stop heparin before ruling out PE. Yard Switcher prefers V/Q scan over the CT, but is ok with the CT if it is necessary. We will consider a V/Q scan. - In light of her severe biventricular failure with significant pulmonary hypertension, patient's prognosis is poor. Dr. Cooley recommended to contact Dr. Cassi García, cardiothoracic surgeon in [place], regarding a right ventricular assist device (RVAD) pumps placement. -Has not required any pressor support, pressure has remained stable. -Remains PCC status 2. Acute Cardiogenic Shock, not present on admission, resolved - Multifactorial, but most likely cardiogenic. - ScvO2 through the central line, venous blood gas showed SVO2 53.6 and PO2 35.2 , which is more consistent with a cardiogenic etiology of shock. - Pulmonology and cardiology were consulted and we appreciate their recommendations. - Will need to discuss with family for goals of care. - Infectious workups pending to rule out septic shock: - Chest x-ray shows no obvious focus of pneumonia. Blood cultures negative so far. - Possible sources include possible cholecystitis/cholangitis and UTI ( Klebsiella). UTI was treated with Ceftriaxone for 5 days. No urine out in the last 2 days so UA can't be done. - Surgeon did not think cholecystitis as cause of pt's hypotension and patient is not a surgical candidate at this time. If further decompensation, consider HIDA scan, MRCP, or Perc drain of GB. -Stop Meropenem, per infectious disease recommendation (day 4). Stop Linezolid as MRSA is negative (06/24/16). 3. Acute on Chronic Kidney disease. Present on admission. Active - Likely secondary to decompensated heart failure with cardiorenal syndrome. Chronic disease related to Hypertensive Nephrosclerosis, Diabetic nephropathy, and cardiorenal syndrome. - Avoid nephrotoxic insults in hospital - Remains anuric - Appreciate Nephrology consult and input. Will defer to them about continued dialysis. - She was on Lasix 80mg IV BID, Chlorthalidone 25mg, and Spironolactone 25mg daily. Will hold all BP medications given current hypotensive state. - Daily dialysis to slowly pull off fluid. - Nephrology consulting, we greatly appreciate their evaluations and treatments. - Family supposed to arrive today or tomorrow, will discuss what lifelong dialysis entails, goals, and realistic expectations. 4. Acute transaminitis, not present on admission, improving. - Likely a combination of hepatic congestion from right heart failure and some shock liver from hypotension. - Imaging of the abdomen shows some gallbladder wall thickening but surgery has evaluated her and does not think this is cholecystitis but more likely passive congestion. - Hepatitis panel negative. - Continue to monitor with CMP. Stable and Resolved: 5. Hypoglycemia, not present on admission, resolved. - Patient had persistent hypoglycemia (42-117) that nonresponsive to D50, glucagon, and food intake on the night of 06/18. - Suspect that patient was taking home medications in the room. - BG has now improved as has PO intake. Re-introducing Lantus slowly. 6. Klebsiella UTI. Present on admission. Resolved. - Patient's UA grew out Klebsiella. - She developed symptoms on 06/17 and was initiated on IV Ceftriaxone, which the bacteria is sensitive to. Completed 5 days of Ceftriaxone. 7. Elevated troponin. Present on admission, stable. - Likely due to demand ischemia from CHF and decreased clearance from CKD. Echo showed decreased LVEF and hypokinesia. Trops have been steady. - Troponin 0.045, 0.046. CK-MB 4.0 on admission. - Initial EKG showed a left posterior hemiblock and a right bundle branch block. She has a normal sinus rhythm with frequent PACs. EKG if angina present - Full dose Aspirin continued - Wide-complex tachycardia of uncertain etiology. This may have been related to electrolyte shifts as her potassium was markedly low at 3.2 at the time of her arrhythmias. Per Cardiology, will keep her potassium greater than 4.0 and magnesium greater than 2.0. 8. Acute atrial fibrillation, new onset, present on admission, active. - Patient had an episode of 15 beats of wide complex tachycardia on morning of 06/14. Asymptomatic. Also had some PSVT episodes while agitated per report from nursing staff. - High CHADS score of 4. However, patient has poor cardiac function and thus will have to be careful with anticoagulation. IV heparin for stroke prevention per Cardiology. - Hold Metoprolol 25 mg bid due to bradycardia. No ACEi given current shock state. - Continue telemetry. 9. Diabetes Type 2 with neuropathy, uncontrolled, Present on admission - Low correction Lispro algorithm. - Continue Lantus but increase dose to 5 units HS. - holding Glucotrol XL 10. Hypertension, chronic. - Patient currently hypotensive requiring pressor support. - Stop Metoprolol XL due to bradycardia. Will hold off on ACEi or other BP medications given her worsening kidney function and hypotension. 11. Asthma, chronic, presume stable. - Continue Albuterol and Flovent inhalers. 12. Hypothyroidism, chronic, presume stable. - TSH 3.07 on admission. - continue Synthroid 112 mcg daily 13. Dyslipidemia, chronic, presume stable. - continue Pravastatin 20 mg daily 14. LLE wound, Present on admission, improving. - Due to injury from blackberry peguero about 2 weeks ago, had not improved and has been more tender. -Wound care following patient. Wound debrided and covered in clean dressing, 15. BMI 46.9, chronic. - Heart-healthy, renal, and diabetic diet. - Acetaminophen as needed for mild pain/fever/headache - Bowel regimen as needed - Antiemetic as needed Dispo: Likely will require several more days for diuresis and medical stabilization. Patient needs to go to SNF for rehabilitation, but she refused at this point. If she goes home, will likely need home oxygen. The patient's son and daughter in law will be here on Saturday this week. They are coming from [place]. Ideally, they would like to take the patient back to [place] to live with them when she leaves the hospital as they feel she is too isolated here. The son's phone number is [phone]. Pain Evaluation: Adequate Pain Control GI Prophylaxis: Not indicated VTE Prophylaxis: SCDs, Other (Heparin drip) VTE Mechanical Devices: Intermittant Pneumatic CD Resuscitation Status: DNR/DNI:Do Not Resuscitate/Intubate Attending Statement The patient was seen and examined together with Dr. Hernandez on 06/27/2016 and I agree with the history, exam and plan as outlined in the note above. . Martinez Hernandez DO Jun 27, 2016 19:39 Jono Greene MD Jun 29, 2016 18:56
--- NOTE | 2016-06-27 19:44 | NUR ---
Edema Pitting edema noted to bilateral feet, ankles, lower legs, and slightly pitting into the upper legs. Bilateral hands and arms are also pitting, moreso on the L side. Lungs are coarse and wheezy bilaterally. Pt did go to dialysis today and had 2L removed. Pt returned with no c/o pain or discomfort. Stated she was "sleepy." L leg has mepilex that is C/D/I. L IJ catheter intact.
[2016-06-27] MEDS: Insulin GLARgine 100 Unit/mL Syringe SUBQ SCH (21:31)
[2016-06-28] VITALS (9 sets, daily range): BP systolic 110–132; BP diastolic 50–80; PULSE 65–104; RESP 20–28; O2SAT 92–98
[2016-06-28] MEDS: Sodium Chloride LOK Flush 10 mL Syringe IVFLUSH SCH ×4 (00:30→23:44)
--- NOTE | 2016-06-28 05:43 | NUR ---
Telemetry/ Heparin AFIB HR 88 with multifocal PVC and ICVD per satellite project site monitor. Asymptomatic. PTT 52: Heparin @ 750units/hr. Redraw at 0600. care ongoing.
[2016-06-28 06:20] LABS: Mean Corpuscular Volume 82.1 fL (81-100)
[2016-06-28] MEDS: Ipratropium 0.02% 0.5 mg/2.5 mL Inhalation Solution NEB SCH ×4 (08:00→20:00)
[2016-06-28] MEDS: Insulin LISPRO 300 Unit/3 mL Inj SUBQ SCH ×4 (08:00→21:52)
[2016-06-28] MEDS: Levalbuterol 1.25 mg/0.5mL Inhalation Solution NEB SCH ×4 (08:00→20:00)
[2016-06-28] MEDS: Heparin 25K Unit/500mL 0.45 NS 25,000 UNIT in IV Premix 1 EACH IV SCH (08:07)
[2016-06-28] MEDS: Magnesium Chloride SR 64 mg ER24 Tablet PO SCH ×2 (09:26→21:43)
[2016-06-28] MEDS: Nystatin 100,000 Unit/Gm 15 Gm Powder TOPICAL SCH ×2 (09:26→21:51)
[2016-06-28] MEDS: Fluticasone 0.05% 15 Spray/2 Gm 16 Gm Nasal Spray NASAL SCH ×2 (09:26→21:43)
--- NOTE | 2016-06-28 11:54 | PCM.PNNEPH ---
Subjective Date of Service Jun 28, 2016 Subjective Patient had hemodialysis yesterday without complication. Her blood pressure has been stable throughout the night. She is complaining of shortness of breath and chest congestion. Exam Vital Signs Vital Sign - Last Date Time Temp Pulse Resp B/P Pulse Ox O2 Delivery O2 Flow Rate FiO2 06/28/16 08:20 Supplement Oxygen 06/28/16 08:11 36.7 28 132/76 97 4.00 06/28/16 08:00 67 Intake and Output 06/27/16 06/27/16 06/28/16 Cumulative From/Thru 15:00 23:00 07:00 06/12/16 14:52 - 06/28/16 04:54 Intake Total 850 ml 300 ml 44852 ml Output Total 2000 ml 0 ml 200 ml 08094 ml Balance -2000 ml 850 ml 100 ml 4 ml Intake Oral 680 ml 300 ml 37650 ml IV Total 170 ml 20742 ml Output Urine Total 0 ml 200 ml 42123 ml Post Void Residual 220 ml Stool Total 2 ml Ultrafiltrate 2000 ml 44319 ml # Voids 4 # Bowel Movements 1 19 Exam General appearance: Awake, in upright position. Mild tachypneic. HEENT: Mild pallor. No anicteric sclerae. Positive for JVD. Atraumatic. Moist mucous membranes. Ecchymosis noted on the right side of the neck. Left IJ shanna catheter in place. Heart: Irregular rhythm, systolic murmur. Lungs: Rales the bases, expiratory wheezing noted. Abdomen: Soft, active bowel sounds. Obese. Extremity: 2+ edema, positive for chronic skin changes on the lower extremity. Lab and Diagnostics Result Diagram: 06/28/16 0610 06/28/16 0610 X-Rays, CTs and MRIs X-RAY CHEST ONE VIEW, PORTABLE 06/12/16 IMPRESSION: Small left pleural effusion and left basilar consolidation suggesting compressive atelectasis versus pneumonia. Correlate clinically. Continued radiographic surveillance to resolution is recommended. Dictated by: Elliot DOUGLAS Interpreted: Drea Chance MD on 06/12/2016 at 17:03 Transcribed by: JOHNSON on 06/12/2016 at 17:04 CT CHEST WITHOUT CONTRAST IMPRESSION: 1. Small pleural effusions, slightly greater on the left. 2. Left basilar compressive atelectasis versus consolidation in the setting of aspiration/infection. 3. Marked cardiomegaly and trace pericardial effusion. Dictated by: Afshan Bryan M.D. on 06/15/2016 at 21:18 12-lead ECG EKG on admission: Atrial Fibrillation with rate in the 80s and old RBBB with PVCs, QTC of 506 Cardiac Echo Impressions Complete Echo Interpretation Summary by Dr. García on 06/13/16: 1) Normal left ventricular thickness and size with severely reduced systolic function (EF 25-30%). 2) Global hypokinesis, which is worse in the proximal to mid inferior wall. 3) Moderately dilated right ventricle with moderately reduced function. 4) Moderate to severe tricuspid regurgitation present. 5) Right sided pleural effusion present. 6) Mild pulmonary hypertension present, estimated systolic function pressure of 33 plus CVP 7) Compared to the Echo done 11/02/2013, LV function has decreased from 40-45% to 25-30% on today's study. Limited Echo Interpretation Summary by Dr. Garcia on 06/22/16: The left ventricle is normal in size. The ejection fraction is estimated to be 35-40%. There is inferior wall akinesis. Flattened septum is consistent with RV pressure/volume overload. The right ventricle is severely dilated. Right ventricular systolic function is severely reduced. The mitral valve leaflets appear mildly thickened, but open well. There is moderate mitral annular calcification. There is no mitral regurgitation noted. The tricuspid valve leaflets are thin and pliable. There is severe tricuspid regurgitation. The IVC is dilated (diameter is greater than 2.1 cm) and it collapses less than 50% with a sniff. This suggests a high right atrial pressure of 15 mm Hg. There is a moderate left-sided pleural effusion. Compared to the previous study on 06/13/2016, the RV appears to be less contractile and tricuspid regurgitation is worse. LV wall motion is similar. Plan Impression 1. Acute kidney injury on chronic kidney disease secondary to acute tubular necrosis and cardiorenal syndrome. First dialysis on 06/21/2016. 2. Acute on chronic systolic heart failure with h/o VHD. 3. Hypertension with hypertensive heart disease and hypertensive nephrosclerosis. 4. Type II diabetes with diabetic nephropathy. 5. Coronary artery disease status post stenting. 6. Hypothyroidism. 7. Breast cancer. 8. Morbid obesity. 9. Severe deconditioning Plan Continue daily hemodialysis for now. It seems like she will require a chronic hemodialysis. Recommend thoracocentesis. Patient and the family would like to discuss with provider relations coordinator regarding overall prognosis. Pending family meeting today. Lv Sun MD Jun 28, 2016 11:54
--- NOTE | 2016-06-28 12:18 | NUR ---
Wound Care Pt seen for dressing change at left lower leg ulcers. Posterior leg wound measures 3.5 cm L x 1.2 cm W x 0.3 cm D. redressed with hydrogel and adhesive foam dressing, Pt declines jhon wrapping for edema today. Recommend nursing change dressings q 48 hrs.
--- NOTE | 2016-06-28 12:53 | NUR ---
pt arrived to [facility] [place] at 1230 via bed report received from MD MARTINEZ ([facility]) pt alert, oriented and cooperative heparin gtt infusing at 775units/hr (15.5ml/hr); 4L NC; [employer] informed of temp location fruit shipper at bedside; will cont to monitor Addendum: 06/28/16 at 1428 by ZAC JAFFE RN ~1345 PTT = 113.3 per protocol, heparin drip stopped for 30min ([id number]) and resumed at decreased rate of 675units/hr
--- NOTE | 2016-06-28 15:54 | NUR ---
Social Work: Continued Discharge Planning D: TOWER ERECTOR HELPER met with pt's family in room. Pt is currently off the floor for dialysis. They believe that the pt's window to transport to [place] has passed and that she would not be stable for transport across the country. They are curious what pt's options are moving forward. They believe that the pt is beginning to lean more towards comfort care but has not yet fully accepted this plan. TOWER ERECTOR HELPER reviewed options with family including SNF for Rehab and SNF for comfort. Family and TOWER ERECTOR HELPER agree that SNF discharge seems inevitable as the pt cannot ambulate although Pt has been resistant to the idea of SNF. Family understands that because she still possesses decisional capacity, could discharge home despite this being a very poor plan. They have requested a meeting with the pt's verify rep, social media specialist and hospitalist in hopes that the pt will be able to make a definitive decision about her care moving forward. MD team is aware and is awaiting the pt's return from dialysis. A: Pt who was previously living at home. Pt is unable to return, per family, due to living conditions. P: TOWER ERECTOR HELPER to follow up with pt and family tomorrow to discuss further discharge planning. JACI Melissa
--- NOTE | 2016-06-28 15:59 | NUR ---
Faxed clinicals to [facility] per PANTOGRAPH OPERATOR
--- NOTE | 2016-06-28 16:10 | NUR ---
Dialysis note: 3 hrs tx. 3000 ml net UF. Left temp catheter, dsg dry and intact. Pls see DTR for VS details. Qb 300 with catheter limbs reversed A-V V-A due to poor catheter function. No extra heparin given, already on heparin drip. O2 @ 4 L via NC on. Slept at intervals. Catheter flushed, heparin dwelled and secured. Report given to Brina Cyr RN. Stable at time of transfer.
--- NOTE | 2016-06-28 16:20 | NUR ---
pt returned to [facility] post DIALYSIS at 1610 via bed escorted by CNAs see dialysis graphic flow record, intervention, and/or note for treatment details tolerated treatment well with 3L removed; ending vs 131/90bp, 92p manager telemetry informed of return to unit
--- NOTE | 2016-06-28 17:52 | PCM.PALLBR ---
Palliative Care Recommendation 75-year-old female with advanced biventricular heart failure, now complicated by acute renal failure necessitating dialysis, as well as other ongoing medical concerns. She has been followed by cardiology who briefly entertained the possibility of having her considered for ventricular assist device, but because of her multiple comorbidities, social situation, etc. do not feel she is a candidate. Pressor/inotrope support has been weaned off and she continues on daily hemodialysis. Palliative medicine consulted to assist patient in determination of goals of care. Summary of palliative recommendations: 06/28/16-- patient quite specifically requesting discontinuation of dialysis. She was aware of her heart disease and kidney disease. She is aware that her heart has improved somewhat with dialysis. She recognizes she will need to be in a care facility-yet to be determined. She is willing to discuss hospice. Part of this would be a financial decision depending on her placement. Extensive discussion with her family and with patient as to expectations going forward, management of symptoms. We will review again tomorrow to confirm her request and to consolidate information regarding placement. -Symptom management (Pain/other)- comfortable and in no significant distress when seen today. Continue present management per medical/critical care teams. -DPOA/Advanced Directives/POLST- patient reports that she has completed documentation but no copies are available to us at this time. Family members are gathering and plan on coming to the hospital within the next several days. At this time, patient remains DO NOT RESUSCITATE/DO NOT INTUBATE, but is NOT ready to transition to comfort/hospice type care. She wishes to continue receiving dialysis for the time being, saying that she has some more things that she needs to take care of in life before she passes, and she anticipates doing this over the course of the next several weeks to months. On 06/26, completed new POLST indicating her wishes- DO NOT RESUSCITATE/DO NOT INTUBATE/limited interventions/antibiotics okay/no artificial nutrition. Copies in chart along with the original document, and another copy is in the palliative medicine office. As patient remains stable at this time, and planning and documentation for ongoing care of complete, palliative medicine will sign off. Please contact us if we may be of further assistance. -Family/emotional support- unclear how much support from family member and friends in the area is actually available, though additional family members will be arriving over the coming days for further consultation. ASSEMBLER INSULATOR notes that the patient is resistant to the concept of SNF care; reportedly, family members may also want to take her back to [place] which she is resisting. -Spiritual support- offered and declined. She says that her son Randall is very zoroastrianism but "in a different way" (and implies that she considers his zoroastrianism affiliation to be something cult-like) Patient Goals: 1. Patient wants to be told the truth about her illness, even if it is unpleasant. 2. Patient would like to be told prognosis when it can be predicted, to better guide treatment decisions. Additional Medical Diagnoses with primary management by Hospitalist team include : 1. Cardiogenic shock, not present on admission, ongoing. - Multifactorial, but most likely cardiogenic though septic is also possible. 2. Acute on chronic systolic congestive heart failure with biventricular failure . Present on admission. Active. 3. Acute on Chronic Kidney disease. Present on admission. Active 4. Acute transaminitis, not present on admission, improving. 5. Hypoglycemia, not present on admission, resolved. 6. Klebsiella UTI. Present on admission. Resolved. 7. Elevated troponin. Present on admission, stable. 8. Acute atrial fibrillation, new onset, present on admission, active. 9. Diabetes Type 2 with neuropathy, uncontrolled, Present on admission 10. Hypertension, chronic. 11. Asthma, chronic, presume stable. 12. Hypothyroidism, chronic, presume stable. 13. Dyslipidemia, chronic, presume stable. 14. LLE wound, Present on admission, improving. Problems: End of Life Preferences DO NOT RESUSCITATE/DO NOT INTUBATE/continue current interventions including dialysis Goals of Care Patient still hopes to recover and return home Disposition To be determined At this time she is refusing to consider SNF placement Resuscitation Status Resuscitation Status: DNR/DNI:Do Not Resuscitate/Intubate POLST Updates/Changes Previous POLST?: No Antibiotics: Determine Use or Limitations Artificially Admin Nutrition: No Artifical Nutrition by Tube POLST Discussed with: Patient POLST Review Outcome: New Form Completed Total time 60 minutes; >50% face to face with patient and/or family, providing counselling regarding plans and recommendations, and in care coordination with his/her medical teams. Majority of time spent in discussing goals of care consequences of stopping dialysis and other options. Time also spent with counseling her son regarding hospice roll etc. I also spent an additional [ ] minutes counseling for advanced care planning with the patient/the patients family/the surrogate decision maker. copies to: Lv Sun MD; Duc Cooley MD Palliative Brief Note Date of Service Jun 28, 2016 . Palliative care meeting with patient, son and [facility] team- Dr. Luna-hospitalist and DNorth from 75-year-old female patient with known severe cardiomyopathy and long-standing renal insufficiency admitted with severe biventricular failure initially with an EF of 20-25 which improved closer to 35% after dialyzing off liters of fluid. She questioned going on dialysis but had wanted "time". Her son figures it was possibly awaiting for him to visit and now the patient is asking to consider discontinuation of dialysis. She is estranged from one son who lives in [place]. Apparently that son had tried to reach out to her by phone but that had not gone very well. She defines that she is not zoroastrianism and does not fear . She is particularly bothered by her loss of independence, dignity and need to depend on others for basic hygiene etc. She apparently had been living in her own house alone and in significant squaller. The patient agrees that she cannot go back to that house or live independently again She defines that her legs "do not work". The impression is that this relates to her massive edema, now better. She does not perceive improvement. She questions the purpose of continuing with dialysis- not seeing much quality of life ahead and recognizing it would only be temporizing. O: She is oriented to place and person She is appropriate in her responses although a bit repetitive She speaks repeatedly of putting animals down and apparently her ex- was a state epidemiologist. She is very matter of fact in discussion, tearful and is passing loss of dear friends including significant other in the past few years. She understands consequences of discontinuing dialysis and that she is now anuric. Dori Farris MD Jun 28, 2016 17:52
--- NOTE | 2016-06-28 18:43 | NUR ---
Dialysis/Provider-pt Family Meeting There was a family/provider meeting with the pt today to establish goals of care and a plan of care. Cardiac: Pt denies Tele: AFIB HR 80s-90s, multifocal PVCs, IVCD. Edema in all extremities. Heparin gtt DC'd this evening per Dr Order. Resp: denies SOB at rest. SPO2 95% on 4L NC. GI/: Pt denies n/v, incontinent of stool at times. Pt dialized today, 2L removed. Neuro: A%O x 3. GOMES. Generalized weakness.
--- NOTE | 2016-06-28 20:37 | PCM.PNMED ---
Subjective Date of Service Jun 28, 2016 Subjective Today patient states she is doing the same as previous, has no complaints. Her family is present including her son and [id number]. Chest pain, shortness preliminary, lightheadedness, dizziness, headaches, worsening edema of her extremities. Exam Vital Signs Vital Sign - Last Date Time Temp Pulse Resp B/P Pulse Ox O2 Delivery O2 Flow Rate FiO2 06/28/16 19:49 36.5 65 22 110/50 92 Nasal Cannula 4.50 Intake and Output 06/27/16 06/27/16 06/28/16 Cumulative From/Thru 15:00 23:00 07:00 06/12/16 14:52 - 06/28/16 04:54 Intake Total 850 ml 300 ml 34991 ml Output Total 2000 ml 0 ml 200 ml 22517 ml Balance -2000 ml 850 ml 100 ml 4 ml Intake Oral 680 ml 300 ml 19583 ml IV Total 170 ml 48840 ml Output Urine Total 0 ml 200 ml 46770 ml Post Void Residual 220 ml Stool Total 2 ml Ultrafiltrate 2000 ml 16488 ml # Voids 4 # Bowel Movements 1 19 Exam General: Alert and orient x3 . Morbidly obese female. Cooperative with care and more interactive. In no acute distress. Eyes: PERRLA, Scleral Anicteric Mouth: Mouth normal, mucous membranes dry, no oral thrush appreciated Neck: supple, JVD noted, She has both left-sided dialysis catheters. Significant ecchymoses noted at site of removed right IJ. Resp: Fine rales appreciated in the bilateral lower lobes. No coarse breath sounds noted. Good respiratory effort, no accessory muscle use. Tachypneic Cardiovascular: distant heart sound due to body habitus, irregular rate and rhythm. No murmur appreciated. Abdomen: Soft, Obese, Non-distended, No tenderness to palpation, Normoactive bowel tones. Extremities: Severe Anasarca up to abdomen, lymphedema bilaterally with moderate pitting pedal edema, no cyanosis, no clubbing. Coloration appears to becoming darker shades of pink. There are wounds to left lower extremity Skin: LLE wound covered in dressing, c/d/i. Right forearm has diffuse ecchymosis. Fingers and toes feel cool to touch. Poor perfusion. Neurological: A&O, Normal Speech, Sensation Intact, moving upper extremities with no deficit noted : No Castano catheter Lab and Diagnostics Result Diagram: 06/28/16 0610 06/28/16 0610 X-Rays, CTs and MRIs X-RAY CHEST ONE VIEW, PORTABLE 06/12/16 IMPRESSION: Small left pleural effusion and left basilar consolidation suggesting compressive atelectasis versus pneumonia. Correlate clinically. Continued radiographic surveillance to resolution is recommended. Dictated by: Elliot Velazquez RRA Interpreted: Drea Chance MD on 06/12/2016 at 17:03 Transcribed by: JOHNSON on 06/12/2016 at 17:04 CT CHEST WITHOUT CONTRAST IMPRESSION: 1. Small pleural effusions, slightly greater on the left. 2. Left basilar compressive atelectasis versus consolidation in the setting of aspiration/infection. 3. Marked cardiomegaly and trace pericardial effusion. Dictated by: Afshan Bryan M.D. on 06/15/2016 at 21:18 12-lead ECG EKG on admission: Atrial Fibrillation with rate in the 80s and old RBBB with PVCs, QTC of 506 Cardiac Echo Impressions Complete Echo Interpretation Summary by Dr. García on 06/13/16: 1) Normal left ventricular thickness and size with severely reduced systolic function (EF 25-30%). 2) Global hypokinesis, which is worse in the proximal to mid inferior wall. 3) Moderately dilated right ventricle with moderately reduced function. 4) Moderate to severe tricuspid regurgitation present. 5) Right sided pleural effusion present. 6) Mild pulmonary hypertension present, estimated systolic function pressure of 33 plus CVP 7) Compared to the Echo done 11/02/2013, LV function has decreased from 40-45% to 25-30% on today's study. Limited Echo Interpretation Summary by Dr. Garcia on 06/22/16: The left ventricle is normal in size. The ejection fraction is estimated to be 35-40%. There is inferior wall akinesis. Flattened septum is consistent with RV pressure/volume overload. The right ventricle is severely dilated. Right ventricular systolic function is severely reduced. The mitral valve leaflets appear mildly thickened, but open well. There is moderate mitral annular calcification. There is no mitral regurgitation noted. The tricuspid valve leaflets are thin and pliable. There is severe tricuspid regurgitation. The IVC is dilated (diameter is greater than 2.1 cm) and it collapses less than 50% with a sniff. This suggests a high right atrial pressure of 15 mm Hg. There is a moderate left-sided pleural effusion. Compared to the previous study on 06/13/2016, the RV appears to be less contractile and tricuspid regurgitation is worse. LV wall motion is similar. Assessment & Plan Nalini Moon is a 75 year old female with congestive heart failure, ischemic cardiomyopathy, CAD, Chronic Kidney disease, IDDM, hypothyroidism and Breast cancer under treatment for CHF exacerbation and cardiorenal syndrome. Transferred to the ICU overnight on 06/22/16 secondary to hypotensive episode requiring blood pressure support and central venous access. Hospital day #14. ( 4 days in ICU) 1. Acute on chronic systolic congestive heart failure with biventricular failure . Present on admission. Stable - Abrupt weight gain and dyspnea after Lasix being held secondary to her worsening CKD on presentation. - ECHO on 06/13/16 showed EF of 27% with global hypokinesis and biventricular failure. On the limited echo on 06/22, the RV appears to be less contractile and tricuspid regurgitation is worse. - Followed by Nephrology and Cardiology. Plan as #2. - Given consistent hypotension, will hold all antihypertensive medications, including Lasix, Metoprolol, Spironolactone and Chlorthalidone. - Will continue to monitor vital signs closely. - Strict I/Os and daily standing weight. - Continue dialysis to optimize her volume status. 1.5 L pulled off today - Dr. Cooley is concerned about possible PE and started Heparin drip 06/22/16. Cannot stop heparin before ruling out PE. Forge Operator prefers V/Q scan over the CT, but is ok with the CT if it is necessary. We will consider a V/Q scan. - In light of her severe biventricular failure with significant pulmonary hypertension, patient's prognosis is poor. Dr. Cooley recommended to contact Dr. Cassi Garíca, cardiothoracic surgeon in [place], regarding a right ventricular assist device (RVAD) pumps placement. -Has not required any pressor support, pressure has remained stable. -Remains PCC status 2. Acute on Chronic Kidney disease. Present on admission. Active - Likely secondary to decompensated heart failure with cardiorenal syndrome. Chronic disease related to Hypertensive Nephrosclerosis, Diabetic nephropathy, and cardiorenal syndrome. - Avoid nephrotoxic insults in hospital - Remains anuric - Appreciate Nephrology consult and input. Will defer to them about continued dialysis. - She was on Lasix 80mg IV BID, Chlorthalidone 25mg, and Spironolactone 25mg daily. Will hold all BP medications given current hypotensive state. - Daily dialysis to slowly pull off fluid. - Nephrology consulting, we greatly appreciate their evaluations and treatments. - Palliative care has spoken with the patient and family, and after discussion of expectations after today's meeting patient stated that she did not want to continue dialysis and would like to consider hospice. Please see palliative's note. 3. Acute Cardiogenic Shock, not present on admission, resolved - Multifactorial, but most likely cardiogenic. - ScvO2 through the central line, venous blood gas showed SVO2 53.6 and PO2 35.2 , which is more consistent with a cardiogenic etiology of shock. - Pulmonology and cardiology were consulted and we appreciate their recommendations. - Will need to discuss with family for goals of care. - Infectious workups pending to rule out septic shock: - Chest x-ray shows no obvious focus of pneumonia. Blood cultures negative so far. - Possible sources include possible cholecystitis/cholangitis and UTI ( Klebsiella). UTI was treated with Ceftriaxone for 5 days. No urine out in the last 2 days so UA can't be done. - Surgeon did not think cholecystitis as cause of pt's hypotension and patient is not a surgical candidate at this time. If further decompensation, consider HIDA scan, MRCP, or Perc drain of GB. - Stop Meropenem, per infectious disease recommendation (day 4). Stop Linezolid as MRSA is negative (06/24/16). 4. Acute transaminitis, not present on admission, improving. - nearly resolved. - Likely a combination of hepatic congestion from right heart failure and some shock liver from hypotension. - Imaging of the abdomen shows some gallbladder wall thickening but surgery has evaluated her and does not think this is cholecystitis but more likely passive congestion. - Hepatitis panel negative. - Continue to monitor with CMP. Stable and Resolved: 5. Hypoglycemia, not present on admission, resolved. - Patient had persistent hypoglycemia (42-117) that nonresponsive to D50, glucagon, and food intake on the night of 06/18. - Suspect that patient was taking home medications in the room. - BG has now improved as has PO intake. Re-introducing Lantus slowly. 6. Klebsiella UTI. Present on admission. Resolved. - Patient's UA grew out Klebsiella. - She developed symptoms on 06/17 and was initiated on IV Ceftriaxone, which the bacteria is sensitive to. Completed 5 days of Ceftriaxone. 7. Elevated troponin. Present on admission, stable. - Likely due to demand ischemia from CHF and decreased clearance from CKD. Echo showed decreased LVEF and hypokinesia. Trops have been steady. - Troponin 0.045, 0.046. CK-MB 4.0 on admission. - Initial EKG showed a left posterior hemiblock and a right bundle branch block. She has a normal sinus rhythm with frequent PACs. EKG if angina present - Full dose Aspirin continued - Wide-complex tachycardia of uncertain etiology. This may have been related to electrolyte shifts as her potassium was markedly low at 3.2 at the time of her arrhythmias. Per Cardiology, will keep her potassium greater than 4.0 and magnesium greater than 2.0. 8. Acute atrial fibrillation, new onset, present on admission, active. - Patient had an episode of 15 beats of wide complex tachycardia on morning of 06/14. Asymptomatic. Also had some PSVT episodes while agitated per report from nursing staff. - High CHADS score of 4. However, patient has poor cardiac function and thus will have to be careful with anticoagulation. IV heparin for stroke prevention per Cardiology. - Hold Metoprolol 25 mg bid due to bradycardia. No ACEi given current shock state. - Continue telemetry. 9. Diabetes Type 2 with neuropathy, uncontrolled, Present on admission - Low correction Lispro algorithm. - Continue Lantus but increase dose to 5 units HS. - holding Glucotrol XL 10. Hypertension, chronic. - Patient currently hypotensive requiring pressor support. - Stop Metoprolol XL due to bradycardia. Will hold off on ACEi or other BP medications given her worsening kidney function and hypotension. 11. Asthma, chronic, presume stable. - Continue Albuterol and Flovent inhalers. 12. Hypothyroidism, chronic, presume stable. - TSH 3.07 on admission. - continue Synthroid 112 mcg daily 13. Dyslipidemia, chronic, presume stable. - continue Pravastatin 20 mg daily 14. LLE wound, Present on admission, improving. - Due to injury from blackberry peguero about 2 weeks ago, had not improved and has been more tender. -Wound care following patient. Wound debrided and covered in clean dressing, 15. BMI 46.9, chronic. - Heart-healthy, renal, and diabetic diet. - Acetaminophen as needed for mild pain/fever/headache - Bowel regimen as needed - Antiemetic as needed Dispo: Likely will require several more days for diuresis and medical stabilization. Patient needs to go to SNF for rehabilitation, but she refused at this point. If she goes home, will likely need home oxygen. The patient's son and daughter in law will be here on Saturday this week. They are coming from [place]. Ideally, they would like to take the patient back to [place] to live with them when she leaves the hospital as they feel she is too isolated here. The son's phone number is [phone]. Pain Evaluation: Adequate Pain Control GI Prophylaxis: Not indicated VTE Prophylaxis: SCDs, Other (Heparin drip) VTE Mechanical Devices: Intermittant Pneumatic CD Resuscitation Status: DNR/DNI:Do Not Resuscitate/Intubate Attending Statement The patient was seen and examined together with Dr. Hernandez on 06/28/2016 and I agree with the history, exam and plan as outlined in the note above. . Martinez Hernandez DO Jun 28, 2016 20:37 Jono Greene MD Jun 30, 2016 07:40
[2016-06-28] MEDS: Insulin GLARgine 100 Unit/mL Syringe SUBQ SCH (21:00)
[2016-06-28] MEDS: Heparin 5,000 Unit/mL Inj SUBQ SCH (23:44)
[2016-06-29 04:45] LABS: BASOPHILS % (AUTO) 0.5 % (0-3); EOSINOPHILS % (AUTO) 3.8 % (0-5); MONOCYTES % (AUTO) 9.4 % (4-12); Mean Corpuscular Hemoglobin 25.2 pg (27.0-35.0); Mean Corpuscular Volume 83.2 fL (81-100); NEUTROPHILS % (AUTO) 78.5 % (40-74); Platelet Count 102 bil/L (150-400)
--- NOTE | 2016-06-29 05:59 | NUR ---
Care Patient states goal of care as comfort and refuses most medications this shift including blood glucose checks, insulin vitals and CXR. Goals of care confirmed with patient and family at bedside. Patient encouraged to express goals of care so nursing can assist with her goals.
[2016-06-29] MEDS: Ipratropium 0.02% 0.5 mg/2.5 mL Inhalation Solution NEB SCH ×3 (07:00→16:00)
[2016-06-29] MEDS: Levalbuterol 1.25 mg/0.5mL Inhalation Solution NEB SCH ×3 (07:00→16:00)
[2016-06-29 08:00] VITALS: PULSE 99
[2016-06-29] MEDS: Sodium Chloride LOK Flush 10 mL Syringe IVFLUSH SCH (08:30)
[2016-06-29] MEDS: Nystatin 100,000 Unit/Gm 15 Gm Powder TOPICAL SCH (08:30)
[2016-06-29] MEDS: Fluticasone 0.05% 15 Spray/2 Gm 16 Gm Nasal Spray NASAL SCH ×2 (08:30→14:34)
[2016-06-29 09:13] VITALS: BP 99/67; PULSE 95; O2SAT 90
[2016-06-29] MEDS: Heparin 5,000 Unit/mL Inj SUBQ SCH (09:25)
[2016-06-29] MEDS: Magnesium Chloride SR 64 mg ER24 Tablet PO SCH (09:25)
[2016-06-29] MEDS: Insulin LISPRO 300 Unit/3 mL Inj SUBQ SCH ×2 (10:42→14:31)
--- NOTE | 2016-06-29 11:19 | PCM.PALLBR ---
Palliative Care Recommendation 75-year-old female with advanced biventricular heart failure, now complicated by acute renal failure necessitating dialysis, as well as other ongoing medical concerns. She has been followed by cardiology who briefly entertained the possibility of having her considered for ventricular assist device, but because of her multiple comorbidities, social situation, etc. do not feel she is a candidate. Pressor/inotrope support has been weaned off and she continues on daily hemodialysis. Palliative medicine consulted to assist patient in determination of goals of care. Summary of palliative recommendations: 06/29/16-EOL-pt is set on her decision to stop dialysis. She knows her time frame being anuric is in the range of 1-2 weeks. Reviewed her heart improved with dialysis but she feels all this is only postponing the inevitable. She is fine with going to any SNF. She is presently comfortable and not requiring meds for dyspnea/pain. Med list reviewed and most nonessential meds d/marivel. scripts completed for comfort meds-lorazepam and hydromorphone concentrates Family is aware and supportive. Reviewed with CM and she will be transferred to [facility]-Dr. Rabago attending 06/28/16-- patient quite specifically requesting discontinuation of dialysis. She was aware of her heart disease and kidney disease. She is aware that her heart has improved somewhat with dialysis. She recognizes she will need to be in a care facility-yet to be determined. She is willing to discuss hospice. Part of this would be a financial decision depending on her placement. Extensive discussion with her family and with patient as to expectations going forward, management of symptoms. We will review again tomorrow to confirm her request and to consolidate information regarding placement. -Symptom management (Pain/other)- comfortable and in no significant distress when seen today. Continue present management per medical/critical care teams. -DPOA/Advanced Directives/POLST- patient reports that she has completed documentation but no copies are available to us at this time. Family members are gathering and plan on coming to the hospital within the next several days. At this time, patient remains DO NOT RESUSCITATE/DO NOT INTUBATE, but is NOT ready to transition to comfort/hospice type care. She wishes to continue receiving dialysis for the time being, saying that she has some more things that she needs to take care of in life before she passes, and she anticipates doing this over the course of the next several weeks to months. On 06/26, completed new POLST indicating her wishes- DO NOT RESUSCITATE/DO NOT INTUBATE/limited interventions/antibiotics okay/no artificial nutrition. Copies in chart along with the original document, and another copy is in the palliative medicine office. As patient remains stable at this time, and planning and documentation for ongoing care of complete, palliative medicine will sign off. Please contact us if we may be of further assistance. -Family/emotional support- unclear how much support from family member and friends in the area is actually available, though additional family members will be arriving over the coming days for further consultation. CERTIFIED NEURODIAGNOSTIC TECHNOLOGIST notes that the patient is resistant to the concept of SNF care; reportedly, family members may also want to take her back to [place] which she is resisting. -Spiritual support- offered and declined. She says that her son Randall is very holiness but "in a different way" (and implies that she considers his holiness affiliation to be something cult-like) Patient Goals: 1. Patient wants to be told the truth about her illness, even if it is unpleasant. 2. Patient would like to be told prognosis when it can be predicted, to better guide treatment decisions. Additional Medical Diagnoses with primary management by Hospitalist team include : 1. Cardiogenic shock, not present on admission, ongoing. - Multifactorial, but most likely cardiogenic though septic is also possible. 2. Acute on chronic systolic congestive heart failure with biventricular failure . Present on admission. Active. 3. Acute on Chronic Kidney disease. Present on admission. Active 4. Acute transaminitis, not present on admission, improving. 5. Hypoglycemia, not present on admission, resolved. 6. Klebsiella UTI. Present on admission. Resolved. 7. Elevated troponin. Present on admission, stable. 8. Acute atrial fibrillation, new onset, present on admission, active. 9. Diabetes Type 2 with neuropathy, uncontrolled, Present on admission 10. Hypertension, chronic. 11. Asthma, chronic, presume stable. 12. Hypothyroidism, chronic, presume stable. 13. Dyslipidemia, chronic, presume stable. 14. LLE wound, Present on admission, improving. Problems: End of Life Preferences DO NOT RESUSCITATE/DO NOT INTUBATE/continue current interventions including dialysis Goals of Care Hopes for comfort end of life. No further dialysis Disposition [facility] for EOL/comfort care Resuscitation Status Resuscitation Status: DNR/DNI:Do Not Resuscitate/Intubate POLST Updates/Changes Previous POLST?: No Antibiotics: No Antibiotics, Determine Use or Limitations Artificially Admin Nutrition: No Artifical Nutrition by Tube POLST Discussed with: Patient POLST Review Outcome: New Form Completed . Advanced Care Planning Address: Comfort care Total time 65 minutes; >50% face to face with patient and/or family, providing counselling regarding plans and recommendations, and in care coordination with his/her medical teams. including med management, review and conference with pt and family I also spent an additional [ ] minutes counseling for advanced care planning with the patient/the patients family/the surrogate decision maker. copies to: Zac Grant MD; Whitney Rabago MD Palliative Brief Note Date of Service Jun 29, 2016 . Patient seen prior to family meeting. She reiterates that she sees little purpose in continuing with dialysis. She again agrees that she is not able to go home and she will go where ever. Willing to consider hospice if necessary. O: sitting up having pudding alert and articulate but a bit repetitive and "circular" understands the consequences of her decision. she is able to reiterate the discussion with her son and DIL when they arrive Dori Farris MD Jun 29, 2016 11:19
--- NOTE | 2016-06-29 12:02 | PCM.PNNEPH ---
Subjective Date of Service Jun 29, 2016 Subjective Patient has been evaluated by palliative care, appreciated their time and expertise. She requested not to proceed with any renal replacement therapy. She stated that she is not afraid of facing . She knows that her condition is terminal. Exam Vital Signs Vital Sign - Last Date Time Temp Pulse Resp B/P Pulse Ox O2 Delivery O2 Flow Rate FiO2 06/29/16 09:13 36.4 95 99/67 90 Nasal Cannula 5.50 06/28/16 19:49 22 Intake and Output 06/28/16 06/28/16 06/29/16 Cumulative From/Thru 15:00 23:00 07:00 06/12/16 14:52 - 06/29/16 06:24 Intake Total 315 ml 420 ml 75694 ml Output Total 3000 ml 73700 ml Balance -3000 ml 315 ml 420 ml -2261 ml Intake Oral 150 ml 420 ml 65512 ml IV Total 165 ml 0 ml 59466 ml Output Urine Total 74910 ml Post Void Residual 220 ml Stool Total 2 ml Ultrafiltrate 3000 ml 56877 ml # Voids 1 0 5 # Bowel Movements 1 3 23 Exam General appearance: Awake, in upright position. Mild tachypneic. HEENT: Mild pallor. No anicteric sclerae. Positive for JVD. Atraumatic. Moist mucous membranes. Ecchymosis noted on the right side of the neck. Left IJ shanna catheter in place. Heart: Irregular rhythm, systolic murmur. Lungs: Rales the bases, expiratory wheezing noted. Abdomen: Soft, active bowel sounds. Obese. Extremity: 2+ edema, positive for chronic skin changes on the lower extremity. Lab and Diagnostics Result Diagram: 06/29/1640906/29/16409 X-Rays, CTs and MRIs X-RAY CHEST ONE VIEW, PORTABLE 06/12/16 IMPRESSION: Small left pleural effusion and left basilar consolidation suggesting compressive atelectasis versus pneumonia. Correlate clinically. Continued radiographic surveillance to resolution is recommended. Dictated by: Elliot DOUGLAS Interpreted: Drea Chance MD on 06/12/2016 at 17:03 Transcribed by: JOHNSON on 06/12/2016 at 17:04 CT CHEST WITHOUT CONTRAST IMPRESSION: 1. Small pleural effusions, slightly greater on the left. 2. Left basilar compressive atelectasis versus consolidation in the setting of aspiration/infection. 3. Marked cardiomegaly and trace pericardial effusion. Dictated by: Afshan Bryan M.D. on 06/15/2016 at 21:18 12-lead ECG EKG on admission: Atrial Fibrillation with rate in the 80s and old RBBB with PVCs, QTC of 506 Cardiac Echo Impressions Complete Echo Interpretation Summary by Dr. García on 06/13/16: 1) Normal left ventricular thickness and size with severely reduced systolic function (EF 25-30%). 2) Global hypokinesis, which is worse in the proximal to mid inferior wall. 3) Moderately dilated right ventricle with moderately reduced function. 4) Moderate to severe tricuspid regurgitation present. 5) Right sided pleural effusion present. 6) Mild pulmonary hypertension present, estimated systolic function pressure of 33 plus CVP 7) Compared to the Echo done 11/02/2013, LV function has decreased from 40-45% to 25-30% on today's study. Limited Echo Interpretation Summary by Dr. Garcia on 06/22/16: The left ventricle is normal in size. The ejection fraction is estimated to be 35-40%. There is inferior wall akinesis. Flattened septum is consistent with RV pressure/volume overload. The right ventricle is severely dilated. Right ventricular systolic function is severely reduced. The mitral valve leaflets appear mildly thickened, but open well. There is moderate mitral annular calcification. There is no mitral regurgitation noted. The tricuspid valve leaflets are thin and pliable. There is severe tricuspid regurgitation. The IVC is dilated (diameter is greater than 2.1 cm) and it collapses less than 50% with a sniff. This suggests a high right atrial pressure of 15 mm Hg. There is a moderate left-sided pleural effusion. Compared to the previous study on 06/13/2016, the RV appears to be less contractile and tricuspid regurgitation is worse. LV wall motion is similar. Plan Impression 1. Acute kidney injury on chronic kidney disease secondary to acute tubular necrosis and cardiorenal syndrome. First dialysis on 06/21/2016. 2. Acute on chronic systolic heart failure with h/o VHD. 3. Hypertension with hypertensive heart disease and hypertensive nephrosclerosis. 4. Type II diabetes with diabetic nephropathy. 5. Coronary artery disease status post stenting. 6. Hypothyroidism. 7. Breast cancer. 8. Morbid obesity. 9. Severe deconditioning. Plan We very much respect her decision. We will put hemodialysis on hold at the moment. We will continue only supportive treatment for now. We will continue to monitor her closely. Placement is pending. Disposition as per primary team. Lv Sun MD Jun 29, 2016 12:02
--- NOTE | 2016-06-29 12:45 | NUR ---
Confusion/Dialysis/Turns/Redness Pt confused and forgetful this shift. One minute refuses medications and turns, 5 minutes later okay to administer medications and turns. Pt refused Dialysis this shift. Soila housing case manager aware. MDs notified. Bathed pt with UPHOLSTERED GOODS CRAFTER this am. Noticeable redness under pannus, behind knees, ankles, and bottom. Used barrier wipes and powder. Care continues.
[2016-06-29 13:59] VITALS: BP 111/58; PULSE 97; O2SAT 94
--- NOTE | 2016-06-29 14:43 | NUR ---
Gave access and faxed facesheet to JAYDEN,DORCAS,Fausto Thornton and Nettie per PAEDIATRIC PHYSIOTHERAPIST
--- NOTE | 2016-06-29 15:09 | NUR ---
Social Work: Discharge D: Pt discussed in am rounds. Pt has decided that she does not wish to continue with dialysis and that she will need placement for end of life care. SLIP PRESSER met with pt at bedside to review discharge planning and options. Pt is agreeable to SNF placement for end of life care as she cannot return home. Pt provided with SNF Choice List but does not have a preference. SLIP PRESSER requested RAT CULTURIST place referrals to all local facilities. [facility] has accepted the pt with Dr. Rabago to follow. They understand she is on comfort care and will likely not be skillable under Medicare and will likely be coming on DSHS. They are prepared for this and will review pt's chart to determine which payer source is appropriate. SLIP PRESSER reviewed with pt that she may have a share of cost if she goes on DSHS; pt states she understands. SLIP PRESSER updated MD who will write orders. SLIP PRESSER spoke with pt's son, Randall and DIL, Maris. They are pleased that the pt has agreed to skilled rehab and have no objections to the pt discharging to [facility]. SLIP PRESSER provided them with the contact information and address for [facility]; they will meet up with her there. PPW on chart. PASSR complete MD completing orders; SLIP PRESSER to fax when these are completed. A: Pt who is transitioning to end of life care P: Pt to discharge to [facility] today with Dr. Rabago to follow; [facility] has arranged for transport around 5:00pm [facility]. JACI Melissa
[2016-06-29] MEDS ORDERED: NYST1POW25 TOPICAL (15:33)
[2016-06-29] MEDS ORDERED: ASPI-973 PO (15:33)
--- NOTE | 2016-06-29 15:47 | NUR ---
Spoke with Williams in admissions at [facility] and he is arranging transport for 1700. Updated INJECTION MOLDING MACHINE OFFBEARER
[2016-06-29 15:48] VITALS: BP 119/57; PULSE 79; RESP 21; O2SAT 98
--- NOTE | 2016-06-29 15:48 | PCM.DIMED ---
Martinez Hernandez DO 06/29/16 1548: Discharge Instructions Date of Service Jun 29, 2016 Dates of Hospitalization Jun 12, 2016 at 6:39 pm Discharge Diagnosis Discharge Diagnosis 1. Acute on chronic systolic congestive heart failure with biventricular failure 2. Acute on Chronic Kidney disease 3. Acute Cardiogenic Shock 4. Acute transaminitis 5. Hypoglycemia 6. Klebsiella UTI 7. Elevated troponin 8. Acute atrial fibrillation 9. Diabetes Type 2 with neuropathy, uncontrolled 10. Hypertension 11. Asthma 12. Hypothyroidism, chronic, presume stable. 13. Dyslipidemia, chronic, presume stable. 14. LLE wound, Present on admission, improving. 15. BMI 46.9, chronic. Medication Instructions Nystatin powder, applied to effected areas, BID. Aspirin 81mg, Take one pill every day with food by mouth. Lorazepam 0.25-2mg by mouth Q3H as needed for anxiety hydromorphone 0.5-2.0 mg by mouth Every 2 hours as needed for pain Diet No restrictions Activity No restrictions, Limited until seen by PCP, Home Health Phyical Therapy, Outpatient Physical Therapy Call your provider Fever or Chills, Shortness of breath, Bleeding, Chest pain, Vomitting, Excessive diarrhea, Weakness (unilateral), Other Patient Instructions You are being transferred to [facility] under the care of Dr. Keo Rabago. They will assume your care there. You may request goals of your care with the staff at the facility. We encourage to participate in your care. Follow-up Provider: Whitney Rabago MD Follow-up with PCP in: 1 week Jono Greene MD 06/29/16 5258: Discharge Instructions Attending's Statement The patient was seen and examined together with Dr. Hernandez on 06/29/2016 and I agree with the history, exam and plan as outlined in the note above. . Martinez Hernandez DO Jun 29, 2016 15:48 Jono Greene MD Jun 29, 2016 18:58
[2016-06-29] MEDS ORDERED: MORP10CA11 PO (15:58)
[2016-06-29] MEDS ORDERED: LORA-303 PO (15:58)
--- NOTE | 2016-06-29 16:53 | PCM.DC.MED ---
Discharge Summary Date of Service Jun 29, 2016 Dates of Hospitalization Date of Hospital Admission Jun 12, 2016 at 6:39 pm Date of Discharge: Jun 29, 2016 Providers: Admitting Physician: Geoffrey Medina Primary Care Physician: Nopeliel Attending Physician: Geoffrey Medina Diagnosis at Time of Discharge Diagnosis at Time of Discharge 1. Acute on chronic systolic congestive heart failure with biventricular failure 2. Acute on Chronic Kidney disease 3. Acute Cardiogenic Shock 4. Acute transaminitis 5. Hypoglycemia 6. Klebsiella UTI 7. Elevated troponin 8. Acute atrial fibrillation 9. Diabetes Type 2 with neuropathy, uncontrolled 10. Hypertension 11. Asthma 12. Hypothyroidism, chronic, presume stable. 13. Dyslipidemia, chronic, presume stable. 14. LLE wound, Present on admission, improving. 15. BMI 46.9, chronic. Consultations Palliative care Cardiology Nephrology Critical care pulmonology Procedures XRay, CTs & MRIs X-RAY CHEST ONE VIEW, PORTABLE 06/12/16 IMPRESSION: Small left pleural effusion and left basilar consolidation suggesting compressive atelectasis versus pneumonia. Correlate clinically. Continued radiographic surveillance to resolution is recommended. Dictated by: Elliot Velazquez [facility] Interpreted: Drea Chance MD on 06/12/2016 at 17:03 Transcribed by: JOHNSON on 06/12/2016 at 17:04 CT CHEST WITHOUT CONTRAST IMPRESSION: 1. Small pleural effusions, slightly greater on the left. 2. Left basilar compressive atelectasis versus consolidation in the setting of aspiration/infection. 3. Marked cardiomegaly and trace pericardial effusion. Dictated by: Afshan Bryan M.D. on 06/15/2016 at 21:18 ECG 12 Lead EKG on admission: Atrial Fibrillation with rate in the 80s and old RBBB with PVCs, QTC of 506 Cardiac Echo Impression Complete Echo Interpretation Summary by Dr. García on 06/13/16: 1) Normal left ventricular thickness and size with severely reduced systolic function (EF 25-30%). 2) Global hypokinesis, which is worse in the proximal to mid inferior wall. 3) Moderately dilated right ventricle with moderately reduced function. 4) Moderate to severe tricuspid regurgitation present. 5) Right sided pleural effusion present. 6) Mild pulmonary hypertension present, estimated systolic function pressure of 33 plus CVP 7) Compared to the Echo done 11/02/2013, LV function has decreased from 40-45% to 25-30% on today's study. Limited Echo Interpretation Summary by Dr. Garcia on 06/22/16: The left ventricle is normal in size. The ejection fraction is estimated to be 35-40%. There is inferior wall akinesis. Flattened septum is consistent with RV pressure/volume overload. The right ventricle is severely dilated. Right ventricular systolic function is severely reduced. The mitral valve leaflets appear mildly thickened, but open well. There is moderate mitral annular calcification. There is no mitral regurgitation noted. The tricuspid valve leaflets are thin and pliable. There is severe tricuspid regurgitation. The IVC is dilated (diameter is greater than 2.1 cm) and it collapses less than 50% with a sniff. This suggests a high right atrial pressure of 15 mm Hg. There is a moderate left-sided pleural effusion. Compared to the previous study on 06/13/2016, the RV appears to be less contractile and tricuspid regurgitation is worse. LV wall motion is similar. Invasive Procedures Dialysis catheter to left internal jugular Central line right internal jugular Arterial line to right radial artery Brief History Per admission H&P: "Nalini Moon is a 75 year old female with Congestive heart failure, Coronary artery disease, Chronic Kidney disease, IDDM, hypothyroidism and Breast cancer in remission who presents to [facility] Emergency department accompanied by her hotel dining room cashier referred by her PCP complaining of a week of worsening shortness of breath and lower extremity swelling. Patient has been having progressively worsening dyspnea on exertion for about a week. Associated rapid 40lb weight gain with leg edema doubling in size in less than 2 days, and nausea. Patient denies chest pain, diaphoresis, fever, chills and vomiting. She states that symptoms onset a week after Dr. Wilde, Nephrology, took her off of her diuretics due to worsening kidney function. About a week ago she experienced an episode of nausea and mild back pain that "felt like a silent [place]". At that time she attempted to make an appointment with her irrigation specialist, Dr. Cooley, with no success. She also mentions a sore on the back of her left leg secondary to an encounter with a blackberry vine." One week into her hospitalization she underwent dialysis, she was found to be hypotensive and had an elevated lactic acid several hours after being returned to her room. She did not have any complaints during the time, nonetheless she was transferred to the ICU and eventually had to be placed on 2 pressor medications to maintain map greater than 50. She stayed stable receiving dialysis every day through the dialysis catheter in her right internal jugular. A right internal jugular central venous line was placed for additional support , she ripped this out herself because it was irritating her while she is trying to sleep one day after it was placed. On her third day in the ICU but trying to access the dialysis catheter for dialysis, they had to discontinue her pressors, and she is able to maintain her own blood pressure since then. In the coming days her family traveled from across the country to see her and see what her goals and wishes are. Ultimately it was decided that she did not want to continue dialysis every day or every other day, she is now in uric and immobile secondary to bilateral lower extremity edema. After lengthy discussion with palliative care, patient, and her family, the decision was made for her to be transferred to [facility] without dialysis. Anticipated course was explained to her, she states she understands and did not see any appreciable benefits from continuing dialysis. Hospital Course Nalini Moon is a 75 year old female with congestive heart failure, ischemic cardiomyopathy, CAD, Chronic Kidney disease, IDDM, hypothyroidism and Breast cancer under treatment for CHF exacerbation and cardiorenal syndrome. Transferred to the ICU overnight on 06/22/16 secondary to hypotensive episode requiring blood pressure support and central venous access. Hospital day #15. ( 4 days in ICU) -day of discharge 1. Acute on chronic systolic congestive heart failure with biventricular failure . Present on admission. Stable - Abrupt weight gain and dyspnea after Lasix being held secondary to her worsening CKD on presentation. - ECHO on 06/13/16 showed EF of 27% with global hypokinesis and biventricular failure. On the limited echo on 06/22, the RV appears to be less contractile and tricuspid regurgitation is worse. - Followed by Nephrology and Cardiology. Plan as #2. - Given consistent hypotension, will hold all antihypertensive medications, including Lasix, Metoprolol, Spironolactone and Chlorthalidone. - Will continue to monitor vital signs closely. - Strict I/Os and daily standing weight. - Continue dialysis to optimize her volume status. 1.5 L pulled off today - Dr. Cooley is concerned about possible PE and started Heparin drip 06/22/16. Cannot stop heparin before ruling out PE. Junior Brand Manager prefers V/Q scan over the CT, but is ok with the CT if it is necessary. We will consider a V/Q scan. - In light of her severe biventricular failure with significant pulmonary hypertension, patient's prognosis is poor. Dr. Cooley recommended to contact Dr. Cassi García, cardiothoracic surgeon in [place], regarding a right ventricular assist device (RVAD) pumps placement. -Has not required any pressor support, pressure has remained stable. -Remains PCC status 2. Acute on Chronic Kidney disease. Present on admission. Active - Likely secondary to decompensated heart failure with cardiorenal syndrome. Chronic disease related to Hypertensive Nephrosclerosis, Diabetic nephropathy, and cardiorenal syndrome. - Remains anuric - Appreciate Nephrology consult and input. Will defer to them about continued dialysis. - She was on Lasix 80mg IV BID, Chlorthalidone 25mg, and Spironolactone 25mg daily. All have been discontinued. - Nephrology consulting, we greatly appreciate their evaluations and treatments. - Palliative care has spoken with the patient and family, and after discussion of expectations after today's meeting patient stated that she did not want to continue dialysis and would like to consider hospice. Please see palliative's note. 3. Acute Cardiogenic Shock, not present on admission, resolved - Multifactorial, but most likely cardiogenic. - ScvO2 through the central line, venous blood gas showed SVO2 53.6 and PO2 35.2 , which is more consistent with a cardiogenic etiology of shock. - Pulmonology and cardiology were consulted and we appreciate their recommendations. - Will need to discuss with family for goals of care. - Infectious workups performed to rule out septic shock: - Chest x-ray shows no obvious focus of pneumonia. Blood cultures negative so far. - Possible sources include possible cholecystitis/cholangitis and UTI ( Klebsiella). UTI was treated with Ceftriaxone for 5 days. No urine out in the last 2 days so UA can't be done. - Surgeon did not think cholecystitis as cause of pt's hypotension and patient is not a surgical candidate at this time. If further decompensation, consider HIDA scan, MRCP, or Perc drain of GB. - Stopped Meropenem, per infectious disease recommendation (day 4). Stop Linezolid as MRSA is negative (06/24/16). 4. Acute transaminitis, not present on admission, improving. - nearly resolved. - Likely a combination of hepatic congestion from right heart failure and some shock liver from hypotension. - Imaging of the abdomen shows some gallbladder wall thickening but surgery has evaluated her and does not think this is cholecystitis but more likely passive congestion. - Hepatitis panel negative. Stable and Resolved: 5. Hypoglycemia, not present on admission, resolved. - Patient had persistent hypoglycemia (42-117) that nonresponsive to D50, glucagon, and food intake on the night of 06/18. - Suspect that patient was taking home medications in the room. - BG has now improved as has PO intake. Lantus daily 6. Klebsiella UTI. Present on admission. Resolved. - Patient's UA grew out Klebsiella. - She developed symptoms on 06/17 and was initiated on IV Ceftriaxone, which the bacteria is sensitive to. Completed 5 days of Ceftriaxone. 7. Elevated troponin. Present on admission, stable. - Likely due to demand ischemia from CHF and decreased clearance from CKD. Echo showed decreased LVEF and hypokinesia. Trops have been steady. - Troponin 0.045, 0.046. CK-MB 4.0 on admission. - Initial EKG showed a left posterior hemiblock and a right bundle branch block. She has a normal sinus rhythm with frequent PACs. EKG if angina present - Full dose Aspirin continued - Wide-complex tachycardia of uncertain etiology. This may have been related to electrolyte shifts as her potassium was markedly low at 3.2 at the time of her arrhythmias. Per Cardiology, will keep her potassium greater than 4.0 and magnesium greater than 2.0. 8. Acute atrial fibrillation, new onset, present on admission, active. - Patient had an episode of 15 beats of wide complex tachycardia on morning of 06/14. Asymptomatic. Also had some PSVT episodes while agitated per report from nursing staff. - High CHADS score of 4. However, patient has poor cardiac function and thus will have to be careful with anticoagulation. IV heparin for stroke prevention per Cardiology. - Hold Metoprolol 25 mg bid due to bradycardia. No ACEi given shock state and renal failure 9. Diabetes Type 2 with neuropathy, uncontrolled, Present on admission - Low correction Lispro algorithm. - Continued Lantus 10. Hypertension, chronic. - Patient currently hypotensive requiring pressor support. - Held medications as stated above. 11. Asthma, chronic, presume stable. - Continue Albuterol and Flovent inhalers. 12. Hypothyroidism, chronic, presume stable. - TSH 3.07 on admission. - continue Synthroid 112 mcg daily 13. Dyslipidemia, chronic, presume stable. - continue Pravastatin 20 mg daily 14. LLE wound, Present on admission, improving. - Due to injury from blackberry peguero about 2 weeks ago, had not improved and has been more tender. -Wound care following patient. Wound debrided and covered in clean dressing, 15. BMI 46.9, chronic. - Heart-healthy, renal, and diabetic diet. - Acetaminophen as needed for mild pain/fever/headache - Bowel regimen as needed - Antiemetic as needed Dispo: Agreed to transfer to [facility]. The son's phone number is [phone]. Exam Vital Signs (Last) Date Time Temp Pulse Resp B/P Pulse Ox O2 Delivery O2 Flow Rate FiO2 06/29/16 15:48 36.4 79 21 119/57 98 Nasal Cannula 5.50 Test 06/12/16 16:00 06/12/16 20:27 06/12/16 20:55 06/13/16 03:30 Prothrombin Time 12.1sec (8.1-12.5) Prothromb Time International Ratio 1.13ratio Thyroid Stimulating Hormone (TSH) 3.070uIU/mL (0.450-4.500) Urine Color Yellow (YELLOW) Urine Appearance Clear (CLEAR,HAZY) Urine pH 5.5 (5.0-8.0) Urine Specific [place] 1.015 (1.003-1.035) Urine Protein Negativemg/dL (NEG,TRACE) Urine Glucose (UA) Negativemg/dL (NEGATIVE) Urine Ketones Negativemg/dL (NEGATIVE) Urine Occult Blood Trace (NEGATIVE) Urine Nitrite Negative (NEGATIVE) Urine Bilirubin Negative (NEGATIVE) Urine Urobilinogen Normalmg/dL (NORMAL) Urine Leukocyte Esterase Negative (NEGATIVE) Urine RBC 0-2/hpf (0-2) Urine WBC 0-5/hpf (0-5) Urine Epithelial Cells Moderate/hpf (NONE-MOD) Urine Crystals None seen (NONE SEEN) Urine Bacteria Many/hpf (NONE-FEW) Urine Hyaline Casts None/lpf (NONE) Urine Granular Casts None seen (NONE SEEN) Urine Waxy Casts None seen (NONE SEEN) Urine Red Blood Cell Casts None seen (NONE SEEN) Urine White Blood Cell Casts None seen (NONE SEEN) Urine Mucus None seen (None Seen) Urine Trichomonas None seen (NONE SEEN) Urine Yeast None (NONE SEEN) Urinalysis Comment None Urine Culture Reflexed Indicated Hemoglobin A1c 8.3% (4.8-5.6) Total Creatine Kinase 51U/L (21-215) Creatine Kinase MB 4.0ng/mL (0.0-5.3) Creatine Kinase MB % % (0.0-5.0) Triglycerides Level 84mg/dL (0-149) Cholesterol Level 142mg/dL (100-199) LDL Cholesterol, Calculated 69.200mg/dL (0-99) VLDL Cholesterol 16.800mg/dL HDL Cholesterol 56mg/dL (>39) Cholesterol/HDL Ratio 2.54 (0.0-4.4) Test 06/15/16 16:42 06/21/16 16:11 06/21/16 18:10 06/21/16 22:00 Hold Urine Received (Received) Hepatitis B Surface Antibody Non reactive (.) Hepatitis B Core Total Antibody Negative (Negative) D-Dimer 1.7mg/L (<0.50) Troponin T 0.057ug/L (0.0-0.011) Test 06/22/16 05:05 06/22/16 13:36 06/24/16 06:15 06/25/16 04:05 Hepatitis A IgM Antibody Negative (Negative) Hepatitis B Surface Antigen Negative (Negative) Hepatitis B Core IgM Antibody Negative (Negative) Hepatitis C Antibody <0.1s/co ratio (0.0-0.9) Hepatitis C Comment Comment (.) Ammonia 65ug/dL (18-53) Lactic Acid Level 1.8mmol/L (0.4-2.0) Phosphorus Level 3.8mg/dL (2.5-4.9) Test 06/26/16 04:30 06/27/16 02:55 06/28/16 12:35 06/29/16 04:10 Pro-B-Type Natriuretic Peptide 8584pg/mL (0-738) Procalcitonin 0.53ng/mL (0.00-0.08) Magnesium Level 1.6mg/dL (1.6-2.6) Activated Partial Thromboplast Time 113.3sec (22.8-33.0) White Blood Count 11.0th/mm3 (3.8-10.1) Red Blood Count 4.65mil/mm3 (3.90-5.20) Hemoglobin 11.7g/dL (12.0-15.6) Hematocrit 38.7% (35.0-46.0) Mean Corpuscular Volume 83.2fL (81-100) Mean Corpuscular Hemoglobin 25.2pg (27.0-35.0) Mean Corpuscular Hemoglobin Concent 30.2% (32.0-37.0) Red Cell Distribution Width 20.0% (12.3-15.4) Platelet Count 102bil/L (150-400) Neutrophils (%) (Auto) 78.5% (40-74) Lymphocytes (%) (Auto) 7.4% (14-46) Monocytes (%) (Auto) 9.4% (4-12) Eosinophils (%) (Auto) 3.8% (0-5) Basophils (%) (Auto) 0.5% (0-3) Sodium Level 137mEq/L (134-144) Potassium Level 4.7mEq/L (3.5-5.2) Chloride Level 98mEq/L (97-108) Carbon Dioxide Level 23mmol/L (18-29) Blood Urea Nitrogen 34mg/dL (8-27) Creatinine 3.47mg/dL (0.57-1.00) Estimat Glomerular Filtration Rate 18mL/min (>59) Glucose Level 182mg/dL (60-99) Calcium Level 9.7mg/dL (8.5-10.1) Total Bilirubin 0.8mg/dL (0.0-1.2) Aspartate Amino Transf (AST/SGOT) 41U/L (0-50) Alanine Aminotransferase (ALT/SGPT) 44U/L (0-32) Alkaline Phosphatase 138U/L (25-165) Total Protein 6.9g/dL (6.4-8.4) Albumin 3.3g/dL (3.4-5.0) Discharge Medications Discharge Medications Aspirin (Aspirin) 81 Mg Tablet 81 MG PO DAILY Prescribed by: MARTINEZ LOPEZ DO Insulin Glargine (Lantus U100 Solostar Insulin Pen) 100 Unit/1 Ml Insuln.pen 10 UNITS SUBQ HS (Reported) Levothyroxine (Levothyroxine) 112 Mcg Tablet 112 MCG PO DAILY (Reported) Nystatin (Nystatin) 1 Each Powder.ea. 1 APPLIC TOPICAL BID Prescribed by: MARTINEZ LOPEZ DO As needed Albuterol HFA (Proair HFA) 8.5 Gm Hfa.aer.ad 2 PUFFS IH Q4-6H PRN PRN asthma ( Reported) Albuterol Neb Soln (Albuterol Neb Soln) 2.5 Mg/3 Ml Vial.neb 1 VIAL INH q4-6 hours PRN PRN For Shortness of Breath (Reported) Fluticasone Propionate (Flovent HFA 220 mcg) 12 Gm Aer.w.adap 1 PUFF IH BID PRN PRN For Shortness of Breath (Reported) Hydromorphone (Hydromorphone) 1 Mg/1 Ml Liquid 0.5-2 MG PO Q2H PRN PRN For Pain Prescribed by: MARTINEZ LOEPZ DO Lorazepam (Lorazepam Oral Concentrate) 2 Mg/1 Ml Oral.conc 0.25-2 MG PO Q3H PRN PRN For Anxiety Prescribed by: TERE PISANO MD Additional med instructions Nystatin powder, applied to effected areas, BID. Aspirin 81mg, Take one pill every day with food by mouth. Jessica 10mg by mouth QID PRN for pain. Ativan 1mg by mouth TID PRN for Anxiety Followup Plan Discharge Diet: No restrictions Discharge Activity: No restrictions, Limited until seen by PCP, Home Health Phyical Therapy, Outpatient Physical Therapy Patient Instructions You are being transferred to [facility] under the care of Dr. Keo Rabago. They will assume your care there. You may request goals of your care with the staff at the facility. We encourage to participate in your care. Follow-up Provider: Whitney Rabago MD Follow-up with PCP in: 1 week Time spent Greater than 30 minutes was spent in preparation of discharge with greater than 50% of that time dedicated to patient counseling and coordination of care. . Attending Statement The patient was seen and examined together with Dr. Hernandez on 06/29/2016 and I agree with the history, exam and plan as outlined in the note above. . copies to: Bryant Muro Noah M DO Jun 29, 2016 16:53 Jono Greene MD Jun 29, 2016 19:00 We encourage to participate in your care. Follow-up Provider: Whitney Rabago MD Follow-up with PCP in: 1 week Martinez Hernandez DO Jun 29, 2016 4:53 pm
[2016-06-29] MEDS ORDERED: LORA2ORA4 PO (16:56)
[2016-06-29] MEDS ORDERED: MORP100S5 PO (16:56)
[2016-06-29] MEDS ORDERED: HYDR1LIQ4 PO (17:22)
--- NOTE | 2016-06-29 17:48 | NUR ---
Discharge Pt discharged to [facility] via transporter at approximately 1735. Pt IJ DC'd by Dr Alcaraz. IV DC'd by RN catheter intact, Tegaderm and gauze applied. Pt dressed in own clothes for transport. Pt left with all personal belongings. Report given to Chelsea MARTINEZ at [facility] Vincent Huertas.
== END 2016-06-29 17:20 | DRG 291 ==
LOC: SED 14:39 → MPC 18:39 → PCC 06-18 22:18 → CCU 06-21 21:35 → PCC 06-26 08:35
PROVIDERS: ADMIT Internal Medicine; ATTEND Hospitalist
PROC: 4A033R1 Measurement of Arterial Saturation, Peripheral, Percutaneous Approach (ICD-10-PCS; principal; 2016-06-21)
PROC: 02HV33Z Insertion of Infusion Device into Superior Vena Cava, Percutaneous Approach (ICD-10-PCS; 2016-06-21)
PROC: 5A1D00Z (ICD-10-PCS; 2016-06-21)
PROC: 03HY32Z Insertion of Monitoring Device into Upper Artery, Percutaneous Approach (ICD-10-PCS; 2016-06-22)
PROC: 5A1D00Z (ICD-10-PCS; 2016-06-23)
PROC: 5A1D00Z (ICD-10-PCS; 2016-06-24)
PROC: 5A1D00Z (ICD-10-PCS; 2016-06-25)
PROC: 5A1D00Z (ICD-10-PCS; 2016-06-26)
PROC: 5A1D00Z (ICD-10-PCS; 2016-06-27)
PROC: 5A1D00Z (ICD-10-PCS; 2016-06-28)
DX: I50.23 Acute on chronic systolic (congestive) heart failure (principal); R57.0 Cardiogenic shock; N17.0 Acute kidney failure with tubular necrosis; I13.0 Hypertensive heart and chronic kidney disease with heart failure and stage 1 through stage 4 chronic kidney disease, or unspecified chronic kidney disease; I24.8 Other forms of acute ischemic heart disease; Z68.42 Body mass index [BMI] 45.0-49.9, adult; N39.0 Urinary tract infection, site not specified; N18.4 Chronic kidney disease, stage 4 (severe); E66.01 Morbid (severe) obesity due to excess calories; E78.5 Hyperlipidemia, unspecified; I25.2 Old myocardial infarction; E11.21 Type 2 diabetes mellitus with diabetic nephropathy; E03.9 Hypothyroidism, unspecified; Z79.4 Long term (current) use of insulin; Z79.82 Long term (current) use of aspirin; Z92.21 Personal history of antineoplastic chemotherapy; E11.65 Type 2 diabetes mellitus with hyperglycemia; J45.909 Unspecified asthma, uncomplicated; S81.812A Laceration without foreign body, left lower leg, initial encounter; W45.8XXA Other foreign body or object entering through skin, initial encounter; B96.89 Other specified bacterial agents as the cause of diseases classified elsewhere; E87.6 Hypokalemia; T50.2X5A Adverse effect of carbonic-anhydrase inhibitors, benzothiadiazides and other diuretics, initial encounter; E11.649 Type 2 diabetes mellitus with hypoglycemia without coma; Z66 Do not resuscitate; I48.91 Unspecified atrial fibrillation